=== PATIENT | female | born 1985 | race Caucasian/White ===

== ENCOUNTER 2016-09-22 07:17 | Emergency (ER) | payer OTHER ==
[2016-09-22 07:17] VITALS: BMI 21.6
[2016-09-22 08:00] VITALS: RESP 18; TEMP 98.1; O2SAT 100
[2016-09-22] MEDS ORDERED: Sodium Chloride 0.9% 1,000 ML IV STA ×3 (08:10→10:27)
--- NOTE | 2016-09-22 08:13 | ED PDOC ---
Arrival/HPI - General Chief Complaint: Back Pain Time Seen by Provider: 09/22/16 07:57 Historian: Patient - History of Present Illness Narrative History of Present Illness (Text): 09/22/16 08:12 31 year old female with a past medical history that includes diabetes presents to the emergency department with left flank pain radiating to the back for the past few days. Patient also reports vomiting and increased urinary frequency. Patient reports her blood sugar was 75. Denies diarrhea, vaginal bleeding or discharge, dysuria, or other symptoms. She also reports dry cough for a few weeks. Patient states this feels different from when she had a kidney infection. PMD: Dr. Epstein Time/Duration: < week Symptom Onset: Gradual Symptom Course: Unchanged Modifying Factors (Text): None Associated Symptoms (Text): None Past Medical History - Provider Review Nursing Documentation Reviewed: Yes - Infectious Disease Hx of Infectious Diseases: None - Tetanus Immunization Tetanus Immunization: Unknown - Cardiac Hx Cardiac Disorders: Yes (heart murmur) Other/Comment: post sx last summer heart rate rapid pt . wore a halter monitor for 14 days. Hx of rapid heart rate - Pulmonary Hx Respiratory Disorders: No - Neurological Hx Neurological Disorder: Yes Hx Dizziness: Yes (SYNCOPE 02-19-16) - HEENT Hx HEENT Disorder: No - Renal Hx Renal Disorder: No - Endocrine/Metabolic Hx Endocrine Disorders: Yes Hx Diabetes Mellitus Type 1: Yes (dx age 20) Other/Comment: DKA 02-19-16 - Hematological/Oncological Hx Blood Disorders: No - Integumentary Hx Dermatological Disorder: Yes (RIGHT BREAST SCAR FROM EXCISION OF CYST.) Other/Comment: 2 small surgical scars from sx scar to bikini line - Musculoskeletal/Rheumatological Hx Falls: No - Gastrointestinal Hx Gastrointestinal Disorders: No - Genitourinary/Gynecological Hx Genitourinary Disorders: No - Psychiatric Hx Psychophysiologic Disorder: No Hx Substance Use: No - Past Surgical History Past Surgical History: Non-Contributing - Surgical History Other/Comment: cyst removed from right breast and posterior right ear benign, c section 2010, right ovary and right fallopian tube december 2014 - Anesthesia Hx Anesthesia: Yes Hx Anesthesia Reactions: No Hx Malignant Hyperthermia: No - Suicidal Assessment Feels Threatened In Home Enviroment: No Family/Social History - Physician Review Nursing Documentation Reviewed: Yes Family/Social History: Unknown Family HX Smoking Status: Never Smoked Hx Alcohol Use: No Hx Substance Use: No Hx Substance Use Treatment: No Allergies/Home Meds Allergies/Adverse Reactions: Allergies No Known Allergies Allergy (Verified 09/22/16 07:28) Review of Systems - Physician Review All systems were reviewed & negative as marked: Yes - Review of Systems Respiratory: Cough (dry cough x few weeks) Gastrointestinal: Vomiting. absent: Diarrhea Genitourinary Female: Frequency. absent: Dysuria, Vaginal Bleeding, Vaginal Discharge Musculoskeletal: Back Pain (left flank radiating to back) Physical Exam Vital Signs Reviewed: Yes Vital Signs Temp Pulse Resp BP Pulse Ox 09/22/16 10:13 111 H 18 129/83 100 09/22/16 09:17 109 H 18 129/83 100 09/22/16 07:23 98.1 F 125 H 18 125/83 100 Temperature: Afebrile Blood Pressure: Normal Pulse: Tachycardic Respiratory Rate: Normal Appearance: Positive for: Well-Appearing, Non-Toxic, Comfortable Pain Distress: None Mental Status: Positive for: Alert and Oriented X 3 Finger Stick Blood Glucose: 75 - Systems Exam Head: Present: Atraumatic, Normocephalic Pupils: Present: PERRL Extroacular Muscles: Present: EOMI Conjunctiva: Present: Normal Mouth: Present: Moist Mucous Membranes Neck: Present: Normal Range of Motion Respiratory/Chest: Present: Clear to Auscultation, Good Air Exchange. No: Respiratory Distress, Accessory Muscle Use Cardiovascular: Present: Regular Rate and Rhythm, Normal S1, S2. No: Murmurs Abdomen: Present: Normal Bowel Sounds. No: Tenderness, Distention, Peritoneal Signs Back: Present: Normal Inspection Upper Extremity: Present: Normal Inspection. No: Cyanosis, Edema Lower Extremity: Present: Normal Inspection. No: Edema Neurological: Present: GCS=15, CN II-XII Intact, Speech Normal Skin: Present: Warm, Dry, Normal Color. No: Rashes Psychiatric: Present: Alert, Oriented x 3, Normal Insight, Normal Concentration Medical Decision Making ED Course and Treatment: Impression: 31 year old female with a past medical history that includes diabetes presents with left flank pain radiating to the back for the past few days. Differential Diagnosis included but are not limited to: Kidney stone vs UTI Plan: -- EKG, US abdomen -- Toradol, Zofran, IV fluids -- Labs -- Reassess and disposition Prior Visits: Notes and results from previous visits were reviewed. Patient was last seen in the emergency department on 02/19/16 for syncopal episode and admitted for DKA, syncope. Progress Notes: EKG shows sinus tachycardia at 117 BPM, no ST segment elevations, normal axis, normal intervals. 09/22/16 - Prior to discharge HR improved. Patient felt much better. Abdomen soft and not tender. Not distended. US negative. UA negative. Will have patient follow up with her primary care doctor this week. Advised to return to the ED if symptoms worsen or any other concern. - Lab Interpretations Lab Results: 09/22/16 08:41 09/22/16 08:41 Lab Results 09/22/16 08:41: WBC 8.1 D, RBC 4.84, Hgb 14.0, Hct 40.8, MCV 84.3, MCH 28.9, MCHC 34.3, RDW 11.8, Plt Count 313, MPV 9.5, Gran % 67.8, Lymph % (Auto) 20.0 L , [place] % (Auto) 10.4 H, Eos % (Auto) 1.4 L, Baso % (Auto) 0.4, Gran # 5.46, Lymph # 1.6, [place] # 0.8 H, Eos # 0.1, Baso # 0.03, Sodium 137, Potassium 3.4 L, Chloride 96 L, Carbon Dioxide 27, Anion Gap 17, BUN 16, Creatinine 0.6, Est GFR ( Amer) > 60, Est GFR (Non-Af Amer) > 60, Random Glucose 91, Calcium 9.5 , Total Bilirubin 0.7, AST 22, ALT 18, Alkaline Phosphatase 68, Total Protein 8.6 H, Albumin 4.4, Globulin 4.2, Albumin/Globulin Ratio 1.0 L, Amylase 57, Lipase 33, Urine Color Yellow, Urine Appearance Clear, Urine pH 6.0, Ur Specific [place] 1.010, Urine Protein Trace H, Urine Glucose (UA) >=1000, Urine Ketones Negative, Urine Blood Negative, Urine Nitrate Negative, Urine Bilirubin Negative, Urine Urobilinogen 0.2, Ur Leukocyte Esterase Negative, Urine RBC Negative, Urine WBC 0 - 2, Ur Epithelial Cells 6 - 8 09/22/16 07:35: POC Glucose (mg/dL) 75 I have reviewed the lab results: Yes Interpretation: All labs normal - RAD Interpretation Radiology Orders: 09/22/16 08:10 ABDOMEN COMPLETE [US] Stat - EKG Interpretation Interpreted by ED Physician: Yes Type: 12 lead EKG - Medication Orders Current Medication Orders: Discontinued Medications Sodium Chloride (Sodium Chloride 0.9%) 1,000 mls @ 1,000 mls/hr IV .Q1H STA Stop: 09/22/16 09:09 Last Admin: 09/22/16 09:59 Dose: 1,000 MLS/HR eMAR Start Stop Document 09/22/16 09:59 JOL (Rec: 09/22/16 09:59 [facility] [id number]) Intravenous Solution Start Date 09/22/16 Start Time 09:59 End Date 09/22/16 End time 10:59 Total Infusion Time 60 Sodium Chloride (Sodium Chloride 0.9%) 1,000 mls @ 999 mls/hr IV .Q1H1M STA Stop: 09/22/16 09:11 Last Admin: 09/22/16 08:29 Dose: 999 MLS/HR eMAR Start Stop Document 09/22/16 08:29 JOL (Rec: 09/22/16 08:29 [facility] [id number]) Intravenous Solution Start Date 09/22/16 Start Time 08:29 End Date 09/22/16 End time 09:29 Total Infusion Time 60 Sodium Chloride (Sodium Chloride 0.9%) 1,000 mls @ 999 mls/hr IV .Q1H1M STA Stop: 09/22/16 11:27 Last Admin: 09/22/16 11:13 Dose: 999 MLS/HR eMAR Start Stop Document 09/22/16 11:13 JOL (Rec: 09/22/16 11:14 [facility] [id number]) Intravenous Solution Start Date 09/22/16 Start Time 11:14 End Date 09/22/16 End time 12:14 Total Infusion Time 60 Ketorolac Tromethamine (Toradol) 30 mg IVP STAT STA Stop: 09/22/16 08:11 Last Admin: 09/22/16 08:29 Dose: 30 MG IVP Administration Document 09/22/16 08:29 JOL (Rec: 09/22/16 08:29 [facility] [id number]) Charges for Administration # of IVP Administrations 1 Ondansetron HCl (Zofran Inj) 4 mg IVP STAT STA Stop: 09/22/16 08:11 Last Admin: 09/22/16 08:29 Dose: 4 MG IVP Administration Document 09/22/16 08:29 THOM (Rec: 09/22/16 08:29 [place] [facility] [id number] Charges for Administration # of IVP Administrations 1 Potassium Chloride (K-Dur 20 Meq Er Tab) 40 meq PO STAT STA Stop: 09/22/16 09:04 Last Admin: 09/22/16 09:43 Dose: 40 MEQ - Scribe Statement The provider has reviewed the documentation as recorded by the Doyle Wilson Provider Scribe Attestation: All medical record entries made by the Scribe were at my direction and personally dictated by me. I have reviewed the chart and agree that the record accurately reflects my personal performance of the history, physical exam, medical decision making, and the department course for this patient. I have also personally directed, reviewed, and agree with the discharge instructions and disposition. Disposition/Present on Arrival - Present on Arrival Any Indicators Present on Arrival: Yes History of DVT/PE: No History of Uncontrolled Diabetes: Yes Urinary Catheter: No History of Decub. Ulcer: No History Surgical Site Infection Following: None - Disposition Have Diagnosis and Disposition been Completed?: Yes Diagnosis: Abdominal pain Disposition: HOME/ ROUTINE Disposition Time: 12:11 Patient Plan: Discharge Patient Problems: Current Active Problems Problem Status Diagnosed DVT prophylaxis Acute Diabetes type 1, uncontrolled Acute Gastroparesis Acute Condition: IMPROVED Discharge Instructions (ExitCare): Diabetic Gastroparesis (DC), Abdominal Pain (ED) Additional Instructions: Ms Leal, thank you for letting us take care of you today. Your provider was Dr. Stanley. You were treated for Abdominal Pain. The emergency medical care you received today was directed at your acute symptoms. If you were prescribed any medication, please fill it and take as directed. It may take several days for your symptoms to resolve. Return to the Emergency Department if your symptoms worsen, do not improve, or if you have any other problems. Please contact your doctor or call one of the physicians/clinics you have been referred to that are listed on the Patient Visit Information form that is included in your discharge packet. Bring any paperwork you were given at discharge with you along with any medications you are taking to your follow up visit. Our treatment cannot replace ongoing medical care by a primary care provider (PCP) outside of the emergency department. Thank you for allowing the [facility] team to be part of your care today. If you had an X-Ray or CT scan: A Radiologist will review the ED reading if any change in treatment is needed we will contact you. If you had a blood, urine, or wound culture: It will take several days for the results, if any change in treatment is needed we will contact you. If you had an STI test: It will take 48 hours for the results. Please call after 1 week if you have not heard back. Prescriptions: Ranitidine HCl [Zantac] 150 mg PO BID PRN #30 tablet PRN Reason: Pain, Mild (1-3) Referrals: Rani Reed DO [[facility]] - Follow up with primary Forms: WORK NOTE
[2016-09-22 08:43] LABS: ADD MANUAL DIFF? NO
[2016-09-22 08:55] LABS: ALKALINE PHOSPHATASE 68 U/L (38-133); ALT/SGPT 18 U/L (7-56); AMYLASE 57 U/L (35-125); AST/SGOT 22 U/L (15-39); BILIRUBIN,TOTAL 0.7 mg/dL (0.2-1.3); BLOOD UREA NITROGEN 16 mg/dL (7-21); CALCIUM 9.5 mg/dL (8.4-10.5); CARBON DIOXIDE 27 mmol/L (21-33); CHLORIDE 96 mmol/L (98-107); GFR AFRICAN-AMERICAN > 60; GLUCOSE,RANDOM 91 mg/dL (70-110); LIPASE 33 U/L (23-300); POTASSIUM 3.4 mmol/L (3.6-5.0); SODIUM 137 mmol/L (132-148); TOTAL PROTEIN 8.6 g/dL (5.8-8.3)
[2016-09-22] MEDS ORDERED: Potassium Chloride 20 mEq ER Tab PO STA (09:03)
[2016-09-22 09:22] LABS: BASO # 0.03 K/mm3 (0.0-2.0); BASO % 0.4 % (0.0-3.0); EOS # 0.1 (0.0-0.7); EOS % 1.4 % (1.5-5.0); GRAN # 5.46 (1.4-6.5); GRAN % 67.8 % (50.0-68.0); HEMATOCRIT 40.8 % (36.0-48.0); LYMPH # 1.6 (1.2-3.4); MEAN CELL VOLUME 84.3 fL (80.0-105.0); MEAN CORPUSCULAR HEMOGLOBIN 28.9 pg (25.0-35.0); MEAN CORPUSCULAR HGB CONC 34.3 g/dl (31.0-37.0); MEAN PLATELET VOLUME 9.5 fl (7.0-11.0); MONO # 0.8 (0.1-0.6); MONO % 10.4 % (1.0-6.0); PLATELET COUNT 313 10^3/uL (120.0-450.0); RED CELL DISTRIBUTION WIDTH 11.8 % (11.5-14.5); URINE BILIRUBIN NEGATIVE (NEGATIVE); URINE BLOOD NEGATIVE (NEGATIVE); URINE GLUCOSE (UA) >=1000 mg/dL (NEGATIVE); URINE KETONE NEGATIVE (NEGATIVE); URINE LEUKOCYTE ESTERASE NEGATIVE Leu/uL (NEGATIVE); URINE PROTEIN TRACE mg/dL (<30 mg/dL); URINE UROBILINOGEN 0.2 E.U./dL (<1 E.U./dL); WHITE BLOOD COUNT 8.1 10^3/ul (4.5-11.0)
[2016-09-22 09:26] LABS: URINE APPEARANCE CLEAR (CLEAR); URINE COLOR YELLOW (YELLOW)
[2016-09-22 09:38] LABS: URINE RBC NEGATIVE /hpf (0-2)
[2016-09-22 09:39] LABS: URINE WBC 0 - 2 /hpf (0-6)
[2016-09-22 10:08] VITALS: BP 129/83
[2016-09-22 10:14] VITALS: PULSE 111
--- NOTE | 2016-09-22 11:44 | US ---
HISTORY: left flank pain r/o kidney stone COMPARISON: None. TECHNIQUE: Grayscale imaging was performed. FINDINGS: LIVER: Measures 13.8 cm. Normal echogenicity of the liver parenchyma. No mass. No intrahepatic bile duct dilatation. GALLBLADDER: Unremarkable. No gallstones. COMMON BILE DUCT: Measures 4.0 mm. No stones. No dilatation. PANCREAS: Unremarkable as visualized. No mass. No ductal dilatation. RIGHT KIDNEY: Measures 12.1cm. Normal echogenicity. No calculus, mass, or hydronephrosis. LEFT KIDNEY: Measures 11.2cm. Normal echogenicity. No calculus, mass, or hydronephrosis. SPLEEN: Normal in size and contour. No mass. AORTA: No aneurysmal dilatation. IVC: Unremarkable. OTHER FINDINGS: None. IMPRESSION: No nephrolithiasis or hydronephrosis.
--- NOTE | 2016-09-22 18:26 | CARD ---
APPROVED REPORT EKG Measurement Heart [id number] <Conclusion> Sinus tachycardia Otherwise normal ECG
== END 2016-09-22 12:12 | disposition home or self-care (01) ==
LOC: ED 07:17
DX: R10.9 Unspecified abdominal pain (principal)
CPT/HCPCS: 76700; 80053; 81001; 82150; 82948; 83690; 85025; 87086; 93005; 96361; 96374; 96375; 99283; J1885; J2405; J7040

== ENCOUNTER 2016-11-24 19:23 | Emergency (ER) | payer SELFPAY ==
[2016-11-24 19:36] VITALS: RESP 18; TEMP 98.4
[2016-11-24 19:37] VITALS: BMI 24.6
[2016-11-24] MEDS ORDERED: TDAP Vaccine 0.5 mL Syr IM ONE (19:53)
--- NOTE | 2016-11-24 20:04 | ED PDOC ---
Arrival/HPI - General Time Seen by Provider: 11/24/16 19:48 Historian: Patient - History of Present Illness Narrative History of Present Illness (Text): 11/24/16 19:59 31yo female with history of Diabetes present to ED for evaluation of wounds and b/l hand/wrist pain. states she tripped over a metal basement door 3days ago and fell. She noted that she sustained abrasion to her b/l hands and left knee. states the left knee wound is healing well, but she has been having purulent discharge and blood from her hand wound. Notes that she keeps the wound covered. She did not take any medication for her pain. Denies fever, chills, LOC , focal weakness, any other complaint. Past Medical History - Provider Review Nursing Documentation Reviewed: Yes - Infectious Disease Hx of Infectious Diseases: None - Tetanus Immunization Tetanus Immunization: Unknown - Cardiac Hx Cardiac Disorders: Yes (heart murmur) Other/Comment: post sx last summer heart rate rapid pt . wore a halter monitor for 14 days. Hx of rapid heart rate - Pulmonary Hx Respiratory Disorders: No - Neurological Hx Neurological Disorder: Yes Hx Dizziness: Yes (SYNCOPE 02-19-16) - HEENT Hx HEENT Disorder: No - Renal Hx Renal Disorder: No - Endocrine/Metabolic Hx Endocrine Disorders: Yes Hx Diabetes Mellitus Type 1: Yes (dx age 20) Other/Comment: DKA 02-19-16 - Hematological/Oncological Hx Blood Disorders: No - Integumentary Hx Dermatological Disorder: Yes (RIGHT BREAST SCAR FROM EXCISION OF CYST.) Other/Comment: 2 small surgical scars from sx scar to bikini line - Musculoskeletal/Rheumatological Hx Falls: No - Gastrointestinal Hx Gastrointestinal Disorders: No - Genitourinary/Gynecological Hx Genitourinary Disorders: No - Psychiatric Hx Psychophysiologic Disorder: No Hx Substance Use: No - Past Surgical History Past Surgical History: Non-Contributing - Surgical History Other/Comment: cyst removed from right breast and posterior right ear benign, c section 2010, right ovary and right fallopian tube december 2014 - Anesthesia Hx Anesthesia: Yes Hx Anesthesia Reactions: No Hx Malignant Hyperthermia: No - Suicidal Assessment Feels Threatened In Home Enviroment: No Family/Social History - Physician Review Nursing Documentation Reviewed: Yes Family/Social History: Unknown Family HX Smoking Status: Never Smoked Hx Alcohol Use: No Hx Substance Use: No Hx Substance Use Treatment: No Allergies/Home Meds Allergies/Adverse Reactions: Allergies No Known Allergies Allergy (Verified 09/22/16 07:28) Review of Systems - Physician Review All systems were reviewed & negative as marked: Yes - Review of Systems Constitutional: Normal Eyes: Normal ENT: Normal Respiratory: Normal Cardiovascular: Normal Gastrointestinal: Normal Genitourinary Female: Normal Musculoskeletal: Arthralgias (B/l hands/wrist) Skin: Other (Abrasion to b/l hands and left knee) Neurological: Normal Endocrine: Normal Hemo/Lymphatic: Normal Psychiatric: Normal Physical Exam Vital Signs Reviewed: Yes Vital Signs Temp Pulse Resp BP Pulse Ox 11/24/16 19:35 98.4 F 103 H 18 133/85 100 Temperature: Afebrile Blood Pressure: Normal Pulse: Tachycardic Respiratory Rate: Normal Appearance: Positive for: Well-Appearing, Non-Toxic, Comfortable Pain Distress: None Mental Status: Positive for: Alert and Oriented X 3 - Systems Exam Head: Present: Atraumatic, Normocephalic Pupils: Present: PERRL Extroacular Muscles: Present: EOMI Conjunctiva: Present: Normal Mouth: Present: Moist Mucous Membranes Neck: Present: Normal Range of Motion Respiratory/Chest: Present: Clear to Auscultation, Good Air Exchange. No: Respiratory Distress, Accessory Muscle Use Cardiovascular: Present: Regular Rate and Rhythm, Normal S1, S2. No: Murmurs Abdomen: Present: Normal Bowel Sounds. No: Tenderness, Distention, Peritoneal Signs Back: Present: Normal Inspection Upper Extremity: Present: Normal ROM, NORMAL PULSES, Tenderness (right wrist and fingers), Swelling (Right 2 to 5th fingers), Neurovascularly Intact, Other ( Approximately 2cm circular abrasions noted on b/l wrist with purulent discharge on right hand wound. No erythema. No crepitus. No warmth to touch). No: Cyanosis, Edema, Erythema, Temperature Abnormalties, Deformity Lower Extremity: Present: Normal Inspection. No: Edema Neurological: Present: GCS=15, CN II-XII Intact, Speech Normal Skin: Present: Warm, Dry, Normal Color, Abrasion (Abrasion noted to b/l anaya hand with purulent discharge and healing abrasion noted on left knee). No: Rashes Psychiatric: Present: Alert, Oriented x 3, Normal Insight, Normal Concentration Medical Decision Making ED Course and Treatment: 11/24/16 20:45 B/L hand/wrist xray - Possible fracture of left 5th finger PIP noted Wound was cleansed with betadine, bacitracine applied and dressed. Finger splint placed. Pt advised to keep wound clean and dry. Placed on Keflex 500mg. TD booster given. Referred to her PMD. TRT ED for any new or worsening symptoms. - RAD Interpretation Radiology Orders: 11/24/16 19:52 HAND LEFT 3 VIEWS ROUTINE [RAD] Stat HAND RIGHT 3 VIEWS [RAD] Stat WRIST, LEFT 3 VIEWS [RAD] Stat WRIST, RIGHT 3 VIEWS [RAD] Stat - Medication Orders Current Medication Orders: Discontinued Medications Cephalexin Monohydrate (Keflex) 500 mg PO STAT STA PRN Reason: Protocol Stop: 11/24/16 19:54 Last Admin: 11/24/16 20:16 Dose: 500 mg Ibuprofen (Motrin Tab) 600 mg PO STAT STA Stop: 11/24/16 19:54 Last Admin: 11/24/16 20:16 Dose: 600 mg Tetanus/Reduced Diphtheria/Acell Pertussis (Boostrix Vaccine Inj) 0.5 ml IM .ONCE ONE Stop: 11/24/16 19:54 Last Admin: 11/24/16 20:16 Dose: 0.5 ml Disposition/Present on Arrival - Present on Arrival Any Indicators Present on Arrival: No History of DVT/PE: No History of Uncontrolled Diabetes: Yes Urinary Catheter: No History Surgical Site Infection Following: None - Disposition Have Diagnosis and Disposition been Completed?: Yes Diagnosis: Infected wound, Finger fracture, Wrist pain, Abrasion Disposition: HOME/ ROUTINE Disposition Time: 20:50 Patient Plan: Discharge Patient Problems: Current Active Problems Problem Status Onset Abrasion Acute Finger fracture Acute Infected wound Acute Wrist pain Acute Condition: STABLE Discharge Instructions (ExitCare): Wrist Injury (ED), Wound Infection (ED), Acute Wound Care (ED), Abrasion (ED) Additional Instructions: Follow up with your Doctor Return to ED for any new or worsening symptoms Keep wound clean and dry Prescriptions: Bacitracin OINT 1 applic TP BID #1 tube Cephalexin [Keflex] 500 mg PO QID #28 capsule traMADol [Ultram] 50 mg PO TID #9 tab Referrals: [facility] at [facility] [place] [Outside] - Follow up with primary
[2016-11-24 21:23] VITALS: BP 130/82; PULSE 90; O2SAT 99
--- NOTE | 2016-11-25 08:25 | RAD ---
PROCEDURE: Left Hand Radiographs. HISTORY: hand pain s/p trauma COMPARISON: None. FINDINGS: BONES: Normal. No fracture. JOINTS: Normal. No osteoarthritic changes. SOFT TISSUES: Normal. OTHER FINDINGS: None. IMPRESSION: Normal left hand radiographs.
--- NOTE | 2016-11-25 08:26 | RAD ---
PROCEDURE: Right Hand Radiographs. HISTORY: hand pain s/p trauma COMPARISON: None. FINDINGS: BONES: Normal. No fracture. JOINTS: Normal. No osteoarthritic changes. SOFT TISSUES: Normal. OTHER FINDINGS: None. IMPRESSION: Normal right hand radiographs.
--- NOTE | 2016-11-25 08:27 | RAD ---
PROCEDURE: Right Wrist Radiographs. HISTORY: wrist pain s/p trauma COMPARISON: None. FINDINGS: BONES: Normal. No fracture. JOINTS: Normal. No dislocation. SOFT TISSUES: Normal. OTHER FINDINGS: None. IMPRESSION: Normal right wrist radiographs.
--- NOTE | 2016-11-25 08:27 | RAD ---
PROCEDURE: Left Wrist Radiographs. HISTORY: wrist pain s/p trauma COMPARISON: None. FINDINGS: BONES: Normal. No fracture. JOINTS: Normal. No dislocation. SOFT TISSUES: Normal. OTHER FINDINGS: None. IMPRESSION: Normal left wrist radiographs.
== END 2016-11-24 21:22 | disposition home or self-care (01) ==
LOC: ED 19:23
DX: S62.609A Fracture of unspecified phalanx of unspecified finger, initial encounter for closed fracture (principal); S60.512A Abrasion of left hand, initial encounter; S60.511A Abrasion of right hand, initial encounter; S80.212A Abrasion, left knee, initial encounter; W01.0XXA Fall on same level from slipping, tripping and stumbling without subsequent striking against object, initial encounter; Z23 Encounter for immunization; M25.532 Pain in left wrist; M25.531 Pain in right wrist; B99.9 Unspecified infectious disease

== ENCOUNTER 2018-01-25 04:39 | Emergency (ER) | payer SELFPAY ==
[2018-01-25 04:53] VITALS: BMI 23.8
[2018-01-25 04:57] VITALS: TEMP 98.2
--- NOTE | 2018-01-25 05:02 | ED PDOC ---
Arrival/HPI - General Chief Complaint: Shortness Of Breath Time Seen by Provider: 01/25/18 04:57 Historian: Patient - History of Present Illness Narrative History of Present Illness (Text): 01/25/18 05:02 Nataly Maciel is a 32 year old female, whose past medical history includes IDDM, DKA, rhabdomyolysis, and ovarian torsion, who presents to the emergency department complaining of shortness of breath. Patient states she has been feeling short of breath since yesterday afternoon and notes she has been feeling anxious at times. Patient notes her blood sugar was high at 464 yesterday after eating. Fingerstick on arrival to emergency department was 363. Patient denies any fevers, chills, chest pain, abdominal pain, nausea, vomiting , diarrhea, back pain, neck pain, urinary symptoms, headache, dizziness, or any other complaint. Symptom Onset: Gradual Symptom Course: Unchanged Activities at Onset: Light Context: Home Past Medical History - Provider Review Nursing Documentation Reviewed: Yes - Infectious Disease Hx of Infectious Diseases: None - Tetanus Immunization Tetanus Immunization: Unknown - Cardiac Hx Cardiac Disorders: Yes (heart murmur) Other/Comment: post sx last summer heart rate rapid pt . wore a halter monitor for 14 days. Hx of rapid heart rate - Pulmonary Hx Respiratory Disorders: No - Neurological Hx Neurological Disorder: Yes Hx Dizziness: Yes (SYNCOPE 02-19-16) - HEENT Hx HEENT Disorder: No - Renal Hx Renal Disorder: No - Endocrine/Metabolic Hx Endocrine Disorders: Yes Hx Diabetes Mellitus Type 1: Yes (dx age 20) Other/Comment: DKA 02-19-16 - Hematological/Oncological Hx Blood Disorders: No - Integumentary Hx Dermatological Disorder: Yes (RIGHT BREAST SCAR FROM EXCISION OF CYST.) Other/Comment: 2 small surgical scars from sx scar to bikini line - Musculoskeletal/Rheumatological Hx Falls: No - Gastrointestinal Hx Gastrointestinal Disorders: No - Genitourinary/Gynecological Hx Genitourinary Disorders: No - Psychiatric Hx Psychophysiologic Disorder: No Hx Substance Use: No - Past Surgical History Past Surgical History: Non-Contributing - Surgical History Other/Comment: cyst removed from right breast and posterior right ear benign, c section 2010, right ovary and right fallopian tube december 2014 - Anesthesia Hx Anesthesia: Yes Hx Anesthesia Reactions: No Hx Malignant Hyperthermia: No - Suicidal Assessment Feels Threatened In Home Enviroment: No Family/Social History - Physician Review Nursing Documentation Reviewed: Yes Family/Social History: Unknown Family HX Smoking Status: Never Smoked Hx Alcohol Use: No Hx Substance Use: No Hx Substance Use Treatment: No Allergies/Home Meds Allergies/Adverse Reactions: Allergies No Known Allergies Allergy (Verified 09/22/16 07:28) Review of Systems - Physician Review All systems were reviewed & negative as marked: Yes - Review of Systems Constitutional: Normal. absent: Fevers Eyes: Normal ENT: Normal Respiratory: SOB Cardiovascular: Normal. absent: Chest Pain Gastrointestinal: Normal. absent: Abdominal Pain, Diarrhea, Nausea, Vomiting Genitourinary Female: Normal. absent: Dysuria, Frequency, Hematuria, Urine Output Changes Musculoskeletal: Normal. absent: Back Pain, Neck Pain Skin: Normal Neurological: Normal. absent: Headache, Dizziness Endocrine: Normal Hemo/Lymphatic: Normal Psychiatric: Normal Physical Exam Vital Signs Reviewed: Yes Vital Signs Temp Pulse Resp BP Pulse Ox 01/25/18 04:57 98.2 F 110 H 19 141/87 98 01/25/18 04:53 19 Temperature: Afebrile Blood Pressure: Normal Pulse: Regular Respiratory Rate: Normal Appearance: Positive for: Well-Appearing, Non-Toxic, Comfortable Pain Distress: None Mental Status: Positive for: Alert and Oriented X 3 - Systems Exam Head: Present: Atraumatic, Normocephalic Pupils: Present: PERRL Extroacular Muscles: Present: EOMI Conjunctiva: Present: Normal Mouth: Present: Moist Mucous Membranes Neck: Present: Normal Range of Motion. No: Meningeal Signs, MIDLINE TENDERNESS , Paraspinal Tenderness Respiratory/Chest: Present: Clear to Auscultation, Good Air Exchange. No: Respiratory Distress, Accessory Muscle Use Cardiovascular: Present: Regular Rate and Rhythm, Normal S1, S2. No: Murmurs Abdomen: No: Tenderness, Distention, Peritoneal Signs Back: Present: Normal Inspection. No: CVA Tenderness, Midline Tenderness, Paraspinal Tenderness Upper Extremity: Present: Normal Inspection. No: Cyanosis, Edema Lower Extremity: Present: Normal Inspection. No: Edema Neurological: Present: GCS=15, CN II-XII Intact, Speech Normal Skin: Present: Warm, Dry, Normal Color. No: Rashes Psychiatric: Present: Alert, Oriented x 3, Normal Insight, Normal Concentration Medical Decision Making ED Course and Treatment: 01/25/18 05:02 Impression: 32 year old female complaining of shortness of breath since yesterday. Plan: -- EKG -- CXR -- Labs, VBG -- IV fluids -- Reassess and disposition Prior Visits: Notes and results from previous visits were reviewed. Progress Notes: 01/25/18 05:50 CXR reviewed, shows no acute processes. 01/25/18 05:52 Reviewed EKG, sinus tachycardia at 100 bpm. No acute changes. - Lab Interpretations Lab Results: 01/25/18 05:33 01/25/18 05:33 Lab Results 01/25/18 05:33: D-Dimer, Quantitative 204 01/25/18 05:33: pO2 37, VBG pH 7.31 L, VBG pCO2 48.0, VBG HCO3 24.2, VBG Total CO2 25.7, VBG O2 Sat (Calc) 74.8 H, VBG Base Excess -2.5 L, VBG Potassium 4.2, Sodium 133.0, Chloride 100.0, Glucose 396 H, Lactate 0.8, FiO2 21.0, Venous Blood Potassium 4.2 01/25/18 05:33: PT 11.5, INR 1.00, APTT 28.7 01/25/18 05:33: WBC 8.1, RBC 4.43, Hgb 12.8, Hct 37.3, MCV 84.2, MCH 28.9, MCHC 34.3, RDW 12.0, Plt Count 298, MPV 9.7 01/25/18 05:33: Sodium 136, Chloride 99, Potassium 4.3, Carbon Dioxide 23, Anion Gap 17, BUN 10, Creatinine 0.5 L, Est GFR ( Amer) > 60, Est GFR ( Non-Af Amer) > 60, Random Glucose 376 H* D, Calcium 9.2, Total Bilirubin 0.8, AST 18, ALT 27, Alkaline Phosphatase 70, Total Protein 7.7, Albumin 4.3, Globulin 3.4, Albumin/Globulin Ratio 1.3 01/25/18 04:48: POC Glucose (mg/dL) 363 H I have reviewed the lab results: Yes - RAD Interpretation Radiology Orders: 01/25/18 05:03 CHEST PORTABLE [RAD] Stat Baking Assistant: ED Physician - EKG Interpretation Interpreted by ED Physician: Yes Type: 12 lead EKG - Medication Orders Current Medication Orders: Discontinued Medications Sodium Chloride (Sodium Chloride 0.9%) 1,000 mls @ 999 mls/hr IV .Q1H1M STA Stop: 01/25/18 06:04 Last Admin: 01/25/18 05:36 Dose: 999 mls/hr eMAR Start Stop Document 01/25/18 05:36 OCS (Rec: 01/25/18 05:37 OCS [id number]) Intravenous Solution Start Date 01/25/18 Start Time 05:37 End Date 01/25/18 End time 06:38 Total Infusion Time 61 Insulin Human Regular (Humulin R) 10 units SC STAT STA Stop: 01/25/18 06:20 Last Admin: 01/25/18 06:33 Dose: 10 units MAR Blood Glucose Document 01/25/18 06:33 OCS (Rec: 01/25/18 06:34 OCS [id number]) Blood Glucose Finger Stick Blood Glucose (70-120) 376 Subcutaneous Administrations Document 01/25/18 06:33 OCS (Rec: 01/25/18 06:34 OCS [id number]) Injection Site MAR Injection Site Right Arm Charges for Administration # of Subcutaneous Administrations 1 - Scribe Statement The provider has reviewed the documentation as recorded by the Doyle Newberry Provider Scribe Attestation: All medical record entries made by the Scribe were at my direction and personally dictated by me. I have reviewed the chart and agree that the record accurately reflects my personal performance of the history, physical exam, medical decision making, and the department course for this patient. I have also personally directed, reviewed, and agree with the discharge instructions and disposition. Disposition/Present on Arrival - Present on Arrival Any Indicators Present on Arrival: No History of DVT/PE: No History of Uncontrolled Diabetes: Yes Urinary Catheter: No History of Decub. Ulcer: No History Surgical Site Infection Following: None - Disposition Have Diagnosis and Disposition been Completed?: Yes Diagnosis: Anxiety, Diabetes mellitus Disposition: HOME/ ROUTINE Disposition Time: 06:46 Patient Plan: Discharge Condition: GOOD Additional Instructions: Rest/no strenuous physical activity next few days/maintain proper rest/monitor closely your blood sugars/follow up with your doctor this week Referrals: Rani Reed DO [Primary Care Provider] - Follow up with primary Forms: [employer] (Citizen Of [place])
[2018-01-25] MEDS ORDERED: Sodium Chloride 0.9% 1,000 ML IV STA (05:04)
[2018-01-25 05:49] LABS: VENOUS BLOOD GAS BASE EXCESS -2.5 mmol/L (0.0-2.0); VENOUS BLOOD GAS PO2 37 mm/Hg (30-55); VENOUS BLOOD PH 7.31 (7.32-7.43)
[2018-01-25 06:13] LABS: HEMOGLOBIN 12.8 g/dL (12.0-16.0); MEAN CELL VOLUME 84.2 fl (80.0-105.0); MEAN CORPUSCULAR HEMOGLOBIN 28.9 pg (25.0-35.0); MEAN CORPUSCULAR HGB CONC 34.3 g/dl (31.0-37.0); MEAN PLATELET VOLUME 9.7 fl (7.0-11.0); RBC 4.43 10^6/uL (3.5-6.1); WHITE BLOOD COUNT 8.1 10^3/ul (4.5-11.0)
[2018-01-25 06:18] LABS: ALB/GLOB RATIO 1.3 (1.1-1.8); ALBUMIN 4.3 g/dL (3.0-4.8); ALT/SGPT 27 U/L (7-56); AST/SGOT 18 U/L (14-36); BLOOD UREA NITROGEN 10 mg/dL (7-21); CALCIUM 9.2 mg/dL (8.4-10.5); GFR AFRICAN-AMERICAN > 60; GFR NON-AFRICAN AMERICAN > 60; PARTIAL THROMBOPLASTIN TIME 28.7 Seconds (25.1-36.5); PROTHROMBIN TIME 11.5 SECONDS (9.4-12.5)
[2018-01-25] MEDS ORDERED: Insulin Regular 1 UNITS/0.01 ML ML SC STA (06:19)
[2018-01-25 07:03] VITALS: BP 122/80; RESP 18
[2018-01-25 07:15] VITALS: PULSE 97; O2SAT 99
--- NOTE | 2018-01-25 11:00 | RAD ---
Date of service: 01/25/2018 HISTORY: Shortness of breath. COMPARISON: 02/19/2016. No significant interval change compared to the prior examination(s). FINDINGS: LUNGS: No active pulmonary disease. PLEURA: No significant pleural effusion identified, no pneumothorax apparent. CARDIOVASCULAR: Normal. OSSEOUS STRUCTURES: No significant abnormalities. VISUALIZED UPPER ABDOMEN: Normal. OTHER FINDINGS: None. IMPRESSION: No active disease. No significant interval change compared to the prior examination(s).
--- NOTE | 2018-01-25 12:51 | CARD ---
APPROVED REPORT Date of service: 01/25/2018 EKG Measurement Heart [id number] <Conclusion> Sinus tachycardia Otherwise normal ECG
== END 2018-01-25 07:15 | disposition home or self-care (01) ==
LOC: ED 04:39
DX: F41.9 Anxiety disorder, unspecified (principal); E10.9 Type 1 diabetes mellitus without complications; Z79.4 Long term (current) use of insulin
CPT/HCPCS: 71045; 80053; 82803; 82948; 85027; 85378; 85610; 85730; 93005; 96360; 96372; 99284; J7030

== ENCOUNTER 2018-05-29 06:43 | Inpatient (IN) | payer MEDICAID, OTHER ==
[2018-05-29 06:50] VITALS: BMI 21.2
[2018-05-29] MEDS ORDERED: Sodium Chloride 0.9% 1,000 ML IV STA ×2 (07:11→07:57)
[2018-05-29 07:33] LABS: BASO # 0.04 K/mm3 (0.0-2.0); BASO % 0.2 % (0.0-3.0); EOS % 0.1 % (1.5-5.0); GRAN # 13.69 (1.4-6.5); GRAN % 85.5 % (50.0-68.0); HEMOGLOBIN 14.8 g/dL (12.0-16.0); LYMPH # 1.7 (1.2-3.4); LYMPH % 10.5 % (22.0-35.0); MEAN CELL VOLUME 89.8 fl (80.0-105.0); MEAN CORPUSCULAR HEMOGLOBIN 29.7 pg (25.0-35.0); MEAN CORPUSCULAR HGB CONC 33.1 g/dl (31.0-37.0); MEAN PLATELET VOLUME 10.2 fl (7.0-11.0); MONO # 0.6 (0.1-0.6); MONO % 3.7 % (1.0-6.0); RBC 4.98 10^6/uL (3.5-6.1); RED CELL DISTRIBUTION WIDTH 12.5 % (11.5-14.5)
[2018-05-29 07:35] LABS: VENOUS BLOOD GAS BASE EXCESS -25.1 mmol/L (0.0-2.0); VENOUS BLOOD GAS PO2 73 mm/Hg (30-55)
[2018-05-29 07:37] LABS: VENOUS BLOOD PH 6.97 (7.32-7.43)
[2018-05-29 07:54] LABS: ALB/GLOB RATIO 1.4 (1.1-1.8); ALBUMIN 4.9 g/dL (3.0-4.8); ALT/SGPT 29 U/L (7-56); AST/SGOT 20 U/L (14-36); BLOOD UREA NITROGEN 14 mg/dL (7-21); CALCIUM 9.6 mg/dL (8.4-10.5); GFR NON-AFRICAN AMERICAN > 60; LIPASE 74 U/L (23-300)
[2018-05-29] MEDS ORDERED: Insulin Regular 100 UNITS in Sodium Chloride 0.9% 99 ML IV PRN (07:57)
[2018-05-29] MEDS ORDERED: Sodium Bicarbonate (8.4%) 50 Meq Syringe IVP ONE (07:57)
--- NOTE | 2018-05-29 08:47 | ED PDOC ---
Arrival/HPI - General Chief Complaint: Shortness Of Breath Historian: Patient - Critical Care Critical Care Minutes: 60 minutes - History of Present Illness Narrative History of Present Illness (Text): 05/29/18 07:35 33 year old female, whose past medical history includes insulin dependent diabetes, DKA, rhabdomyolysis, and ovarian torsion, who presents to the Emergency department complaining of abdominal pain, palpitations, nausea/vomiting since about 1 hour prior to arrival. Patient reports she has vomited 4 times since onset. Patient states she has not taken insulin for a couple of months since she does not have insurance, although has applied for [facility], and cannot afford to buy the Insulin as it is too expensive. Patient notes dysuria and chills. Patient denies diarrhea or any other complaint . Last visit to PMD was a few months ago. PMD: Dr. Reed Time/Duration: 1 hour (Patient notes onset approximately 1 hour prior to arrival) Symptom Onset: Sudden Symptom Course: Unchanged Activities at Onset: Light Past Medical History - Provider Review Nursing Documentation Reviewed: Yes - Infectious Disease Hx of Infectious Diseases: None - Tetanus Immunization Tetanus Immunization: Unknown - Cardiac Hx Cardiac Disorders: Yes (heart murmur) Other/Comment: post sx last summer heart rate rapid pt . wore a halter monitor for 14 days. Hx of rapid heart rate - Pulmonary Hx Respiratory Disorders: No - Neurological Hx Neurological Disorder: Yes Hx Dizziness: Yes (SYNCOPE 02-19-16) - HEENT Hx HEENT Disorder: No - Renal Hx Renal Disorder: No - Endocrine/Metabolic Hx Endocrine Disorders: Yes Hx Diabetes Mellitus Type 1: Yes (dx age 20) Other/Comment: DKA 02-19-16 - Hematological/Oncological Hx Blood Disorders: No - Integumentary Hx Dermatological Disorder: Yes (RIGHT BREAST SCAR FROM EXCISION OF CYST.) Other/Comment: 2 small surgical scars from sx scar to bikini line - Musculoskeletal/Rheumatological Hx Falls: No - Gastrointestinal Hx Gastrointestinal Disorders: No - Genitourinary/Gynecological Hx Genitourinary Disorders: No - Psychiatric Hx Psychophysiologic Disorder: No Hx Substance Use: No - Past Surgical History Past Surgical History: Non-Contributing - Surgical History Hx Section: Yes Other/Comment: cyst removed from right breast and posterior right ear benign, c section 2010, right ovary and right fallopian tube december 2014 - Anesthesia Hx Anesthesia: Yes Hx Anesthesia Reactions: No Hx Malignant Hyperthermia: No - Suicidal Assessment Feels Threatened In Home Enviroment: No Family/Social History - Physician Review Nursing Documentation Reviewed: Yes Family/Social History: No Known Family HX Smoking Status: Never Smoked Hx Alcohol Use: No Hx Substance Use: No Hx Substance Use Treatment: No Allergies/Home Meds Allergies/Adverse Reactions: Allergies No Known Allergies Allergy (Verified 09/22/16 07:28) Review of Systems - Physician Review All systems were reviewed & negative as marked: Yes - Review of Systems Constitutional: Other (patient notes chills). absent: Normal, Fevers (pt denies fevers) Cardiovascular: Palpitations. absent: Normal Gastrointestinal: Abdominal Pain (pt notes abdominal pain), Nausea (pt notes nausea), Vomiting. absent: Normal, Diarrhea (Patient denies diarrhea) Genitourinary Female: Dysuria (patient notes dysuria ). absent: Normal Physical Exam Vital Signs Reviewed: Yes Vital Signs Temp Pulse Resp BP Pulse Ox 05/29/18 07:55 123 H 20 113/52 L 98 05/29/18 06:44 97.7 F 117 H 18 114/64 98 Temperature: Afebrile Blood Pressure: Normal Pulse: Tachycardic Respiratory Rate: Normal Appearance: Positive for: Well-Appearing, Non-Toxic, Comfortable Pain Distress: Mild Mental Status: Positive for: Alert and Oriented X 3 Finger Stick Blood Glucose: 413 - Systems Exam Head: Present: Atraumatic, Normocephalic Pupils: Present: PERRL Extroacular Muscles: Present: EOMI Conjunctiva: Present: Normal Neck: Present: Normal Range of Motion Respiratory/Chest: Present: Clear to Auscultation, Good Air Exchange. No: Respiratory Distress, Accessory Muscle Use Cardiovascular: Present: Regular Rate and Rhythm, Normal S1, S2. No: Murmurs Abdomen: Present: Tenderness (epigastric tenderness noted) Back: Present: Normal Inspection Upper Extremity: Present: Normal Inspection. No: Cyanosis, Edema Lower Extremity: Present: Normal Inspection. No: Edema Neurological: Present: GCS=15, CN II-XII Intact, Speech Normal Skin: Present: Warm, Dry, Normal Color. No: Rashes Psychiatric: Present: Alert, Oriented x 3, Normal Insight, Normal Concentration Medical Decision Making ED Course and Treatment: 05/29/18 07:35 Impression: 33 year old female who presents to the Emergency department complaining of abdominal pain, palpitations, nausea/vomiting since about 1 hour prior to arrival. Plan: -- Labs -- EKG -- CBC (with differential) -- X-Ray of chest -- Insulin free bioactive -- IV fluids -- Pepcid 20mg IVP -- Protonix Inj 40mg IVP -- Sodium Bicarbonate 50 meq IVP once -- Zofran 4mg IVP -- Urine culture -- POC Urine test -- Urinalysis -- Reassess and disposition Prior Visits: Notes and results from previous visits were reviewed. Patient was last seen in the emergency department on 01/25/18 complaining of shortness of breath. Patient was discharged home with diagnosis of anxiety and diabetes mellitus, given instructions for care and directed to follow up with PMD that week. Progress Notes: 05/29/18 07:57 Case discussed with chiropractic doctor, who has accepted patient to ICU 05/29/18 08:[address] Gaines on case, who said to admit patient to hospitalist 05/29/18 08:[address] Dueñas - Lab Interpretations Lab Results: 05/29/18 07:00 05/29/18 07:00 Lab Results 05/29/18 07:00: Sodium 138, Chloride 106, Potassium 5.2 H, Carbon Dioxide 5 L D, Anion Gap 32 H, BUN 14, Creatinine 0.8, Est GFR ( Amer) > 60, Est GFR (Non-Af Amer) > 60, Random Glucose 524 H* D, Calcium 9.6, Magnesium 2.2, Total Bilirubin 0.5, AST 20, ALT 29, Alkaline Phosphatase 103, Total Protein 8.3, Albumin 4.9 H, Globulin 3.5, Albumin/Globulin Ratio 1.4, Lipase 74, B- Hydroxybutyrate Pending 05/29/18 07:00: pO2 73 H, VBG pH 6.97 L*, VBG pCO2 24.0 L, VBG HCO3 5.5 L, VBG Total CO2 6.2 L, VBG O2 Sat (Calc) 94.3 H, VBG Base Excess -25.1 L, VBG Potassium 4.8, Sodium 135.0, Chloride 100.0, Glucose 564 H* D, Lactate 2.1, FiO2 21.0, Venous Blood Potassium 4.8 05/29/18 07:00: WBC 16.0 H, RBC 4.98, Hgb 14.8 D, Hct 44.7, MCV 89.8 D, MCH 29.7, MCHC 33.1, RDW 12.5, Plt Count 401, MPV 10.2, Gran % 85.5 H, Lymph % (Auto) 10.5 L, [place] % (Auto) 3.7, Eos % (Auto) 0.1 L, Baso % (Auto) 0.2, Gran # 13.69 H, Lymph # (Auto) 1.7, [place] # (Auto) 0.6, Eos # (Auto) 0.0, Baso # (Auto) 0.04 05/29/18 06:51: POC Glucose (mg/dL) 413 H* - RAD Interpretation Narrative RAD Interpretations (Text): X-Ray of chest reviewed by radiologist, shows: Dictator : Cristofer Mattson MD Report Date : 05/29/2018 09:23:27 FINDINGS: LUNGS: No active pulmonary disease. PLEURA: No significant pleural effusion identified, no pneumothorax apparent. CARDIOVASCULAR: No aortic atherosclerotic calcification present. Normal cardiac size. No pulmonary vascular congestion. OSSEOUS STRUCTURES: No significant abnormalities. VISUALIZED UPPER ABDOMEN: Normal. OTHER FINDINGS: None. IMPRESSION: No active disease. Radiology Orders: 05/29/18 07:12 CXR [CHEST PORTABLE] [RAD] Stat Security Patrol Officer: Radiologist - EKG Interpretation EKG Interpretation (Text): 05/29/18 EKG: Ordered, reviewed, and independently interpreted the EKG. Rate : 118 BPM Rhythm : Sinus Tachycardia Interpretation : No ST-segment elevations or depressions, no T-wave inversions, normal intervals. Interpreted by ED Physician: Yes Type: 12 lead EKG - Medication Orders Current Medication Orders: Insulin Human Regular 100 (units/ Sodium Chloride) 100 mls @ 3 mls/hr IV .Q24H PRN; Protocol PRN Reason: TITRATE PER MD ORDER Sodium Chloride (Sodium Chloride 0.9%) 1,000 mls @ 999 mls/hr IV .Q1H1M STA Stop: 05/29/18 08:57 Last Admin: 05/29/18 08:00 Dose: 999 mls/hr eMAR Start Stop Document 05/29/18 08:00 SRE (Rec: 05/29/18 08:29 [id number] Intravenous Solution Start Date 05/29/18 Start Time 08:00 End Date 05/29/18 End time 09:00 Total Infusion Time 60 Potassium Chloride 20 meq/ (Sodium Chloride) 1,010 mls @ 250 mls/hr IV .Q4H3M [place] Ondansetron HCl (Zofran Inj) 4 mg IVP Q4H PRN PRN Reason: Nausea/Vomiting Pantoprazole Sodium (Protonix Inj) 40 mg IVP DAILY [place] Discontinued Medications Famotidine (Pepcid) 20 mg IVP STAT STA Stop: 05/29/18 07:13 Last Admin: 05/29/18 07:35 Dose: 20 mg IVP Administration Document 05/29/18 07:35 SRE (Rec: 05/29/18 07:35 [id number] Charges for Administration # of IVP Administrations 1 Sodium Chloride (Sodium Chloride 0.9%) 1,000 mls @ 1,000 mls/hr IV .Q1H STA Stop: 05/29/18 08:10 Last Admin: 05/29/18 07:32 Dose: 1,000 mls/hr eMAR Start Stop Document 05/29/18 07:32 SRE (Rec: 05/29/18 07:35 [id number]) Intravenous Solution Start Date 05/29/18 Start Time 07:15 End Date 05/29/18 End time 08:15 Total Infusion Time 60 Ondansetron HCl (Zofran Inj) 4 mg IVP STAT STA Stop: 05/29/18 07:12 Last Admin: 05/29/18 07:30 Dose: 4 mg IVP Administration Document 05/29/18 07:30 SRE (Rec: 05/29/18 07:35 [id number]) Charges for Administration # of IVP Administrations 1 Sodium Bicarbonate (Sodium Bicarbonate 8.4% (50 Meq) Syringe) 50 meq IVP ONCE ONE Stop: 05/29/18 07:58 Last Admin: 05/29/18 08:00 Dose: 50 meq IVP Administration Document 05/29/18 08:00 SRE (Rec: 05/29/18 08:27 [id number]) Charges for Administration # of IVP Administrations 1 - Scribe Statement The provider has reviewed the documentation as recorded by the Alexandraiblenny Latif All medical record entries made by the Scribe were at my direction and personally dictated by me. I have reviewed the chart and agree that the record accurately reflects my personal performance of the history, physical exam, medical decision making, and the department course for this patient. I have also personally directed, reviewed, and agree with the discharge instructions and disposition. Disposition/Present on Arrival - Present on Arrival Any Indicators Present on Arrival: Yes History of DVT/PE: No History of Uncontrolled Diabetes: Yes Urinary Catheter: No History of Decub. Ulcer: No History Surgical Site Infection Following: None - Disposition Have Diagnosis and Disposition been Completed?: Yes Diagnosis: DKA (diabetic ketoacidosis) Disposition: HOSPITALIZED Disposition Time: 07:40 Condition: SERIOUS
--- NOTE | 2018-05-29 08:51 | CP.CCUPN ---
CCU Subjective - Physician Review Events Since Last Encounter (Free Text): 05/29/18 08:48 33yo female pt with h\o diabetes presented with nausea and vomiting since last night. Pt stated she vomited multiple times non-bloody. Pt stated she ran out of insulin as she was not able to afford it. She had previous episodes of DKA when she ran out of insulin that presented the same. She stated vomiting was accompanied by abdominal pain and weakness. She denies any fever, chills, cough, burning on urination , diarrhea. CCU Objective - Vital Signs / Intake & Output Vital Signs (Last 4 hours): Vital Signs Temp Pulse Resp BP Pulse Ox 05/29/18 07:55 123 H 20 113/52 L 98 05/29/18 06:44 97.7 F 117 H 18 114/64 98 Intake and Output (Last 8hrs): Intake & Output 05/28/18 05/29/18 05/29/18 22:59 06:59 14:59 Weight 140 lb - Physical Exam Head: Positive for: Atraumatic, Normocephalic Pupils: Positive for: PERRL Conjunctiva: Positive for: Normal Mouth: Positive for: Dry Neck: Positive for: Normal Range of Motion Respiratory/Chest: Positive for: Clear to Auscultation, Good Air Exchange. Negative for: Respiratory Distress, Accessory Muscle Use Cardiovascular: Positive for: Regular Rate and Rhythm. Negative for: Murmurs Abdomen: Positive for: Tenderness. Negative for: Distention Upper Extremity: Positive for: Normal Inspection. Negative for: Edema Lower Extremity: Positive for: Normal Inspection. Negative for: Edema Neurological: Positive for: Speech Normal, Motor Func Grossly Intact Skin: Positive for: Warm, Dry. Negative for: Rashes Psychiatric: Positive for: Alert, Oriented x 3, Normal Insight - Medications Active Medications: Active Medications Generic Name Dose Route Start Last Admin Trade Name Freq PRN Reason Stop Dose Admin Insulin Human Regular 100 100 mls @ 3 mls/hr 05/29/18 07:57 units/ Sodium Chloride IV .Q24H PRN TITRATE PER MD ORDER Protocol 3 UNITS/HR Sodium Chloride 1,000 mls @ 999 mls/hr 05/29/18 07:57 05/29/18 08:00 Sodium Chloride 0.9% IV 05/29/18 08:57 999 mls/hr .Q1H1M STA Administration Potassium Chloride 20 meq/ 1,010 mls @ 250 mls/hr 05/29/18 08:57 Sodium Chloride IV .Q4H3M [facility] Ondansetron HCl 4 mg 05/29/18 08:27 Zofran Inj IVP Q4H PRN Nausea/Vomiting Pantoprazole Sodium 40 mg 05/29/18 10:00 Protonix Inj IVP DAILY [place] - Patient Studies Lab Studies: Lab Studies 05/29/18 05/29/18 05/29/18 Range/Units 07:00 07:00 07:00 WBC 16.0 H (4.5-11.0) 10^3/uL RBC 4.98 (3.5-6.1) 10^6/uL Hgb 14.8 D (12.0-16.0) g/dL Hct 44.7 (36.0-48.0) % MCV 89.8 D (80.0-105.0) fl MCH 29.7 (25.0-35.0) pg MCHC 33.1 (31.0-37.0) g/dl RDW 12.5 (11.5-14.5) % Plt Count 401 (120.0-450.0) 10^3/uL MPV 10.2 (7.0-11.0) fl Gran % 85.5 H (50.0-68.0) % Lymph % (Auto) 10.5 L (22.0-35.0) % Elliott % (Auto) 3.7 (1.0-6.0) % Eos % (Auto) 0.1 L (1.5-5.0) % Baso % (Auto) 0.2 (0.0-3.0) % Gran # 13.69 H (1.4-6.5) Lymph # (Auto) 1.7 (1.2-3.4) Elliott # (Auto) 0.6 (0.1-0.6) Eos # (Auto) 0.0 (0.0-0.7) Baso # (Auto) 0.04 (0.0-2.0) K/mm3 pO2 73 H (30-55) mm/Hg VBG pH 6.97 L* (7.32-7.43) VBG pCO2 24.0 L (40-60) VBG HCO3 5.5 L (21-28) mmol/l VBG Total CO2 6.2 L (22-28) mmol.L VBG O2 Sat (Calc) 94.3 H (40-65) % VBG Base Excess -25.1 L (0.0-2.0) mmol/L VBG Potassium 4.8 (3.6-5.2) mmol/L Sodium 138 135.0 (132-148) mmol/L Chloride 106 100.0 (98-107) mmol/L Glucose 564 H* D (65-105) mg/dl Lactate 2.1 (0.7-2.1) mmol/L FiO2 21.0 % Potassium 5.2 H (3.6-5.0) mmol/L Carbon Dioxide 5 L D (21-33) mmol/L Anion Gap 32 H (10-20) BUN 14 (7-21) mg/dL Creatinine 0.8 (0.7-1.2) mg/dl Est GFR ( Amer) > 60 Est GFR (Non-Af Amer) > 60 POC Glucose (mg/dL) (65-110) mg/dL Random Glucose 524 H* D (70-110) mg/dL Calcium 9.6 (8.4-10.5) mg/dL Magnesium 2.2 (1.7-2.2) mg/dL Total Bilirubin 0.5 (0.2-1.3) mg/dL AST 20 (14-36) U/L ALT 29 (7-56) U/L Alkaline Phosphatase 103 (38-126) U/L Total Protein 8.3 (5.8-8.3) g/dL Albumin 4.9 H (3.0-4.8) g/dL Globulin 3.5 gm/dL Albumin/Globulin Ratio 1.4 (1.1-1.8) Lipase 74 (23-300) U/L Venous Blood Potassium 4.8 (3.6-5.2) mmol/L 05/29/18 Range/Units 06:51 WBC (4.5-11.0) 10^3/uL RBC (3.5-6.1) 10^6/uL Hgb (12.0-16.0) g/dL Hct (36.0-48.0) % MCV (80.0-105.0) fl MCH (25.0-35.0) pg MCHC (31.0-37.0) g/dl RDW (11.5-14.5) % Plt Count (120.0-450.0) 10^3/uL MPV (7.0-11.0) fl Gran % (50.0-68.0) % Lymph % (Auto) (22.0-35.0) % Elliott % (Auto) (1.0-6.0) % Eos % (Auto) (1.5-5.0) % Baso % (Auto) (0.0-3.0) % Gran # (1.4-6.5) Lymph # (Auto) (1.2-3.4) Elliott # (Auto) (0.1-0.6) Eos # (Auto) (0.0-0.7) Baso # (Auto) (0.0-2.0) K/mm3 pO2 (30-55) mm/Hg VBG pH (7.32-7.43) VBG pCO2 (40-60) VBG HCO3 (21-28) mmol/l VBG Total CO2 (22-28) mmol.L VBG O2 Sat (Calc) (40-65) % VBG Base Excess (0.0-2.0) mmol/L VBG Potassium (3.6-5.2) mmol/L Sodium (132-148) mmol/L Chloride (98-107) mmol/L Glucose (65-105) mg/dl Lactate (0.7-2.1) mmol/L FiO2 % Potassium (3.6-5.0) mmol/L Carbon Dioxide (21-33) mmol/L Anion Gap (10-20) BUN (7-21) mg/dL Creatinine (0.7-1.2) mg/dl Est GFR ( Amer) Est GFR (Non-Af Amer) POC Glucose (mg/dL) 413 H* (65-110) mg/dL Random Glucose (70-110) mg/dL Calcium (8.4-10.5) mg/dL Magnesium (1.7-2.2) mg/dL Total Bilirubin (0.2-1.3) mg/dL AST (14-36) U/L ALT (7-56) U/L Alkaline Phosphatase (38-126) U/L Total Protein (5.8-8.3) g/dL Albumin (3.0-4.8) g/dL Globulin gm/dL Albumin/Globulin Ratio (1.1-1.8) Lipase (23-300) U/L Venous Blood Potassium (3.6-5.2) mmol/L Laboratory Results - last 24 hr 05/29/18 05/29/18 05/29/18 06:51 07:00 07:00 WBC 16.0 H RBC 4.98 Hgb 14.8 D Hct 44.7 MCV 89.8 D MCH 29.7 MCHC 33.1 RDW 12.5 Plt Count 401 MPV 10.2 Gran % 85.5 H Lymph % (Auto) 10.5 L Elliott % (Auto) 3.7 Eos % (Auto) 0.1 L Baso % (Auto) 0.2 Gran # 13.69 H Lymph # (Auto) 1.7 Elliott # (Auto) 0.6 Eos # (Auto) 0.0 Baso # (Auto) 0.04 pO2 73 H VBG pH 6.97 L* VBG pCO2 24.0 L VBG HCO3 5.5 L VBG Total CO2 6.2 L VBG O2 Sat (Calc) 94.3 H VBG Base Excess -25.1 L VBG Potassium 4.8 Sodium 135.0 Chloride 100.0 Glucose 564 H* D Lactate 2.1 FiO2 21.0 Potassium Carbon Dioxide Anion Gap BUN Creatinine Est GFR ( Amer) Est GFR (Non-Af Amer) POC Glucose (mg/dL) 413 H* Random Glucose Calcium Magnesium Total Bilirubin AST ALT Alkaline Phosphatase Total Protein Albumin Globulin Albumin/Globulin Ratio Lipase Venous Blood Potassium 4.8 05/29/18 07:00 WBC RBC Hgb Hct MCV MCH MCHC RDW Plt Count MPV Gran % Lymph % (Auto) Elliott % (Auto) Eos % (Auto) Baso % (Auto) Gran # Lymph # (Auto) Elliott # (Auto) Eos # (Auto) Baso # (Auto) pO2 VBG pH VBG pCO2 VBG HCO3 VBG Total CO2 VBG O2 Sat (Calc) VBG Base Excess VBG Potassium Sodium 138 Chloride 106 Glucose Lactate FiO2 Potassium 5.2 H Carbon Dioxide 5 L D Anion Gap 32 H BUN 14 Creatinine 0.8 Est GFR ( Amer) > 60 Est GFR (Non-Af Amer) > 60 POC Glucose (mg/dL) Random Glucose 524 H* D Calcium 9.6 Magnesium 2.2 Total Bilirubin 0.5 AST 20 ALT 29 Alkaline Phosphatase 103 Total Protein 8.3 Albumin 4.9 H Globulin 3.5 Albumin/Globulin Ratio 1.4 Lipase 74 Venous Blood Potassium EKG/Cardiology Studies: Cardiology / EKG Studies 05/29/18 07:14 EKG [ELECTROCARDIOGRAM] Stat Comment: Reason For Exam: DIFFICULTY BREATHING Fingerstick Blood Sugar Results: 413 Review of Systems - Constitutional Constitutional: absent: Fever, Chills - EENT Nose/Mouth/Throat: UNREMARKABLE - Cardiovascular Cardiovascular: UNREMARKABLE - Respiratory Respiratory: Dyspnea - Gastrointestinal Gastrointestinal: Abdominal Pain, Nausea, Vomiting - Genitourinary Genitourinary: absent: Dysuria - Musculoskeletal Musculoskeletal: UNREMARKABLE - Neurological Neurological: UNREMARKABLE Critical Care Progress Note - Ventilator Checklist Head of Bed 30 Degrees: Yes PUD Prophalyxis: Yes DVT Prophylaxis: Yes - Nutrition Nutrition: Nutrition Category Date Time Status NPO Diet [DIET] Diets 05/29/18 Lunch Ordered Assessment/Plan - Assessment and Plan (Free Text) Plan: DKA \ Dehydration -hemodynamic monitoring to maintain MAP>65 -o2 supplementation to maintain Spo2>90 Pao2>60; currently comfortable on room air -f\u Bun\Cr and U\o; IVF with NS -continue Insulin drip as per protocol and BGM q1h -monitor CH7 for Anion gap q4hrs -monitor and replace e-lites -NPO diet and aspiration precautions -f\u HbA1c -consider endocrine eval -DVT prophylaxis DW ED team CCM eval time 33min
[2018-05-29] MEDS ORDERED: Potassium Chloride 20 MEQ in Sodium Chloride 0.45% 1,000 ML IV SCH (08:57)
[2018-05-29 09:09] LABS: URINE BILIRUBIN NEGATIVE (NEGATIVE); URINE BLOOD TRACE-INTACT (NEGATIVE); URINE GLUCOSE (UA) >=1000 mg/dL (NEGATIVE); URINE LEUKOCYTE ESTERASE NEGATIVE Leu/uL (NEGATIVE); URINE PROTEIN 30 mg/dL (<30 mg/dL); URINE UROBILINOGEN 0.2 E.U./dL (<1 E.U./dL)
[2018-05-29 09:19] LABS: URINE APPEARANCE SL CLOUDY (CLEAR); URINE COLOR YELLOW (YELLOW)
[2018-05-29 09:20] LABS: URINE BACTERIA MOD (NEG); URINE RBC 0 - 2 /hpf (0-2); URINE WBC 0 - 2 /hpf (0-6)
--- NOTE | 2018-05-29 09:27 | RAD ---
Date of service: 05/29/2018 HISTORY: r/o infiltrate COMPARISON: 01/25/2018 FINDINGS: LUNGS: No active pulmonary disease. PLEURA: No significant pleural effusion identified, no pneumothorax apparent. CARDIOVASCULAR: No aortic atherosclerotic calcification present. Normal cardiac size. No pulmonary vascular congestion. OSSEOUS STRUCTURES: No significant abnormalities. VISUALIZED UPPER ABDOMEN: Normal. OTHER FINDINGS: None. IMPRESSION: No active disease.
[2018-05-29] MEDS ORDERED: Influenza Vaccine 60 mcg/0.5 mL SYR (4YR UP) IM ONE (09:50)
[2018-05-29] MEDS ORDERED: Pneumococcal 23-Valent Vaccine IM ONE (09:50)
[2018-05-29 10:36] LABS: VENOUS BLOOD GAS BASE EXCESS -24.2 mmol/L (0.0-2.0); VENOUS BLOOD GAS PO2 23 mm/Hg (30-55); VENOUS BLOOD PH 6.99 (7.32-7.43)
[2018-05-29 12:03] LABS: BLOOD UREA NITROGEN 12 mg/dL (7-21); CALCIUM 7.8 mg/dL (8.4-10.5); GFR NON-AFRICAN AMERICAN > 60
[2018-05-29] MEDS ORDERED: Dextrose 5%/0.45% NS 1,000 ML IV SCH (13:15)
[2018-05-29] MEDS: Potassium Chloride 20 MEQ in Dextrose 5%/0.45% NS 1,000 ML IV SCH ×2 (14:35→20:14)
--- NOTE | 2018-05-29 14:47 | CP.PCM.HP ---
<Constance Ochoa - Last Filed: 05/29/18 14:33> History of Present Illness - History of Present Illness History of Present Illness: PGY1 Medicine History and Physical Exam Note for Dr. Dueñas Ms. Maciel is a 33-year-old Female with past medical history of Type 1 Diabetes Mellitus (insulin dependent), DKA, Rhabdomyolysis, ovarian torsion, who presents to the ED with a chief complaint of diaphoresis, nausea, vomiting, palpitations that began a few hours prior to coming to the ED. Patient reports she has vomited 4 times since onset. Patient says she vomitus consisted of food followed by clear liquid. Patient states she has not taken insulin for a couple of months because she lost her insurance a few months ago, and she could not afford her medication. Patient reports she applied about 3 times for [place] [employer] [facility], however she was denied. Of note, Patient admits to experiencing dysuria about a week ago prior to starting her period. ROS is otherwise unremarkable for diarrhea, fever, cough, muscle aches, dizziness, and/or sick contacts. Last visit to PMD was a few months ago. PMD: Dr. Reed PMH: Type 1 Diabetes Mellitus (Insulin Dependent), DKA, Rhabdomyolysis, Ovarian Torsion, Breast Cyst, Surgeries: R Salpingo-oopherectomy, R Breast cyst excision, R ear cyst excision, C-secs (7years ago) Family History: Mom: arthritis, Brother: Diabetes Mellitus (Type 1) Social History: Denies: ETOH, tobacco, recreational drugs Medications: Lantus 15mg AM, Lantus 10mg HS, Novolog, insulin sliding scale Allergies: NKDA Present on Admission - Present on Admission Any Indicators Present on Admission: Yes History of DVT/PE: No History of Uncontrolled Diabetes: Yes Urinary Catheter: No Decubitus Ulcer Present: No History Surgical Site Infection Following: None Review of Systems - Review of Systems All systems: reviewed and no additional remarkable complaints except - Constitutional Constitutional: As Per HPI - EENT Eyes: As Per HPI Ears: As Per HPI - Cardiovascular Cardiovascular: As Per HPI - Respiratory Respiratory: As Per HPI - Gastrointestinal Gastrointestinal: As Per HPI - Genitourinary Genitourinary: As Per HPI - Reproductive: Female Reproductive:Female: As Per HPI - Menstruation Menstruation: As Per HPI - Musculoskeletal Musculoskeletal: As Per HPI - Integumentary Integumentary: As Per HPI - Neurological Neurological: As Per HPI - Psychiatric Psychiatric: As Per HPI Past Patient History - Infectious Disease Hx of Infectious Diseases: None - Tetanus Immunizations Tetanus Immunization: Unknown - Past Medical History & Family History Past Medical History?: Yes - Past Social History Smoking Status: Never Smoked - CARDIAC Hx Cardiac Disorders: Yes (heart murmur) Other/Comment: post sx last summer heart rate rapid pt . wore a halter monitor for 14 days. Hx of rapid heart rate - PULMONARY Hx Respiratory Disorders: No - NEUROLOGICAL Hx Neurological Disorder: Yes Hx Dizziness: Yes (SYNCOPE 02-19-16) - HEENT Hx HEENT Problems: No - RENAL Hx Chronic Kidney Disease: No - ENDOCRINE/METABOLIC Hx Endocrine Disorders: Yes Hx Diabetes Mellitus Type 1: Yes (dx age 20) Other/Comment: DKA 02-19-16 - HEMATOLOGICAL/ONCOLOGICAL Hx Blood Disorders: No - INTEGUMENTARY Hx Dermatological Problems: Yes (RIGHT BREAST SCAR FROM EXCISION OF CYST.) Other/Comment: 2 small surgical scars from sx scar to bikini line - MUSCULOSKELETAL/RHEUMATOLOGICAL Hx Falls: No - GASTROINTESTINAL Hx Gastrointestinal Disorders: No - GENITOURINARY/GYNECOLOGICAL Hx Genitourinary Disorders: No - PSYCHIATRIC Hx Psychophysiologic Disorder: No Hx Substance Use: No - SURGICAL HISTORY Hx Section: Yes Other/Comment: cyst removed from right breast and posterior right ear benign, c section 2010, right ovary and right fallopian tube december 2014 - ANESTHESIA Hx Anesthesia: Yes Hx Anesthesia Reactions: No Hx Malignant Hyperthermia: No Meds Allergies/Adverse Reactions: Allergies Allergy/AdvReac Type Severity Reaction Status Date / Time No Known Allergies Allergy Verified 09/22/16 07:28 Physical Exam - Constitutional Appears: No Acute Distress - Head Exam Head Exam: ATRAUMATIC, NORMAL INSPECTION, NORMOCEPHALIC - Eye Exam Eye Exam: EOMI, Normal appearance Pupil Exam: NORMAL ACCOMODATION - ENT Exam ENT Exam: Mucous Membranes Dry - Neck Exam Neck exam: Positive for: Full Rom, Normal Inspection - Respiratory Exam Respiratory Exam: Clear to Auscultation Bilateral, NORMAL BREATHING PATTERN. absent: Chest Wall Tenderness, Decreased Breath Sounds, Prolonged Expiratory Phase, Rales, Rhonchi, Wheezes - Cardiovascular Exam Cardiovascular Exam: Tachycardia, REGULAR RHYTHM, +S1, +S2. absent: Gallop, Rubs - GI/Abdominal Exam GI & Abdominal Exam: Normal Bowel Sounds. absent: Distended, Firm, Guarding, Hernia, Rebound, Rigid - Extremities Exam Extremities exam: Positive for: normal capillary refill, normal inspection, pedal pulses present. Negative for: calf tenderness, joint swelling, pedal edema - Back Exam Back exam: NORMAL INSPECTION. absent: CVA tenderness (L), CVA tenderness (R), paraspinal tenderness - Neurological Exam Neurological exam: Alert, CN II-XII Intact, Oriented x3, Reflexes Normal - Psychiatric Exam Psychiatric exam: Normal Affect, Normal Mood - Skin Skin Exam: Dry, Intact, Normal Color, Warm Results - Vital Signs Recent Vital Signs: Last Vital Signs Temp 97.1 F L 05/29/18 09:04 Pulse 112 H 05/29/18 12:40 Resp 20 05/29/18 12:40 BP 122/70 05/29/18 12:00 Pulse Ox 99 05/29/18 12:40 - Labs Result Diagrams: 05/29/18 07:00 05/29/18 11:45 Labs: Laboratory Results - last 24 hr 05/29/18 05/29/18 05/29/18 06:51 07:00 07:00 WBC 16.0 H RBC 4.98 Hgb 14.8 D Hct 44.7 MCV 89.8 D MCH 29.7 MCHC 33.1 RDW 12.5 Plt Count 401 MPV 10.2 Gran % 85.5 H Lymph % (Auto) 10.5 L [place] % (Auto) 3.7 Eos % (Auto) 0.1 L Baso % (Auto) 0.2 Gran # 13.69 H Lymph # (Auto) 1.7 [place] # (Auto) 0.6 Eos # (Auto) 0.0 Baso # (Auto) 0.04 pO2 73 H VBG pH 6.97 L* VBG pCO2 24.0 L VBG HCO3 5.5 L VBG Total CO2 6.2 L VBG O2 Sat (Calc) 94.3 H VBG Base Excess -25.1 L VBG Potassium 4.8 Sodium 135.0 Chloride 100.0 Glucose 564 H* D Lactate 2.1 FiO2 21.0 Potassium Carbon Dioxide Anion Gap BUN Creatinine Est GFR ( Amer) Est GFR (Non-Af Amer) POC Glucose (mg/dL) 413 H* Random Glucose Hemoglobin A1c Calcium Magnesium Total Bilirubin AST ALT Alkaline Phosphatase Total Protein Albumin Globulin Albumin/Globulin Ratio Lipase Venous Blood Potassium 4.8 Urine Color Urine Appearance Urine pH Ur Specific [place] Urine Protein Urine Glucose (UA) Urine Ketones Urine Blood Urine Nitrate Urine Bilirubin Urine Urobilinogen Ur Leukocyte Esterase Urine RBC Urine WBC Ur Epithelial Cells Urine Bacteria Urine HCG, Qual B-Hydroxybutyrate 05/29/18 05/29/18 05/29/18 07:00 07:00 09:00 WBC RBC Hgb Hct MCV MCH MCHC RDW Plt Count MPV Gran % Lymph % (Auto) [place] % (Auto) Eos % (Auto) Baso % (Auto) Gran # Lymph # (Auto) [place] # (Auto) Eos # (Auto) Baso # (Auto) pO2 VBG pH VBG pCO2 VBG HCO3 VBG Total CO2 VBG O2 Sat (Calc) VBG Base Excess VBG Potassium Sodium 138 Chloride 106 Glucose Lactate FiO2 Potassium 5.2 H Carbon Dioxide 5 L D Anion Gap 32 H BUN 14 Creatinine 0.8 Est GFR ( Amer) > 60 Est GFR (Non-Af Amer) > 60 POC Glucose (mg/dL) Random Glucose 524 H* D Hemoglobin A1c 15.7 H Calcium 9.6 Magnesium 2.2 Total Bilirubin 0.5 AST 20 ALT 29 Alkaline Phosphatase 103 Total Protein 8.3 Albumin 4.9 H Globulin 3.5 Albumin/Globulin Ratio 1.4 Lipase 74 Venous Blood Potassium Urine Color Yellow Urine Appearance Sl cloudy Urine pH 6.0 Ur Specific [place] 1.025 Urine Protein 30 H Urine Glucose (UA) >=1000 Urine Ketones >=80 Urine Blood Trace-intact H Urine Nitrate Negative Urine Bilirubin Negative Urine Urobilinogen 0.2 Ur Leukocyte Esterase Negative Urine RBC 0 - 2 Urine WBC 0 - 2 Ur Epithelial Cells 3 - 4 Urine Bacteria Mod Urine HCG, Qual B-Hydroxybutyrate 10.5 H 05/29/18 05/29/18 05/29/18 09:00 09:48 10:30 WBC RBC Hgb Hct MCV MCH MCHC RDW Plt Count MPV Gran % Lymph % (Auto) [place] % (Auto) Eos % (Auto) Baso % (Auto) Gran # Lymph # (Auto) [place] # (Auto) Eos # (Auto) Baso # (Auto) pO2 23 L VBG pH 6.99 L* VBG pCO2 25.0 L VBG HCO3 6.0 L VBG Total CO2 6.8 L VBG O2 Sat (Calc) 49.4 VBG Base Excess -24.2 L VBG Potassium 4.8 Sodium 141.0 Chloride 109.0 H Glucose 337 H Lactate 1.2 FiO2 21.0 Potassium Carbon Dioxide Anion Gap BUN Creatinine Est GFR ( Amer) Est GFR (Non-Af Amer) POC Glucose (mg/dL) 316 H Random Glucose Hemoglobin A1c Calcium Magnesium Total Bilirubin AST ALT Alkaline Phosphatase Total Protein Albumin Globulin Albumin/Globulin Ratio Lipase Venous Blood Potassium 4.8 Urine Color Urine Appearance Urine pH Ur Specific Stewart Urine Protein Urine Glucose (UA) Urine Ketones Urine Blood Urine Nitrate Urine Bilirubin Urine Urobilinogen Ur Leukocyte Esterase Urine RBC Urine WBC Ur Epithelial Cells Urine Bacteria Urine HCG, Qual Negative B-Hydroxybutyrate 05/29/18 05/29/18 05/29/18 11:08 11:45 11:49 WBC RBC Hgb Hct MCV MCH MCHC RDW Plt Count MPV Gran % Lymph % (Auto) [place] % (Auto) Eos % (Auto) Baso % (Auto) Gran # Lymph # (Auto) [place] # (Auto) Eos # (Auto) Baso # (Auto) pO2 VBG pH VBG pCO2 VBG HCO3 VBG Total CO2 VBG O2 Sat (Calc) VBG Base Excess VBG Potassium Sodium 143 Chloride 117 H Glucose Lactate FiO2 Potassium 4.7 Carbon Dioxide 7 L D Anion Gap 24 H BUN 12 Creatinine 0.6 L Est GFR ( Amer) > 60 Est GFR (Non-Af Amer) > 60 POC Glucose (mg/dL) 255 H 206 H Random Glucose 249 H Hemoglobin A1c Calcium 7.8 L Magnesium Total Bilirubin AST ALT Alkaline Phosphatase Total Protein Albumin Globulin Albumin/Globulin Ratio Lipase Venous Blood Potassium Urine Color Urine Appearance Urine pH Ur Specific Stewart Urine Protein Urine Glucose (UA) Urine Ketones Urine Blood Urine Nitrate Urine Bilirubin Urine Urobilinogen Ur Leukocyte Esterase Urine RBC Urine WBC Ur Epithelial Cells Urine Bacteria Urine HCG, Qual B-Hydroxybutyrate Assessment & Plan - Assessment and Plan (Free Text) Assessment: Ms. Maciel is a 33-year-old Female with past medical history of Type 1 Diabetes Mellitus (insulin dependent), DKA, Rhabdomyolysis, ovarian torsion, who presents to the ED with a chief complaint of diaphoresis, nausea, vomiting, palpitations that began a few hours prior to coming to the ED. Patient reports she has vomited 4 times since onset. Patient's labs were consistent with DKA. Patient admitted to ICU for insulin drip, aggressive hydration, and close monitoring. Diabetes Ketoacidosis - Patient is hemodynamically monitored - Serial BMP ordered to monitor BUN/Cr - RdY3C=63.7 - pH=6.97 - B-Hydroxybutyrate=10.5 - Aggressive IVF (D5W, NS) - On Insulin Drip as per protocol and blood glucose checks Q1H - Monitor bicarbonate for anion gap Q4H - Monitor CMP - Replace electrolytes as needed - Keep NPO - Zofran for nausea PRN - Aspiration precautions - Diabetic education Rule-Out UTI - Patient complained of dysuria - WBC=16 - U/A obtained; unremarkable for UTI - Ucx pending - Procalcitonin PPx: - GI: Protonix 40mg IVP daily - DVT: SCD Patient seen and case discussed in detail with Dr. Leana Ochoa PGY1 <Anil Dueñas - Last Filed: 05/30/18 13:52> Results - Vital Signs Recent Vital Signs: Last Vital Signs Temp 98 F 05/30/18 08:00 Pulse 100 H 05/30/18 12:10 Resp 16 05/30/18 12:10 BP 123/68 05/30/18 12:00 Pulse Ox 100 05/30/18 12:10 - Labs Result Diagrams: 05/30/18 05:00 05/30/18 12:00 Labs: Laboratory Results - last 24 hr 05/29/18 05/29/18 05/29/18 10:30 12:57 14:02 WBC RBC Hgb Hct MCV MCH MCHC RDW Plt Count MPV Gran % Lymph % (Auto) [place] % (Auto) Eos % (Auto) Baso % (Auto) Gran # Lymph # (Auto) [place] # (Auto) Eos # (Auto) Baso # (Auto) pO2 VBG pH VBG pCO2 VBG HCO3 VBG O2 Sat (Calc) VBG Base Excess Sodium Potassium Chloride Carbon Dioxide Anion Gap BUN Creatinine Est GFR ( Amer) Est GFR (Non-Af Amer) POC Glucose (mg/dL) 188 H 167 H Random Glucose Calcium Phosphorus Magnesium Total Bilirubin AST ALT Alkaline Phosphatase Total Protein Albumin Globulin Albumin/Globulin Ratio Procalcitonin < 0.05 L 05/29/18 05/29/18 05/29/18 14:56 16:05 16:11 WBC RBC Hgb Hct MCV MCH MCHC RDW Plt Count MPV Gran % Lymph % (Auto) [place] % (Auto) Eos % (Auto) Baso % (Auto) Gran # Lymph # (Auto) [place] # (Auto) Eos # (Auto) Baso # (Auto) pO2 63 H VBG pH 7.18 L* VBG pCO2 27.0 L VBG HCO3 10.1 L VBG O2 Sat (Calc) 95.7 H VBG Base Excess -16.7 L Sodium Potassium Chloride Carbon Dioxide Anion Gap BUN Creatinine Est GFR ( Amer) Est GFR (Non-Af Amer) POC Glucose (mg/dL) 193 H 207 H Random Glucose Calcium Phosphorus Magnesium Total Bilirubin AST ALT Alkaline Phosphatase Total Protein Albumin Globulin Albumin/Globulin Ratio Procalcitonin 05/29/18 05/29/18 05/29/18 16:20 16:49 17:51 WBC RBC Hgb Hct MCV MCH MCHC RDW Plt Count MPV Gran % Lymph % (Auto) [place] % (Auto) Eos % (Auto) Baso % (Auto) Gran # Lymph # (Auto) [place] # (Auto) Eos # (Auto) Baso # (Auto) pO2 VBG pH VBG pCO2 VBG HCO3 VBG O2 Sat (Calc) VBG Base Excess Sodium 139 Potassium 4.4 Chloride 116 H Carbon Dioxide 11 L Anion Gap 16 BUN 10 Creatinine 0.5 L Est GFR ( Amer) > 60 Est GFR (Non-Af Amer) > 60 POC Glucose (mg/dL) 221 H 228 H Random Glucose 233 H Calcium 7.8 L Phosphorus Magnesium Total Bilirubin AST ALT Alkaline Phosphatase Total Protein Albumin Globulin Albumin/Globulin Ratio Procalcitonin 05/29/18 05/29/18 05/29/18 18:50 19:38 19:38 WBC RBC Hgb Hct MCV MCH MCHC RDW Plt Count MPV Gran % Lymph % (Auto) [place] % (Auto) Eos % (Auto) Baso % (Auto) Gran # Lymph # (Auto) [place] # (Auto) Eos # (Auto) Baso # (Auto) pO2 48 VBG pH 7.21 L VBG pCO2 33.0 L VBG HCO3 13.2 L VBG O2 Sat (Calc) 89.8 H VBG Base Excess -13.6 L Sodium 139 Potassium 4.0 Chloride 114 H Carbon Dioxide 14 L Anion Gap 15 BUN 9 Creatinine 0.5 L Est GFR ( Amer) > 60 Est GFR (Non-Af Amer) > 60 POC Glucose (mg/dL) 274 H Random Glucose 249 H Calcium 7.9 L Phosphorus Magnesium Total Bilirubin AST ALT Alkaline Phosphatase Total Protein Albumin Globulin Albumin/Globulin Ratio Procalcitonin 05/29/18 05/29/18 05/29/18 20:03 20:57 21:52 WBC RBC Hgb Hct MCV MCH MCHC RDW Plt Count MPV Gran % Lymph % (Auto) [place] % (Auto) Eos % (Auto) Baso % (Auto) Gran # Lymph # (Auto) [place] # (Auto) Eos # (Auto) Baso # (Auto) pO2 VBG pH VBG pCO2 VBG HCO3 VBG O2 Sat (Calc) VBG Base Excess Sodium Potassium Chloride Carbon Dioxide Anion Gap BUN Creatinine Est GFR ( Amer) Est GFR (Non-Af Amer) POC Glucose (mg/dL) 240 H 220 H 200 H Random Glucose Calcium Phosphorus Magnesium Total Bilirubin AST ALT Alkaline Phosphatase Total Protein Albumin Globulin Albumin/Globulin Ratio Procalcitonin 05/29/18 05/29/18 05/30/18 23:01 23:30 00:30 WBC RBC Hgb Hct MCV MCH MCHC RDW Plt Count MPV Gran % Lymph % (Auto) [place] % (Auto) Eos % (Auto) Baso % (Auto) Gran # Lymph # (Auto) [place] # (Auto) Eos # (Auto) Baso # (Auto) pO2 90 H VBG pH 7.24 L VBG pCO2 35.0 L VBG HCO3 15.0 L VBG O2 Sat (Calc) 98.1 H VBG Base Excess -11.5 L Sodium 137 Potassium 3.9 Chloride 115 H Carbon Dioxide 17 L Anion Gap 10 BUN 9 Creatinine 0.4 L Est GFR ( Amer) > 60 Est GFR (Non-Af Amer) > 60 POC Glucose (mg/dL) 221 H Random Glucose 235 H Calcium 7.7 L Phosphorus Magnesium Total Bilirubin AST ALT Alkaline Phosphatase Total Protein Albumin Globulin Albumin/Globulin Ratio Procalcitonin 05/30/18 05/30/18 05/30/18 01:02 02:10 03:44 WBC RBC Hgb Hct MCV MCH MCHC RDW Plt Count MPV Gran % Lymph % (Auto) [place] % (Auto) Eos % (Auto) Baso % (Auto) Gran # Lymph # (Auto) [place] # (Auto) Eos # (Auto) Baso # (Auto) pO2 VBG pH VBG pCO2 VBG HCO3 VBG O2 Sat (Calc) VBG Base Excess Sodium Potassium Chloride Carbon Dioxide Anion Gap BUN Creatinine Est GFR ( Amer) Est GFR (Non-Af Amer) POC Glucose (mg/dL) 244 H 197 H 202 H Random Glucose Calcium Phosphorus Magnesium Total Bilirubin AST ALT Alkaline Phosphatase Total Protein Albumin Globulin Albumin/Globulin Ratio Procalcitonin 05/30/18 05/30/18 05/30/18 03:45 03:45 04:45 WBC RBC Hgb Hct MCV MCH MCHC RDW Plt Count MPV Gran % Lymph % (Auto) [place] % (Auto) Eos % (Auto) Baso % (Auto) Gran # Lymph # (Auto) [place] # (Auto) Eos # (Auto) Baso # (Auto) pO2 35 VBG pH 7.25 L VBG pCO2 40.0 VBG HCO3 17.5 L VBG O2 Sat (Calc) 78.4 H VBG Base Excess -9.2 L Sodium Potassium Chloride Carbon Dioxide Anion Gap BUN Creatinine Est GFR ( Amer) Est GFR (Non-Af Amer) POC Glucose (mg/dL) 198 H Random Glucose Calcium Phosphorus 1.2 L* Magnesium 1.9 Total Bilirubin AST ALT Alkaline Phosphatase Total Protein Albumin Globulin Albumin/Globulin Ratio Procalcitonin 05/30/18 05/30/18 05/30/18 05:00 05:00 06:35 WBC 9.4 D RBC 4.10 Hgb 12.0 D Hct 35.6 L MCV 86.8 D MCH 29.3 MCHC 33.7 RDW 12.3 Plt Count 274 MPV 10.1 Gran % 65.0 Lymph % (Auto) 26.1 [place] % (Auto) 7.9 H Eos % (Auto) 0.7 L Baso % (Auto) 0.3 Gran # 6.12 Lymph # (Auto) 2.5 [place] # (Auto) 0.7 H Eos # (Auto) 0.1 Baso # (Auto) 0.03 pO2 VBG pH VBG pCO2 VBG HCO3 VBG O2 Sat (Calc) VBG Base Excess Sodium 139 Potassium 4.4 Chloride 116 H Carbon Dioxide 12 L Anion Gap 15 BUN 10 Creatinine 0.6 L Est GFR ( Amer) > 60 Est GFR (Non-Af Amer) > 60 POC Glucose (mg/dL) 154 H Random Glucose 233 H Calcium 7.7 L Phosphorus Magnesium Total Bilirubin 0.4 AST 24 ALT 26 Alkaline Phosphatase 75 Total Protein 6.9 Albumin 3.6 Globulin 3.3 Albumin/Globulin Ratio 1.1 Procalcitonin 05/30/18 05/30/18 05/30/18 07:40 08:30 08:30 WBC RBC Hgb Hct MCV MCH MCHC RDW Plt Count MPV Gran % Lymph % (Auto) [place] % (Auto) Eos % (Auto) Baso % (Auto) Gran # Lymph # (Auto) [place] # (Auto) Eos # (Auto) Baso # (Auto) pO2 51 VBG pH 7.25 L VBG pCO2 34.0 L VBG HCO3 14.9 L VBG O2 Sat (Calc) 92.5 H VBG Base Excess 11.3 H Sodium 137 Potassium 4.0 Chloride 114 H Carbon Dioxide 14 L Anion Gap 12 BUN 7 Creatinine 0.5 L Est GFR ( Amer) > 60 Est GFR (Non-Af Amer) > 60 POC Glucose (mg/dL) 159 H Random Glucose 167 H Calcium 7.9 L Phosphorus Magnesium Total Bilirubin AST ALT Alkaline Phosphatase Total Protein Albumin Globulin Albumin/Globulin Ratio Procalcitonin 05/30/18 05/30/18 05/30/18 08:36 09:27 10:35 WBC RBC Hgb Hct MCV MCH MCHC RDW Plt Count MPV Gran % Lymph % (Auto) [place] % (Auto) Eos % (Auto) Baso % (Auto) Gran # Lymph # (Auto) [place] # (Auto) Eos # (Auto) Baso # (Auto) pO2 VBG pH VBG pCO2 VBG HCO3 VBG O2 Sat (Calc) VBG Base Excess Sodium Potassium Chloride Carbon Dioxide Anion Gap BUN Creatinine Est GFR ( Amer) Est GFR (Non-Af Amer) POC Glucose (mg/dL) 155 H 150 H 145 H Random Glucose Calcium Phosphorus Magnesium Total Bilirubin AST ALT Alkaline Phosphatase Total Protein Albumin Globulin Albumin/Globulin Ratio Procalcitonin 05/30/18 12:00 WBC RBC Hgb Hct MCV MCH MCHC RDW Plt Count MPV Gran % Lymph % (Auto) [place] % (Auto) Eos % (Auto) Baso % (Auto) Gran # Lymph # (Auto) [place] # (Auto) Eos # (Auto) Baso # (Auto) pO2 VBG pH VBG pCO2 VBG HCO3 VBG O2 Sat (Calc) VBG Base Excess Sodium 140 Potassium 3.6 Chloride 111 H Carbon Dioxide 18 L Anion Gap 14 BUN 6 L Creatinine 0.5 L Est GFR ( Amer) > 60 Est GFR (Non-Af Amer) > 60 POC Glucose (mg/dL) Random Glucose 220 H Calcium 8.2 L Phosphorus Magnesium Total Bilirubin AST ALT Alkaline Phosphatase Total Protein Albumin Globulin Albumin/Globulin Ratio Procalcitonin Attending/Attestation - Attestation I have personally seen and examined this patient.: Yes I have fully participated in the care of the patient.: Yes I have reviewed all pertinent clinical information: Yes Notes (Text): 05/30/18 13:47 Attending note; Patient seen and examined with resident in ICU. Patient is alert and awake. Complaining of nausea and vomiting. Denies any fevers, chills. Denies any urinary complaints. Denies any chest pain, shortness of breath. Denies any diarrhea. Patient is a 33-year-old Female with past medical history of Type 1 Diabetes Mellitus (insulin dependent), DKA, Rhabdomyolysis, ovarian torsion who presents to the ED with a chief complaint of diaphoresis, nausea, vomiting, palpitations. 1. DKA; patient with significant acidosis with a bicarbonate of 5. ABG showed pH of 6.99. Severe DKA. Started on IV fluids. Continue insulin drip per protocol. 2. Nausea and vomiting; continue Zofran. 3. Tachycardia; secondary to osmotic diuresis .continue aggressive IV hydration. 4. GI prophylaxis with Protonix. Noncompliance with insulin due to insurance reasons. Dietitian evaluation requested. personal development educator evaluation requested. Patient will be given insulin which is affordable. Endocrinology evaluation requested. Upon discharge patient will be referred to [facility] clinic.
[2018-05-29 16:15] LABS: VENOUS BLOOD GAS BASE EXCESS -16.7 mmol/L (0.0-2.0); VENOUS BLOOD GAS PO2 63 mm/Hg (30-55); VENOUS BLOOD PH 7.18 (7.32-7.43)
[2018-05-29 16:37] LABS: BLOOD UREA NITROGEN 10 mg/dL (7-21); CALCIUM 7.8 mg/dL (8.4-10.5); GFR NON-AFRICAN AMERICAN > 60
--- NOTE | 2018-05-29 19:39 | CARD ---
APPROVED REPORT Date of service: 05/29/2018 EKG Measurement Heart [id number] <Conclusion> Sinus tachycardia Nonspecific T wave abnormality Abnormal ECG
[2018-05-29 19:48] LABS: VENOUS BLOOD GAS BASE EXCESS -13.6 mmol/L (0.0-2.0); VENOUS BLOOD GAS PO2 48 mm/Hg (30-55); VENOUS BLOOD PH 7.21 (7.32-7.43)
[2018-05-29 20:08] LABS: BLOOD UREA NITROGEN 9 mg/dL (7-21); CALCIUM 7.9 mg/dL (8.4-10.5); GFR NON-AFRICAN AMERICAN > 60
[2018-05-29 23:59] LABS: VENOUS BLOOD GAS BASE EXCESS -11.5 mmol/L (0.0-2.0); VENOUS BLOOD GAS PO2 90 mm/Hg (30-55); VENOUS BLOOD PH 7.24 (7.32-7.43)
[2018-05-30 01:28] LABS: BLOOD UREA NITROGEN 9 mg/dL (7-21); CALCIUM 7.7 mg/dL (8.4-10.5); GFR NON-AFRICAN AMERICAN > 60
[2018-05-30] MEDS: Potassium Chloride 20 MEQ in Dextrose 5%/0.45% NS 1,000 ML IV SCH ×2 (01:46→10:22)
[2018-05-30 04:05] LABS: VENOUS BLOOD GAS BASE EXCESS -9.2 mmol/L (0.0-2.0); VENOUS BLOOD GAS PO2 35 mm/Hg (30-55); VENOUS BLOOD PH 7.25 (7.32-7.43)
[2018-05-30] MEDS ORDERED: Sodium Phosphate 15 MMOLE in Dextrose 5% In Water 250 ML IVPB ONE (04:48)
[2018-05-30] MEDS: Benzocaine/Menthol (Cepacol) Lozenge MT PRN ×3 (05:12→20:30)
[2018-05-30 06:23] LABS: RBC 4.1 10^6/uL (3.5-6.1); WHITE BLOOD COUNT 9.4 10^3/uL (4.5-11.0)
[2018-05-30 06:24] LABS: LYMPH % 26.1 % (22.0-35.0); MEAN CELL VOLUME 86.8 fl (80.0-105.0); MEAN CORPUSCULAR HEMOGLOBIN 29.3 pg (25.0-35.0); MEAN CORPUSCULAR HGB CONC 33.7 g/dl (31.0-37.0); MEAN PLATELET VOLUME 10.1 fl (7.0-11.0); MONO % 7.9 % (1.0-6.0); RED CELL DISTRIBUTION WIDTH 12.3 % (11.5-14.5)
[2018-05-30 06:25] LABS: BASO # 0.03 K/mm3 (0.0-2.0); BASO % 0.3 % (0.0-3.0); EOS # 0.1 (0.0-0.7); EOS % 0.7 % (1.5-5.0); GRAN # 6.12 (1.4-6.5); LYMPH # 2.5 (1.2-3.4); MONO # 0.7 (0.1-0.6)
[2018-05-30] MEDS ORDERED: Potassium & Sodium Phosphate PO SCH (07:00)
[2018-05-30 08:30] LABS: BLOOD UREA NITROGEN 10 mg/dL (7-21); GFR NON-AFRICAN AMERICAN > 60
[2018-05-30 08:31] LABS: ALB/GLOB RATIO 1.1 (1.1-1.8); ALBUMIN 3.6 g/dL (3.0-4.8); ALT/SGPT 26 U/L (7-56); AST/SGOT 24 U/L (14-36); CALCIUM 7.7 mg/dL (8.4-10.5)
[2018-05-30 08:46] LABS: VENOUS BLOOD GAS BASE EXCESS 11.3 mmol/L (0.0-2.0); VENOUS BLOOD GAS PO2 51 mm/Hg (30-55); VENOUS BLOOD PH 7.25 (7.32-7.43)
[2018-05-30 09:11] LABS: BLOOD UREA NITROGEN 7 mg/dL (7-21); CALCIUM 7.9 mg/dL (8.4-10.5); GFR NON-AFRICAN AMERICAN > 60
[2018-05-30] MEDS: Potassium & Sodium Phosphate PO SCH ×3 (10:30→18:57)
[2018-05-30] MEDS: Insulin Reg-LOW-Coverage SC SCH ×3 (11:29→21:48)
[2018-05-30] MEDS: Insulin Regular 1 UNITS/0.01 ML ML SC SCH ×2 (11:31→17:21)
[2018-05-30] MEDS ORDERED: Potassium Phosphate 15 MMOLE in Sodium Chloride 0.9% 250 ML IVPB ONE (11:38)
--- NOTE | 2018-05-30 12:28 | CP.PCM.PN ---
<Constance Ochoa - Last Filed: 05/30/18 12:24> Subjective - Date & Time of Evaluation Date of Evaluation: 05/30/18 Time of Evaluation: 12:24 - Subjective Subjective: PGY1 Progress Note for Dr. Dueñas Patient seen and examined at bedside this morning. No acute nursing events overnight. Patient complains that her throat feels dry and sore. 12 Point ROS otherwise unremarkable. Objective - Vital Signs/Intake and Output Vital Signs (last 24 hours): Temp Pulse Resp BP Pulse Ox 98 F 100 H 16 123/68 100 05/30/18 08:00 05/30/18 12:10 05/30/18 12:10 05/30/18 12:00 05/30/18 12:10 Intake and Output: 05/30/18 05/30/18 06:59 18:59 Intake Total 24.0 Balance 24.0 - Medications Medications: Current Medications Benzocaine/Menthol (Cepacol Sore Throat) 1 pastor MT Q2H PRN PRN Reason: Sore Throat Last Admin: 05/30/18 05:12 Dose: 1 pastor Potassium Chloride 20 meq/ (Dextrose/Sodium Chloride) 1,010 mls @ 200 mls/hr IV .Q5H3M [facility] Last Admin: 05/30/18 10:22 Dose: 200 mls/hr Potassium Phosphate 15 mmole/ (Sodium Chloride) 255 mls @ 42.5 mls/hr IVPB ONCE ONE Stop: 05/30/18 17:37 Insulin Human NPH (Humulin N) 14 units SC HS [facility] Insulin Human Regular (Humulin R) 6 units SC AC [facility] Last Admin: 05/30/18 11:31 Dose: 6 unit Insulin Human Regular (Humulin R Low) 0 units SC ACHS [facility]; Protocol Last Admin: 05/30/18 11:29 Dose: Not Given Ondansetron HCl (Zofran Inj) 4 mg IVP Q4H PRN PRN Reason: Nausea/Vomiting Last Admin: 05/29/18 20:14 Dose: 4 mg Pantoprazole Sodium (Protonix Inj) 40 mg IVP DAILY [facility] Last Admin: 05/30/18 10:30 Dose: 40 mg Potassium Phos/Sodium Phos (Neutra-Phos) 1 pkt PO TID [facility] Last Admin: 12/01/18 10:30 Dose: 1 pkt - Labs Labs: 05/30/18 05:00 05/30/18 08:30 - Additional Findings Additional findings: - Constitutional Appears: No Acute Distress - Head Exam Head Exam: ATRAUMATIC, NORMAL INSPECTION, NORMOCEPHALIC - Eye Exam Eye Exam: EOMI, Normal appearance Pupil Exam: NORMAL ACCOMODATION - ENT Exam ENT Exam: Mucous Membranes Dry - Neck Exam Neck exam: Positive for: Full Rom, Normal Inspection - Respiratory Exam Respiratory Exam: Clear to Auscultation Bilateral, NORMAL BREATHING PATTERN. absent: Chest Wall Tenderness, Decreased Breath Sounds, Prolonged Expiratory Phase, Rales, Rhonchi, Wheezes - Cardiovascular Exam Cardiovascular Exam: Tachycardia, REGULAR RHYTHM, +S1, +S2. absent: Gallop, Rubs - GI/Abdominal Exam GI & Abdominal Exam: Normal Bowel Sounds. absent: Distended, Firm, Guarding, Hernia, Rebound, Rigid - Extremities Exam Extremities exam: Positive for: normal capillary refill, normal inspection, pedal pulses present. Negative for: calf tenderness, joint swelling, pedal edema - Back Exam Back exam: NORMAL INSPECTION. absent: CVA tenderness (L), CVA tenderness (R), paraspinal tenderness - Neurological Exam Neurological exam: Alert, CN II-XII Intact, Oriented x3, Reflexes Normal - Psychiatric Exam Psychiatric exam: Normal Affect, Normal Mood - Skin Skin Exam: Dry, Intact, Normal Color, Warm Assessment and Plan - Assessment and Plan (Free Text) Assessment: Ms. Maciel is a 33-year-old Female with past medical history of Type 1 Diabetes Mellitus (insulin dependent), DKA, Rhabdomyolysis, ovarian torsion, who presents to the ED with a chief complaint of diaphoresis, nausea, vomiting, palpitations that began a few hours prior to coming to the ED. Patient reports she has vomited 4 times since onset. Patient's labs were consistent with DKA. Patient admitted to ICU for insulin drip, aggressive hydration, and close monitoring. Diabetes Ketoacidosis - Patient is hemodynamically monitored - Serial BMP ordered to monitor BUN/Cr - QqX4P=04.7 - pH=6.97 - B-Hydroxybutyrate=10.5 - Aggressive IVF (D5W, 1/2NS) - On Insulin Drip as per protocol and blood glucose checks Q1H - Monitor bicarbonate for anion gap Q4H - Monitor CMP - Replace electrolytes as needed - Advanced to Liquid diet - Zofran for nausea PRN - Aspiration precautions - Diabetic education ordered - Juvenile [employer] Liaison Consulted (Dr. Hope) Recommendations appreciated - Cepacot MT Q2H PRN ordered for dry throught Hypophosphatemia - Patient receiving K-phos IVPB - Monitor daily CMP Rule-Out UTI - Patient complained of dysuria - WBC=16 - U/A obtained; unremarkable for UTI - Ucx: no growth - Procalcitonin low PPx: - GI: Protonix 40mg IVP daily - DVT: SCD Patient seen and case discussed in detail with Dr. Leana Ochoa PGY1 <Anil Dueñas - Last Filed: 05/30/18 13:56> Objective - Vital Signs/Intake and Output Vital Signs (last 24 hours): Temp Pulse Resp BP Pulse Ox 98 F 100 H 16 123/68 100 05/30/18 08:00 05/30/18 12:10 05/30/18 12:10 05/30/18 12:00 05/30/18 12:10 Intake and Output: 05/30/18 05/30/18 06:59 18:59 Intake Total 24.0 Balance 24.0 - Medications Medications: Current Medications Benzocaine/Menthol (Cepacol Sore Throat) 1 pastor MT Q2H PRN PRN Reason: Sore Throat Last Admin: 05/30/18 05:12 Dose: 1 pastor Potassium Chloride 20 meq/ (Dextrose/Sodium Chloride) 1,010 mls @ 200 mls/hr IV .Q5H3M [facility] Last Admin: 05/30/18 10:22 Dose: 200 mls/hr Potassium Phosphate 15 mmole/ (Sodium Chloride) 255 mls @ 42.5 mls/hr IVPB ONCE ONE Stop: 05/30/18 17:37 Last Admin: 05/30/18 12:39 Dose: 42.5 mls/hr Insulin Human NPH (Humulin N) 14 units SC HS [facility] Insulin Human Regular (Humulin R) 6 units SC AC [facility] Last Admin: 05/30/18 11:31 Dose: 6 unit Insulin Human Regular (Humulin R Low) 0 units SC ACHS [facility]; Protocol Last Admin: 05/30/18 11:29 Dose: Not Given Ondansetron HCl (Zofran Inj) 4 mg IVP Q4H PRN PRN Reason: Nausea/Vomiting Last Admin: 05/29/18 20:14 Dose: 4 mg Pantoprazole Sodium (Protonix Inj) 40 mg IVP DAILY [facility] Last Admin: 05/30/18 10:30 Dose: 40 mg Potassium Phos/Sodium Phos (Neutra-Phos) 1 pkt PO TID [facility] Last Admin: 05/30/18 10:30 Dose: 1 pkt - Labs Labs: 05/30/18 05:00 05/30/18 12:00 Attending/Attestation - Attestation I have personally seen and examined this patient.: Yes I have fully participated in the care of the patient.: Yes I have reviewed all pertinent clinical information, including history, physical exam and plan: Yes Notes (Text): 05/30/18 13:53 Attending note; Patient seen and examined with resident in ICU. Patient is alert and awake. nausea and vomiting is improving. Denies any fevers, chills. Denies any urinary complaints. Denies any chest pain, shortness of breath. Tachycardia is resolving. Patient is a 33-year-old Female with past medical history of Type 1 Diabetes Mellitus (insulin dependent), DKA, Rhabdomyolysis, ovarian torsion who presents to the ED with a chief complaint of diaphoresis, nausea, vomiting, palpitations. 1. DKA; resolving with IV insulin drip. continue IV fluids. Continue insulin drip per protocol. 2. Nausea and vomiting; resolving.continue Zofran. Started on liquid diet. Advance to carbohydrate consistent soft diet today. 3. Tachycardia; resolving.continue aggressive IV hydration. 4. GI prophylaxis with Protonix. 5. Hypophosphatemia; continue IV phosphorus supplementation. Patient was seen and evaluated by tavern keeper. Started on NPH and Humalin R. Noncompliance with insulin due to insurance reasons. Dietitian evaluation requested. ice cream maker evaluation requested. Upon discharge patient will be referred to [facility] clinic.
[2018-05-30 12:46] LABS: BLOOD UREA NITROGEN 6 mg/dL (7-21); CALCIUM 8.2 mg/dL (8.4-10.5); GFR NON-AFRICAN AMERICAN > 60
--- NOTE | 2018-05-30 14:12 | CP.CCUPN ---
<Gil Arreola - Last Filed: 05/30/18 14:09> CCU Subjective - Physician Review Subjective (Free Text): Gil Arreola, PGY1 ICU Progress Note for Dr. King Patient was seen and examined at bedside this morning. Patient was complaining of sore throat. Otherwise, denies n/v/d, fever, chills, sob/cp. Vital signs are stable. No acute overnight events. A full 12 point ROS was conducted and unremarkable except as stated above. CCU Objective - Vital Signs / Intake & Output Vital Signs (Last 4 hours): Vital Signs Pulse Resp BP Pulse Ox 05/30/18 12:10 100 H 16 100 05/30/18 12:00 102 H 18 123/68 82 L 05/30/18 11:50 95 H 13 98 05/30/18 11:44 101 H 15 05/30/18 11:43 102 H 27 H 05/30/18 11:40 97 H 15 99 05/30/18 11:30 97 H 17 99 05/30/18 11:20 102 H 16 98 05/30/18 11:10 103 H 14 97 05/30/18 11:00 105 H 26 H 117/61 97 05/30/18 10:50 105 H 22 97 05/30/18 10:40 105 H 15 96 05/30/18 10:30 101 H 14 97 05/30/18 10:20 98 H 15 97 05/30/18 10:10 97 H 15 97 Intake and Output (Last 8hrs): Intake & Output 05/29/18 05/30/18 05/30/18 22:59 06:59 14:59 Intake Total 2899 15.0 Output Total 600 Balance 2299 15.0 Weight 63.957 kg Intake: IV 2039 15.0 IVF 2000 Insulin drip 24 Oral 860 Output: Urine 600 Urine, Voided 600 Other: # Bowel Movements 0 - Physical Exam Head: Positive for: Atraumatic, Normocephalic Pupils: Positive for: PERRL Extroacular Muscles: Positive for: EOMI Conjunctiva: Positive for: Normal Mouth: Positive for: Moist Mucous Membranes Neck: Positive for: Normal Range of Motion Respiratory/Chest: Positive for: Clear to Auscultation, Good Air Exchange. Negative for: Respiratory Distress, Accessory Muscle Use, Wheezes, Rales, Rhonchi Cardiovascular: Positive for: Regular Rate and Rhythm, Normal S1, S2. Negative for: Murmurs Abdomen: Negative for: Tenderness, Distention, Peritoneal Signs, Rebound, Guarding Back: Positive for: Normal Inspection Upper Extremity: Positive for: Normal Inspection. Negative for: Cyanosis, Edema Lower Extremity: Positive for: Normal Inspection. Negative for: Edema, CALF TENDERNESS Neurological: Positive for: GCS=15, CN II-XII Intact, Speech Normal Skin: Positive for: Warm, Dry, Normal Color. Negative for: Rashes Psychiatric: Positive for: Alert, Oriented x 3, Normal Insight, Normal Concentration - Medications Active Medications: Active Medications Generic Name Dose Route Start Last Admin Trade Name Freq PRN Reason Stop Dose Admin Benzocaine/Menthol 1 pastor 05/30/18 04:47 05/30/18 05:12 Cepacol Sore Throat MT 1 pastor Q2H PRN Administration Sore Throat Potassium Chloride 20 meq/ 1,010 mls @ 200 mls/hr 05/29/18 13:51 05/30/18 10:22 Dextrose/Sodium Chloride IV 200 mls/hr .[id number] [place] Administration Potassium Phosphate 15 mmole/ 255 mls @ 42.5 mls/hr 05/30/18 11:38 05/30/18 12:39 Sodium Chloride IVPB 05/30/18 17:37 42.5 mls/hr ONCE ONE Administration Insulin Human NPH 14 units 05/30/18 22:00 Humulin N SC HS [place] Insulin Human Regular 6 units 05/30/18 11:30 05/30/18 11:31 Humulin R SC 6 unit AC [place] Administration Insulin Human Regular 0 units 05/30/18 11:30 05/30/18 11:29 Humulin R Low SC Not Given ACHS [facility] Protocol Ondansetron HCl 4 mg 05/29/18 08:27 05/29/18 20:14 Zofran Inj IVP 4 mg Q4H PRN Administration Nausea/Vomiting Pantoprazole Sodium 40 mg 05/29/18 10:00 05/30/18 10:30 Protonix Inj IVP 40 mg DAILY [place] Administration Potassium Phos/Sodium Phos 1 pkt 05/30/18 10:00 05/30/18 10:30 Neutra-Phos PO 1 pkt TID [place] Administration - Patient Studies Lab Studies: Microbiology Studies 05/29/18 09:30 MRSA Culture (Admit) - Final Naris MRSA NOT DETECTED 05/29/18 09:00 Urine Culture - Final Urine No Growth (<1,000 CFU/ML) Lab Studies 05/30/18 05/30/18 05/30/18 Range/Units 12:00 10:35 09:27 WBC (4.5-11.0) 10^3/uL RBC (3.5-6.1) 10^6/uL Hgb (12.0-16.0) g/dL Hct (36.0-48.0) % MCV (80.0-105.0) fl MCH (25.0-35.0) pg MCHC (31.0-37.0) g/dl RDW (11.5-14.5) % Plt Count (120.0-450.0) 10^3/uL MPV (7.0-11.0) fl Gran % (50.0-68.0) % Lymph % (Auto) (22.0-35.0) % [place] % (Auto) (1.0-6.0) % Eos % (Auto) (1.5-5.0) % Baso % (Auto) (0.0-3.0) % Gran # (1.4-6.5) Lymph # (Auto) (1.2-3.4) [place] # (Auto) (0.1-0.6) Eos # (Auto) (0.0-0.7) Baso # (Auto) (0.0-2.0) K/mm3 pO2 (30-55) mm/Hg VBG pH (7.32-7.43) VBG pCO2 (40-60) VBG HCO3 (21-28) mmol/l VBG O2 Sat (Calc) (40-65) % VBG Base Excess (0.0-2.0) mmol/L Sodium 140 (132-148) mmol/L Potassium 3.6 (3.6-5.0) mmol/L Chloride 111 H (98-107) mmol/L Carbon Dioxide 18 L (21-33) mmol/L Anion Gap 14 (10-20) BUN 6 L (7-21) mg/dL Creatinine 0.5 L (0.7-1.2) mg/dl Est GFR ( Amer) > 60 Est GFR (Non-Af Amer) > 60 POC Glucose (mg/dL) 145 H 150 H (65-110) mg/dL Random Glucose 220 H (70-110) mg/dL Calcium 8.2 L (8.4-10.5) mg/dL Phosphorus (2.5-4.5) mg/dL Magnesium (1.7-2.2) mg/dL Total Bilirubin (0.2-1.3) mg/dL AST (14-36) U/L ALT (7-56) U/L Alkaline Phosphatase (38-126) U/L Total Protein (5.8-8.3) g/dL Albumin (3.0-4.8) g/dL Globulin gm/dL Albumin/Globulin Ratio (1.1-1.8) Procalcitonin (0.19-0.49) NG/ML 05/30/18 05/30/18 05/30/18 Range/Units 08:36 08:30 08:30 WBC (4.5-11.0) 10^3/uL RBC (3.5-6.1) 10^6/uL Hgb (12.0-16.0) g/dL Hct (36.0-48.0) % MCV (80.0-105.0) fl MCH (25.0-35.0) pg MCHC (31.0-37.0) g/dl RDW (11.5-14.5) % Plt Count (120.0-450.0) 10^3/uL MPV (7.0-11.0) fl Gran % (50.0-68.0) % Lymph % (Auto) (22.0-35.0) % [place] % (Auto) (1.0-6.0) % Eos % (Auto) (1.5-5.0) % Baso % (Auto) (0.0-3.0) % Gran # (1.4-6.5) Lymph # (Auto) (1.2-3.4) [place] # (Auto) (0.1-0.6) Eos # (Auto) (0.0-0.7) Baso # (Auto) (0.0-2.0) K/mm3 pO2 51 (30-55) mm/Hg VBG pH 7.25 L (7.32-7.43) VBG pCO2 34.0 L (40-60) VBG HCO3 14.9 L (21-28) mmol/l VBG O2 Sat (Calc) 92.5 H (40-65) % VBG Base Excess 11.3 H (0.0-2.0) mmol/L Sodium 137 (132-148) mmol/L Potassium 4.0 (3.6-5.0) mmol/L Chloride 114 H (98-107) mmol/L Carbon Dioxide 14 L (21-33) mmol/L Anion Gap 12 (10-20) BUN 7 (7-21) mg/dL Creatinine 0.5 L (0.7-1.2) mg/dl Est GFR ( Amer) > 60 Est GFR (Non-Af Amer) > 60 POC Glucose (mg/dL) 155 H (65-110) mg/dL Random Glucose 167 H (70-110) mg/dL Calcium 7.9 L (8.4-10.5) mg/dL Phosphorus (2.5-4.5) mg/dL Magnesium (1.7-2.2) mg/dL Total Bilirubin (0.2-1.3) mg/dL AST (14-36) U/L ALT (7-56) U/L Alkaline Phosphatase (38-126) U/L Total Protein (5.8-8.3) g/dL Albumin (3.0-4.8) g/dL Globulin gm/dL Albumin/Globulin Ratio (1.1-1.8) Procalcitonin (0.19-0.49) NG/ML 05/30/18 05/30/18 05/30/18 Range/Units 07:40 06:35 05:00 WBC 9.4 D (4.5-11.0) 10^3/uL RBC 4.10 (3.5-6.1) 10^6/uL Hgb 12.0 D (12.0-16.0) g/dL Hct 35.6 L (36.0-48.0) % MCV 86.8 D (80.0-105.0) fl MCH 29.3 (25.0-35.0) pg MCHC 33.7 (31.0-37.0) g/dl RDW 12.3 (11.5-14.5) % Plt Count 274 (120.0-450.0) 10^3/uL MPV 10.1 (7.0-11.0) fl Gran % 65.0 (50.0-68.0) % Lymph % (Auto) 26.1 (22.0-35.0) % [place] % (Auto) 7.9 H (1.0-6.0) % Eos % (Auto) 0.7 L (1.5-5.0) % Baso % (Auto) 0.3 (0.0-3.0) % Gran # 6.12 (1.4-6.5) Lymph # (Auto) 2.5 (1.2-3.4) [place] # (Auto) 0.7 H (0.1-0.6) Eos # (Auto) 0.1 (0.0-0.7) Baso # (Auto) 0.03 (0.0-2.0) K/mm3 pO2 (30-55) mm/Hg VBG pH (7.32-7.43) VBG pCO2 (40-60) VBG HCO3 (21-28) mmol/l VBG O2 Sat (Calc) (40-65) % VBG Base Excess (0.0-2.0) mmol/L Sodium (132-148) mmol/L Potassium (3.6-5.0) mmol/L Chloride (98-107) mmol/L Carbon Dioxide (21-33) mmol/L Anion Gap (10-20) BUN (7-21) mg/dL Creatinine (0.7-1.2) mg/dl Est GFR ( Amer) Est GFR (Non-Af Amer) POC Glucose (mg/dL) 159 H 154 H (65-110) mg/dL Random Glucose (70-110) mg/dL Calcium (8.4-10.5) mg/dL Phosphorus (2.5-4.5) mg/dL Magnesium (1.7-2.2) mg/dL Total Bilirubin (0.2-1.3) mg/dL AST (14-36) U/L ALT (7-56) U/L Alkaline Phosphatase (38-126) U/L Total Protein (5.8-8.3) g/dL Albumin (3.0-4.8) g/dL Globulin gm/dL Albumin/Globulin Ratio (1.1-1.8) Procalcitonin (0.19-0.49) NG/ML 05/30/18 05/30/18 05/30/18 Range/Units 05:00 04:45 03:45 WBC (4.5-11.0) 10^3/uL RBC (3.5-6.1) 10^6/uL Hgb (12.0-16.0) g/dL Hct (36.0-48.0) % MCV (80.0-105.0) fl MCH (25.0-35.0) pg MCHC (31.0-37.0) g/dl RDW (11.5-14.5) % Plt Count (120.0-450.0) 10^3/uL MPV (7.0-11.0) fl Gran % (50.0-68.0) % Lymph % (Auto) (22.0-35.0) % [place] % (Auto) (1.0-6.0) % Eos % (Auto) (1.5-5.0) % Baso % (Auto) (0.0-3.0) % Gran # (1.4-6.5) Lymph # (Auto) (1.2-3.4) [place] # (Auto) (0.1-0.6) Eos # (Auto) (0.0-0.7) Baso # (Auto) (0.0-2.0) K/mm3 pO2 35 (30-55) mm/Hg VBG pH 7.25 L (7.32-7.43) VBG pCO2 40.0 (40-60) VBG HCO3 17.5 L (21-28) mmol/l VBG O2 Sat (Calc) 78.4 H (40-65) % VBG Base Excess -9.2 L (0.0-2.0) mmol/L Sodium 139 (132-148) mmol/L Potassium 4.4 (3.6-5.0) mmol/L Chloride 116 H (98-107) mmol/L Carbon Dioxide 12 L (21-33) mmol/L Anion Gap 15 (10-20) BUN 10 (7-21) mg/dL Creatinine 0.6 L (0.7-1.2) mg/dl Est GFR ( Amer) > 60 Est GFR (Non-Af Amer) > 60 POC Glucose (mg/dL) 198 H (65-110) mg/dL Random Glucose 233 H (70-110) mg/dL Calcium 7.7 L (8.4-10.5) mg/dL Phosphorus (2.5-4.5) mg/dL Magnesium (1.7-2.2) mg/dL Total Bilirubin 0.4 (0.2-1.3) mg/dL AST 24 (14-36) U/L ALT 26 (7-56) U/L Alkaline Phosphatase 75 (38-126) U/L Total Protein 6.9 (5.8-8.3) g/dL Albumin 3.6 (3.0-4.8) g/dL Globulin 3.3 gm/dL Albumin/Globulin Ratio 1.1 (1.1-1.8) Procalcitonin (0.19-0.49) NG/ML 05/30/18 05/30/18 05/30/18 Range/Units 03:45 03:44 02:10 WBC (4.5-11.0) 10^3/uL RBC (3.5-6.1) 10^6/uL Hgb (12.0-16.0) g/dL Hct (36.0-48.0) % MCV (80.0-105.0) fl MCH (25.0-35.0) pg MCHC (31.0-37.0) g/dl RDW (11.5-14.5) % Plt Count (120.0-450.0) 10^3/uL MPV (7.0-11.0) fl Gran % (50.0-68.0) % Lymph % (Auto) (22.0-35.0) % [place] % (Auto) (1.0-6.0) % Eos % (Auto) (1.5-5.0) % Baso % (Auto) (0.0-3.0) % Gran # (1.4-6.5) Lymph # (Auto) (1.2-3.4) [place] # (Auto) (0.1-0.6) Eos # (Auto) (0.0-0.7) Baso # (Auto) (0.0-2.0) K/mm3 pO2 (30-55) mm/Hg VBG pH (7.32-7.43) VBG pCO2 (40-60) VBG HCO3 (21-28) mmol/l VBG O2 Sat (Calc) (40-65) % VBG Base Excess (0.0-2.0) mmol/L Sodium (132-148) mmol/L Potassium (3.6-5.0) mmol/L Chloride (98-107) mmol/L Carbon Dioxide (21-33) mmol/L Anion Gap (10-20) BUN (7-21) mg/dL Creatinine (0.7-1.2) mg/dl Est GFR ( Amer) Est GFR (Non-Af Amer) POC Glucose (mg/dL) 202 H 197 H (65-110) mg/dL Random Glucose (70-110) mg/dL Calcium (8.4-10.5) mg/dL Phosphorus 1.2 L* (2.5-4.5) mg/dL Magnesium 1.9 (1.7-2.2) mg/dL Total Bilirubin (0.2-1.3) mg/dL AST (14-36) U/L ALT (7-56) U/L Alkaline Phosphatase (38-126) U/L Total Protein (5.8-8.3) g/dL Albumin (3.0-4.8) g/dL Globulin gm/dL Albumin/Globulin Ratio (1.1-1.8) Procalcitonin (0.19-0.49) NG/ML 05/30/18 05/30/18 05/29/18 Range/Units 01:02 00:30 23:30 WBC (4.5-11.0) 10^3/uL RBC (3.5-6.1) 10^6/uL Hgb (12.0-16.0) g/dL Hct (36.0-48.0) % MCV (80.0-105.0) fl MCH (25.0-35.0) pg MCHC (31.0-37.0) g/dl RDW (11.5-14.5) % Plt Count (120.0-450.0) 10^3/uL MPV (7.0-11.0) fl Gran % (50.0-68.0) % Lymph % (Auto) (22.0-35.0) % [place] % (Auto) (1.0-6.0) % Eos % (Auto) (1.5-5.0) % Baso % (Auto) (0.0-3.0) % Gran # (1.4-6.5) Lymph # (Auto) (1.2-3.4) [place] # (Auto) (0.1-0.6) Eos # (Auto) (0.0-0.7) Baso # (Auto) (0.0-2.0) K/mm3 pO2 90 H (30-55) mm/Hg VBG pH 7.24 L (7.32-7.43) VBG pCO2 35.0 L (40-60) VBG HCO3 15.0 L (21-28) mmol/l VBG O2 Sat (Calc) 98.1 H (40-65) % VBG Base Excess -11.5 L (0.0-2.0) mmol/L Sodium 137 (132-148) mmol/L Potassium 3.9 (3.6-5.0) mmol/L Chloride 115 H (98-107) mmol/L Carbon Dioxide 17 L (21-33) mmol/L Anion Gap 10 (10-20) BUN 9 (7-21) mg/dL Creatinine 0.4 L (0.7-1.2) mg/dl Est GFR ( Amer) > 60 Est GFR (Non-Af Amer) > 60 POC Glucose (mg/dL) 244 H (65-110) mg/dL Random Glucose 235 H (70-110) mg/dL Calcium 7.7 L (8.4-10.5) mg/dL Phosphorus (2.5-4.5) mg/dL Magnesium (1.7-2.2) mg/dL Total Bilirubin (0.2-1.3) mg/dL AST (14-36) U/L ALT (7-56) U/L Alkaline Phosphatase (38-126) U/L Total Protein (5.8-8.3) g/dL Albumin (3.0-4.8) g/dL Globulin gm/dL Albumin/Globulin Ratio (1.1-1.8) Procalcitonin (0.19-0.49) NG/ML 05/29/18 05/29/18 05/29/18 Range/Units 23:01 21:52 20:57 WBC (4.5-11.0) 10^3/uL RBC (3.5-6.1) 10^6/uL Hgb (12.0-16.0) g/dL Hct (36.0-48.0) % MCV (80.0-105.0) fl MCH (25.0-35.0) pg MCHC (31.0-37.0) g/dl RDW (11.5-14.5) % Plt Count (120.0-450.0) 10^3/uL MPV (7.0-11.0) fl Gran % (50.0-68.0) % Lymph % (Auto) (22.0-35.0) % [place] % (Auto) (1.0-6.0) % Eos % (Auto) (1.5-5.0) % Baso % (Auto) (0.0-3.0) % Gran # (1.4-6.5) Lymph # (Auto) (1.2-3.4) [place] # (Auto) (0.1-0.6) Eos # (Auto) (0.0-0.7) Baso # (Auto) (0.0-2.0) K/mm3 pO2 (30-55) mm/Hg VBG pH (7.32-7.43) VBG pCO2 (40-60) VBG HCO3 (21-28) mmol/l VBG O2 Sat (Calc) (40-65) % VBG Base Excess (0.0-2.0) mmol/L Sodium (132-148) mmol/L Potassium (3.6-5.0) mmol/L Chloride (98-107) mmol/L Carbon Dioxide (21-33) mmol/L Anion Gap (10-20) BUN (7-21) mg/dL Creatinine (0.7-1.2) mg/dl Est GFR ( Amer) Est GFR (Non-Af Amer) POC Glucose (mg/dL) 221 H 200 H 220 H (65-110) mg/dL Random Glucose (70-110) mg/dL Calcium (8.4-10.5) mg/dL Phosphorus (2.5-4.5) mg/dL Magnesium (1.7-2.2) mg/dL Total Bilirubin (0.2-1.3) mg/dL AST (14-36) U/L ALT (7-56) U/L Alkaline Phosphatase (38-126) U/L Total Protein (5.8-8.3) g/dL Albumin (3.0-4.8) g/dL Globulin gm/dL Albumin/Globulin Ratio (1.1-1.8) Procalcitonin (0.19-0.49) NG/ML 05/29/18 05/29/18 05/29/18 Range/Units 20:03 19:38 19:38 WBC (4.5-11.0) 10^3/uL RBC (3.5-6.1) 10^6/uL Hgb (12.0-16.0) g/dL Hct (36.0-48.0) % MCV (80.0-105.0) fl MCH (25.0-35.0) pg MCHC (31.0-37.0) g/dl RDW (11.5-14.5) % Plt Count (120.0-450.0) 10^3/uL MPV (7.0-11.0) fl Gran % (50.0-68.0) % Lymph % (Auto) (22.0-35.0) % [place] % (Auto) (1.0-6.0) % Eos % (Auto) (1.5-5.0) % Baso % (Auto) (0.0-3.0) % Gran # (1.4-6.5) Lymph # (Auto) (1.2-3.4) [place] # (Auto) (0.1-0.6) Eos # (Auto) (0.0-0.7) Baso # (Auto) (0.0-2.0) K/mm3 pO2 48 (30-55) mm/Hg VBG pH 7.21 L (7.32-7.43) VBG pCO2 33.0 L (40-60) VBG HCO3 13.2 L (21-28) mmol/l VBG O2 Sat (Calc) 89.8 H (40-65) % VBG Base Excess -13.6 L (0.0-2.0) mmol/L Sodium 139 (132-148) mmol/L Potassium 4.0 (3.6-5.0) mmol/L Chloride 114 H (98-107) mmol/L Carbon Dioxide 14 L (21-33) mmol/L Anion Gap 15 (10-20) BUN 9 (7-21) mg/dL Creatinine 0.5 L (0.7-1.2) mg/dl Est GFR ( Amer) > 60 Est GFR (Non-Af Amer) > 60 POC Glucose (mg/dL) 240 H (65-110) mg/dL Random Glucose 249 H (70-110) mg/dL Calcium 7.9 L (8.4-10.5) mg/dL Phosphorus (2.5-4.5) mg/dL Magnesium (1.7-2.2) mg/dL Total Bilirubin (0.2-1.3) mg/dL AST (14-36) U/L ALT (7-56) U/L Alkaline Phosphatase (38-126) U/L Total Protein (5.8-8.3) g/dL Albumin (3.0-4.8) g/dL Globulin gm/dL Albumin/Globulin Ratio (1.1-1.8) Procalcitonin (0.19-0.49) NG/ML 05/29/18 05/29/18 05/29/18 Range/Units 18:50 17:51 16:49 WBC (4.5-11.0) 10^3/uL RBC (3.5-6.1) 10^6/uL Hgb (12.0-16.0) g/dL Hct (36.0-48.0) % MCV (80.0-105.0) fl MCH (25.0-35.0) pg MCHC (31.0-37.0) g/dl RDW (11.5-14.5) % Plt Count (120.0-450.0) 10^3/uL MPV (7.0-11.0) fl Gran % (50.0-68.0) % Lymph % (Auto) (22.0-35.0) % [place] % (Auto) (1.0-6.0) % Eos % (Auto) (1.5-5.0) % Baso % (Auto) (0.0-3.0) % Gran # (1.4-6.5) Lymph # (Auto) (1.2-3.4) [place] # (Auto) (0.1-0.6) Eos # (Auto) (0.0-0.7) Baso # (Auto) (0.0-2.0) K/mm3 pO2 (30-55) mm/Hg VBG pH (7.32-7.43) VBG pCO2 (40-60) VBG HCO3 (21-28) mmol/l VBG O2 Sat (Calc) (40-65) % VBG Base Excess (0.0-2.0) mmol/L Sodium (132-148) mmol/L Potassium (3.6-5.0) mmol/L Chloride (98-107) mmol/L Carbon Dioxide (21-33) mmol/L Anion Gap (10-20) BUN (7-21) mg/dL Creatinine (0.7-1.2) mg/dl Est GFR ( Amer) Est GFR (Non-Af Amer) POC Glucose (mg/dL) 274 H 228 H 221 H (65-110) mg/dL Random Glucose (70-110) mg/dL Calcium (8.4-10.5) mg/dL Phosphorus (2.5-4.5) mg/dL Magnesium (1.7-2.2) mg/dL Total Bilirubin (0.2-1.3) mg/dL AST (14-36) U/L ALT (7-56) U/L Alkaline Phosphatase (38-126) U/L Total Protein (5.8-8.3) g/dL Albumin (3.0-4.8) g/dL Globulin gm/dL Albumin/Globulin Ratio (1.1-1.8) Procalcitonin (0.19-0.49) NG/ML 05/29/18 05/29/18 05/29/18 Range/Units 16:20 16:11 16:05 WBC (4.5-11.0) 10^3/uL RBC (3.5-6.1) 10^6/uL Hgb (12.0-16.0) g/dL Hct (36.0-48.0) % MCV (80.0-105.0) fl MCH (25.0-35.0) pg MCHC (31.0-37.0) g/dl RDW (11.5-14.5) % Plt Count (120.0-450.0) 10^3/uL MPV (7.0-11.0) fl Gran % (50.0-68.0) % Lymph % (Auto) (22.0-35.0) % [place] % (Auto) (1.0-6.0) % Eos % (Auto) (1.5-5.0) % Baso % (Auto) (0.0-3.0) % Gran # (1.4-6.5) Lymph # (Auto) (1.2-3.4) [place] # (Auto) (0.1-0.6) Eos # (Auto) (0.0-0.7) Baso # (Auto) (0.0-2.0) K/mm3 pO2 63 H (30-55) mm/Hg VBG pH 7.18 L* (7.32-7.43) VBG pCO2 27.0 L (40-60) VBG HCO3 10.1 L (21-28) mmol/l VBG O2 Sat (Calc) 95.7 H (40-65) % VBG Base Excess -16.7 L (0.0-2.0) mmol/L Sodium 139 (132-148) mmol/L Potassium 4.4 (3.6-5.0) mmol/L Chloride 116 H (98-107) mmol/L Carbon Dioxide 11 L (21-33) mmol/L Anion Gap 16 (10-20) BUN 10 (7-21) mg/dL Creatinine 0.5 L (0.7-1.2) mg/dl Est GFR ( Amer) > 60 Est GFR (Non-Af Amer) > 60 POC Glucose (mg/dL) 207 H (65-110) mg/dL Random Glucose 233 H (70-110) mg/dL Calcium 7.8 L (8.4-10.5) mg/dL Phosphorus (2.5-4.5) mg/dL Magnesium (1.7-2.2) mg/dL Total Bilirubin (0.2-1.3) mg/dL AST (14-36) U/L ALT (7-56) U/L Alkaline Phosphatase (38-126) U/L Total Protein (5.8-8.3) g/dL Albumin (3.0-4.8) g/dL Globulin gm/dL Albumin/Globulin Ratio (1.1-1.8) Procalcitonin (0.19-0.49) NG/ML 05/29/18 05/29/18 05/29/18 Range/Units 14:56 14:02 12:57 WBC (4.5-11.0) 10^3/uL RBC (3.5-6.1) 10^6/uL Hgb (12.0-16.0) g/dL Hct (36.0-48.0) % MCV (80.0-105.0) fl MCH (25.0-35.0) pg MCHC (31.0-37.0) g/dl RDW (11.5-14.5) % Plt Count (120.0-450.0) 10^3/uL MPV (7.0-11.0) fl Gran % (50.0-68.0) % Lymph % (Auto) (22.0-35.0) % [place] % (Auto) (1.0-6.0) % Eos % (Auto) (1.5-5.0) % Baso % (Auto) (0.0-3.0) % Gran # (1.4-6.5) Lymph # (Auto) (1.2-3.4) [place] # (Auto) (0.1-0.6) Eos # (Auto) (0.0-0.7) Baso # (Auto) (0.0-2.0) K/mm3 pO2 (30-55) mm/Hg VBG pH (7.32-7.43) VBG pCO2 (40-60) VBG HCO3 (21-28) mmol/l VBG O2 Sat (Calc) (40-65) % VBG Base Excess (0.0-2.0) mmol/L Sodium (132-148) mmol/L Potassium (3.6-5.0) mmol/L Chloride (98-107) mmol/L Carbon Dioxide (21-33) mmol/L Anion Gap (10-20) BUN (7-21) mg/dL Creatinine (0.7-1.2) mg/dl Est GFR ( Amer) Est GFR (Non-Af Amer) POC Glucose (mg/dL) 193 H 167 H 188 H (65-110) mg/dL Random Glucose (70-110) mg/dL Calcium (8.4-10.5) mg/dL Phosphorus (2.5-4.5) mg/dL Magnesium (1.7-2.2) mg/dL Total Bilirubin (0.2-1.3) mg/dL AST (14-36) U/L ALT (7-56) U/L Alkaline Phosphatase (38-126) U/L Total Protein (5.8-8.3) g/dL Albumin (3.0-4.8) g/dL Globulin gm/dL Albumin/Globulin Ratio (1.1-1.8) Procalcitonin (0.19-0.49) NG/ML 05/29/18 Range/Units 10:30 WBC (4.5-11.0) 10^3/uL RBC (3.5-6.1) 10^6/uL Hgb (12.0-16.0) g/dL Hct (36.0-48.0) % MCV (80.0-105.0) fl MCH (25.0-35.0) pg MCHC (31.0-37.0) g/dl RDW (11.5-14.5) % Plt Count (120.0-450.0) 10^3/uL MPV (7.0-11.0) fl Gran % (50.0-68.0) % Lymph % (Auto) (22.0-35.0) % [place] % (Auto) (1.0-6.0) % Eos % (Auto) (1.5-5.0) % Baso % (Auto) (0.0-3.0) % Gran # (1.4-6.5) Lymph # (Auto) (1.2-3.4) [place] # (Auto) (0.1-0.6) Eos # (Auto) (0.0-0.7) Baso # (Auto) (0.0-2.0) K/mm3 pO2 (30-55) mm/Hg VBG pH (7.32-7.43) VBG pCO2 (40-60) VBG HCO3 (21-28) mmol/l VBG O2 Sat (Calc) (40-65) % VBG Base Excess (0.0-2.0) mmol/L Sodium (132-148) mmol/L Potassium (3.6-5.0) mmol/L Chloride (98-107) mmol/L Carbon Dioxide (21-33) mmol/L Anion Gap (10-20) BUN (7-21) mg/dL Creatinine (0.7-1.2) mg/dl Est GFR ( Amer) Est GFR (Non-Af Amer) POC Glucose (mg/dL) (65-110) mg/dL Random Glucose (70-110) mg/dL Calcium (8.4-10.5) mg/dL Phosphorus (2.5-4.5) mg/dL Magnesium (1.7-2.2) mg/dL Total Bilirubin (0.2-1.3) mg/dL AST (14-36) U/L ALT (7-56) U/L Alkaline Phosphatase (38-126) U/L Total Protein (5.8-8.3) g/dL Albumin (3.0-4.8) g/dL Globulin gm/dL Albumin/Globulin Ratio (1.1-1.8) Procalcitonin < 0.05 L (0.19-0.49) NG/ML Laboratory Results - last 24 hr 05/29/18 05/29/18 05/29/18 10:30 12:57 14:02 WBC RBC Hgb Hct MCV MCH MCHC RDW Plt Count MPV Gran % Lymph % (Auto) [place] % (Auto) Eos % (Auto) Baso % (Auto) Gran # Lymph # (Auto) [place] # (Auto) Eos # (Auto) Baso # (Auto) pO2 VBG pH VBG pCO2 VBG HCO3 VBG O2 Sat (Calc) VBG Base Excess Sodium Potassium Chloride Carbon Dioxide Anion Gap BUN Creatinine Est GFR ( Amer) Est GFR (Non-Af Amer) POC Glucose (mg/dL) 188 H 167 H Random Glucose Calcium Phosphorus Magnesium Total Bilirubin AST ALT Alkaline Phosphatase Total Protein Albumin Globulin Albumin/Globulin Ratio Procalcitonin < 0.05 L 05/29/18 05/29/18 05/29/18 14:56 16:05 16:11 WBC RBC Hgb Hct MCV MCH MCHC RDW Plt Count MPV Gran % Lymph % (Auto) [place] % (Auto) Eos % (Auto) Baso % (Auto) Gran # Lymph # (Auto) [place] # (Auto) Eos # (Auto) Baso # (Auto) pO2 63 H VBG pH 7.18 L* VBG pCO2 27.0 L VBG HCO3 10.1 L VBG O2 Sat (Calc) 95.7 H VBG Base Excess -16.7 L Sodium Potassium Chloride Carbon Dioxide Anion Gap BUN Creatinine Est GFR ( Amer) Est GFR (Non-Af Amer) POC Glucose (mg/dL) 193 H 207 H Random Glucose Calcium Phosphorus Magnesium Total Bilirubin AST ALT Alkaline Phosphatase Total Protein Albumin Globulin Albumin/Globulin Ratio Procalcitonin 05/29/18 05/29/18 05/29/18 16:20 16:49 17:51 WBC RBC Hgb Hct MCV MCH MCHC RDW Plt Count MPV Gran % Lymph % (Auto) [place] % (Auto) Eos % (Auto) Baso % (Auto) Gran # Lymph # (Auto) [place] # (Auto) Eos # (Auto) Baso # (Auto) pO2 VBG pH VBG pCO2 VBG HCO3 VBG O2 Sat (Calc) VBG Base Excess Sodium 139 Potassium 4.4 Chloride 116 H Carbon Dioxide 11 L Anion Gap 16 BUN 10 Creatinine 0.5 L Est GFR ( Amer) > 60 Est GFR (Non-Af Amer) > 60 POC Glucose (mg/dL) 221 H 228 H Random Glucose 233 H Calcium 7.8 L Phosphorus Magnesium Total Bilirubin AST ALT Alkaline Phosphatase Total Protein Albumin Globulin Albumin/Globulin Ratio Procalcitonin 05/29/18 05/29/18 05/29/18 18:50 19:38 19:38 WBC RBC Hgb Hct MCV MCH MCHC RDW Plt Count MPV Gran % Lymph % (Auto) [place] % (Auto) Eos % (Auto) Baso % (Auto) Gran # Lymph # (Auto) [place] # (Auto) Eos # (Auto) Baso # (Auto) pO2 48 VBG pH 7.21 L VBG pCO2 33.0 L VBG HCO3 13.2 L VBG O2 Sat (Calc) 89.8 H VBG Base Excess -13.6 L Sodium 139 Potassium 4.0 Chloride 114 H Carbon Dioxide 14 L Anion Gap 15 BUN 9 Creatinine 0.5 L Est GFR ( Amer) > 60 Est GFR (Non-Af Amer) > 60 POC Glucose (mg/dL) 274 H Random Glucose 249 H Calcium 7.9 L Phosphorus Magnesium Total Bilirubin AST ALT Alkaline Phosphatase Total Protein Albumin Globulin Albumin/Globulin Ratio Procalcitonin 05/29/18 05/29/18 05/29/18 20:03 20:57 21:52 WBC RBC Hgb Hct MCV MCH MCHC RDW Plt Count MPV Gran % Lymph % (Auto) [place] % (Auto) Eos % (Auto) Baso % (Auto) Gran # Lymph # (Auto) [place] # (Auto) Eos # (Auto) Baso # (Auto) pO2 VBG pH VBG pCO2 VBG HCO3 VBG O2 Sat (Calc) VBG Base Excess Sodium Potassium Chloride Carbon Dioxide Anion Gap BUN Creatinine Est GFR ( Amer) Est GFR (Non-Af Amer) POC Glucose (mg/dL) 240 H 220 H 200 H Random Glucose Calcium Phosphorus Magnesium Total Bilirubin AST ALT Alkaline Phosphatase Total Protein Albumin Globulin Albumin/Globulin Ratio Procalcitonin 05/29/18 05/29/18 05/30/18 23:01 23:30 00:30 WBC RBC Hgb Hct MCV MCH MCHC RDW Plt Count MPV Gran % Lymph % (Auto) [place] % (Auto) Eos % (Auto) Baso % (Auto) Gran # Lymph # (Auto) [place] # (Auto) Eos # (Auto) Baso # (Auto) pO2 90 H VBG pH 7.24 L VBG pCO2 35.0 L VBG HCO3 15.0 L VBG O2 Sat (Calc) 98.1 H VBG Base Excess -11.5 L Sodium 137 Potassium 3.9 Chloride 115 H Carbon Dioxide 17 L Anion Gap 10 BUN 9 Creatinine 0.4 L Est GFR ( Amer) > 60 Est GFR (Non-Af Amer) > 60 POC Glucose (mg/dL) 221 H Random Glucose 235 H Calcium 7.7 L Phosphorus Magnesium Total Bilirubin AST ALT Alkaline Phosphatase Total Protein Albumin Globulin Albumin/Globulin Ratio Procalcitonin 05/30/18 05/30/18 05/30/18 01:02 02:10 03:44 WBC RBC Hgb Hct MCV MCH MCHC RDW Plt Count MPV Gran % Lymph % (Auto) [place] % (Auto) Eos % (Auto) Baso % (Auto) Gran # Lymph # (Auto) [place] # (Auto) Eos # (Auto) Baso # (Auto) pO2 VBG pH VBG pCO2 VBG HCO3 VBG O2 Sat (Calc) VBG Base Excess Sodium Potassium Chloride Carbon Dioxide Anion Gap BUN Creatinine Est GFR ( Amer) Est GFR (Non-Af Amer) POC Glucose (mg/dL) 244 H 197 H 202 H Random Glucose Calcium Phosphorus Magnesium Total Bilirubin AST ALT Alkaline Phosphatase Total Protein Albumin Globulin Albumin/Globulin Ratio Procalcitonin 05/30/18 05/30/18 05/30/18 03:45 03:45 04:45 WBC RBC Hgb Hct MCV MCH MCHC RDW Plt Count MPV Gran % Lymph % (Auto) [place] % (Auto) Eos % (Auto) Baso % (Auto) Gran # Lymph # (Auto) [place] # (Auto) Eos # (Auto) Baso # (Auto) pO2 35 VBG pH 7.25 L VBG pCO2 40.0 VBG HCO3 17.5 L VBG O2 Sat (Calc) 78.4 H VBG Base Excess -9.2 L Sodium Potassium Chloride Carbon Dioxide Anion Gap BUN Creatinine Est GFR ( Amer) Est GFR (Non-Af Amer) POC Glucose (mg/dL) 198 H Random Glucose Calcium Phosphorus 1.2 L* Magnesium 1.9 Total Bilirubin AST ALT Alkaline Phosphatase Total Protein Albumin Globulin Albumin/Globulin Ratio Procalcitonin 05/30/18 05/30/18 05/30/18 05:00 05:00 06:35 WBC 9.4 D RBC 4.10 Hgb 12.0 D Hct 35.6 L MCV 86.8 D MCH 29.3 MCHC 33.7 RDW 12.3 Plt Count 274 MPV 10.1 Gran % 65.0 Lymph % (Auto) 26.1 [place] % (Auto) 7.9 H Eos % (Auto) 0.7 L Baso % (Auto) 0.3 Gran # 6.12 Lymph # (Auto) 2.5 [place] # (Auto) 0.7 H Eos # (Auto) 0.1 Baso # (Auto) 0.03 pO2 VBG pH VBG pCO2 VBG HCO3 VBG O2 Sat (Calc) VBG Base Excess Sodium 139 Potassium 4.4 Chloride 116 H Carbon Dioxide 12 L Anion Gap 15 BUN 10 Creatinine 0.6 L Est GFR ( Amer) > 60 Est GFR (Non-Af Amer) > 60 POC Glucose (mg/dL) 154 H Random Glucose 233 H Calcium 7.7 L Phosphorus Magnesium Total Bilirubin 0.4 AST 24 ALT 26 Alkaline Phosphatase 75 Total Protein 6.9 Albumin 3.6 Globulin 3.3 Albumin/Globulin Ratio 1.1 Procalcitonin 05/30/18 05/30/18 05/30/18 07:40 08:30 08:30 WBC RBC Hgb Hct MCV MCH MCHC RDW Plt Count MPV Gran % Lymph % (Auto) [place] % (Auto) Eos % (Auto) Baso % (Auto) Gran # Lymph # (Auto) [place] # (Auto) Eos # (Auto) Baso # (Auto) pO2 51 VBG pH 7.25 L VBG pCO2 34.0 L VBG HCO3 14.9 L VBG O2 Sat (Calc) 92.5 H VBG Base Excess 11.3 H Sodium 137 Potassium 4.0 Chloride 114 H Carbon Dioxide 14 L Anion Gap 12 BUN 7 Creatinine 0.5 L Est GFR ( Amer) > 60 Est GFR (Non-Af Amer) > 60 POC Glucose (mg/dL) 159 H Random Glucose 167 H Calcium 7.9 L Phosphorus Magnesium Total Bilirubin AST ALT Alkaline Phosphatase Total Protein Albumin Globulin Albumin/Globulin Ratio Procalcitonin 05/30/18 05/30/18 05/30/18 08:36 09:27 10:35 WBC RBC Hgb Hct MCV MCH MCHC RDW Plt Count MPV Gran % Lymph % (Auto) [place] % (Auto) Eos % (Auto) Baso % (Auto) Gran # Lymph # (Auto) [place] # (Auto) Eos # (Auto) Baso # (Auto) pO2 VBG pH VBG pCO2 VBG HCO3 VBG O2 Sat (Calc) VBG Base Excess Sodium Potassium Chloride Carbon Dioxide Anion Gap BUN Creatinine Est GFR ( Amer) Est GFR (Non-Af Amer) POC Glucose (mg/dL) 155 H 150 H 145 H Random Glucose Calcium Phosphorus Magnesium Total Bilirubin AST ALT Alkaline Phosphatase Total Protein Albumin Globulin Albumin/Globulin Ratio Procalcitonin 05/30/18 12:00 WBC RBC Hgb Hct MCV MCH MCHC RDW Plt Count MPV Gran % Lymph % (Auto) [place] % (Auto) Eos % (Auto) Baso % (Auto) Gran # Lymph # (Auto) [place] # (Auto) Eos # (Auto) Baso # (Auto) pO2 VBG pH VBG pCO2 VBG HCO3 VBG O2 Sat (Calc) VBG Base Excess Sodium 140 Potassium 3.6 Chloride 111 H Carbon Dioxide 18 L Anion Gap 14 BUN 6 L Creatinine 0.5 L Est GFR ( Amer) > 60 Est GFR (Non-Af Amer) > 60 POC Glucose (mg/dL) Random Glucose 220 H Calcium 8.2 L Phosphorus Magnesium Total Bilirubin AST ALT Alkaline Phosphatase Total Protein Albumin Globulin Albumin/Globulin Ratio Procalcitonin Fingerstick Blood Sugar Results: 164 Review of Systems - Review of Systems All systems: reviewed and no additional remarkable complaints except (as per HPI) Critical Care Progress Note - Extremities/Vascular Does the Patient have a Central Venous Catheter?: No Does the Patient need a Central Venous Catheter?: No Does the Patient have a Escobar Catheter?: No Does the Patient need a Escobar Catheter?: No - Prophylaxis GI Prophylaxis GI: PPI - Prophylaxis DVT Prophylaxis DVT: SCDs - Nutrition Nutrition: Nutrition Category Date Time Status Consistent Carbohydrate [DIET] Diets 05/30/18 Lunch Ordered Assessment/Plan - Assessment and Plan (Free Text) Assessment: Patient is a 33 y/o F with PMHx of DM who was admitted to the ICU for DKA. Plan: Neuro: - AAOx3 Cardio: - Maintain MAP > 65 - Normotensive Pulm: - Maintain SaO2 > 92% GI: - zofran for nausea - GI ppx - carb consistent diet Renal: - bicarb was low - improved on repeat chemistries - replete lytes as needed Endo: - Anion Gap has closed this morning; AG 5 - blood glucose is now 159 - Insulin drip was discontinued; started on subc insulin as per endo - Endo recs appreciated - HgbA1c 15.7 - cause of DKA likely due to non-compliance Heme: - DVT ppx with scd - H/H stable ID: - no fevers or leukocytosis - no antibiotics at this time Dispo: Patient is hemodynamically stable. DKA resolved. Transfer to med/surg. Case was discussed and reviewed with Attending Physician, Dr. King <Nehal King - Last Filed: 05/30/18 14:50> CCU Objective - Vital Signs / Intake & Output Vital Signs (Last 4 hours): Vital Signs Temp Pulse Resp BP Pulse Ox 05/30/18 14:43 98.6 F 05/30/18 14:40 102 H 20 100 05/30/18 14:30 99 H 16 100 05/30/18 14:20 100 H 19 100 05/30/18 14:10 102 H 17 100 05/30/18 14:00 103 H 16 129/71 100 05/30/18 13:50 110 H 16 100 05/30/18 13:40 106 H 12 91 L 05/30/18 13:30 106 H 14 99 05/30/18 13:20 106 H 12 100 05/30/18 13:10 104 H 13 100 05/30/18 13:00 110 H 16 143/78 98 05/30/18 12:50 101 H 16 100 05/30/18 12:40 102 H 16 05/30/18 12:39 104 H 05/30/18 12:20 105 H 19 100 05/30/18 12:10 100 H 16 100 05/30/18 12:00 102 H 18 123/68 82 L 05/30/18 11:50 95 H 13 98 05/30/18 11:44 101 H 15 05/30/18 11:43 102 H 27 H 05/30/18 11:40 97 H 15 99 05/30/18 11:30 97 H 17 99 05/30/18 11:20 102 H 16 98 05/30/18 11:10 103 H 14 97 05/30/18 11:00 105 H 26 H 117/61 97 05/30/18 10:50 105 H 22 97 Intake and Output (Last 8hrs): Intake & Output 05/29/18 05/30/18 05/30/18 22:59 06:59 14:59 Intake Total 2899 15.0 Output Total 600 Balance 2299 15.0 Weight 63.957 kg Intake: IV 2039 15.0 IVF 2000 Insulin drip 24 Oral 860 Output: Urine 600 Urine, Voided 600 Other: # Bowel Movements 0 - Medications Active Medications: Active Medications Generic Name Dose Route Start Last Admin Trade Name Doyleq PRN Reason Stop Dose Admin Benzocaine/Menthol 1 pastor 05/30/18 04:47 05/30/18 14:39 Cepacol Sore Throat MT 1 pastor Q2H PRN Administration Sore Throat Potassium Chloride 20 meq/ 1,010 mls @ 200 mls/hr 05/29/18 13:51 05/30/18 10:22 Dextrose/Sodium Chloride IV 200 mls/hr .[id number] [place] Administration Potassium Phosphate 15 mmole/ 255 mls @ 42.5 mls/hr 05/30/18 11:38 05/30/18 12:39 Sodium Chloride IVPB 05/30/18 17:37 42.5 mls/hr ONCE ONE Administration Insulin Human NPH 14 units 05/30/18 22:00 Humulin N SC HS [place] Insulin Human Regular 6 units 05/30/18 11:30 05/30/18 11:31 Humulin R SC 6 unit AC [place] Administration Insulin Human Regular 0 units 05/30/18 11:30 05/30/18 11:29 Humulin R Low SC Not Given ACHS [facility] Protocol Ondansetron HCl 4 mg 05/29/18 08:27 05/29/18 20:14 Zofran Inj IVP 4 mg Q4H PRN Administration Nausea/Vomiting Pantoprazole Sodium 40 mg 05/29/18 10:00 05/30/18 10:30 Protonix Inj IVP 40 mg DAILY [place] Administration Potassium Phos/Sodium Phos 1 pkt 05/30/18 10:00 05/30/18 14:40 Neutra-Phos PO 1 pkt TID [place] Administration - Patient Studies Lab Studies: Microbiology Studies 05/29/18 09:30 MRSA Culture (Admit) - Final Naris MRSA NOT DETECTED 05/29/18 09:00 Urine Culture - Final Urine No Growth (<1,000 CFU/ML) Lab Studies 05/30/18 05/30/18 05/30/18 Range/Units 12:00 10:35 09:27 WBC (4.5-11.0) 10^3/uL RBC (3.5-6.1) 10^6/uL Hgb (12.0-16.0) g/dL Hct (36.0-48.0) % MCV (80.0-105.0) fl MCH (25.0-35.0) pg MCHC (31.0-37.0) g/dl RDW (11.5-14.5) % Plt Count (120.0-450.0) 10^3/uL MPV (7.0-11.0) fl Gran % (50.0-68.0) % Lymph % (Auto) (22.0-35.0) % [place] % (Auto) (1.0-6.0) % Eos % (Auto) (1.5-5.0) % Baso % (Auto) (0.0-3.0) % Gran # (1.4-6.5) Lymph # (Auto) (1.2-3.4) [place] # (Auto) (0.1-0.6) Eos # (Auto) (0.0-0.7) Baso # (Auto) (0.0-2.0) K/mm3 pO2 (30-55) mm/Hg VBG pH (7.32-7.43) VBG pCO2 (40-60) VBG HCO3 (21-28) mmol/l VBG O2 Sat (Calc) (40-65) % VBG Base Excess (0.0-2.0) mmol/L Sodium 140 (132-148) mmol/L Potassium 3.6 (3.6-5.0) mmol/L Chloride 111 H (98-107) mmol/L Carbon Dioxide 18 L (21-33) mmol/L Anion Gap 14 (10-20) BUN 6 L (7-21) mg/dL Creatinine 0.5 L (0.7-1.2) mg/dl Est GFR ( Amer) > 60 Est GFR (Non-Af Amer) > 60 POC Glucose (mg/dL) 145 H 150 H (65-110) mg/dL Random Glucose 220 H (70-110) mg/dL Calcium 8.2 L (8.4-10.5) mg/dL Phosphorus (2.5-4.5) mg/dL Magnesium (1.7-2.2) mg/dL Total Bilirubin (0.2-1.3) mg/dL AST (14-36) U/L ALT (7-56) U/L Alkaline Phosphatase (38-126) U/L Total Protein (5.8-8.3) g/dL Albumin (3.0-4.8) g/dL Globulin gm/dL Albumin/Globulin Ratio (1.1-1.8) Procalcitonin (0.19-0.49) NG/ML 05/30/18 05/30/18 05/30/18 Range/Units 08:36 08:30 08:30 WBC (4.5-11.0) 10^3/uL RBC (3.5-6.1) 10^6/uL Hgb (12.0-16.0) g/dL Hct (36.0-48.0) % MCV (80.0-105.0) fl MCH (25.0-35.0) pg MCHC (31.0-37.0) g/dl RDW (11.5-14.5) % Plt Count (120.0-450.0) 10^3/uL MPV (7.0-11.0) fl Gran % (50.0-68.0) % Lymph % (Auto) (22.0-35.0) % [place] % (Auto) (1.0-6.0) % Eos % (Auto) (1.5-5.0) % Baso % (Auto) (0.0-3.0) % Gran # (1.4-6.5) Lymph # (Auto) (1.2-3.4) [place] # (Auto) (0.1-0.6) Eos # (Auto) (0.0-0.7) Baso # (Auto) (0.0-2.0) K/mm3 pO2 51 (30-55) mm/Hg VBG pH 7.25 L (7.32-7.43) VBG pCO2 34.0 L (40-60) VBG HCO3 14.9 L (21-28) mmol/l VBG O2 Sat (Calc) 92.5 H (40-65) % VBG Base Excess 11.3 H (0.0-2.0) mmol/L Sodium 137 (132-148) mmol/L Potassium 4.0 (3.6-5.0) mmol/L Chloride 114 H (98-107) mmol/L Carbon Dioxide 14 L (21-33) mmol/L Anion Gap 12 (10-20) BUN 7 (7-21) mg/dL Creatinine 0.5 L (0.7-1.2) mg/dl Est GFR ( Amer) > 60 Est GFR (Non-Af Amer) > 60 POC Glucose (mg/dL) 155 H (65-110) mg/dL Random Glucose 167 H (70-110) mg/dL Calcium 7.9 L (8.4-10.5) mg/dL Phosphorus (2.5-4.5) mg/dL Magnesium (1.7-2.2) mg/dL Total Bilirubin (0.2-1.3) mg/dL AST (14-36) U/L ALT (7-56) U/L Alkaline Phosphatase (38-126) U/L Total Protein (5.8-8.3) g/dL Albumin (3.0-4.8) g/dL Globulin gm/dL Albumin/Globulin Ratio (1.1-1.8) Procalcitonin (0.19-0.49) NG/ML 05/30/18 05/30/18 05/30/18 Range/Units 07:40 06:35 05:00 WBC 9.4 D (4.5-11.0) 10^3/uL RBC 4.10 (3.5-6.1) 10^6/uL Hgb 12.0 D (12.0-16.0) g/dL Hct 35.6 L (36.0-48.0) % MCV 86.8 D (80.0-105.0) fl MCH 29.3 (25.0-35.0) pg MCHC 33.7 (31.0-37.0) g/dl RDW 12.3 (11.5-14.5) % Plt Count 274 (120.0-450.0) 10^3/uL MPV 10.1 (7.0-11.0) fl Gran % 65.0 (50.0-68.0) % Lymph % (Auto) 26.1 (22.0-35.0) % [place] % (Auto) 7.9 H (1.0-6.0) % Eos % (Auto) 0.7 L (1.5-5.0) % Baso % (Auto) 0.3 (0.0-3.0) % Gran # 6.12 (1.4-6.5) Lymph # (Auto) 2.5 (1.2-3.4) [place] # (Auto) 0.7 H (0.1-0.6) Eos # (Auto) 0.1 (0.0-0.7) Baso # (Auto) 0.03 (0.0-2.0) K/mm3 pO2 (30-55) mm/Hg VBG pH (7.32-7.43) VBG pCO2 (40-60) VBG HCO3 (21-28) mmol/l VBG O2 Sat (Calc) (40-65) % VBG Base Excess (0.0-2.0) mmol/L Sodium (132-148) mmol/L Potassium (3.6-5.0) mmol/L Chloride (98-107) mmol/L Carbon Dioxide (21-33) mmol/L Anion Gap (10-20) BUN (7-21) mg/dL Creatinine (0.7-1.2) mg/dl Est GFR ( Amer) Est GFR (Non-Af Amer) POC Glucose (mg/dL) 159 H 154 H (65-110) mg/dL Random Glucose (70-110) mg/dL Calcium (8.4-10.5) mg/dL Phosphorus (2.5-4.5) mg/dL Magnesium (1.7-2.2) mg/dL Total Bilirubin (0.2-1.3) mg/dL AST (14-36) U/L ALT (7-56) U/L Alkaline Phosphatase (38-126) U/L Total Protein (5.8-8.3) g/dL Albumin (3.0-4.8) g/dL Globulin gm/dL Albumin/Globulin Ratio (1.1-1.8) Procalcitonin (0.19-0.49) NG/ML 05/30/18 05/30/18 05/30/18 Range/Units 05:00 04:45 03:45 WBC (4.5-11.0) 10^3/uL RBC (3.5-6.1) 10^6/uL Hgb (12.0-16.0) g/dL Hct (36.0-48.0) % MCV (80.0-105.0) fl MCH (25.0-35.0) pg MCHC (31.0-37.0) g/dl RDW (11.5-14.5) % Plt Count (120.0-450.0) 10^3/uL MPV (7.0-11.0) fl Gran % (50.0-68.0) % Lymph % (Auto) (22.0-35.0) % [place] % (Auto) (1.0-6.0) % Eos % (Auto) (1.5-5.0) % Baso % (Auto) (0.0-3.0) % Gran # (1.4-6.5) Lymph # (Auto) (1.2-3.4) [place] # (Auto) (0.1-0.6) Eos # (Auto) (0.0-0.7) Baso # (Auto) (0.0-2.0) K/mm3 pO2 35 (30-55) mm/Hg VBG pH 7.25 L (7.32-7.43) VBG pCO2 40.0 (40-60) VBG HCO3 17.5 L (21-28) mmol/l VBG O2 Sat (Calc) 78.4 H (40-65) % VBG Base Excess -9.2 L (0.0-2.0) mmol/L Sodium 139 (132-148) mmol/L Potassium 4.4 (3.6-5.0) mmol/L Chloride 116 H (98-107) mmol/L Carbon Dioxide 12 L (21-33) mmol/L Anion Gap 15 (10-20) BUN 10 (7-21) mg/dL Creatinine 0.6 L (0.7-1.2) mg/dl Est GFR ( Amer) > 60 Est GFR (Non-Af Amer) > 60 POC Glucose (mg/dL) 198 H (65-110) mg/dL Random Glucose 233 H (70-110) mg/dL Calcium 7.7 L (8.4-10.5) mg/dL Phosphorus (2.5-4.5) mg/dL Magnesium (1.7-2.2) mg/dL Total Bilirubin 0.4 (0.2-1.3) mg/dL AST 24 (14-36) U/L ALT 26 (7-56) U/L Alkaline Phosphatase 75 (38-126) U/L Total Protein 6.9 (5.8-8.3) g/dL Albumin 3.6 (3.0-4.8) g/dL Globulin 3.3 gm/dL Albumin/Globulin Ratio 1.1 (1.1-1.8) Procalcitonin (0.19-0.49) NG/ML 05/30/18 05/30/18 05/30/18 Range/Units 03:45 03:44 02:10 WBC (4.5-11.0) 10^3/uL RBC (3.5-6.1) 10^6/uL Hgb (12.0-16.0) g/dL Hct (36.0-48.0) % MCV (80.0-105.0) fl MCH (25.0-35.0) pg MCHC (31.0-37.0) g/dl RDW (11.5-14.5) % Plt Count (120.0-450.0) 10^3/uL MPV (7.0-11.0) fl Gran % (50.0-68.0) % Lymph % (Auto) (22.0-35.0) % [place] % (Auto) (1.0-6.0) % Eos % (Auto) (1.5-5.0) % Baso % (Auto) (0.0-3.0) % Gran # (1.4-6.5) Lymph # (Auto) (1.2-3.4) [place] # (Auto) (0.1-0.6) Eos # (Auto) (0.0-0.7) Baso # (Auto) (0.0-2.0) K/mm3 pO2 (30-55) mm/Hg VBG pH (7.32-7.43) VBG pCO2 (40-60) VBG HCO3 (21-28) mmol/l VBG O2 Sat (Calc) (40-65) % VBG Base Excess (0.0-2.0) mmol/L Sodium (132-148) mmol/L Potassium (3.6-5.0) mmol/L Chloride (98-107) mmol/L Carbon Dioxide (21-33) mmol/L Anion Gap (10-20) BUN (7-21) mg/dL Creatinine (0.7-1.2) mg/dl Est GFR ( Amer) Est GFR (Non-Af Amer) POC Glucose (mg/dL) 202 H 197 H (65-110) mg/dL Random Glucose (70-110) mg/dL Calcium (8.4-10.5) mg/dL Phosphorus 1.2 L* (2.5-4.5) mg/dL Magnesium 1.9 (1.7-2.2) mg/dL Total Bilirubin (0.2-1.3) mg/dL AST (14-36) U/L ALT (7-56) U/L Alkaline Phosphatase (38-126) U/L Total Protein (5.8-8.3) g/dL Albumin (3.0-4.8) g/dL Globulin gm/dL Albumin/Globulin Ratio (1.1-1.8) Procalcitonin (0.19-0.49) NG/ML 05/30/18 05/30/18 05/29/18 Range/Units 01:02 00:30 23:30 WBC (4.5-11.0) 10^3/uL RBC (3.5-6.1) 10^6/uL Hgb (12.0-16.0) g/dL Hct (36.0-48.0) % MCV (80.0-105.0) fl MCH (25.0-35.0) pg MCHC (31.0-37.0) g/dl RDW (11.5-14.5) % Plt Count (120.0-450.0) 10^3/uL MPV (7.0-11.0) fl Gran % (50.0-68.0) % Lymph % (Auto) (22.0-35.0) % [place] % (Auto) (1.0-6.0) % Eos % (Auto) (1.5-5.0) % Baso % (Auto) (0.0-3.0) % Gran # (1.4-6.5) Lymph # (Auto) (1.2-3.4) [place] # (Auto) (0.1-0.6) Eos # (Auto) (0.0-0.7) Baso # (Auto) (0.0-2.0) K/mm3 pO2 90 H (30-55) mm/Hg VBG pH 7.24 L (7.32-7.43) VBG pCO2 35.0 L (40-60) VBG HCO3 15.0 L (21-28) mmol/l VBG O2 Sat (Calc) 98.1 H (40-65) % VBG Base Excess -11.5 L (0.0-2.0) mmol/L Sodium 137 (132-148) mmol/L Potassium 3.9 (3.6-5.0) mmol/L Chloride 115 H (98-107) mmol/L Carbon Dioxide 17 L (21-33) mmol/L Anion Gap 10 (10-20) BUN 9 (7-21) mg/dL Creatinine 0.4 L (0.7-1.2) mg/dl Est GFR ( Amer) > 60 Est GFR (Non-Af Amer) > 60 POC Glucose (mg/dL) 244 H (65-110) mg/dL Random Glucose 235 H (70-110) mg/dL Calcium 7.7 L (8.4-10.5) mg/dL Phosphorus (2.5-4.5) mg/dL Magnesium (1.7-2.2) mg/dL Total Bilirubin (0.2-1.3) mg/dL AST (14-36) U/L ALT (7-56) U/L Alkaline Phosphatase (38-126) U/L Total Protein (5.8-8.3) g/dL Albumin (3.0-4.8) g/dL Globulin gm/dL Albumin/Globulin Ratio (1.1-1.8) Procalcitonin (0.19-0.49) NG/ML 05/29/18 05/29/18 05/29/18 Range/Units 23:01 21:52 20:57 WBC (4.5-11.0) 10^3/uL RBC (3.5-6.1) 10^6/uL Hgb (12.0-16.0) g/dL Hct (36.0-48.0) % MCV (80.0-105.0) fl MCH (25.0-35.0) pg MCHC (31.0-37.0) g/dl RDW (11.5-14.5) % Plt Count (120.0-450.0) 10^3/uL MPV (7.0-11.0) fl Gran % (50.0-68.0) % Lymph % (Auto) (22.0-35.0) % [place] % (Auto) (1.0-6.0) % Eos % (Auto) (1.5-5.0) % Baso % (Auto) (0.0-3.0) % Gran # (1.4-6.5) Lymph # (Auto) (1.2-3.4) [place] # (Auto) (0.1-0.6) Eos # (Auto) (0.0-0.7) Baso # (Auto) (0.0-2.0) K/mm3 pO2 (30-55) mm/Hg VBG pH (7.32-7.43) VBG pCO2 (40-60) VBG HCO3 (21-28) mmol/l VBG O2 Sat (Calc) (40-65) % VBG Base Excess (0.0-2.0) mmol/L Sodium (132-148) mmol/L Potassium (3.6-5.0) mmol/L Chloride (98-107) mmol/L Carbon Dioxide (21-33) mmol/L Anion Gap (10-20) BUN (7-21) mg/dL Creatinine (0.7-1.2) mg/dl Est GFR ( Amer) Est GFR (Non-Af Amer) POC Glucose (mg/dL) 221 H 200 H 220 H (65-110) mg/dL Random Glucose (70-110) mg/dL Calcium (8.4-10.5) mg/dL Phosphorus (2.5-4.5) mg/dL Magnesium (1.7-2.2) mg/dL Total Bilirubin (0.2-1.3) mg/dL AST (14-36) U/L ALT (7-56) U/L Alkaline Phosphatase (38-126) U/L Total Protein (5.8-8.3) g/dL Albumin (3.0-4.8) g/dL Globulin gm/dL Albumin/Globulin Ratio (1.1-1.8) Procalcitonin (0.19-0.49) NG/ML 05/29/18 05/29/18 05/29/18 Range/Units 20:03 19:38 19:38 WBC (4.5-11.0) 10^3/uL RBC (3.5-6.1) 10^6/uL Hgb (12.0-16.0) g/dL Hct (36.0-48.0) % MCV (80.0-105.0) fl MCH (25.0-35.0) pg MCHC (31.0-37.0) g/dl RDW (11.5-14.5) % Plt Count (120.0-450.0) 10^3/uL MPV (7.0-11.0) fl Gran % (50.0-68.0) % Lymph % (Auto) (22.0-35.0) % [place] % (Auto) (1.0-6.0) % Eos % (Auto) (1.5-5.0) % Baso % (Auto) (0.0-3.0) % Gran # (1.4-6.5) Lymph # (Auto) (1.2-3.4) [place] # (Auto) (0.1-0.6) Eos # (Auto) (0.0-0.7) Baso # (Auto) (0.0-2.0) K/mm3 pO2 48 (30-55) mm/Hg VBG pH 7.21 L (7.32-7.43) VBG pCO2 33.0 L (40-60) VBG HCO3 13.2 L (21-28) mmol/l VBG O2 Sat (Calc) 89.8 H (40-65) % VBG Base Excess -13.6 L (0.0-2.0) mmol/L Sodium 139 (132-148) mmol/L Potassium 4.0 (3.6-5.0) mmol/L Chloride 114 H (98-107) mmol/L Carbon Dioxide 14 L (21-33) mmol/L Anion Gap 15 (10-20) BUN 9 (7-21) mg/dL Creatinine 0.5 L (0.7-1.2) mg/dl Est GFR ( Amer) > 60 Est GFR (Non-Af Amer) > 60 POC Glucose (mg/dL) 240 H (65-110) mg/dL Random Glucose 249 H (70-110) mg/dL Calcium 7.9 L (8.4-10.5) mg/dL Phosphorus (2.5-4.5) mg/dL Magnesium (1.7-2.2) mg/dL Total Bilirubin (0.2-1.3) mg/dL AST (14-36) U/L ALT (7-56) U/L Alkaline Phosphatase (38-126) U/L Total Protein (5.8-8.3) g/dL Albumin (3.0-4.8) g/dL Globulin gm/dL Albumin/Globulin Ratio (1.1-1.8) Procalcitonin (0.19-0.49) NG/ML 05/29/18 05/29/18 05/29/18 Range/Units 18:50 17:51 16:49 WBC (4.5-11.0) 10^3/uL RBC (3.5-6.1) 10^6/uL Hgb (12.0-16.0) g/dL Hct (36.0-48.0) % MCV (80.0-105.0) fl MCH (25.0-35.0) pg MCHC (31.0-37.0) g/dl RDW (11.5-14.5) % Plt Count (120.0-450.0) 10^3/uL MPV (7.0-11.0) fl Gran % (50.0-68.0) % Lymph % (Auto) (22.0-35.0) % [place] % (Auto) (1.0-6.0) % Eos % (Auto) (1.5-5.0) % Baso % (Auto) (0.0-3.0) % Gran # (1.4-6.5) Lymph # (Auto) (1.2-3.4) [place] # (Auto) (0.1-0.6) Eos # (Auto) (0.0-0.7) Baso # (Auto) (0.0-2.0) K/mm3 pO2 (30-55) mm/Hg VBG pH (7.32-7.43) VBG pCO2 (40-60) VBG HCO3 (21-28) mmol/l VBG O2 Sat (Calc) (40-65) % VBG Base Excess (0.0-2.0) mmol/L Sodium (132-148) mmol/L Potassium (3.6-5.0) mmol/L Chloride (98-107) mmol/L Carbon Dioxide (21-33) mmol/L Anion Gap (10-20) BUN (7-21) mg/dL Creatinine (0.7-1.2) mg/dl Est GFR ( Amer) Est GFR (Non-Af Amer) POC Glucose (mg/dL) 274 H 228 H 221 H (65-110) mg/dL Random Glucose (70-110) mg/dL Calcium (8.4-10.5) mg/dL Phosphorus (2.5-4.5) mg/dL Magnesium (1.7-2.2) mg/dL Total Bilirubin (0.2-1.3) mg/dL AST (14-36) U/L ALT (7-56) U/L Alkaline Phosphatase (38-126) U/L Total Protein (5.8-8.3) g/dL Albumin (3.0-4.8) g/dL Globulin gm/dL Albumin/Globulin Ratio (1.1-1.8) Procalcitonin (0.19-0.49) NG/ML 05/29/18 05/29/18 05/29/18 Range/Units 16:20 16:11 16:05 WBC (4.5-11.0) 10^3/uL RBC (3.5-6.1) 10^6/uL Hgb (12.0-16.0) g/dL Hct (36.0-48.0) % MCV (80.0-105.0) fl MCH (25.0-35.0) pg MCHC (31.0-37.0) g/dl RDW (11.5-14.5) % Plt Count (120.0-450.0) 10^3/uL MPV (7.0-11.0) fl Gran % (50.0-68.0) % Lymph % (Auto) (22.0-35.0) % [place] % (Auto) (1.0-6.0) % Eos % (Auto) (1.5-5.0) % Baso % (Auto) (0.0-3.0) % Gran # (1.4-6.5) Lymph # (Auto) (1.2-3.4) [place] # (Auto) (0.1-0.6) Eos # (Auto) (0.0-0.7) Baso # (Auto) (0.0-2.0) K/mm3 pO2 63 H (30-55) mm/Hg VBG pH 7.18 L* (7.32-7.43) VBG pCO2 27.0 L (40-60) VBG HCO3 10.1 L (21-28) mmol/l VBG O2 Sat (Calc) 95.7 H (40-65) % VBG Base Excess -16.7 L (0.0-2.0) mmol/L Sodium 139 (132-148) mmol/L Potassium 4.4 (3.6-5.0) mmol/L Chloride 116 H (98-107) mmol/L Carbon Dioxide 11 L (21-33) mmol/L Anion Gap 16 (10-20) BUN 10 (7-21) mg/dL Creatinine 0.5 L (0.7-1.2) mg/dl Est GFR ( Amer) > 60 Est GFR (Non-Af Amer) > 60 POC Glucose (mg/dL) 207 H (65-110) mg/dL Random Glucose 233 H (70-110) mg/dL Calcium 7.8 L (8.4-10.5) mg/dL Phosphorus (2.5-4.5) mg/dL Magnesium (1.7-2.2) mg/dL Total Bilirubin (0.2-1.3) mg/dL AST (14-36) U/L ALT (7-56) U/L Alkaline Phosphatase (38-126) U/L Total Protein (5.8-8.3) g/dL Albumin (3.0-4.8) g/dL Globulin gm/dL Albumin/Globulin Ratio (1.1-1.8) Procalcitonin (0.19-0.49) NG/ML 05/29/18 05/29/18 05/29/18 Range/Units 14:56 14:02 12:57 WBC (4.5-11.0) 10^3/uL RBC (3.5-6.1) 10^6/uL Hgb (12.0-16.0) g/dL Hct (36.0-48.0) % MCV (80.0-105.0) fl MCH (25.0-35.0) pg MCHC (31.0-37.0) g/dl RDW (11.5-14.5) % Plt Count (120.0-450.0) 10^3/uL MPV (7.0-11.0) fl Gran % (50.0-68.0) % Lymph % (Auto) (22.0-35.0) % [place] % (Auto) (1.0-6.0) % Eos % (Auto) (1.5-5.0) % Baso % (Auto) (0.0-3.0) % Gran # (1.4-6.5) Lymph # (Auto) (1.2-3.4) [place] # (Auto) (0.1-0.6) Eos # (Auto) (0.0-0.7) Baso # (Auto) (0.0-2.0) K/mm3 pO2 (30-55) mm/Hg VBG pH (7.32-7.43) VBG pCO2 (40-60) VBG HCO3 (21-28) mmol/l VBG O2 Sat (Calc) (40-65) % VBG Base Excess (0.0-2.0) mmol/L Sodium (132-148) mmol/L Potassium (3.6-5.0) mmol/L Chloride (98-107) mmol/L Carbon Dioxide (21-33) mmol/L Anion Gap (10-20) BUN (7-21) mg/dL Creatinine (0.7-1.2) mg/dl Est GFR ( Amer) Est GFR (Non-Af Amer) POC Glucose (mg/dL) 193 H 167 H 188 H (65-110) mg/dL Random Glucose (70-110) mg/dL Calcium (8.4-10.5) mg/dL Phosphorus (2.5-4.5) mg/dL Magnesium (1.7-2.2) mg/dL Total Bilirubin (0.2-1.3) mg/dL AST (14-36) U/L ALT (7-56) U/L Alkaline Phosphatase (38-126) U/L Total Protein (5.8-8.3) g/dL Albumin (3.0-4.8) g/dL Globulin gm/dL Albumin/Globulin Ratio (1.1-1.8) Procalcitonin (0.19-0.49) NG/ML 05/29/ Range/Units 10:30 WBC (4.5-11.0) 10^3/uL RBC (3.5-6.1) 10^6/uL Hgb (12.0-16.0) g/dL Hct (36.0-48.0) % MCV (80.0-105.0) fl MCH (25.0-35.0) pg MCHC (31.0-37.0) g/dl RDW (11.5-14.5) % Plt Count (120.0-450.0) 10^3/uL MPV (7.0-11.0) fl Gran % (50.0-68.0) % Lymph % (Auto) (22.0-35.0) % [place] % (Auto) (1.0-6.0) % Eos % (Auto) (1.5-5.0) % Baso % (Auto) (0.0-3.0) % Gran # (1.4-6.5) Lymph # (Auto) (1.2-3.4) [place] # (Auto) (0.1-0.6) Eos # (Auto) (0.0-0.7) Baso # (Auto) (0.0-2.0) K/mm3 pO2 (30-55) mm/Hg VBG pH (7.32-7.43) VBG pCO2 (40-60) VBG HCO3 (21-28) mmol/l VBG O2 Sat (Calc) (40-65) % VBG Base Excess (0.0-2.0) mmol/L Sodium (132-148) mmol/L Potassium (3.6-5.0) mmol/L Chloride (98-107) mmol/L Carbon Dioxide (21-33) mmol/L Anion Gap (10-20) BUN (7-21) mg/dL Creatinine (0.7-1.2) mg/dl Est GFR ( Amer) Est GFR (Non-Af Amer) POC Glucose (mg/dL) (65-110) mg/dL Random Glucose (70-110) mg/dL Calcium (8.4-10.5) mg/dL Phosphorus (2.5-4.5) mg/dL Magnesium (1.7-2.2) mg/dL Total Bilirubin (0.2-1.3) mg/dL AST (14-36) U/L ALT (7-56) U/L Alkaline Phosphatase (38-126) U/L Total Protein (5.8-8.3) g/dL Albumin (3.0-4.8) g/dL Globulin gm/dL Albumin/Globulin Ratio (1.1-1.8) Procalcitonin < 0.05 L (0.19-0.49) NG/ML Laboratory Results - last 24 hr 05/29/18 05/29/18 05/29/18 10:30 12:57 14:02 WBC RBC Hgb Hct MCV MCH MCHC RDW Plt Count MPV Gran % Lymph % (Auto) [place] % (Auto) Eos % (Auto) Baso % (Auto) Gran # Lymph # (Auto) [place] # (Auto) Eos # (Auto) Baso # (Auto) pO2 VBG pH VBG pCO2 VBG HCO3 VBG O2 Sat (Calc) VBG Base Excess Sodium Potassium Chloride Carbon Dioxide Anion Gap BUN Creatinine Est GFR ( Amer) Est GFR (Non-Af Amer) POC Glucose (mg/dL) 188 H 167 H Random Glucose Calcium Phosphorus Magnesium Total Bilirubin AST ALT Alkaline Phosphatase Total Protein Albumin Globulin Albumin/Globulin Ratio Procalcitonin < 0.05 L 05/29/18 05/29/18 05/29/18 14:56 16:05 16:11 WBC RBC Hgb Hct MCV MCH MCHC RDW Plt Count MPV Gran % Lymph % (Auto) [place] % (Auto) Eos % (Auto) Baso % (Auto) Gran # Lymph # (Auto) [place] # (Auto) Eos # (Auto) Baso # (Auto) pO2 63 H VBG pH 7.18 L* VBG pCO2 27.0 L VBG HCO3 10.1 L VBG O2 Sat (Calc) 95.7 H VBG Base Excess -16.7 L Sodium Potassium Chloride Carbon Dioxide Anion Gap BUN Creatinine Est GFR ( Amer) Est GFR (Non-Af Amer) POC Glucose (mg/dL) 193 H 207 H Random Glucose Calcium Phosphorus Magnesium Total Bilirubin AST ALT Alkaline Phosphatase Total Protein Albumin Globulin Albumin/Globulin Ratio Procalcitonin 05/29/18 05/29/18 05/29/18 16:20 16:49 17:51 WBC RBC Hgb Hct MCV MCH MCHC RDW Plt Count MPV Gran % Lymph % (Auto) [place] % (Auto) Eos % (Auto) Baso % (Auto) Gran # Lymph # (Auto) [place] # (Auto) Eos # (Auto) Baso # (Auto) pO2 VBG pH VBG pCO2 VBG HCO3 VBG O2 Sat (Calc) VBG Base Excess Sodium 139 Potassium 4.4 Chloride 116 H Carbon Dioxide 11 L Anion Gap 16 BUN 10 Creatinine 0.5 L Est GFR ( Amer) > 60 Est GFR (Non-Af Amer) > 60 POC Glucose (mg/dL) 221 H 228 H Random Glucose 233 H Calcium 7.8 L Phosphorus Magnesium Total Bilirubin AST ALT Alkaline Phosphatase Total Protein Albumin Globulin Albumin/Globulin Ratio Procalcitonin 05/29/18 05/29/18 05/29/18 18:50 19:38 19:38 WBC RBC Hgb Hct MCV MCH MCHC RDW Plt Count MPV Gran % Lymph % (Auto) [place] % (Auto) Eos % (Auto) Baso % (Auto) Gran # Lymph # (Auto) [place] # (Auto) Eos # (Auto) Baso # (Auto) pO2 48 VBG pH 7.21 L VBG pCO2 33.0 L VBG HCO3 13.2 L VBG O2 Sat (Calc) 89.8 H VBG Base Excess -13.6 L Sodium 139 Potassium 4.0 Chloride 114 H Carbon Dioxide 14 L Anion Gap 15 BUN 9 Creatinine 0.5 L Est GFR ( Amer) > 60 Est GFR (Non-Af Amer) > 60 POC Glucose (mg/dL) 274 H Random Glucose 249 H Calcium 7.9 L Phosphorus Magnesium Total Bilirubin AST ALT Alkaline Phosphatase Total Protein Albumin Globulin Albumin/Globulin Ratio Procalcitonin 05/29/18 05/29/18 05/29/18 20:03 20:57 21:52 WBC RBC Hgb Hct MCV MCH MCHC RDW Plt Count MPV Gran % Lymph % (Auto) [place] % (Auto) Eos % (Auto) Baso % (Auto) Gran # Lymph # (Auto) [place] # (Auto) Eos # (Auto) Baso # (Auto) pO2 VBG pH VBG pCO2 VBG HCO3 VBG O2 Sat (Calc) VBG Base Excess Sodium Potassium Chloride Carbon Dioxide Anion Gap BUN Creatinine Est GFR ( Amer) Est GFR (Non-Af Amer) POC Glucose (mg/dL) 240 H 220 H 200 H Random Glucose Calcium Phosphorus Magnesium Total Bilirubin AST ALT Alkaline Phosphatase Total Protein Albumin Globulin Albumin/Globulin Ratio Procalcitonin 05/29/18 05/29/18 05/30/18 23:01 23:30 00:30 WBC RBC Hgb Hct MCV MCH MCHC RDW Plt Count MPV Gran % Lymph % (Auto) [place] % (Auto) Eos % (Auto) Baso % (Auto) Gran # Lymph # (Auto) [place] # (Auto) Eos # (Auto) Baso # (Auto) pO2 90 H VBG pH 7.24 L VBG pCO2 35.0 L VBG HCO3 15.0 L VBG O2 Sat (Calc) 98.1 H VBG Base Excess -11.5 L Sodium 137 Potassium 3.9 Chloride 115 H Carbon Dioxide 17 L Anion Gap 10 BUN 9 Creatinine 0.4 L Est GFR ( Amer) > 60 Est GFR (Non-Af Amer) > 60 POC Glucose (mg/dL) 221 H Random Glucose 235 H Calcium 7.7 L Phosphorus Magnesium Total Bilirubin AST ALT Alkaline Phosphatase Total Protein Albumin Globulin Albumin/Globulin Ratio Procalcitonin 05/30/18 05/30/18 05/30/18 01:02 02:10 03:44 WBC RBC Hgb Hct MCV MCH MCHC RDW Plt Count MPV Gran % Lymph % (Auto) [place] % (Auto) Eos % (Auto) Baso % (Auto) Gran # Lymph # (Auto) [place] # (Auto) Eos # (Auto) Baso # (Auto) pO2 VBG pH VBG pCO2 VBG HCO3 VBG O2 Sat (Calc) VBG Base Excess Sodium Potassium Chloride Carbon Dioxide Anion Gap BUN Creatinine Est GFR ( Amer) Est GFR (Non-Af Amer) POC Glucose (mg/dL) 244 H 197 H 202 H Random Glucose Calcium Phosphorus Magnesium Total Bilirubin AST ALT Alkaline Phosphatase Total Protein Albumin Globulin Albumin/Globulin Ratio Procalcitonin 05/30/18 05/30/18 05/30/18 03:45 03:45 04:45 WBC RBC Hgb Hct MCV MCH MCHC RDW Plt Count MPV Gran % Lymph % (Auto) [place] % (Auto) Eos % (Auto) Baso % (Auto) Gran # Lymph # (Auto) [place] # (Auto) Eos # (Auto) Baso # (Auto) pO2 35 VBG pH 7.25 L VBG pCO2 40.0 VBG HCO3 17.5 L VBG O2 Sat (Calc) 78.4 H VBG Base Excess -9.2 L Sodium Potassium Chloride Carbon Dioxide Anion Gap BUN Creatinine Est GFR ( Amer) Est GFR (Non-Af Amer) POC Glucose (mg/dL) 198 H Random Glucose Calcium Phosphorus 1.2 L* Magnesium 1.9 Total Bilirubin AST ALT Alkaline Phosphatase Total Protein Albumin Globulin Albumin/Globulin Ratio Procalcitonin 05/30/18 05/30/18 05/30/18 05:00 05:00 06:35 WBC 9.4 D RBC 4.10 Hgb 12.0 D Hct 35.6 L MCV 86.8 D MCH 29.3 MCHC 33.7 RDW 12.3 Plt Count 274 MPV 10.1 Gran % 65.0 Lymph % (Auto) 26.1 [place] % (Auto) 7.9 H Eos % (Auto) 0.7 L Baso % (Auto) 0.3 Gran # 6.12 Lymph # (Auto) 2.5 [place] # (Auto) 0.7 H Eos # (Auto) 0.1 Baso # (Auto) 0.03 pO2 VBG pH VBG pCO2 VBG HCO3 VBG O2 Sat (Calc) VBG Base Excess Sodium 139 Potassium 4.4 Chloride 116 H Carbon Dioxide 12 L Anion Gap 15 BUN 10 Creatinine 0.6 L Est GFR ( Amer) > 60 Est GFR (Non-Af Amer) > 60 POC Glucose (mg/dL) 154 H Random Glucose 233 H Calcium 7.7 L Phosphorus Magnesium Total Bilirubin 0.4 AST 24 ALT 26 Alkaline Phosphatase 75 Total Protein 6.9 Albumin 3.6 Globulin 3.3 Albumin/Globulin Ratio 1.1 Procalcitonin 05/30/18 05/30/18 05/30/18 07:40 08:30 08:30 WBC RBC Hgb Hct MCV MCH MCHC RDW Plt Count MPV Gran % Lymph % (Auto) [place] % (Auto) Eos % (Auto) Baso % (Auto) Gran # Lymph # (Auto) [place] # (Auto) Eos # (Auto) Baso # (Auto) pO2 51 VBG pH 7.25 L VBG pCO2 34.0 L VBG HCO3 14.9 L VBG O2 Sat (Calc) 92.5 H VBG Base Excess 11.3 H Sodium 137 Potassium 4.0 Chloride 114 H Carbon Dioxide 14 L Anion Gap 12 BUN 7 Creatinine 0.5 L Est GFR ( Amer) > 60 Est GFR (Non-Af Amer) > 60 POC Glucose (mg/dL) 159 H Random Glucose 167 H Calcium 7.9 L Phosphorus Magnesium Total Bilirubin AST ALT Alkaline Phosphatase Total Protein Albumin Globulin Albumin/Globulin Ratio Procalcitonin 05/30/18 05/30/18 05/30/18 08:36 09:27 10:35 WBC RBC Hgb Hct MCV MCH MCHC RDW Plt Count MPV Gran % Lymph % (Auto) [place] % (Auto) Eos % (Auto) Baso % (Auto) Gran # Lymph # (Auto) [place] # (Auto) Eos # (Auto) Baso # (Auto) pO2 VBG pH VBG pCO2 VBG HCO3 VBG O2 Sat (Calc) VBG Base Excess Sodium Potassium Chloride Carbon Dioxide Anion Gap BUN Creatinine Est GFR ( Amer) Est GFR (Non-Af Amer) POC Glucose (mg/dL) 155 H 150 H 145 H Random Glucose Calcium Phosphorus Magnesium Total Bilirubin AST ALT Alkaline Phosphatase Total Protein Albumin Globulin Albumin/Globulin Ratio Procalcitonin 05/30/18 12:00 WBC RBC Hgb Hct MCV MCH MCHC RDW Plt Count MPV Gran % Lymph % (Auto) [place] % (Auto) Eos % (Auto) Baso % (Auto) Gran # Lymph # (Auto) [place] # (Auto) Eos # (Auto) Baso # (Auto) pO2 VBG pH VBG pCO2 VBG HCO3 VBG O2 Sat (Calc) VBG Base Excess Sodium 140 Potassium 3.6 Chloride 111 H Carbon Dioxide 18 L Anion Gap 14 BUN 6 L Creatinine 0.5 L Est GFR ( Amer) > 60 Est GFR (Non-Af Amer) > 60 POC Glucose (mg/dL) Random Glucose 220 H Calcium 8.2 L Phosphorus Magnesium Total Bilirubin AST ALT Alkaline Phosphatase Total Protein Albumin Globulin Albumin/Globulin Ratio Procalcitonin Critical Care Progress Note - Nutrition Nutrition: Nutrition Category Date Time Status Consistent Carbohydrate [DIET] Diets 05/30/18 Lunch Ordered Addendum Addendum: 05/30/18 14:50 MICU ATTENDING ADDENDUM: Patient seen and examined. Case discussed in round with housestaff. Agree with note above with the following additions/exception: 33F with DKA; A1C 15. Gap is now closed Patient taken off insulin drip this AM by js Hope who is managing DKA and fluids Patient tolerating PO Ok to transfer out of ICU Rest of care above Nehal King MD Pulmonary Critical Care and Sleep Medicine
[2018-05-30 17:13] LABS: BLOOD UREA NITROGEN 6 mg/dL (7-21); CALCIUM 7.7 mg/dL (8.4-10.5); GFR NON-AFRICAN AMERICAN > 60
--- NOTE | 2018-05-30 21:14 | CON ---
DATE OF CONSULTATION: 05/30/2018 HISTORY OF PRESENT ILLNESS: This is a 33-year-old female with known history of type 1 insulin-dependent diabetes, presenting here with marked hyperglycemic accelerations and supervening generalized body weakness with nausea, dyspepsia and intractable vomiting episodes with marked diaphoresis and was evaluated to be in diabetic ketoacidosis and received vigorous IV hydration and insulin drip infusion as noted thereof. She is being referred now for further diabetic evaluation and management. The biggest concern at this time is the patient's loss of her medical insurance and coverage for her insulin prescriptions. For her insulin regimen, she admits to having used recently some samples of Lantus from her primary physician and she was taking Lantus at 15 units in the morning and 10 units in the evening with a sliding scale coverage as given. PAST MEDICAL HISTORY: As mentioned above, history of type 1 insulin-dependent diabetes on a combination of NPH given as 14 units at bedtime and regular insulin given as 6 units t.i.d. with meals. History of previous admissions for DKA with rhabdomyolysis. She also had previous ovarian torsion and underwent a right salpingo-oophorectomy. She also had previous benign breast lesions and underwent excision of the breast tumors as noted. FAMILY HISTORY: A brother has type 1 diabetes with positive history of hypertension and heart disease in the family. SOCIAL HISTORY: The patient has a supportive family. No known substance use. REVIEW OF SYSTEMS: As mentioned above. Admits to generalized body weakness with progressive bouts of dizziness and lightheadedness, worse on the day of admission. No chest pains or palpitations or PND. Her oral intake has been variable with nausea and dyspepsia and vague upper abdominal pains. Also admits to marked polyuria, nocturia and polydipsia. LABORATORY DATA: WBC was 16.0, hemoglobin of 14, hematocrit 44, MCV 89, platelets 401. The chemistries initially showed a BUN of 14, sodium 138, potassium 5.2, chloride 106, CO2 is 5, glucose is 524, and creatinine 0.8. Her hemoglobin A1c is 15.7%, which is extremely elevated and indicative of suboptimal metabolic control of her diabetic condition. Her CO2 today is 18 as noted. ASSESSMENT: This is a 33-year-old female with uncontrolled and decompensated type 1 insulin-dependent diabetes, presenting here with marked hyperglycemic accelerations and concomitant metabolic symptoms and clinical manifestations of nausea, dyspepsia and intractable vomiting with progressive dizziness and lightheadedness as noted. PLAN OF MANAGEMENT: We will continue the vigorous IV hydration as given and obtain serial chemistries and supplement accordingly needed. We will discontinue the insulin drip infusion this morning and switch her over to a more affordable conventional insulin preparations with Humulin NPH given as 14 units at bedtime to start tonight. We will add regular insulin given as 6 units t.i.d. before meals to start today as ordered. We will modify the coverage scale to obviate hypoglycemia and detailed orders have been given. We will follow and advise accordingly. We are actually using the more affordable and conventional insulin vials to make it affordable for outpatient diabetic management. Iram Hope MD
[2018-05-30 21:23] LABS: BLOOD UREA NITROGEN 5 mg/dL (7-21); CALCIUM 8.4 mg/dL (8.4-10.5); GFR NON-AFRICAN AMERICAN > 60
[2018-05-30] MEDS ORDERED: Insulin Human NPH 1 UNITS/0.01 ML SC SCH (22:00)
[2018-05-31 01:15] LABS: BLOOD UREA NITROGEN 9 mg/dL (7-21); CALCIUM 8.1 mg/dL (8.4-10.5); GFR NON-AFRICAN AMERICAN > 60
[2018-05-31 04:28] LABS: BASO # 0.03 K/mm3 (0.0-2.0); BASO % 0.5 % (0.0-3.0); EOS # 0.1 (0.0-0.7); EOS % 1.5 % (1.5-5.0); GRAN # 3.02 (1.4-6.5); GRAN % 50.5 % (50.0-68.0); HEMOGLOBIN 11.3 g/dL (12.0-16.0); LYMPH # 2.4 (1.2-3.4); LYMPH % 39.2 % (22.0-35.0); MEAN CELL VOLUME 85.5 fl (80.0-105.0); MEAN CORPUSCULAR HEMOGLOBIN 28.7 pg (25.0-35.0); MEAN CORPUSCULAR HGB CONC 33.5 g/dl (31.0-37.0); MEAN PLATELET VOLUME 9.3 fl (7.0-11.0); MONO # 0.5 (0.1-0.6); MONO % 8.3 % (1.0-6.0); RBC 3.94 10^6/uL (3.5-6.1); RED CELL DISTRIBUTION WIDTH 12.5 % (11.5-14.5)
[2018-05-31 05:22] LABS: ALBUMIN 2.8 g/dL (3.0-4.8); ALT/SGPT 26 U/L (7-56); AST/SGOT 18 U/L (14-36); BLOOD UREA NITROGEN 9 mg/dL (7-21); CALCIUM 8.4 mg/dL (8.4-10.5); GFR NON-AFRICAN AMERICAN > 60
[2018-05-31 08:19] LABS: BLOOD UREA NITROGEN 9 mg/dL (7-21); CALCIUM 8.7 mg/dL (8.4-10.5); GFR NON-AFRICAN AMERICAN > 60
[2018-05-31] MEDS: Insulin Regular 1 UNITS/0.01 ML ML SC SCH ×3 (08:55→23:56)
[2018-05-31] MEDS: Insulin Reg-LOW-Coverage SC SCH ×4 (08:56→22:17)
[2018-05-31] MEDS: Potassium & Sodium Phosphate PO SCH ×3 (10:33→17:28)
--- NOTE | 2018-05-31 10:37 | CP.PCM.PN ---
<Constance Ochoa - Last Filed: 05/31/18 10:37> Subjective - Date & Time of Evaluation Date of Evaluation: 05/31/18 Time of Evaluation: 10:31 - Subjective Subjective: PGY1 Progress Note for Dr. Dueñas Patient seen and examined at bedside this morning. No acute nursing events overnight. Patient says her throat feels less dry today. Patient complains of bilateral hand swelling and stiffness, which she says is chronic and only occurs when she wakes up and improves as the day goes on and when she becomes more active. Patient also complains of tenderness to index finger nailbed. 12 Point ROS otherwise unremarkable. Objective - Vital Signs/Intake and Output Vital Signs (last 24 hours): Temp Pulse Resp BP Pulse Ox 98.6 F 100 H 16 119/67 87 L 05/30/18 14:43 05/30/18 16:30 05/30/18 16:30 05/30/18 16:00 05/30/18 22:27 Intake and Output: 05/31/18 05/31/18 06:59 18:59 Intake Total 500 Balance 500 - Medications Medications: Current Medications Benzocaine/Menthol (Cepacol Sore Throat) 1 pastor MT Q2H PRN PRN Reason: Sore Throat Last Admin: 05/30/18 20:30 Dose: 1 pastor Cephalexin Monohydrate (Keflex) 500 mg PO Q6 [facility]; Protocol Insulin Human NPH (Humulin N) 14 units SC HS [facility] Last Admin: 05/30/18 22:34 Dose: Not Given Insulin Human Regular (Humulin R) 6 units SC AC [facility] Last Admin: 05/31/18 08:55 Dose: 6 unit Insulin Human Regular (Humulin R Low) 0 units SC ACHS [facility]; Protocol Last Admin: 05/31/18 08:56 Dose: 3 unit Ondansetron HCl (Zofran Inj) 4 mg IVP Q4H PRN PRN Reason: Nausea/Vomiting Last Admin: 05/29/18 20:14 Dose: 4 mg Pantoprazole Sodium (Protonix Inj) 40 mg IVP DAILY [facility] Last Admin: 05/30/18 10:30 Dose: 40 mg Potassium Phos/Sodium Phos (Neutra-Phos) 1 pkt PO TID [facility] Last Admin: 05/30/18 18:57 Dose: 1 pkt - Labs Labs: 05/31/18 04:00 05/31/18 07:50 - Additional Findings Additional findings: - Constitutional Appears: No Acute Distress - Head Exam Head Exam: ATRAUMATIC, NORMAL INSPECTION, NORMOCEPHALIC - Eye Exam Eye Exam: EOMI, Normal appearance Pupil Exam: NORMAL ACCOMODATION - ENT Exam ENT Exam: Mucous Membranes Dry - Neck Exam Neck exam: Positive for: Full Rom, Normal Inspection - Respiratory Exam Respiratory Exam: Clear to Auscultation Bilateral, NORMAL BREATHING PATTERN. absent: Chest Wall Tenderness, Decreased Breath Sounds, Prolonged Expiratory Phase, Rales, Rhonchi, Wheezes - Cardiovascular Exam Cardiovascular Exam: Tachycardia, REGULAR RHYTHM, +S1, +S2. absent: Gallop, Rubs - GI/Abdominal Exam GI & Abdominal Exam: Normal Bowel Sounds. absent: Distended, Firm, Guarding, Hernia, Rebound, Rigid - Extremities Exam Extremities exam: Positive for: normal capillary refill, bilateral hand swelling, tenderness to left index finger, pedal pulses present. - Back Exam Back exam: NORMAL INSPECTION. absent: CVA tenderness (L), CVA tenderness (R), paraspinal tenderness - Neurological Exam Neurological exam: Alert, CN II-XII Intact, Oriented x3, Reflexes Normal - Psychiatric Exam Psychiatric exam: Normal Affect, Normal Mood - Skin Skin Exam: Dry, Intact, Normal Color, Warm Assessment and Plan - Assessment and Plan (Free Text) Assessment: Ms. Maciel is a 33-year-old Female with past medical history of Type 1 Diabetes Mellitus (insulin dependent), DKA, Rhabdomyolysis, ovarian torsion, who presents to the ED with a chief complaint of diaphoresis, nausea, vomiting, palpitations that began a few hours prior to coming to the ED. Patient reports she has vomited 4 times since onset. Patient's labs were consistent with DKA. Patient admitted to ICU for insulin drip, aggressive hydration, and close monitoring. Patient now off insulin drip. Diabetes Ketoacidosis, resolved - Patient is hemodynamically monitored - Serial BMP ordered to monitor BUN/Cr - VzC0E=24.7 - pH=6.97 on admission - B-Hydroxybutyrate=10.5 - Discontinued: Aggressive IVF (D5W, 1/2NS) - ISS protocol - adjusted as needed - Hypoglycemic protocol - Accu-checks - Blood Glucose check still elevated: 325 - Monitor CMP - Replace electrolytes as needed - Zofran for nausea PRN - Aspiration precautions - Diabetic education ordered - Fireworks Maker Consulted (Dr. Hope) Recommendations appreciated - Cepacot MT Q2H PRN ordered for dry throught Bilateral hand swelling, rule-out Rheumatoid Arthritis - Positive family history (mom had RA, sclerodermatosis) - Bilateral hand and wrist x-ray ordered - Bilateral foot x-ray ordered - Follow-up: RA factor, EBONY, Anti-CCP, ss-DNA, sarcoid Hypophosphatemia, resolved - Patient receiving K-phos IVPB - Monitor daily CMP Rule-Out UTI - Patient complained of dysuria - WBC=16 - U/A obtained; unremarkable for UTI - Ucx: no growth - Procalcitonin low PPx: - GI: Protonix 40mg IVP daily - DVT: SCD Patient seen and case discussed in detail with Dr. Leana Ochoa PGY1 <Anil Dueñas - Last Filed: 05/31/18 17:13> Objective - Vital Signs/Intake and Output Vital Signs (last 24 hours): Temp Pulse Resp BP Pulse Ox 98.6 F 100 H 16 119/67 87 L 05/30/18 14:43 05/30/18 16:30 05/30/18 16:30 05/30/18 16:00 05/30/18 22:27 Intake and Output: 05/31/18 05/31/18 06:59 18:59 Intake Total 500 Balance 500 - Medications Medications: Current Medications Benzocaine/Menthol (Cepacol Sore Throat) 1 pastor MT Q2H PRN PRN Reason: Sore Throat Last Admin: 05/30/18 20:30 Dose: 1 pastor Cephalexin Monohydrate (Keflex) 500 mg PO Q6 [facility]; Protocol Last Admin: 05/31/18 12:34 Dose: 500 mg Insulin Human NPH (Humulin N) 24 units SC HS [facility] Insulin Human Regular (Humulin R Low) 0 units SC ACHS [facility]; Protocol Last Admin: 05/31/18 12:35 Dose: Not Given Insulin Human Regular (Humulin R) 10 units SC AC [facility] Ondansetron HCl (Zofran Inj) 4 mg IVP Q4H PRN PRN Reason: Nausea/Vomiting Last Admin: 05/29/18 20:14 Dose: 4 mg Pantoprazole Sodium (Protonix Inj) 40 mg IVP DAILY [facility] Last Admin: 05/31/18 10:31 Dose: 40 mg Potassium Phos/Sodium Phos (Neutra-Phos) 1 pkt PO TID [facility] Last Admin: 05/31/18 14:55 Dose: 1 pkt - Labs Labs: 05/31/18 04:00 05/31/18 07:50 Attending/Attestation - Attestation I have personally seen and examined this patient.: Yes I have fully participated in the care of the patient.: Yes I have reviewed all pertinent clinical information, including history, physical exam and plan: Yes Notes (Text): 05/31/18 17:08 Attending note; Patient seen and examined with resident in ICU. Patient is alert and awake. denies any nausea and vomiting. Denies any fevers, chills. Denies any urinary complaints. Denies any chest pain, shortness of breath. tolerating diet well. Patient is a 33-year-old Female with past medical history of Type 1 Diabetes Mellitus (insulin dependent), DKA, Rhabdomyolysis, ovarian torsion who presents to the ED with a chief complaint of diaphoresis, nausea, vomiting, palpitations. 1. DKA; resolving with IV insulin drip. currently on NPH and Humalog. 2. Nausea and vomiting; resolved. Tolerating diet well. 3. Tachycardia; resolving.continue IV hydration. 4. GI prophylaxis with Protonix. 5. Hypophosphatemia; continue IV phosphorus supplementation. 6. Hand swelling; hand x-ray and foot x-ray ordered to rule out rheumatoid arthritis. Rheumatoid factor ordered. Patient with a family history of rheumatoid arthritis in the mother. EBONY ordered. Needs follow-up with theatrical dresser as outpatient. Noncompliance with insulin due to insurance reasons. Dietitian evaluation appreciated. community health educator evaluation requested. Possible discharge tomorrow if clinically stable. Upon discharge patient will be referred to [facility] clinic. 05/31/18 17:10 05/31/18 17:11
[2018-05-31 11:14] LABS: FREE T4 1.24 ng/dL (0.78-2.19)
[2018-05-31 11:28] LABS: T3 0.89 ng/mL (0.97-1.69)
--- NOTE | 2018-05-31 16:49 | PN ---
DATE: 05/31/2018 ENDO FOLLOWUP NOTE In ICU 128, room number 6. SUBJECTIVE: This is a 33-year-old female with recent uncontrolled type 1 insulin-dependent diabetes, now being followed closely for metabolic management. Her glycemic levels are fluctuating, but improved and the latest glucose levels were still elevated today with a fasting glucose of 347 mg/dL and it was 272 early this morning as noted. Her chemistry showed a BUN of 9, sodium 138, potassium 4.3, chloride 108, CO2 of 21, glucose 356 and creatinine 0.5. Her TSH is 0.40 with a free T4 of 1.24 indicative of the so-called acute sick euthyroid syndrome. ASSESSMENT: This is a 33-year-old female with diabetic ketoacidosis and dehydration with underlying uncontrolled type 1 insulin-dependent diabetes related to recent drug omission because of financial constraints. Plan of management will modify her current insulin regimen once again and increase the Humulin NPH to 24 units subq at bedtime daily to start tonight. We will increase the regular insulin to 10 units subq three times a day before meals to start today as ordered. We will obtain serial chemistries and supplement accordingly as needed. We will follow with you. Iram Hope MD
--- NOTE | 2018-05-31 17:06 | RAD ---
Date of service: 05/31/2018 PROCEDURE: Left Wrist Radiographs. HISTORY: Rule out rheumatoid COMPARISON: Comparison FINDINGS: BONES: No evidence of acute displaced fracture nor dislocation. The osseous structures appear intact. No obvious periarticular erosive changes seen at this time. JOINTS: As above. No dislocation. SOFT TISSUES: Soft tissues unremarkable OTHER FINDINGS: None. IMPRESSION: Normal left wrist radiographs.
--- NOTE | 2018-05-31 17:07 | RAD ---
Date of service: 05/31/2018 PROCEDURE: Left Foot Radiographs. HISTORY: rule out rheumatoid COMPARISON: Correlation made with concurrent radiographs of the right foot FINDINGS: BONES: Normal. No fracture. JOINTS: Normal. SOFT TISSUES: Normal. OTHER FINDINGS: None. IMPRESSION: Normal left foot radiographs.
--- NOTE | 2018-05-31 17:07 | RAD ---
Date of service: 05/31/2018 PROCEDURE: Right Foot Radiographs. HISTORY: rule out rheumatoid COMPARISON: Correlation made with concurrent radiographs left foot FINDINGS: BONES: Normal. No fracture. JOINTS: Normal. SOFT TISSUES: Normal. OTHER FINDINGS: None. IMPRESSION: Normal right foot radiographs.
--- NOTE | 2018-05-31 17:08 | RAD ---
PROCEDURE: Right Hand Radiographs. HISTORY: hand swelling COMPARISON: Correlation made with concurrent radiographs of the right wrist FINDINGS: BONES: Normal. No fracture. JOINTS: Normal. No osteoarthritic changes. SOFT TISSUES: Normal. OTHER FINDINGS: None. IMPRESSION: Normal right hand radiographs.
--- NOTE | 2018-05-31 17:09 | RAD ---
Date of service: 05/31/2018 PROCEDURE: Right Wrist Radiographs. HISTORY: rule out rheumatoid COMPARISON: Correlation made with concurrent radiographs right hand FINDINGS: BONES: Normal. No fracture. JOINTS: Normal. No dislocation. SOFT TISSUES: Normal. OTHER FINDINGS: None. IMPRESSION: Normal right wrist radiographs.
--- NOTE | 2018-05-31 17:10 | RAD ---
PROCEDURE: Left Hand Radiographs. HISTORY: Suspection rheumatoid COMPARISON: Correlation made with concurrent radiographs left wrist FINDINGS: BONES: Normal. No fracture. JOINTS: Normal. No osteoarthritic changes. SOFT TISSUES: Normal. OTHER FINDINGS: None. IMPRESSION: Normal left hand radiographs.
[2018-05-31] MEDS ORDERED: Insulin Human NPH 1 UNITS/0.01 ML SC SCH (22:00)
[2018-05-31] MEDS: Potassium Chloride 20 MEQ in Dextrose 5%/0.45% NS 1,000 ML IV SCH (23:57)
[2018-06-01] MEDS ORDERED: Pantoprazole 40 mg EC Tab PO SCH (06:00)
[2018-06-01 07:06] LABS: BASO # 0.04 K/mm3 (0.0-2.0); BASO % 0.7 % (0.0-3.0); EOS # 0.1 (0.0-0.7); EOS % 2.4 % (1.5-5.0); GRAN # 2.78 (1.4-6.5); GRAN % 51.1 % (50.0-68.0); HEMOGLOBIN 11.4 g/dL (12.0-16.0); LYMPH % 37.5 % (22.0-35.0); MEAN CELL VOLUME 84.9 fl (80.0-105.0); MEAN CORPUSCULAR HEMOGLOBIN 29.2 pg (25.0-35.0); MEAN CORPUSCULAR HGB CONC 34.3 g/dl (31.0-37.0); MEAN PLATELET VOLUME 9.5 fl (7.0-11.0); MONO # 0.5 (0.1-0.6); MONO % 8.3 % (1.0-6.0); RBC 3.91 10^6/uL (3.5-6.1); RED CELL DISTRIBUTION WIDTH 12.5 % (11.5-14.5); WHITE BLOOD COUNT 5.4 10^3/uL (4.5-11.0)
[2018-06-01 07:49] LABS: ALBUMIN 2.8 g/dL (3.0-4.8); ALT/SGPT 24 U/L (7-56); AST/SGOT 15 U/L (14-36); BLOOD UREA NITROGEN 11 mg/dL (7-21); CALCIUM 8.3 mg/dL (8.4-10.5); GFR NON-AFRICAN AMERICAN > 60
[2018-06-01] MEDS ORDERED: Potassium Chloride 20 mEq/15 ml LIQ UD PO STA (08:46)
[2018-06-01 09:10] VITALS: RESP 18
[2018-06-01] MEDS: Insulin Regular 1 UNITS/0.01 ML ML SC SCH ×2 (09:46→12:55)
[2018-06-01] MEDS: Insulin Reg-LOW-Coverage SC SCH ×2 (09:48→12:52)
[2018-06-01] MEDS: Potassium & Sodium Phosphate PO SCH (09:48)
--- NOTE | 2018-06-01 15:30 | CP.PCM.DIS ---
Provider - Provider Date of Admission: 05/29/18 08:11 Attending physician: Anil Dueñas MD Primary care physician: Dr. Reed Consults: 05/29/18 09:54 Physician Consult Routine Comment: Consulting Provider: Iram Hope Consulting Physician: Iram Hope Reason for Consult: DKA; H/O of uncontrolled DM1 05/29/18 10:39 Diabetic Education Referral Routine Comment: Physician Instructions: Reason For Exam: pt non compliant Time Spent in preparation of Discharge (in minutes): 45 Diagnosis - Discharge Diagnosis (1) DKA (diabetic ketoacidosis) Status: Acute Priority: High (2) Diabetes type 1, uncontrolled Status: Chronic Priority: Medium Hospital Course - Lab Results Lab Results: Micro Results 05/29/18 09:30 Naris MRSA Culture (Admit) - Final MRSA NOT DETECTED 05/29/18 09:00 Urine Urine Culture - Final No Growth (<1,000 CFU/ML) Most Recent Lab Values WBC 5.4 10^3/uL (4.5-11.0) 06/01/18 06:45 RBC 3.91 10^6/uL (3.5-6.1) 06/01/18 06:45 Hgb 11.4 g/dL (12.0-16.0) L 06/01/18 06:45 Hct 33.2 % (36.0-48.0) L 06/01/18 06:45 MCV 84.9 fl (80.0-105.0) 06/01/18 06:45 MCH 29.2 pg (25.0-35.0) 06/01/18 06:45 MCHC 34.3 g/dl (31.0-37.0) 06/01/18 06:45 RDW 12.5 % (11.5-14.5) 06/01/18 06:45 Plt Count 223 10^3/uL (120.0-450.0) 06/01/18 06:45 MPV 9.5 fl (7.0-11.0) 06/01/18 06:45 Gran % 51.1 % (50.0-68.0) 06/01/18 06:45 Lymph % (Auto) 37.5 % (22.0-35.0) H 06/01/18 06:45 [place] % (Auto) 8.3 % (1.0-6.0) H 06/01/18 06:45 Eos % (Auto) 2.4 % (1.5-5.0) 06/01/18 06:45 Baso % (Auto) 0.7 % (0.0-3.0) 06/01/18 06:45 Gran # 2.78 (1.4-6.5) 06/01/18 06:45 Lymph # (Auto) 2.0 (1.2-3.4) 06/01/18 06:45 [place] # (Auto) 0.5 (0.1-0.6) 06/01/18 06:45 Eos # (Auto) 0.1 (0.0-0.7) 06/01/18 06:45 Baso # (Auto) 0.04 K/mm3 (0.0-2.0) 06/01/18 06:45 pO2 51 mm/Hg (30-55) 05/30/18 08:30 VBG pH 7.25 (7.32-7.43) L 05/30/18 08:30 VBG pCO2 34.0 (40-60) L 05/30/18 08:30 VBG HCO3 14.9 mmol/l (21-28) L 05/30/18 08:30 VBG Total CO2 6.8 mmol.L (22-28) L 05/29/18 10:30 VBG O2 Sat (Calc) 92.5 % (40-65) H 05/30/18 08:30 VBG Base Excess 11.3 mmol/L (0.0-2.0) H 05/30/18 08:30 VBG Potassium 4.8 mmol/L (3.6-5.2) 05/29/18 10:30 Sodium 141.0 mmol/L (132-148) 05/29/18 10:30 Chloride 109.0 mmol/L (98-107) H 05/29/18 10:30 Glucose 337 mg/dl (65-105) H 05/29/18 10:30 Lactate 1.2 mmol/L (0.7-2.1) 05/29/18 10:30 FiO2 21.0 % 05/29/18 10:30 Sodium 136 mmol/L (132-148) 06/01/18 06:45 Potassium 3.4 mmol/L (3.6-5.0) L 06/01/18 06:45 Chloride 104 mmol/L (98-107) 06/01/18 06:45 Carbon Dioxide 29 mmol/L (21-33) 06/01/18 06:45 Anion Gap 6 (10-20) L 06/01/18 06:45 BUN 11 mg/dL (7-21) 06/01/18 06:45 Creatinine 0.4 mg/dl (0.7-1.2) L 06/01/18 06:45 Est GFR ( Amer) > 60 06/01/18 06:45 Est GFR (Non-Af Amer) > 60 06/01/18 06:45 POC Glucose (mg/dL) 363 mg/dL (65-110) H 06/01/18 11:21 Random Glucose 275 mg/dL (70-110) H 06/01/18 06:45 Hemoglobin A1c 15.7 % (4.2-6.5) H 05/29/18 07:00 Calcium 8.3 mg/dL (8.4-10.5) L 06/01/18 06:45 Phosphorus 4.0 mg/dL (2.5-4.5) 06/01/18 06:45 Magnesium 1.9 mg/dL (1.7-2.2) 06/01/18 06:45 Total Bilirubin 0.3 mg/dL (0.2-1.3) 06/01/18 06:45 AST 15 U/L (14-36) 06/01/18 06:45 ALT 24 U/L (7-56) 06/01/18 06:45 Alkaline Phosphatase 63 U/L (38-126) 06/01/18 06:45 Total Protein 5.7 g/dL (5.8-8.3) L 06/01/18 06:45 Albumin 2.8 g/dL (3.0-4.8) L 06/01/18 06:45 Globulin 2.9 gm/dL 06/01/18 06:45 Albumin/Globulin Ratio 1.0 (1.1-1.8) L 06/01/18 06:45 Lipase 74 U/L (23-300) 05/29/18 07:00 Procalcitonin < 0.05 NG/ML (0.19-0.49) L 05/29/18 10:30 Free T4 1.24 ng/dL (0.78-2.19) 05/31/18 10:00 Total T3 0.89 ng/mL (0.97-1.69) L 05/31/18 10:00 TSH 3rd Generation 0.43 mIU/mL (0.46-4.68) L 06/01/18 06:45 Venous Blood Potassium 4.8 mmol/L (3.6-5.2) 05/29/18 10:30 Urine Color Yellow (YELLOW) 05/29/18 09:00 Urine Appearance Sl cloudy (CLEAR) 05/29/18 09:00 Urine pH 6.0 (4.7-8.0) 05/29/18 09:00 Ur Specific English 1.025 (1.005-1.035) 05/29/18 09:00 Urine Protein 30 mg/dL (<30 mg/dL) H 05/29/18 09:00 Urine Glucose (UA) >=1000 mg/dL (NEGATIVE) 05/29/18 09:00 Urine Ketones >=80 mg/dL (NEGATIVE) 05/29/18 09:00 Urine Blood Trace-intact (NEGATIVE) H 05/29/18 09:00 Urine Nitrate Negative (NEGATIVE) 05/29/18 09:00 Urine Bilirubin Negative (NEGATIVE) 05/29/18 09:00 Urine Urobilinogen 0.2 E.U./dL (<1 E.U./dL) 05/29/18 09:00 Ur Leukocyte Esterase Negative Manolo/uL (NEGATIVE) 05/29/18 09:00 Urine RBC 0 - 2 /hpf (0-2) 05/29/18 09:00 Urine WBC 0 - 2 /hpf (0-6) 05/29/18 09:00 Ur Epithelial Cells 3 - 4 /hpf (0-5) 05/29/18 09:00 Urine Bacteria Mod (NEG) 05/29/18 09:00 Urine HCG, Qual Negative (NEGATIVE) 05/29/18 09:00 B-Hydroxybutyrate 10.5 mM (0.02-0.27) H 05/29/18 07:00 A-PM Scleroderma 100 Ab TNP 05/31/18 10:00 - Hospital Course Hospital Course: PGY1 Discharge Summary and Hospital Course for Dr. Cartagena Ms. Maciel is a 33-year-old Female with past medical history of Type 1 Diabetes Mellitus (insulin dependent), Uncontrolled Diabetes Mellitus, DKA, Rhabdomyolysis, ovarian torsion, who presented to the ED with a chief complaint of diaphoresis, nausea, vomiting, palpitations that began a few hours prior to coming to [facility] ED. Of note, Patient states it was difficult for her to buy insulin for the last few months due to financial difficulties, as she lost her insurance. While in the ED, Patient's labs were consistent with Diabetic Ketoacidosis. Patient was admitted to ICU for aggressive hydration, insulin drip, and close monitoring. [employer], Dr. Hope was consulted. Please see chart for details. Also during this admission, the Patient complained of bilateral hand swelling and stiffness that has occurred every morning for the past few months. Prior to the day of discharge, the Patient's anion gap closed, and the Patient was transitioned to subcutaneous insulin and long-acting insulin regimen. Patient was provided with extensive diabetic education and resources to assist with obtaining insulin. On day of discharge, Patient had no complaints and was tolerating healthy heart / low-carb diet. Patient denied nausea, vomiting, fatigue, and/or abdominal pain. Patient was medically optimized for discharge. Patient provided both written and verbal discharge instructions that were explained to the level of Patient's comprehension. Patient was provided with scripts for her insulin medications and was provided with a glucometer. Patient both understands and agrees to instructions. Please see chart for more details. Patient seen and case discussed in detail with Dr. Mitzi Ochoa PGY1 Discharge Exam - Additional Findings Additional findings: - Constitutional Appears: No Acute Distress - Head Exam Head Exam: ATRAUMATIC, NORMAL INSPECTION, NORMOCEPHALIC - Eye Exam Eye Exam: EOMI, Normal appearance Pupil Exam: NORMAL ACCOMODATION - ENT Exam ENT Exam: Mucous Membranes Dry - Neck Exam Neck exam: Positive for: Full Rom, Normal Inspection - Respiratory Exam Respiratory Exam: Clear to Auscultation Bilateral, NORMAL BREATHING PATTERN. absent: Chest Wall Tenderness, Decreased Breath Sounds, Prolonged Expiratory Phase, Rales, Rhonchi, Wheezes - Cardiovascular Exam Cardiovascular Exam: Tachycardia, REGULAR RHYTHM, +S1, +S2. absent: Gallop, Rubs - GI/Abdominal Exam GI & Abdominal Exam: Normal Bowel Sounds. absent: Distended, Firm, Guarding, Hernia, Rebound, Rigid - Extremities Exam Extremities exam: Positive for: normal capillary refill, bilateral hand swelling, tenderness to left index finger, pedal pulses present. - Back Exam Back exam: NORMAL INSPECTION. absent: CVA tenderness (L), CVA tenderness (R), paraspinal tenderness - Neurological Exam Neurological exam: Alert, CN II-XII Intact, Oriented x3, Reflexes Normal - Psychiatric Exam Psychiatric exam: Normal Affect, Normal Mood - Skin Skin Exam: Dry, Intact, Normal Color, Warm Discharge Plan - Discharge Medications Prescriptions: Blood Sugar Diagnostic [Blood Glucose Test] 1 each MC TID #100 strip Cephalexin [Keflex] 500 mg PO Q6 #20 cap Insulin Regular [HumuLIN R] 10 units SC AC 30 Days ml Insulin Human NPH [Humulin N] 24 units SC HS 30 Days ml - Follow Up Plan Condition: FAIR Disposition: HOME/ ROUTINE Additional Instructions: Please follow-up with our [facility]. You were scheduled for an appointment on June 08 at 13:00PM. Please follow-up with a [employer] for your joint pain. You were given a blood glucose test kit with testing strips. Please check your glucose levels every morning and before each meal. Please fill your prescriptions as soon as you leave the hospital and take medications as prescribed. If your symptoms return please go to your nearest emergency department immediately. Medications: insulin (NPH): inject 24 units before bedtime insulin (Humulin R): inject 10 units before each meal Keflex 500mg: take orally every 6 hours until complete
[2018-06-01 15:35] VITALS: BP 131/91; PULSE 94; TEMP 98.4; O2SAT 98
--- NOTE | 2018-06-02 02:41 | PN ---
DATE: 06/01/2018 LOCATION: Room 569. SUBJECTIVE: This is a 33-year-old female with recent uncontrolled type 1 insulin-dependent diabetes, now being followed closely for metabolic management. Her glycemic levels are still fluctuating with glucose values ranging from 278-363 mg/dL. Her chemistry showed a BUN of 11, sodium 136, potassium 3.4, chloride 104, CO2 of 29, glucose 275 and creatinine 0.4. ASSESSMENT AND PLAN: Because of the variability of her oral intake, we will hold off further dose adjustments at this time and continue the same current insulin regimen as ordered to allow for full dose equilibration. We will continue the regular insulin given as 10 units t.i.d. before meals as ordered. We will also continue the NPH given as 24 units subcu at bedtime daily as given. We will obtain serial chemistries and supplement accordingly as needed. We will follow. Iram Hope MD
[2018-06-03 00:09] LABS: SSDNA IGG AB <69 U/mL (<230)
== END 2018-06-01 16:28 | disposition home or self-care (01) | DRG 420 ==
LOC: ED 06:43 → ERH 08:11 → ICU 09:17 → 5RNO 05-31 23:33
PROVIDERS: ADMIT Internal Medicine; ATTEND Internal Medicine
DX: E10.10 Type 1 diabetes mellitus with ketoacidosis without coma (principal); E83.39 Other disorders of phosphorus metabolism; R11.2 Nausea with vomiting, unspecified; E86.0 Dehydration; R00.0 Tachycardia, unspecified; Z79.4 Long term (current) use of insulin; Z91.14 Patient's other noncompliance with medication regimen; E07.81 Sick-euthyroid syndrome; Z98.891 History of uterine scar from previous surgery; Z82.49 Family history of ischemic heart disease and other diseases of the circulatory system; Z82.61 Family history of arthritis; Z83.3 Family history of diabetes mellitus; R30.0 Dysuria

== ENCOUNTER 2018-07-16 20:23 | Inpatient (IN) | payer MEDICAID ==
[2018-07-16] MEDS ORDERED: Sodium Chloride 0.9% 1,000 ML IV STA (21:37)
[2018-07-16] MEDS ORDERED: Sodium Chloride 0.9% 1,000 ML IV ONE (22:01)
--- NOTE | 2018-07-16 22:02 | ED PDOC ---
Arrival/HPI - General Chief Complaint: Abdominal Pain Time Seen by Provider: 07/16/18 20:26 Historian: Patient - History of Present Illness Narrative History of Present Illness (Text): 07/16/18 22:02 Nataly Maciel is a 33 year old female, whose past medical history includes Type 1 diabetes, DKA, rhabdomyolysis, and ovarian torsian s/p right salpingo-oopherectomy, who presents to the Emergency department complaining of abdominal pain and distention. Patient states she developed lower abdominal distention with associated lower abdominal pain today. Patient notes she was recently admitted to [facility] this week for swelling to her lower extremities, with shortness of breath and difficulty voiding her urine. Patient had a full work-up including an echocardiogram and liver US, which were negative and was discharged home. Patient states symptoms have not resolved and was advised to come to the Emergency department by her PMD for further evaluation. Patient denies any fever, chills, nausea, vomiting, diarrhea, urinary symptoms, back pain, neck pain, headache, dizziness, or any other complaints. PMD: Dr. Reed Symptom Onset: Gradual Symptom Course: Unchanged Activities at Onset: Light Context: Home Past Medical History - Provider Review Nursing Documentation Reviewed: Yes - Infectious Disease Hx of Infectious Diseases: None - Tetanus Immunization Tetanus Immunization: Unknown - Cardiac Hx Cardiac Disorders: Yes (heart murmur) Other/Comment: post sx last summer heart rate rapid pt . wore a halter monitor for 14 days. Hx of rapid heart rate - Pulmonary Hx Respiratory Disorders: No - Neurological Hx Neurological Disorder: Yes Hx Dizziness: Yes (SYNCOPE 02-19-16) - HEENT Hx HEENT Disorder: No - Renal Hx Renal Disorder: No - Endocrine/Metabolic Hx Endocrine Disorders: Yes Hx Diabetes Mellitus Type 1: Yes (dx age 20) Other/Comment: DKA 02-19-16 - Hematological/Oncological Hx Blood Disorders: No - Integumentary Hx Dermatological Disorder: Yes (RIGHT BREAST SCAR FROM EXCISION OF CYST.) Other/Comment: 2 small surgical scars from sx scar to bikini line - Musculoskeletal/Rheumatological Hx Falls: No - Gastrointestinal Hx Gastrointestinal Disorders: No - Genitourinary/Gynecological Hx Genitourinary Disorders: No - Psychiatric Hx Psychophysiologic Disorder: No Hx Substance Use: No - Past Surgical History Past Surgical History: Non-Contributing - Surgical History Hx Section: Yes Other/Comment: cyst removed from right breast and posterior right ear benign, c section 2010, right ovary and right fallopian tube december 2014 - Anesthesia Hx Anesthesia: Yes Hx Anesthesia Reactions: No Hx Malignant Hyperthermia: No - Suicidal Assessment Feels Threatened In Home Enviroment: No Family/Social History - Physician Review Nursing Documentation Reviewed: Yes Family/Social History: Unknown Family HX Smoking Status: Never Smoked Hx Alcohol Use: No Hx Substance Use: No Hx Substance Use Treatment: No Allergies/Home Meds Allergies/Adverse Reactions: Allergies No Known Allergies Allergy (Verified 09/22/16 07:28) Home Medications: Home Meds Medication Instructions Recorded Confirmed Insulin Glargine, Recombina 12 unit SC AMHS 07/17/18 07/17/18 [Lantus] Insulin Lispro [humALOG] 1 unit SC ACHS 07/17/18 07/17/18 Review of Systems - Physician Review All systems were reviewed & negative as marked: Yes - Review of Systems Constitutional: Normal. absent: Fevers Eyes: Normal ENT: Normal Respiratory: SOB. absent: Cough Cardiovascular: absent: Chest Pain Gastrointestinal: Abdominal Pain (+abdominal pain, +abdominal distension). absent: Diarrhea, Vomiting, Appetite Changes Genitourinary Female: Normal. absent: Dysuria, Frequency, Hematuria, Urine Output Changes Musculoskeletal: Other (+lower extremity swelling). absent: Back Pain, Neck Pain Skin: Normal. absent: Rash Neurological: Normal. absent: Headache, Dizziness Endocrine: Normal Hemo/Lymphatic: Normal Psychiatric: Normal Physical Exam Vital Signs Reviewed: Yes Vital Signs Temp Pulse Resp BP Pulse Ox 07/16/18 21:59 98.5 F 120 H 18 116/49 L 99 Temperature: Afebrile Blood Pressure: Normal Pulse: Regular Respiratory Rate: Normal Appearance: Positive for: Well-Appearing, Non-Toxic, Comfortable Pain Distress: None Mental Status: Positive for: Alert and Oriented X 3 Finger Stick Blood Glucose: 192 - Systems Exam Head: Present: Atraumatic, Normocephalic Pupils: Present: PERRL Extroacular Muscles: Present: EOMI Conjunctiva: Present: Normal Mouth: Present: Moist Mucous Membranes Neck: Present: Normal Range of Motion. No: Meningeal Signs, MIDLINE TENDERNESS, Paraspinal Tenderness Respiratory/Chest: Present: Clear to Auscultation, Good Air Exchange. No: Respiratory Distress, Accessory Muscle Use Cardiovascular: Present: Normal S1, S2, Tachycardic. No: Murmurs Abdomen: Present: Tenderness (Lower abdominal tenderness), Distention (Abdominal distention). No: Peritoneal Signs Back: Present: Normal Inspection Upper Extremity: Present: Normal Inspection. No: Cyanosis, Edema Lower Extremity: Present: Normal Inspection. No: Edema Neurological: Present: GCS=15, CN II-XII Intact, Speech Normal Skin: Present: Warm, Dry, Normal Color. No: Rashes Psychiatric: Present: Alert, Oriented x 3, Normal Insight, Normal Concentration Medical Decision Making ED Course and Treatment: 07/16/18 22:02 Impression: 33 year old female complaining of abdominal distention/pain, lower extremity swelling, shortness of breath, and difficulty voiding her urine. Plan: -- CT Abdomen and Pelvis -- Labs, amylase, BNP, beta-HCG, lipase, VBG -- Urinalysis, urine cultures -- IV fluids -- Reassess and disposition Prior Visits: Notes and results from previous visits were reviewed. Progress Notes: 07/17/18 00:20 CT Abdomen and Pelvis: LUNG BASES: There are scattered groundglass opacities in both lung bases. This is nonspecific and could have infectious or inflammatory etiology. There also appears to be some linear atelectasis near the right base. There is interlobular septal thickening in the bases which can be seen in pulmonary edema or aggressive hydration. LIVER: The liver demonstrates periportal edema which can be seen in aggressive hydrati on. GALLBLADDER AND BILE DUCTS: The gallbladder is decompressed with large amount pericholecystic fluid. This is nonspecific. PANCREAS: Unremarkable. SPLEEN: Unremarkable. ADRENAL GLANDS: Unremarkable. KIDNEYS, URETERS, AND BLADDER: The kidneys appear within normal limits. There is no hydronephrosis or hydroureter. No urinary calculi are seen. STOMACH AND BOWEL: Stomach is moderately distended with food debris. Thick walled fluid filled duodenum and loops of jejunum as well as ileum compatible with severe enteritis. Infectious and inflammatory etiologies are considered. There is moderate constipation in the colon. No evidence for small bowel obstruction. APPENDIX: The appendix measures 7 mm near its base and 5-2 mm near its tip. This is probably a normal but slightly prominent appendix. Less likely possibility includes early or mild appendicitis. Please correlate clinically and if indicated followup can be obtained. PERITONEUM: No pneumoperitoneum. LYMPH NODES: No lymphadenopathy. VASCULATURE: No evidence of abdominal aortic aneurysm. BONES: No aggressive appearing osseous lesion. No acute osseous pathology evident. MISCELLANEOUS: 3.4 centimeter cystic lesion at the left adnexa. This may represent ovarian cyst. If indicated, this can be further evaluated with pelvic sonogram. There is a small amount of free pelvic fluid. There is diffuse anasarca. IMPRESSION: 1. Severe enteritis. 2. There are scattered groundglass opacities in both lung bases this is nonspecific and could have infectious or inflammatory etiology. 3. There is interlobular septal thickening in the bases which can be seen in pulmonary edema or aggressive hydration. 4. The liver demonstrates periportal edema which can be seen in aggressive hydration. 5. Left ovarian cyst. If indicated, this can be further evaluated with pelvic sonogram. 6. There is moderate constipation in the colon. 7. There is a small amount of free pelvic fluid. 8. There is diffuse anasarca. 9. The gallbladder is decompressed with large amount pericholecystic fluid which could be due to third spacing. Nevertheless consider correlation with right upper quadrant ultrasound if clinically warranted. Electronically signed on Jul 17, 2018 12:15:30 AM EST by: Guicho Ferrer M.D., TRENA Certified By [facility] [facility] Fellowship Trained MRI and CT Specialist 07/17/18 00:29 Case discussed with medical and scientific illustrator vector control assistant, who is aware and agrees with plan. 07/17/18 00:[address] Freddy King, who is aware and agrees with plan. Accepts pt in to hospitalist service. Pt will be admitted to [facility] for abdominal pain. - Medication Orders Current Medication Orders: Sodium Chloride (Sodium Chloride 0.9%) 1,000 mls @ 1,000 mls/hr IV .Q1H STA Stop: 07/16/18 22:36 - Scribe Statement The provider has reviewed the documentation as recorded by the Doyle Newberry Provider Scribe Attestation: All medical record entries made by the Scribe were at my direction and personally dictated by me. I have reviewed the chart and agree that the record accurately reflects my personal performance of the history, physical exam, medical decision making, and the department course for this patient. I have also personally directed, reviewed, and agree with the discharge instructions and disposition. Disposition/Present on Arrival - Present on Arrival Any Indicators Present on Arrival: No History of DVT/PE: No History of Uncontrolled Diabetes: Yes Urinary Catheter: No History of Decub. Ulcer: No History Surgical Site Infection Following: None - Disposition Have Diagnosis and Disposition been Completed?: Yes Diagnosis: Abdominal pain Disposition: HOSPITALIZED Disposition Time: 00:10 Condition: STABLE
[2018-07-16 22:26] LABS: BASO # 0.02 K/mm3 (0.0-2.0); BASO % 0.3 % (0.0-3.0); EOS # 0.2 (0.0-0.7); EOS % 2.5 % (1.5-5.0); GRAN # 4.34 (1.4-6.5); HEMOGLOBIN 10.5 g/dL (12.0-16.0); LYMPH # 2.1 (1.2-3.4); LYMPH % 29.2 % (22.0-35.0); MEAN CELL VOLUME 92.9 fl (80.0-105.0); MEAN CORPUSCULAR HEMOGLOBIN 29.7 pg (25.0-35.0); MEAN PLATELET VOLUME 9.2 fl (7.0-11.0); MONO # 0.5 (0.1-0.6); RBC 3.53 10^6/uL (3.5-6.1); RED CELL DISTRIBUTION WIDTH 13.3 % (11.5-14.5); VENOUS BLOOD GAS BASE EXCESS 2.4 mmol/L (0.0-2.0); VENOUS BLOOD GAS PO2 42 mm/Hg (30-55); VENOUS BLOOD PH 7.32 (7.32-7.43); WHITE BLOOD COUNT 7.1 10^3/uL (4.5-11.0)
[2018-07-16 22:27] LABS: URINE BILIRUBIN NEGATIVE (NEGATIVE); URINE BLOOD NEGATIVE (NEGATIVE); URINE GLUCOSE (UA) 250 mg/dL (NEGATIVE); URINE LEUKOCYTE ESTERASE NEGATIVE Leu/uL (NEGATIVE); URINE PROTEIN NEGATIVE mg/dL (<30 mg/dL); URINE UROBILINOGEN 0.2 E.U./dL (<1 E.U./dL)
[2018-07-16 22:29] LABS: URINE APPEARANCE CLEAR (CLEAR); URINE COLOR LIGHT YELLOW (YELLOW)
[2018-07-16 22:37] LABS: ALB/GLOB RATIO 1.1 (1.1-1.8); ALBUMIN 3.4 g/dL (3.0-4.8); ALT/SGPT 98 U/L (7-56); AMYLASE 67 U/L (35-125); AST/SGOT 117 U/L (14-36); BLOOD UREA NITROGEN 18 mg/dL (7-21); CALCIUM 8.3 mg/dL (8.4-10.5); GFR NON-AFRICAN AMERICAN > 60; LIPASE 120 U/L (23-300)
[2018-07-16 22:45] LABS: B-TYPE NATRIURETIC PEPTIDE 265 pg/mL (0-450)
[2018-07-16] MEDS ORDERED: Iohexol 350 MG/100 ML VIAL ONE (23:14)
--- NOTE | 2018-07-17 00:32 | CP.PCM.HP ---
History of Present Illness - History of Present Illness History of Present Illness: PGY-1 H&P for Dr. King CC: Abdominal pain and distention HPI: Nataly Maciel is a 33 year old female, whose past medical history includes type 1 Diabetes Mellitus (Insulin Dependent), DKA, Rhabdomyolysis, Ovarian Torsion s/p right salpingo-oopherectomy, Breast Cyst, Strep throat (treated), presenting with abdominal pain and distention. Patient states she developed worsening lower abdominal distention with associated lower abdominal pain today. She admits to a 20 pounds weight gain in 1 week. She describes her pain to be achy and worse on her LLQ and LRQ. She states that the pain is 7/10 when she is bending down and 3/10 when she is lying down. Patient notes she was recently admitted to [facility] this week for swelling to her lower extremities, with shortness of breath, and difficulty voiding her urine. Patient had a full work- up including an echocardiogram and liver US, which were negative and was discharged home. Patient states she went to her PMD and was given Lasix but was still unable to urinate and was then advised to come to the Emergency department for further evaluation. Patient denies any fever, chills, chest pain, nausea, vomiting, diarrhea, urinary symptoms, back pain, neck pain, headache, dizziness, or any other complaints. 12 system ROS reviewed and negative except mentioned in HPI PMH: Type 1 Diabetes Mellitus (Insulin Dependent), DKA, Rhabdomyolysis, Ovarian Torsion s/p right salpingo-oopherectomy, Breast Cyst, Strep throat (treated) Surgeries: R Salpingo-oopherectomy, R Breast cyst excision, R ear cyst excision, (7years ago) [employer] Hx: Patient has been 3 times, 1 living child and 2 miscarriages in the first trimester. LMP was 06/30/2018, menstrual period regular. Sexually active only with . Denies contraceptive use. Family History: Mom: Rheumathoid arthritis, psoriatic arthritis, Bryan's, colitis. Brother: Diabetes Mellitus (Type 1) Social History: Denies: ETOH, tobacco, recreational drugs. Works at home. No recent travels, sick contacts, or pets. Medications: Lantus 12mg AM, Lantus 10mg HS, Humalog, insulin sliding scale Allergies: NKDA PMD: Dr. Reed Present on Admission - Present on Admission Any Indicators Present on Admission: No History of DVT/PE: No History of Uncontrolled Diabetes: No Urinary Catheter: No Decubitus Ulcer Present: No Review of Systems - Review of Systems All systems: reviewed and no additional remarkable complaints except Past Patient History - Infectious Disease Hx of Infectious Diseases: None - Tetanus Immunizations Tetanus Immunization: Unknown - Past Medical History & Family History Past Medical History?: Yes - Past Social History Smoking Status: Never Smoked - CARDIAC Hx Cardiac Disorders: Yes (heart murmur) Other/Comment: post sx last summer heart rate rapid pt . wore a halter monitor for 14 days. Hx of rapid heart rate - PULMONARY Hx Respiratory Disorders: No - NEUROLOGICAL Hx Neurological Disorder: Yes Hx Dizziness: Yes (SYNCOPE 02-19-16) - HEENT Hx HEENT Problems: No - RENAL Hx Chronic Kidney Disease: No - ENDOCRINE/METABOLIC Hx Endocrine Disorders: Yes Hx Diabetes Mellitus Type 1: Yes (dx age 20) Other/Comment: DKA 02-19-16 - HEMATOLOGICAL/ONCOLOGICAL Hx Blood Disorders: No - INTEGUMENTARY Hx Dermatological Problems: Yes (RIGHT BREAST SCAR FROM EXCISION OF CYST.) Other/Comment: 2 small surgical scars from sx scar to bikini line - MUSCULOSKELETAL/RHEUMATOLOGICAL Hx Falls: No - GASTROINTESTINAL Hx Gastrointestinal Disorders: No - GENITOURINARY/GYNECOLOGICAL Hx Genitourinary Disorders: No - PSYCHIATRIC Hx Psychophysiologic Disorder: No Hx Substance Use: No - SURGICAL HISTORY Hx Section: Yes Other/Comment: cyst removed from right breast and posterior right ear benign, c section 2010, right ovary and right fallopian tube december 2014 - ANESTHESIA Hx Anesthesia: Yes Hx Anesthesia Reactions: No Hx Malignant Hyperthermia: No Meds Allergies/Adverse Reactions: Allergies Allergy/AdvReac Type Severity Reaction Status Date / Time No Known Allergies Allergy Verified 09/22/16 07:28 Physical Exam - Constitutional Appears: Well, Non-toxic, No Acute Distress Additional comments: Appears uncomfortable - Head Exam Head Exam: ATRAUMATIC, NORMOCEPHALIC - Eye Exam Eye Exam: EOMI, Normal appearance, PERRL. absent: Nystagmus, Scleral icterus - ENT Exam ENT Exam: Mucous Membranes Moist, Normal Exam - Neck Exam Neck exam: Positive for: Normal Inspection. Negative for: Tenderness, Thyromegaly - Respiratory Exam Respiratory Exam: Clear to Auscultation Bilateral, NORMAL BREATHING PATTERN. absent: Rales, Rhonchi, Wheezes, Respiratory Distress - Cardiovascular Exam Cardiovascular Exam: Tachycardia, +S1, +S2. absent: Gallop, Rubs, Systolic Murmur Additional comments: No JVD. Hepatojugular reflux was negative. - GI/Abdominal Exam GI & Abdominal Exam: Distended, Normal Bowel Sounds, Soft, Tenderness. absent: Firm, Guarding Additional comments: Tender to palpation in RLQ and LLQ, positive fluid wave. Abdomen is distended - Exam Bimanual exam: NORMAL BIMANUAL EXAM. absent: Adenexal Mass, Cervical Motion Tendernes, Uterine Tenderness - Extremities Exam Extremities exam: Positive for: pedal pulses present. Negative for: calf tenderness, normal inspection Additional comments: Patient wearing compression stockings. Some bilateral tibial edema noted. - Back Exam Back exam: NORMAL INSPECTION. absent: CVA tenderness (L), CVA tenderness (R), paraspinal tenderness - Neurological Exam Neurological exam: Alert, CN II-XII Intact, Oriented x3 - Psychiatric Exam Psychiatric exam: Normal Affect, Normal Mood - Skin Skin Exam: Dry, Intact, Normal Color, Warm Results - Vital Signs Recent Vital Signs: Last Vital Signs Temp 98.5 F 07/16/18 21:59 Pulse 108 H 07/16/18 22:26 Resp 18 07/16/18 21:59 BP 116/49 L 07/16/18 21:59 Pulse Ox 99 07/16/18 21:59 - Labs Result Diagrams: 07/16/18 22:20 07/16/18 22:20 Labs: Laboratory Results - last 24 hr 07/16/18 07/16/18 07/16/18 21:34 22:20 22:20 WBC 7.1 D RBC 3.53 Hgb 10.5 L Hct 32.8 L MCV 92.9 D MCH 29.7 MCHC 32.0 RDW 13.3 Plt Count 291 MPV 9.2 Gran % 61.0 Lymph % (Auto) 29.2 [place] % (Auto) 7.0 H Eos % (Auto) 2.5 Baso % (Auto) 0.3 Gran # 4.34 Lymph # (Auto) 2.1 [place] # (Auto) 0.5 Eos # (Auto) 0.2 Baso # (Auto) 0.02 pO2 VBG pH VBG pCO2 VBG HCO3 VBG Total CO2 VBG O2 Sat (Calc) VBG Base Excess VBG Potassium Sodium Chloride Glucose Lactate FiO2 Potassium Carbon Dioxide Anion Gap BUN Creatinine Est GFR ( Amer) Est GFR (Non-Af Amer) POC Glucose (mg/dL) 192 H Random Glucose Calcium Magnesium Total Bilirubin AST ALT Alkaline Phosphatase NT-Pro-B Natriuret Pep Total Protein Albumin Globulin Albumin/Globulin Ratio Amylase Lipase Beta HCG, Quant Venous Blood Potassium Urine Color Light yellow Urine Appearance Clear Urine pH 6.0 Ur Specific [place] 1.025 Urine Protein Negative Urine Glucose (UA) 250 H Urine Ketones Negative Urine Blood Negative Urine Nitrate Negative Urine Bilirubin Negative Urine Urobilinogen 0.2 Ur Leukocyte Esterase Negative 07/16/18 07/16/18 07/16/18 22:20 22:20 22:20 WBC RBC Hgb Hct MCV MCH MCHC RDW Plt Count MPV Gran % Lymph % (Auto) [place] % (Auto) Eos % (Auto) Baso % (Auto) Gran # Lymph # (Auto) [place] # (Auto) Eos # (Auto) Baso # (Auto) pO2 42 VBG pH 7.32 VBG pCO2 58.0 VBG HCO3 29.9 H VBG Total CO2 31.7 H VBG O2 Sat (Calc) 81.4 H VBG Base Excess 2.4 H VBG Potassium 3.8 Sodium 137 138.0 Chloride 103 105.0 Glucose 125 H Lactate 1.2 FiO2 21.0 Potassium 3.9 Carbon Dioxide 29 Anion Gap 9 L BUN 18 Creatinine 0.5 L Est GFR ( Amer) > 60 Est GFR (Non-Af Amer) > 60 POC Glucose (mg/dL) Random Glucose 124 H Calcium 8.3 L Magnesium 2.2 Total Bilirubin 0.2 AST 117 H D ALT 98 H Alkaline Phosphatase 64 NT-Pro-B Natriuret Pep 265 Total Protein 6.4 Albumin 3.4 Globulin 3.0 Albumin/Globulin Ratio 1.1 Amylase 67 Lipase 120 Beta HCG, Quant < 2.39 Venous Blood Potassium 3.8 Urine Color Urine Appearance Urine pH Ur Specific [place] Urine Protein Urine Glucose (UA) Urine Ketones Urine Blood Urine Nitrate Urine Bilirubin Urine Urobilinogen Ur Leukocyte Esterase Assessment & Plan - Assessment and Plan (Free Text) Assessment: Patient is a 33 year old female, whose past medical history includes type 1 Diabetes Mellitus (Insulin Dependent), DKA, Rhabdomyolysis, Ovarian Torsion s/p right salpingo-oopherectomy, Breast Cyst, Strep throat (treated), who presents to the Emergency department complaining of abdominal pain and distention. Plan: New-onset ascites with LLQ and RLQ abdominal pain - Need to rule out liver cirrhosis vs right heart failure vs malignancy vs nephrotic syndrome - CT Abd/Pelvis: Severe enteritis. There are scattered groundglass opacities in both lung bases this is nonspecific and could have infectious or inflammatory etiology. There is interlobular septal thickening in the bases which can be seen in pulmonary edema or aggressive hydration. The liver demonstrates periportal edema which can be seen in aggressive hydration. Left ovarian cyst. If indicated, this can be further evaluated with pelvic sonogram. here is moderate constipation in the colon. There is a small amount of free pelvic fluid. There is diffuse anasarca. The gallbladder is decompressed with large amount pericholecystic fluid which could be due to third spacing. Nevertheless consider correlation with right - Echocardiogram ordered - Abdominal US ordered - Cardiology consulted, Dr. Rosen - LDH, ESR ordered - Urine chloride ordered - Lipase, amylase: WNL - TSH, Free T4: WNL - BNP: 265 Transaminitis, r/o infectious vs cirrhosis vs autoimmune - Hepatitis panel ordered - Anti-mitochondrial Ab, Anti-liver kidney microsomal-1 Ab ordered - EBONY, ANCA, ASCA ordered - HIV ordered - Smooth muscle Ab ordered - Rheumathoid factor ordered - AST/ALT:117/98 - Alk Phos: 64 - GI consulted, Dr. Renae - Renal U/S ordered - UDS: negative - UA: negative for LE, NO3, Normocytic Anemia likely due to chronic disease - Hb/Hct:10.5/32.8 - MCV: 92.9 - Reticulocyte count ordered - Peripheral smear ordered - Vit B12, folate ordered - Fe, TIBC, transferrin, Ferritin ordered Type-1 DM - ISS low - Accuchecks ACHS - HbA1c ordered - Urine glucose: 250 Prophylaxis: - DVT: Heparin 5000 SC Q8 Case discussed with Dr. Fernando Velasco, PGY-1
[2018-07-17 01:31] LABS: FREE T4 0.78 ng/dL (0.78-2.19)
[2018-07-17 02:38] LABS: OSMOLALITY,URINE 620 mosm/kg (300-1000)
[2018-07-17 02:39] LABS: BARBITURATES, UR NEGATIVE (NEGATIVE); BENZODIAZEPINES, UR NEGATIVE (NEGATIVE); OPIATES, UR NEGATIVE (NEGATIVE); PHENCYCLIDINE, UR NEGATIVE (NEGATIVE)
[2018-07-17 05:03] VITALS: BMI 25.4
[2018-07-17 06:42] LABS: BASO # 0.01 K/mm3 (0.0-2.0); BASO % 0.1 % (0.0-3.0); EOS # 0.2 (0.0-0.7); EOS % 2.6 % (1.5-5.0); GRAN # 4.32 (1.4-6.5); HEMOGLOBIN 9.4 g/dL (12.0-16.0); LYMPH # 1.8 (1.2-3.4); LYMPH % 26.1 % (22.0-35.0); MEAN CELL VOLUME 93.7 fl (80.0-105.0); MEAN CORPUSCULAR HEMOGLOBIN 29.5 pg (25.0-35.0); MEAN CORPUSCULAR HGB CONC 31.4 g/dl (31.0-37.0); MEAN PLATELET VOLUME 9.6 fl (7.0-11.0); MONO # 0.6 (0.1-0.6); MONO % 8.2 % (1.0-6.0); RBC 3.19 10^6/uL (3.5-6.1); RED CELL DISTRIBUTION WIDTH 13.3 % (11.5-14.5); WHITE BLOOD COUNT 6.9 10^3/uL (4.5-11.0)
[2018-07-17 06:46] LABS: ALB/GLOB RATIO 1.1 (1.1-1.8); ALT/SGPT 98 U/L (7-56); AST/SGOT 127 U/L (14-36); BLOOD UREA NITROGEN 16 mg/dL (7-21); CALCIUM 8.2 mg/dL (8.4-10.5); GFR NON-AFRICAN AMERICAN > 60
[2018-07-17 06:47] LABS: IRON 50 ug/dL (45-180)
[2018-07-17 06:56] LABS: % IRON SATURATION 18 % (20-55); TOTAL IRON BINDING CAPACITY 274 ug/dL (265-497)
--- NOTE | 2018-07-17 08:31 | RAD ---
HISTORY: sob COMPARISON: Chest x-ray performed 05/29/18 TECHNIQUE: Chest, one view. FINDINGS: LUNGS: Moderate interstitial prominence may reflect infection or edema. Please note that chest x-ray has limited sensitivity for the detection of pulmonary masses. PLEURA: No significant pleural effusion identified. No definite pneumothorax . CARDIOVASCULAR: Heart size appears within normal limits. No significant atherosclerotic calcification present. OSSEOUS STRUCTURES: No acute osseous abnormality identified. VISUALIZED UPPER ABDOMEN: Unremarkable. OTHER FINDINGS: None. IMPRESSION: Moderate interstitial prominence may reflect infection or edema.
[2018-07-17] MEDS: Insulin Reg-MEDIUM-Coverage SC SCH ×4 (09:08→22:19)
--- NOTE | 2018-07-17 09:24 | CARD ---
APPROVED REPORT Date of service: 07/17/2018 EKG Measurement Heart [id number] <Conclusion> Sinus tachycardia Nonspecific T wave abnormality Abnormal ECG
--- NOTE | 2018-07-17 09:48 | CT ---
Date of service: 07/16/2018 PROCEDURE: CT Abdomen and Pelvis with contrast HISTORY: lower abdominal pain COMPARISON: Abdominal ultrasound performed 09/22/16, CT abdomen and pelvis with contrast performed 01/30/16 TECHNIQUE: Contrast dose: 100 mL Omnipaque 350 IV Radiation dose: Total exam DLP = 418.84 mGy-cm. This CT exam was performed using one or more of the following dose reduction techniques: Automated exposure control, adjustment of the mA and/or kV according to patient size, and/or use of iterative reconstruction technique. FINDINGS: LOWER THORAX: Mild bibasilar atelectasis. Scattered ground-glass pulmonary opacities. Interlobular septal thickening. Partially imaged 3 mm right lower lobe nodule (series 5, image 1). No visible pleural effusion or pneumothorax. LIVER: Periportal edema. Hepatomegaly. GALLBLADDER AND BILE DUCTS: Decompressed gallbladder with evidence of pericholecystic edema/gallbladder-wall thickening. PANCREAS: Unremarkable. SPLEEN: Unremarkable. ADRENALS: Unremarkable. KIDNEYS AND URETERS: The kidneys enhance symmetrically. No hydronephrosis or obstructing calculus identified. VASCULATURE: No aortic aneurysm. No atherosclerotic calcification or mural plaque present. BOWEL: Ingested debris within an incompletely distended stomach. Bowel loops appear within normal limits of caliber without evidence of obstruction. Mildly thick-walled loops of small bowel; correlate clinically for possibility of enteritis. Moderate constipation. APPENDIX: The appendix is not definitively identified. Presumed appendix measuring up to approximately 7 mm. No secondary signs of acute appendicitis. PERITONEUM: No significant free fluid. No definite free air. LYMPH NODES: No bulky adenopathy identified. BLADDER: Mildly thick-walled urinary bladder. REPRODUCTIVE: Heterogeneous lobulated appearance of the uterus consistent with fibroids. 2.5 cm left adnexal low-density, presumably ovarian cyst. BONES: No acute osseous abnormality is detected. OTHER FINDINGS: Soft tissue edema. IMPRESSION: Partially imaged 3 mm right lower lobe nodule; if patient is low risk, no additional follow-up recommended. If the patient is high risk, optional CT at 12 months is recommended. Mild bibasilar atelectasis. Scattered ground-glass pulmonary opacities. Interlobular septal thickening. Periportal edema. Mildly thick-walled loops of small bowel; correlate clinically for possibility of enteritis. Moderate constipation. The appendix is not definitively identified. Presumed appendix measuring up to approximately 7 mm, mildly enlarged. No secondary signs of acute appendicitis. Correlate clinically. Fibroid uterus. 2.5 cm left adnexal low-density, presumably ovarian cyst. Pelvic ultrasound may be considered for further evaluation if indicated. Mildly thick-walled urinary bladder. Recommend correlation with urinalysis. Mild soft tissue edema. Preliminary impression was provided by [email or web address]. Study marked for PA review and recommendations for partially imaged right lower lobe pulmonary nodule included in this report.
[2018-07-17] MEDS ORDERED: Dextrose 50% SYRINGE Inj (50 ml) IV PRN (10:48)
[2018-07-17] MEDS ORDERED: Iohexol 350 MG/100 ML VIAL ONE (11:08)
[2018-07-17 12:32] LABS: HEPATITIS B SURFACE AG Negative (NEGATIVE)
[2018-07-17 12:38] LABS: HEPATITIS A IGM NEGATIVE (NEGATIVE); HEPATITIS B CORE AB NEGATIVE (NEGATIVE)
--- NOTE | 2018-07-17 12:44 | CT ---
Date of service: 07/17/2018 PROCEDURE: CT Chest with contrast (Pulmonary Angiogram) HISTORY: r/o PE COMPARISON: None available. TECHNIQUE: Axial computed tomography images were obtained of the chest in the pulmonary arterial phase of enhancement. Coronal and sagittal reformatted images were created and reviewed. Intravenous contrast dose: 150 cc of Visipaque 320 Radiation dose: Total exam DLP = 215.68 mGy-cm. This CT exam was performed using one or more of the following dose reduction techniques: Automated exposure control, adjustment of the mA and/or kV according to patient size, and/or use of iterative reconstruction technique. FINDINGS: PULMONARY ARTERIES: Unremarkable. No pulmonary embolism. There is vascular congestion and minimal bibasilar ground-glass densities. AORTA: No acute findings. No thoracic aortic aneurysm. No aortic atherosclerotic calcification or mural plaque present. LUNGS: Unremarkable. No nodule, mass or pulmonary consolidation. PLEURAL SPACES: Small bilateral pleural effusions HEART: Unremarkable. No cardiomegaly. No significant pericardial effusion. LYMPH NODES: No lymphadenopathy. BONES, CHEST WALL: Unremarkable. No fracture or destructive lesion OTHER FINDINGS: Unremarkable. IMPRESSION: No evidence of pulmonary embolus. Vascular and interstitial congestion with small bilateral pleural effusions
--- NOTE | 2018-07-17 12:47 | CARD ---
APPROVED REPORT Date of service: 07/17/2018 EXAM: Two-dimensional and M-mode echocardiogram with Doppler and color Doppler. INDICATION SOB, RHF 2D DIMENSIONS Left Atrium (2D)4.6 (1.6-4.0cm)IVSd0.9 (0.7-1.1cm) LVDd4.5 (3.9-5.9cm)PWd0.8 (0.7-1.1cm) LVDs2.9 (2.5-4.0cm)FS (%) 34.1 % LVEF (%)63.2 (>50%) M-Mode DIMENSIONS Aortic Root2.70 (2.2-3.7cm)Aortic Cusp Exc.1.60 (1.5-2.0cm) Aortic Valve AoV Peak Fxsnulod623.0cm/Thuna Peak GR.8mmHg Mitral Valve MV E Abwqvzva78.3cm/sMV A Cripvjmz80.9cm/sE/A ratio1.1 TDI E/Lateral E'0.0E/Medial E'0.0 Pulmonary Valve PV Peak Dwbbsbme58.0cm/sPV Peak Grad.2mmHg Tricuspid Valve TR Peak Lpmkwgcp540qp/sRAP [id number] Peak Gr.16mmHg [id number] LEFT VENTRICLE The left ventricle is normal size. There is normal left ventricular wall thickness. The left ventricular function is normal. The left ventricular ejection fraction is within the normal range. There is normal LV segmental wall motion. RIGHT VENTRICLE The right ventricle is normal size. The right ventricular systolic function is normal. ATRIA The left atrium is mildly dilated. The right atrium size is normal. Probable PFO noted. AORTIC VALVE The aortic valve is normal in structure. No aortic regurgitation is present. There is no aortic valvular stenosis. MITRAL VALVE The mitral valve is normal in structure. Mitral regurgitation is mild to moderate. TRICUSPID VALVE The tricuspid valve is normal in structure. GREAT VESSELS The aortic root is normal in size. The IVC is normal in size and collapses >50% with inspiration. PERICARDIAL EFFUSION There is no pleural effusion. There is no pericardial effusion. <Conclusion> Dilated LA. Normal LV size and systolic function. Mild to moderate MR. Small PFO noted by color Doppler.
[2018-07-17 12:50] LABS: HEPATITIS C ANTIBODY NEGATIVE (NEGATIVE)
--- NOTE | 2018-07-17 13:24 | CON ---
DATE: 07/17/2018 CARDIOLOGY CONSULTATION HISTORY: The patient is a 33-year-old woman who is admitted for shortness of breath. In addition, she complains of pedal edema. PAST MEDICAL HISTORY: The patient's past medical history is notable for diabetes mellitus in which she is taking insulin. She denies chest pain. Her previous cardiac workup included an echocardiogram in 2016 in which her left ventricle was normal. There was no pulmonary hypertension noted. She now complains of edema in the lower extremities without angina. SOCIAL HISTORY: Denies smoking. REVIEW OF SYSTEMS: A 14-point review of systems is reviewed in detail. There is minimal amount of nausea but no abdominal pain. Edema as mentioned above and dyspnea. PHYSICAL EXAMINATION: VITAL SIGNS: Blood pressure 105/67, the heart rate is 100. NECK: Negative JVD. LUNGS: Without rales. HEART: With S1, S2. EXTREMITIES: Trace to 1+ edema. LABORATORY DATA: EKG shows no acute changes. Laboratories, hemoglobin is 9.4. Chemistries, BUN and creatinine are unremarkable. Her bicarb is 25. Toxicology is negative. Her hCG is negative. The arterial blood gas was reviewed. Preliminary echocardiogram shows good LV function. IMPRESSION: 1. Progressive dyspnea. 2. Pedal edema. 3. Diabetes mellitus. 4. Anemia. 5. Dyspnea. Given these findings, the patient will need to have the cause of her dyspnea and hypoxemia evaluated. A CT scan of the chest to rule out a pulmonary embolism would be appropriate. Easton Rosen MD
[2018-07-17 13:34] LABS: FERRITIN 42.8 ng/mL
--- NOTE | 2018-07-17 13:36 | US ---
Date of service: 07/17/2018 HISTORY: lower abdominal pain COMPARISON: Comparison is made to the previous CT of abdomen and pelvis dated 07/16/[address] dated 01/30/2016 TECHNIQUE: Transabdominal ultrasound examination of the pelvis was performed. FINDINGS: UTERUS: Measures 13.7 x 5.6 x 7.4 cm. Normal in size and appearance. No fibroid or other mass lesion seen. ENDOMETRIUM: Measures 9.4 mm in diameter. CERVIX: No cervical abnormality identified. RIGHT OVARY: The right ovary was not visualized LEFT OVARY: Measures 5.5 x 3.8 x 4.9 cm. No solid mass. Normal flow. FREE FLUID: Small amount of free fluid noted in the left pelvis. OTHER FINDINGS: None. IMPRESSION: No evidence of acute pathology or suspicious lesions in the uterus and left ovary.
--- NOTE | 2018-07-17 13:39 | US ---
Date of service: 07/17/2018 HISTORY: transaminitis COMPARISON: Comparison is made to the previous CT of abdomen and pelvis dated 07/16/2018 TECHNIQUE: Sonographic evaluation of the abdomen. FINDINGS: LIVER: Measures 19.9 cm. Normal echogenicity of the liver parenchyma. No mass. No intrahepatic bile duct dilatation. GALLBLADDER: No evidence of cholelithiasis. There is diffuse thickening of the gallbladder wall measures up to 7 millimeter. There is a trace pericholecystic fluid. COMMON BILE DUCT: Measures 4.3 mm. No stones. No dilatation. PANCREAS: Unremarkable as visualized. No mass. No ductal dilatation. RIGHT KIDNEY: Measures 12.6 x 4.8 x 6.2cm. Normal echogenicity. No calculus, mass, or hydronephrosis. LEFT KIDNEY: Measures 12.2 x 6.3 x 6cm. Normal echogenicity. No calculus, mass, or hydronephrosis. SPLEEN: Normal in size and contour. No mass. AORTA: No aneurysmal dilatation. IVC: Unremarkable. OTHER FINDINGS: None. IMPRESSION: Small amount of pericholecystic fluid associated with diffuse moderate gallbladder wall thickening. No evidence of cholelithiasis. Suspicious for mild periportal edema. Mild hepatomegaly.
[2018-07-17 14:04] LABS: FOLATE 5.3 ng/mL
--- NOTE | 2018-07-17 14:18 | CON ---
DATE: 07/17/2018 GASTROENTEROLOGY CONSULTATION REQUESTING PHYSICIAN: Dr. Sheldon. REASON FOR CONSULTATION: I have been asked to see this 33-year-old female with a history of longstanding type 1 diabetes mellitus, DKA, recently discharged from [facility] for apparent volume overload with lower extremity swelling, shortness of breath, and difficulty urinating. Workup was essentially negative. The patient states that she continues to have difficulty voiding. She apparently had gain 20 pounds in 1 week. She now admits to abdominal distention with lower abdominal discomfort. She denies any nausea or vomiting. CT scan of the abdomen and pelvis reveal increased stool throughout the colon, nonspecific thickening of the small bowel fluid in the michelle hepatis as well as soft tissue edema. 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 Ultrasound of the abdomen and pelvis just revealed some fluid around the gallbladder. Pelvic ultrasound was unremarkable. She denies any rectal bleeding, hematemesis, nausea, or vomiting. PAST MEDICAL HISTORY: Past medical history is notable for type 1 diabetes mellitus, DKA, breast cyst, ovarian torsion. PAST SURGICAL HISTORY: Past surgical history is notable for salpingo-oophorectomy, removal of right breast cyst, . FAMILY HISTORY: Family history is notable for rheumatoid arthritis. SOCIAL HISTORY: She denies cigarette smoking or alcohol use. Family history is as above. REVIEW OF SYSTEMS: Fourteen-point review of systems is notable for abdominal distention, bilateral lower abdominal pain, urinary retention. PHYSICAL EXAMINATION: GENERAL: Young female sitting in a chair, in no acute distress. VITAL SIGNS: Reveal temperature of 98.1, blood pressure 105/67, heart rate of 110. HEENT: Reveal sclerae to be white. Conjunctivae pink. NECK: Supple. CHEST: Reveal lungs to be clear. HEART: Exam reveals regular rate and rhythm. ABDOMEN: Soft, nontender. No mass. EXTREMITIES: Show trace pedal edema. LABORATORY DATA: Reveal chloride of 108, BUN 16, creatinine 0.4, blood sugar of 66, AST 127, ALT 98. CBC reveals white blood cell count 6.9, hemoglobin 9.4. Tox screen is negative. IMPRESSION: This is a 33-year-old female with longstanding type 1 diabetes mellitus recently discharged from [facility] with apparent volume overload with pedal edema with a history of 20-pound weight loss on diuretics now with bilateral lower abdominal discomfort and distention. CT scan of the abdomen and pelvis show increased stool throughout the colon, nonspecific mural thickening of the small bowel and soft tissue edema with fluid in the michelle hepatis. Etiology of the volume overload is unclear. Urine protein was negative. She does have a longstanding history of type 1 diabetes mellitus. Her abdominal distention and lower abdominal pain may be related to constipation. RECOMMENDATIONS: 1. We will start the patient on MiraLax 17 g b.i.d. 2. Check hepatitis serology. Etiology of the elevated liver enzymes were unclear. Cardiology evaluation for volume overload. Jaylen Renae MD
[2018-07-17] MEDS: POLYETHYLENE GLYCOL 3350 17 GM/Dose PACKET PO SCH ×2 (14:28→17:45)
--- NOTE | 2018-07-17 15:11 | US ---
HISTORY: Leg pain and swelling. Evaluate for DVT PHYSICIAN(S): Easton Felix MD. TECHNIQUE: Duplex sonography and color-flow Doppler with graded compression were used to evaluate the deep venous systems of both lower extremities. FINDINGS: The visualized deep venous systems of both lower extremities are sonographically normal and compressible. Normal wave forms and augmentation are seen. There is no sonographic evidence for deep venous thrombosis in the visualized segments of both lower extremities. IMPRESSION: No sonographic evidence for deep venous thrombosis in the visualized segments of both lower extremities.
[2018-07-18 08:33] LABS: BASO # 0.04 K/mm3 (0.0-2.0); BASO % 0.5 % (0.0-3.0); EOS # 0.2 (0.0-0.7); EOS % 2.3 % (1.5-5.0); GRAN # 5.25 (1.4-6.5); GRAN % 70.6 % (50.0-68.0); HEMOGLOBIN 10.3 g/dL (12.0-16.0); LYMPH # 1.3 (1.2-3.4); LYMPH % 17.4 % (22.0-35.0); MEAN CELL VOLUME 94.4 fl (80.0-105.0); MEAN CORPUSCULAR HGB CONC 30.7 g/dl (31.0-37.0); MEAN PLATELET VOLUME 9.7 fl (7.0-11.0); MONO # 0.7 (0.1-0.6); MONO % 9.2 % (1.0-6.0); RBC 3.55 10^6/uL (3.5-6.1); RED CELL DISTRIBUTION WIDTH 13.4 % (11.5-14.5); WHITE BLOOD COUNT 7.4 10^3/uL (4.5-11.0)
[2018-07-18] MEDS: Insulin Reg-MEDIUM-Coverage SC SCH (08:49)
[2018-07-18 09:25] LABS: ALBUMIN 3.2 g/dL (3.0-4.8); ALT/SGPT 86 U/L (7-56); AST/SGOT 66 U/L (14-36); BLOOD UREA NITROGEN 15 mg/dL (7-21); CALCIUM 8.7 mg/dL (8.4-10.5); GFR NON-AFRICAN AMERICAN > 60
[2018-07-18] MEDS: POLYETHYLENE GLYCOL 3350 17 GM/Dose PACKET PO SCH (10:10)
--- NOTE | 2018-07-18 11:29 | CP.PCM.PN ---
<Franky Gomez - Last Filed: 07/18/18 11:25> Subjective - Date & Time of Evaluation Date of Evaluation: 07/18/18 Time of Evaluation: 07:00 - Subjective Subjective: Pt seen and examined this morning at bedside. Pt reports abdominal pain, and LE edema. Objective - Vital Signs/Intake and Output Vital Signs (last 24 hours): Temp Pulse Resp BP Pulse Ox 98.1 F 99 H 20 127/89 92 L 07/18/18 06:00 07/18/18 06:00 07/18/18 06:00 07/18/18 08:49 07/18/18 06:00 Intake and Output: 07/18/18 07/18/18 06:59 18:59 Output Total 950 Balance -950 - Medications Medications: Current Medications Dextrose (Dextrose 50% Inj) 0 ml IV STAT PRN; Protocol PRN Reason: Hypoglycemia Protocol Furosemide (Lasix) 20 mg IVP Q12 [facility] Heparin Sodium (Porcine) (Heparin) 5,000 units SC Q8 [facility]; Protocol Last Admin: 07/18/18 05:46 Dose: 5,000 units Dextrose (Dextrose 5% In Water 1000 Ml) 1,000 mls @ 0 mls/hr IV .Q0M PRN; Protocol PRN Reason: Hypoglycemia Protocol Insulin Detemir (Levemir) 10 unit SC BRKDIN [facility] Insulin Human Regular (Humulin R Low) 0 units SC ACHS [facility]; Protocol Polyethylene Glycol (Miralax) 17 gm PO BID [facility] Last Admin: 07/18/18 10:10 Dose: 17 gm - Labs Labs: 07/18/18 08:20 07/18/18 08:20 - Constitutional Appears: No Acute Distress - Head Exam Head Exam: ATRAUMATIC, NORMOCEPHALIC - Eye Exam Eye Exam: EOMI - ENT Exam ENT Exam: Mucous Membranes Moist - Neck Exam Neck Exam: Full ROM - Respiratory Exam Respiratory Exam: Clear to Ausculation Bilateral, NORMAL BREATHING PATTERN. absent: Respiratory Distress - Cardiovascular Exam Cardiovascular Exam: RRR, +S1, +S2. absent: Diastolic murmur, Murmur - GI/Abdominal Exam GI & Abdominal Exam: Distended, Soft, Tenderness, Normal Bowel Sounds - Extremities Exam Extremities Exam: Full ROM, Pedal Edema - Neurological Exam Neurological Exam: Alert, Awake, Oriented x3 - Psychiatric Exam Psychiatric exam: Normal Affect, Normal Mood - Skin Skin Exam: Dry, Intact, Warm Assessment and Plan - Assessment and Plan (Free Text) Assessment: Pt is a 33 yo female, with a PMH includes DM1, DKA, Rhabdomyolysis, Ovarian Torsion, who presents to the ED complaining of abdominal pain and distention. Plan: Lower Abdominal Pain with edema - LDH 492 - TSH 1.08 - T4 0.78 - BNP: 265 - ECHO: EF 63.2%, dilated LA, mild/moderate MR, Small PFO - Abdominal US: small amount of pericholecystic fluid associated with diffuse moderate gallbladder wall thickening. No evidence of cholelithiasis - Cardiology consulted, Dr. Rosen- appreciate recs - GI, Dr Renae- appreciate rec Urinary Retention - ochoa in place - urology consulted, Dr Rivero IDDM - ISS low - Accuchecks ACHS - HA1C 14.2 - levemir 10 qAMHS Transaminitis - Hepatitis A/B/C NEGATIVE - AST 117 - ALT 98 - Alk Phos: 64 - UDS: negative - Anti-mitochondrial Ab, Anti-liver kidney microsomal-1 Ab, EBONY, ANCA, ASCA, HIV, Smooth muscle Ab, Rheumathoid factor- follow up Anemia of chronic disease - Hgb 10.3 - Reticulocyte 2.69 - B12 667 - folate 5.3 - Fe 50 - TIBC 274 - transferrin 201.49 - Ferritin 42.8 Ppx - Heparin Pt seen, examined, assessment and plan discussed with Dr Krissy Gomez PGY1 <Krissy Sheldon R - Last Filed: 07/18/18 16:48> Objective - Vital Signs/Intake and Output Vital Signs (last 24 hours): Temp Pulse Resp BP Pulse Ox 98.1 F 99 H 20 127/89 92 L 07/18/18 06:00 07/18/18 06:00 07/18/18 06:00 07/18/18 08:49 07/18/18 06:00 Intake and Output: 07/18/18 07/18/18 06:59 18:59 Output Total 950 Balance -950 - Medications Medications: Current Medications Dextrose (Dextrose 50% Inj) 0 ml IV STAT PRN; Protocol PRN Reason: Hypoglycemia Protocol Furosemide (Lasix) 20 mg IVP Q12 [facility] Heparin Sodium (Porcine) (Heparin) 5,000 units SC Q8 [facility]; Protocol Last Admin: 07/18/18 15:33 Dose: 5,000 units Dextrose (Dextrose 5% In Water 1000 Ml) 1,000 mls @ 0 mls/hr IV .Q0M PRN; Protocol PRN Reason: Hypoglycemia Protocol Insulin Detemir (Levemir) 10 unit SC BRKDIN [facility] Insulin Human Regular (Humulin R Low) 0 units SC ACHS [facility]; Protocol Last Admin: 07/18/18 12:40 Dose: 2 units Polyethylene Glycol (Miralax) 17 gm PO BID PRN PRN Reason: Constipation - Labs Labs: 07/18/18 08:20 07/18/18 08:20 Attending/Attestation - Attestation I have personally seen and examined this patient.: Yes I have fully participated in the care of the patient.: Yes I have reviewed all pertinent clinical information, including history, physical exam and plan: Yes Notes (Text): Patient seen and examined by me with resident at 9:05AM on 07/18/18. Case including HPI, physical exam, and assessment and plan discussed with resident. Agree with above with following additions/corrections. Patient is a 33-year-old female past medical history significant for insulin- dependent type 1 diabetes, DKA, rhabdomyolysis, ovarian torsion status post right salpingo-oophorectomy, breast cyst, and strep throat that presented to the emergency room with abdominal pain and distention. Patient states she feels a little better this morning. Patient states that she still has abdominal swelling and bilateral lower extremity swelling. States that she had some abdominal pain last night and Toradol helped. Patient does feel a little bit better with Ochoa catheter in place. Patient states that she is having "a lot of difficulty urinating" but has no burning or pain with urination. Patient denies any chest pain or palpitations. Shortness of breath has improved. No fevers or chills. No headaches or dizziness. No nausea or vomiting. She is tolerating diet. No diarrhea or constipation. Physical exam: General: Awake and alert sitting up in bed in no acute distress HEENT: Normocephalic, atraumatic. Extraocular muscles intact, pupils equal and reactive, no scleral icterus. Oropharynx is pink and moist. No pharyngeal erythema or exudate appreciated. Neck is supple. Cardiovascular: Regular rhythm. Normal S1 and S2. No murmurs, rubs, or gallops appreciated Pulmonary: Normal respiratory effort. No rhonchi, rales, or wheezing appreciated. Gastrointestinal: Soft. Mild abdominal distention. Positive generalized abdominal tenderness more prominent in the lower abdomen. Positive bowel sounds all 4 quadrants. No guarding. Musculoskeletal: Moves all extremities. No calf tenderness. Positive bilateral lower extremity edema.. Central nervous system: AAOx3, CN 2-12 grossly intact. Dermatologic: Skin warm and dry. Assessment and plan: Patient is a 33-year-old female past medical history significant for insulin-dependent type 1 diabetes, DKA, rhabdomyolysis, ovarian torsion status post right salpingo-oophorectomy, breast cyst, and strep throat that presented to the emergency room with abdominal pain and distention. 1. Anasarca. Unclear etiology. GI following, recommendations appreciated. Cardiology following, recommendations appreciated. Started on Lasix. CT abdomen and pelvis per radiologist showed actually image 3 mm right lower lobe nodule, mild bibasilar atelectasis, scattered groundglass pulmonary opacities, interlobular septal thickening, periportal edema, mildly thick-walled loops of small bowel, moderate constipation, presumed appendix measuring up to approximately 7 mm mildly enlarged, fibroid uterus, 2.5 cm left adnexal low- density presumably ovarian cyst, mildly thick-walled urinary bladder, mild soft tissue edema. Tone ultrasound per radiologist showed small amount of pericholecystic fluid associated with diffuse moderate gallbladder wall thickening, no evidence of cholelithiasis, suspicious for mild periportal edema, mild hepatomegaly. Pelvic ultrasound per radiologist showed no evidence of acute pathology or suspicious lesions in the uterus and left ovary. Chest CT per radiologist showed no evidence of pulmonary embolus, vascular and interstitial congestion with small bilateral pleural effusions. Bilateral lower extremity venous Dopplers negative for DVTs. 2-D echo per advertising assistant showed dilated left atrium, normal left ventricular size and systolic function, mild to moderate mitral regurgitation, small PFO noted by color Doppler. EBONY negative. 2. Transaminitis. Unclear etiology. May be secondary to hepatic congestion. LFTS downtrending. Hepatitis panel negative. HIV negative. 3. Anemia. H&H stable. Iron within normal limits. Ferritin within normal limits. No signs of acute bleeding. Continue to monitor CBC. 4. Difficulty urinating. Urine culture negative for infection. Ochoa catheter placed. Urology consulted, follow up recommendations. 5. Insulin-dependent type 1 diabetes. Placed on Levemir twice a day. Continue insulin sliding scale. Hemoglobin A1c 14.2. Continue to monitor Accu-Cheks. 6. Constipation. Patient is having bowel movements. Will change MiraLAX to as needed. 7. DVT prophylaxis. Heparin 8. Patient is a full code. Case was discussed in detail with the patient regarding current diagnosis and treatment plan. All questions answered.
--- NOTE | 2018-07-18 12:02 | PN ---
DATE: 07/18/2018 SUBJECTIVE: The patient is lying in bed. She is feeling a little better. Abdominal pain is less. She had a bowel movement yesterday. She denies any nausea or vomiting. She is tolerating solid foods. PHYSICAL EXAMINATION: VITAL SIGNS: Temperature of 98.1, blood pressure 127/89, heart rate of 100. HEENT: Sclerae to be white. Conjunctivae pink. NECK: Supple. CHEST: Coarse rales at the bases. HEART: Regular rate and rhythm. ABDOMEN: Soft. Mild bilateral lower abdominal tenderness. No rebound or guarding. EXTREMITIES: Show no edema. LABORATORY DATA: White blood cell count 7.4, hemoglobin 10.3. Chemistries reveal AST 66, ALT 86. They are trending downwards from AST 127, ALT 98. IMPRESSION: A 33-year-old female with evidence of volume overload, anasarca, pedal edema, abdominal pain with CT scan of the abdomen and pelvis showing increased stool throughout the colon as well as nonspecific mural thickening of the small bowel. Etiology of the volume overload is unclear. Echocardiogram did show mitral regurgitation, mildly dilated left atrium and a small patent foramen ovale. She is tolerating solid foods. RECOMMENDATIONS: Continue current treatment. She is stable from a GI standpoint. Need Cardiology followup regarding the echocardiogram findings. Jaylen Renae MD
[2018-07-18] MEDS: Insulin Reg-LOW-Coverage SC SCH ×3 (12:40→21:43)
[2018-07-18] MEDS ORDERED: POLYETHYLENE GLYCOL 3350 17 GM/Dose PACKET PO PRN (16:46)
[2018-07-18] MEDS: Insulin Detemir 100 units/ml Vial (Levemir) SC SCH (17:28)
[2018-07-19 08:31] LABS: BASO # 0.02 K/mm3 (0.0-2.0); BASO % 0.4 % (0.0-3.0); EOS # 0.2 (0.0-0.7); EOS % 3.4 % (1.5-5.0); GRAN # 2.72 (1.4-6.5); GRAN % 54.7 % (50.0-68.0); HEMOGLOBIN 9.6 g/dL (12.0-16.0); LYMPH # 1.5 (1.2-3.4); LYMPH % 30.9 % (22.0-35.0); MEAN CELL VOLUME 93.5 fl (80.0-105.0); MEAN CORPUSCULAR HEMOGLOBIN 29.5 pg (25.0-35.0); MEAN CORPUSCULAR HGB CONC 31.6 g/dl (31.0-37.0); MEAN PLATELET VOLUME 9.5 fl (7.0-11.0); MONO # 0.5 (0.1-0.6); MONO % 10.6 % (1.0-6.0); RBC 3.25 10^6/uL (3.5-6.1); RED CELL DISTRIBUTION WIDTH 13.3 % (11.5-14.5)
[2018-07-19] MEDS: Insulin Reg-LOW-Coverage SC SCH ×4 (08:38→22:00)
[2018-07-19] MEDS: Insulin Lispro 1 UNITS/0.01 ML SC SCH ×3 (08:38→17:21)
[2018-07-19 09:05] LABS: ALB/GLOB RATIO 1.1 (1.1-1.8); ALBUMIN 3.1 g/dL (3.0-4.8); ALT/SGPT 73 U/L (7-56); AST/SGOT 46 U/L (14-36); BLOOD UREA NITROGEN 13 mg/dL (7-21); CALCIUM 8.7 mg/dL (8.4-10.5); GFR NON-AFRICAN AMERICAN > 60
[2018-07-19] MEDS: Insulin Detemir 100 units/ml Vial (Levemir) SC SCH ×2 (09:28→17:20)
--- NOTE | 2018-07-19 12:43 | CP.PCM.PN ---
<JasonFranky Yoel - Last Filed: 07/19/18 12:40> Subjective - Date & Time of Evaluation Date of Evaluation: 07/19/18 Time of Evaluation: 06:55 - Subjective Subjective: Pt seen and examined at bedside. Per nursing, pt denies pain, ochoa working and is draining yellow urine. Pt has no new complaints at this time. Objective - Vital Signs/Intake and Output Vital Signs (last 24 hours): Temp Pulse Resp BP Pulse Ox 97.9 F 74 20 118/63 97 07/19/18 06:00 07/19/18 06:00 07/19/18 06:00 07/19/18 06:00 07/19/18 06:00 Intake and Output: 07/19/18 07/19/18 06:59 18:59 Intake Total 720 Balance 720 - Medications Medications: Current Medications Dextrose (Dextrose 50% Inj) 0 ml IV STAT PRN; Protocol PRN Reason: Hypoglycemia Protocol Furosemide (Lasix) 20 mg IVP Q12H [facility] Last Admin: 07/19/18 05:28 Dose: 20 mg Heparin Sodium (Porcine) (Heparin) 5,000 units SC Q8 [facility]; Protocol Last Admin: 07/19/18 05:24 Dose: 5,000 units Dextrose (Dextrose 5% In Water 1000 Ml) 1,000 mls @ 0 mls/hr IV .Q0M PRN; Protocol PRN Reason: Hypoglycemia Protocol Insulin Detemir (Levemir) 10 unit SC BRKDIN [facility] Last Admin: 07/19/18 09:28 Dose: 10 units Insulin Human Lispro (Humalog) 4 units SC AC [facility] Last Admin: 07/19/18 12:34 Dose: 4 units Insulin Human Regular (Humulin R Low) 0 units SC ACHS [facility]; Protocol Last Admin: 07/19/18 11:51 Dose: Not Given Polyethylene Glycol (Miralax) 17 gm PO BID PRN PRN Reason: Constipation - Labs Labs: 07/19/18 08:18 07/19/18 08:18 - Constitutional Appears: No Acute Distress - Head Exam Head Exam: ATRAUMATIC, NORMOCEPHALIC - Eye Exam Eye Exam: EOMI - ENT Exam ENT Exam: Mucous Membranes Moist - Neck Exam Neck Exam: Full ROM - Respiratory Exam Respiratory Exam: Accessory Muscle Use, Clear to Ausculation Bilateral, NORMAL BREATHING PATTERN. absent: Respiratory Distress - Cardiovascular Exam Cardiovascular Exam: RRR, +S1, +S2. absent: Diastolic murmur - GI/Abdominal Exam GI & Abdominal Exam: Distended, Soft, Normal Bowel Sounds. absent: Tenderness - Extremities Exam Extremities Exam: Full ROM, Pedal Edema. absent: Calf Tenderness - Neurological Exam Neurological Exam: Alert, Awake, Oriented x3 - Psychiatric Exam Psychiatric exam: Normal Affect, Normal Mood - Skin Skin Exam: Dry, Normal Color, Warm Assessment and Plan - Assessment and Plan (Free Text) Assessment: Pt is a 33 yo female, with a PMH includes DM1, DKA, Rhabdomyolysis, Ovarian Torsion, who presents to the ED complaining of abdominal pain and distention. Plan: Lower Abdominal Pain with edema - LDH 492, TSH 1.08, T4 0.78, BNP: 265 - ECHO: EF 63.2%, dilated LA, mild/moderate MR, Small PFO - LE US: no sonographic evidence of DVT - Abdominal US: small amount of pericholecystic fluid associated with diffuse moderate gallbladder wall thickening. No evidence of cholelithiasis - pelvic US: no evidence of acute pathology or suspicious lesions in the uterus of left ovary - Pelvic CT: periportal edema, fibroid uterus - CT chest: no evidence of PE, vascular and interstitial congestion with small bilateral pleural effusions - Cardiology consulted, Dr. Rosen- rec CT chest to rule out PE - GI, Dr Renae- pt is stable from a GI perspective, continue with current treatment Urinary Retention - ochoa in place, draining yellow urine - urology consulted, Dr Rivero IDDM - ISS low - Accuchecks ACHS - HA1C 14.2 - levemir 10 qAMHS Transaminitis - Hepatitis A/B/C NEGATIVE - AST 46, ALT 73, Alk Phos 81 - UDS: negative - EBONY negative, HIV non reactive - Anti-mitochondrial Ab, Anti-liver kidney microsomal-1 Ab, ANCA, ASCA, HIV, Smooth muscle Ab, Rheumathoid factor- follow up Anemia of chronic disease - Hgb 9.6 - Reticulocyte 2.69, B12 667, folate 5.3, Fe 50, TIBC 274, transferrin 201.49, Ferritin 42.8 Ppx - Heparin Pt seen, examined, assessment and plan discussed with Dr Krissy Gomez PGY1, Internal Medicine Resident <Krissy Sheldon R - Last Filed: 07/19/18 17:55> Objective - Vital Signs/Intake and Output Vital Signs (last 24 hours): Temp Pulse Resp BP Pulse Ox 98.4 F 98 H 20 116/81 97 07/19/18 17:43 07/19/18 17:43 07/19/18 17:43 07/19/18 17:43 07/19/18 17:43 Intake and Output: 07/19/18 07/19/18 06:59 18:59 Intake Total 720 Balance 720 - Medications Medications: Current Medications Dextrose (Dextrose 50% Inj) 0 ml IV STAT PRN; Protocol PRN Reason: Hypoglycemia Protocol Furosemide (Lasix) 20 mg IVP Q12H [facility] Last Admin: 07/19/18 05:28 Dose: 20 mg Heparin Sodium (Porcine) (Heparin) 5,000 units SC Q8 [facility]; Protocol Last Admin: 07/19/18 14:36 Dose: 5,000 units Dextrose (Dextrose 5% In Water 1000 Ml) 1,000 mls @ 0 mls/hr IV .Q0M PRN; Protocol PRN Reason: Hypoglycemia Protocol Insulin Detemir (Levemir) 10 unit SC BRKDIN [facility] Last Admin: 07/19/18 17:20 Dose: 10 units Insulin Human Lispro (Humalog) 4 units SC AC [facility] Last Admin: 07/19/18 17:21 Dose: 4 units Insulin Human Regular (Humulin R Low) 0 units SC ACHS [facility]; Protocol Last Admin: 07/19/18 16:33 Dose: Not Given Polyethylene Glycol (Miralax) 17 gm PO BID PRN PRN Reason: Constipation - Labs Labs: 07/19/18 08:18 07/19/18 08:18 Attending/Attestation - Attestation I have personally seen and examined this patient.: Yes I have fully participated in the care of the patient.: Yes I have reviewed all pertinent clinical information, including history, physical exam and plan: Yes Notes (Text): Patient seen and examined by me with resident at 9:00AM on 07/19/18. Case including HPI, physical exam, and assessment and plan discussed with resident. Agree with above with following additions/corrections. Patient is a 33-year-old female past medical history significant for insulin- dependent type 1 diabetes, DKA, rhabdomyolysis, ovarian torsion status post right salpingo-oophorectomy, breast cyst, and strep throat that presented to the emergency room with abdominal pain and distention. Patient states she feels ok. Still having abdominal pain and edema. Patient states her legs also still feel swollen. Patient is concerned about not being able to urinate properly. Patient is aware that urology will see her. Still with some shortness of breath. Patient denies any chest pain or palpitations. No fevers or chills. No headaches or dizziness. No nausea or vomiting. No diarrhea or constipation. Physical exam: General: Awake and alert sitting up in bed in no acute distress HEENT: Normocephalic, atraumatic. Extraocular muscles intact, pupils equal and reactive, no scleral icterus. Oropharynx is pink and moist. No pharyngeal erythema or exudate appreciated. Neck is supple. Cardiovascular: Regular rhythm. Normal S1 and S2. No murmurs, rubs, or gallops appreciated Pulmonary: Normal respiratory effort. No rhonchi, rales, or wheezing appreciated. Gastrointestinal: Soft. Mild abdominal distention. Positive generalized abdominal tenderness more prominent in the lower abdomen. Positive bowel sounds all 4 quadrants. No guarding. Musculoskeletal: Moves all extremities. No calf tenderness. Positive bilateral lower extremity edema. : Ochoa catheter in place with yellow urine output. Central nervous system: AAOx3, CN 2-12 grossly intact. Dermatologic: Skin warm and dry. Assessment and plan: Patient is a 33-year-old female past medical history significant for insulin-dependent type 1 diabetes, DKA, rhabdomyolysis, ovarian torsion status post right salpingo-oophorectomy, breast cyst, and strep throat that presented to the emergency room with abdominal pain and distention. 1. Anasarca. Unclear etiology. Improving. Face and hand edema resolved. GI following, recommendations appreciated. Cardiology following, recommendations appreciated. Continue on Lasix. EBONY negative. Hepatitis panel negative. HIV negative. Pending antimitochondrial antibody, smooth muscle antibody titer, anti-smooth muscle antibody, liver/kidney microsomes antibody. CT abdomen and pelvis per radiologist showed actually image 3 mm right lower lobe nodule, mild bibasilar atelectasis, scattered groundglass pulmonary opacities, interlobular septal thickening, periportal edema, mildly thick-walled loops of small bowel, moderate constipation, presumed appendix measuring up to approximately 7 mm mildly enlarged, fibroid uterus, 2.5 cm left adnexal low-density presumably ovarian cyst, mildly thick-walled urinary bladder, mild soft tissue edema. Tone ultrasound per radiologist showed small amount of pericholecystic fluid associated with diffuse moderate gallbladder wall thickening, no evidence of cholelithiasis, suspicious for mild periportal edema, mild hepatomegaly. Pelvic ultrasound per radiologist showed no evidence of acute pathology or suspicious lesions in the uterus and left ovary. Chest CT per radiologist showed no evidence of pulmonary embolus, vascular and interstitial congestion with small bilateral pleural effusions. Bilateral lower extremity venous Dopplers negative for DVTs. 2-D echo per unit control worker showed dilated left atrium, normal left ventricular size and systolic function, mild to moderate mitral regurgitation, small PFO noted by color Doppler. 2. Transaminitis. Unclear etiology. May be secondary to hepatic congestion. Downtrending. Hepatitis panel negative. HIV negative. 3. Anemia. H&H stable. Iron within normal limits. Ferritin within normal limits. No signs of acute bleeding. Continue to monitor CBC. 4. Difficulty urinating. Urine culture negative for infection. Continue with ochoa. Urology consulted, follow up recommendations. 5. Insulin-dependent type 1 diabetes. Continue Levemir twice a day. Continue insulin sliding scale. Started on Lispro AC. Hemoglobin A1c 14.2. Continue to monitor Accu-Cheks. 6. Constipation. Patient is having bowel movements. Continue MiraLAX as needed. 7. DVT prophylaxis. Heparin 8. Patient is a full code. Case was discussed in detail with the patient regarding current diagnosis and treatment plan. All questions answered.
[2018-07-20 06:32] LABS: BASO # 0.03 K/mm3 (0.0-2.0); BASO % 0.6 % (0.0-3.0); EOS # 0.2 (0.0-0.7); EOS % 4.2 % (1.5-5.0); GRAN # 2.48 (1.4-6.5); GRAN % 46.8 % (50.0-68.0); HEMOGLOBIN 9.7 g/dL (12.0-16.0); LYMPH # 1.9 (1.2-3.4); LYMPH % 35.8 % (22.0-35.0); MEAN CORPUSCULAR HEMOGLOBIN 29.5 pg (25.0-35.0); MEAN CORPUSCULAR HGB CONC 31.7 g/dl (31.0-37.0); MEAN PLATELET VOLUME 9.2 fl (7.0-11.0); MONO # 0.7 (0.1-0.6); MONO % 12.6 % (1.0-6.0); PLATELET COUNT 289 10^3/uL (120.0-450.0); RBC 3.29 10^6/uL (3.5-6.1); RED CELL DISTRIBUTION WIDTH 13.2 % (11.5-14.5); WHITE BLOOD COUNT 5.3 10^3/uL (4.5-11.0)
[2018-07-20 06:50] LABS: ALBUMIN 3.1 g/dL (3.0-4.8); ALT/SGPT 67 U/L (7-56); AST/SGOT 45 U/L (14-36); BLOOD UREA NITROGEN 15 mg/dL (7-21); CALCIUM 9.2 mg/dL (8.4-10.5); GFR NON-AFRICAN AMERICAN > 60
[2018-07-20] MEDS: Insulin Detemir 100 units/ml Vial (Levemir) SC SCH ×2 (08:41→17:13)
[2018-07-20] MEDS: Insulin Reg-LOW-Coverage SC SCH ×4 (08:41→21:37)
[2018-07-20] MEDS: Insulin Lispro 1 UNITS/0.01 ML SC SCH ×3 (08:42→17:12)
--- NOTE | 2018-07-20 12:13 | CP.PCM.PN ---
<Franky Gomez - Last Filed: 07/20/18 12:33> Subjective - Date & Time of Evaluation Date of Evaluation: 07/20/18 Time of Evaluation: 06:10 - Subjective Subjective: Pt seen, examined at bedside this morning. Per nursing, pt had headache overnight, given Tylenol. Ochoa is clamped for voiding trial. Dr Rivero returned call, will be in to see pt later today. Objective - Vital Signs/Intake and Output Vital Signs (last 24 hours): Temp Pulse Resp BP Pulse Ox 97.7 F 60 18 113/71 96 07/20/18 09:04 07/20/18 09:04 07/20/18 09:04 07/20/18 09:04 07/20/18 09:04 Intake and Output: 07/20/18 07/20/18 06:59 18:59 Intake Total 1140 Output Total 950 Balance 190 - Medications Medications: Current Medications Dextrose (Dextrose 50% Inj) 0 ml IV STAT PRN; Protocol PRN Reason: Hypoglycemia Protocol Furosemide (Lasix) 20 mg IVP Q12H [facility] Last Admin: 07/19/18 17:59 Dose: 20 mg Heparin Sodium (Porcine) (Heparin) 5,000 units SC Q8 [facility]; Protocol Last Admin: 07/20/18 05:56 Dose: 5,000 units Dextrose (Dextrose 5% In Water 1000 Ml) 1,000 mls @ 0 mls/hr IV .Q0M PRN; Protocol PRN Reason: Hypoglycemia Protocol Insulin Detemir (Levemir) 10 unit SC BRKDIN [facility] Last Admin: 07/20/18 08:41 Dose: 10 units Insulin Human Lispro (Humalog) 4 units SC AC [facility] Last Admin: 07/20/18 11:43 Dose: 4 units Insulin Human Regular (Humulin R Low) 0 units SC ACHS [facility]; Protocol Last Admin: 07/20/18 11:43 Dose: 2 units Polyethylene Glycol (Miralax) 17 gm PO BID PRN PRN Reason: Constipation - Labs Labs: 07/20/18 06:00 07/20/18 06:00 - Constitutional Appears: No Acute Distress - Head Exam Head Exam: ATRAUMATIC, NORMOCEPHALIC - Eye Exam Eye Exam: EOMI, Normal appearance - ENT Exam ENT Exam: Mucous Membranes Moist - Neck Exam Neck Exam: Full ROM - Respiratory Exam Respiratory Exam: Clear to Ausculation Bilateral, Respiratory Distress, NORMAL BREATHING PATTERN. absent: Accessory Muscle Use - Cardiovascular Exam Cardiovascular Exam: RRR, +S1, +S2. absent: Diastolic murmur, JVD, Murmur - GI/Abdominal Exam GI & Abdominal Exam: Distended, Soft, Tenderness, Normal Bowel Sounds. absent: Firm, Rigid - Extremities Exam Extremities Exam: Full ROM, Pedal Edema. absent: Calf Tenderness - Neurological Exam Neurological Exam: Alert, Awake, Oriented x3 - Psychiatric Exam Psychiatric exam: Normal Affect, Normal Mood - Skin Skin Exam: Dry, Intact, Normal Color, Warm Assessment and Plan - Assessment and Plan (Free Text) Assessment: Pt is a 33 yo female, with a PMH includes DM1, DKA, Rhabdomyolysis, Ovarian Torsion, who presents to the ED complaining of abdominal pain and distention. Plan: Lower Abdominal Pain with edema - LDH 492, TSH 1.08, T4 0.78, BNP: 265 - ECHO: EF 63.2%, dilated LA, mild/moderate MR, Small PFO - LE US: no sonographic evidence of DVT - Abdominal US: small amount of pericholecystic fluid associated with diffuse moderate gallbladder wall thickening. No evidence of cholelithiasis - pelvic US: no evidence of acute pathology or suspicious lesions in the uterus of left ovary - Pelvic CT: periportal edema, fibroid uterus - CT chest: no evidence of PE, vascular and interstitial congestion with small bilateral pleural effusions, pulmonary nodule noted - Cardiology consulted, Dr. Rosen- rec CT chest to rule out PE - GI, Dr Renae- pt is stable from a GI perspective, continue with current treatment - Surgery consulted given gallbladder findings Urinary Retention - ochoa in place, draining yellow urine, ochoa clamped at this time, will perform voiding trial - urology consulted, Dr Rivero IDDM, uncontrolled - HA1C 14.2 - Accuchecks ACHS - levemir 10 qAMHS, Lispro 4 qAC, ISS low Transaminitis - AST 46, ALT 73, Alk Phos 81, EBONY negative, HIV non reactive, Hepatitis A/B/C NEGATIVE - Anti-mitochondrial Ab, Anti-liver kidney microsomal-1 Ab, ANCA, ASCA, HIV, Smooth muscle Ab, Rheumathoid factor, ESR and CRP - follow up Lung Nodule - incidental finding on chest CT - will recommend out pt follow up in 3-6 months time Anemia of chronic disease - Hgb 9.7, Reticulocyte 2.69, B12 667, folate 5.3, Fe 50, TIBC 274, transferrin 201.49, Ferritin 42.8 Ppx - Heparin Pt seen, examined, assessment and plan discussed with Dr Leana Gmoez PGY1, Internal Medicine Resident <Anil Dueñas - Last Filed: 07/21/18 15:55> Objective - Vital Signs/Intake and Output Vital Signs (last 24 hours): Temp Pulse Resp BP Pulse Ox 98.1 F 89 20 109/73 95 07/21/18 07:52 07/21/18 07:52 07/21/18 07:52 07/21/18 07:52 07/21/18 07:52 Intake and Output: 07/21/18 07/21/18 06:59 18:59 Intake Total 0 Output Total 2074 Balance -2074 - Medications Medications: Current Medications Dextrose (Dextrose 50% Inj) 0 ml IV STAT PRN; Protocol PRN Reason: Hypoglycemia Protocol Docusate Sodium (Colace) 100 mg PO TID [facility] Last Admin: 07/21/18 14:55 Dose: 100 mg Furosemide (Lasix) 20 mg IVP Q12H [facility] Last Admin: 07/21/18 06:17 Dose: 20 mg Heparin Sodium (Porcine) (Heparin) 5,000 units SC Q8 [facility]; Protocol Last Admin: 07/21/18 14:55 Dose: 5,000 units Dextrose (Dextrose 5% In Water 1000 Ml) 1,000 mls @ 0 mls/hr IV .Q0M [facility]; Protocol PRN Reason: Hypoglycemia Protocol Insulin Detemir (Levemir) 14 unit SC BRKDIN [facility] Insulin Human Lispro (Humalog) 4 units SC AC [facility] Last Admin: 07/21/18 11:53 Dose: 4 units Insulin Human Regular (Humulin R Low) 0 units SC ACHS [facility]; Protocol Last Admin: 07/21/18 11:52 Dose: 4 units Polyethylene Glycol (Miralax) 17 gm PO BID PRN PRN Reason: Constipation Last Admin: 07/20/18 13:50 Dose: 17 gm Simethicone (Mylicon Liq) 40 mg PO BID [facility] Last Admin: 07/21/18 10:18 Dose: 40 mg - Labs Labs: 07/21/18 09:15 07/21/18 09:15 Attending/Attestation - Attestation I have personally seen and examined this patient.: Yes I have fully participated in the care of the patient.: Yes I have reviewed all pertinent clinical information, including history, physical exam and plan: Yes Notes (Text): 07/21/18 15:46 Attending note; Patient seen and examined with the resident. Patient is alert and awake. Leg swelling is improving. Patient has Ochoa catheter in place. Voiding trial ordered. Denies any fevers, chills. Denies any nausea, vomiting. Patient is a 33-year-old female past medical history significant for insulin- dependent type 1 diabetes, DKA, rhabdomyolysis, ovarian torsion status post right salpingo-oophorectomy, breast cyst, and strep throat that presented to the emergency room with abdominal pain and distention. 1. Anasarca. Lower extremity swelling is improving. Continue IV Lasix. Continue compression stockings. Face and hand edema resolved. Case discussed with mechanical cad designer in detail. Chest CT showed no evidence of pulmonary embolus, vascular and interstitial congestion with small bilateral pleural effusions. Bilateral lower extremity venous Dopplers negative for DVTs. 2-D echo showed dilated left atrium, normal left ventricular size and systolic function, mild to moderate mitral regurgitation, small PFO noted by color Doppler. Continue on Lasix. EBONY negative. Hepatitis panel negative. HIV negative. Pending antimitochondrial antibody, smooth muscle antibody titer, anti-smooth muscle antibody, liver/kidney microsomes antibody. 2. Abdominal distention; patient was evaluated by GI today. CT abdomen and pelvis showed actually image 3 mm right lower lobe nodule, mild bibasilar atelectasis, scattered groundglass pulmonary opacities, interlobular septal thickening, periportal edema, mildly thick-walled loops of small bowel, moderate constipation, presumed appendix measuring up to approximately 7 mm mildly enlarged, fibroid uterus, 2.5 cm left adnexal low- density presumably ovarian cyst, mildly thick-walled urinary bladder, mild soft tissue edema. 3. Abdominal discomfort ; currently tolerating diet well . Surgery evaluation appreciated . Abdominal ultrasound showed small amount of pericholecystic fluid associated with diffuse moderate gallbladder wall thickening, no evidence of cholelithiasis, suspicious for mild periportal edema, mild hepatomegaly. Pelvic ultrasound showed no evidence of acute pathology or suspicious lesions in the uterus and left ovary. 4. Possible autoimmune disorder; EBONY negative. Hepatitis panel negative. HIV negative. Pending antimitochondrial antibody, smooth muscle antibody titer, anti-smooth mu scle antibody, liver/kidney microsomes antibody. Patient has an appointment with casino worker on August 17. Pulmonary evaluation requested. PFT ordered. 5. Transaminitis. May be secondary to hepatic congestion. Downtrending. Hepatitis panel negative. HIV negative. 6. Anemia. H&H stable. Iron within normal limits. Ferritin within normal limits. No signs of acute bleeding. Needs close outpatient GI follow up. 7. Difficulty urinating. Urine culture negative for infection. Continue with fol ey. Voiding trial today. Possible DC Ochoa for discharge. 8. Insulin-dependent type 1 diabetes. Continue Levemir twice a day. Continue insulin sliding scale. Started on Lispro AC. Hemoglobin A1c 14.2. Continue to monitor Accu-Cheks. 9. Constipation. Started on magnesium citrate. continue MiraLAX 7. DVT prophylaxis. Heparin 8. Patient is a full code. The diagnosis, possible autoimmune disorder discussed with patient in detail. Patient needs close follow-up with cardiology, GI, rheumatology, pulmonary as outpatient.
--- NOTE | 2018-07-20 14:05 | CP.PCM.CON ---
History of Present Illness - History of Present Illness History of Present Illness: Pulmonary Consultation: This is a 33F never smoker with uncontrolled type 1 Diabetes Mellitus (Insulin Dependent dx age 20) who I am asked to with SOB in the setting for pleural effusions, abdominal and pedal edema. She initially came to the hospital on the night of 07/16 c/o abdominal pain and distention, also mnetining 20lb weight gain/1 2week. She was [place] [facility] and after w.u of echo and liver US (inconclusive) she was sent home. Then f/u with PMD who rx Lasix but did not produce much urine. Eventually she came to [facility] [place] [facility]. She denies any fever, chills, chest pain, nausea, vomiting, diarrhea. In regards to her pumonary history she does not have any previous dx of asthma. She is a never smoker. No marijunana, vaping or second hand smoke. No known allergies. She is able to hike 2-3 miles however recently she gets very sob after 1/2 mile. Never wheezes. No assoc CP. She sleeps well at night aside from the past week. When healthy, does not wake up at night, no snoring, no nocturnal cough. She does not have pets at home, no exposure to birds. She works from home and does not report exposure to occupational hazard exposures. During her admission she has had a workup including 2D echo which showed normal RV and LV function however did note LA dilation and small PFO. Normal RVSP. She had a CTA that did not show PE but did demonstrate BL effusions. No nodules noted although a 3mm nodules was reported on abd imaging. She has been tx with lasix with ochoa and been making good amount of urine. SOb much improved. Swelling decreased significantly. Hep neg and HIV non reactive. 12 system ROS reviewed and negative except mentioned in HPI PMH: Type 1 Diabetes Mellitus (Insulin Dependent), DKA, Rhabdomyolysis, Ovarian Torsion s/p right salpingo-oopherectomy, Breast Cyst, Strep throat (treated) Surgeries: R Salpingo-oopherectomy, R Breast cyst excision, R ear cyst excision, (7years ago) OB-Psychologist Personnel Hx: Patient has been 3 times, 1 living child and 2 miscarriages in the first trimester. LMP was 06/30/2018, menstrual period regular. Sexually active only with . Family History: Mom: Rheumathoid arthritis, psoriatic arthritis, Bryan's, colitis. Brother: Diabetes Mellitus (Type 1) Social History: Denies: ETOH, tobacco, recreational drugs. Works at home. No recent travels, sick contacts, or pets. Medications: Lantus 12mg AM, Lantus 10mg HS, Humalog, insulin sliding scale Allergies: NKDA Past Patient History - Infectious Disease Hx of Infectious Diseases: None - Tetanus Immunizations Tetanus Immunization: Unknown - Past Medical History & Family History Past Medical History?: Yes - Past Social History Smoking Status: Never Smoked - CARDIAC Hx Cardiac Disorders: Yes (heart murmur) - PULMONARY Hx Respiratory Disorders: No - NEUROLOGICAL Hx Neurological Disorder: Yes Hx Dizziness: Yes (SYNCOPE 02-19-16) - HEENT Hx HEENT Problems: No - RENAL Hx Chronic Kidney Disease: No - ENDOCRINE/METABOLIC Hx Diabetes Mellitus Type 1: Yes (dx age 20) - HEMATOLOGICAL/ONCOLOGICAL Hx Blood Disorders: No - INTEGUMENTARY Hx Dermatological Problems: Yes (RIGHT BREAST SCAR FROM EXCISION OF CYST.) Other/Comment: 2 small surgical scars from sx scar to bikini line - MUSCULOSKELETAL/RHEUMATOLOGICAL Hx Falls: No - GASTROINTESTINAL Hx Gastrointestinal Disorders: No - GENITOURINARY/GYNECOLOGICAL Hx Genitourinary Disorders: No - PSYCHIATRIC Hx Psychophysiologic Disorder: No Hx Substance Use: No - SURGICAL HISTORY Hx Section: Yes Other/Comment: cyst removed from right breast and posterior right ear benign, c section 2010, right ovary and right fallopian tube december 2014 - ANESTHESIA Hx Anesthesia: Yes Hx Anesthesia Reactions: No Hx Malignant Hyperthermia: No Meds Allergies/Adverse Reactions: Allergies Allergy/AdvReac Type Severity Reaction Status Date / Time No Known Allergies Allergy Verified 09/22/16 07:28 - Medications Medications: Current Medications Dextrose (Dextrose 50% Inj) 0 ml IV STAT PRN; Protocol PRN Reason: Hypoglycemia Protocol Furosemide (Lasix) 20 mg IVP Q12H [facility] Last Admin: 07/19/18 17:59 Dose: 20 mg Heparin Sodium (Porcine) (Heparin) 5,000 units SC Q8 [facility]; Protocol Last Admin: 07/20/18 13:48 Dose: 5,000 units Dextrose (Dextrose 5% In Water 1000 Ml) 1,000 mls @ 0 mls/hr IV .Q0M PRN; Protocol PRN Reason: Hypoglycemia Protocol Insulin Detemir (Levemir) 10 unit SC BRKDIN [facility] Last Admin: 07/20/18 08:41 Dose: 10 units Insulin Human Lispro (Humalog) 4 units SC AC [facility] Last Admin: 07/20/18 11:43 Dose: 4 units Insulin Human Regular (Humulin R Low) 0 units SC ACHS [facility]; Protocol Last Admin: 07/20/18 11:43 Dose: 2 units Polyethylene Glycol (Miralax) 17 gm PO BID PRN PRN Reason: Constipation Last Admin: 07/20/18 13:50 Dose: 17 gm Physical Exam - Constitutional Appears: Well, Non-toxic - Head Exam Head Exam: ATRAUMATIC - Eye Exam Eye Exam: EOMI, Normal appearance, PERRL Pupil Exam: NORMAL ACCOMODATION, PERRL - ENT Exam ENT Exam: Mucous Membranes Moist, Normal Exam - Neck Exam Neck exam: Positive for: Normal Inspection - Respiratory Exam Respiratory Exam: Clear to Auscultation Bilateral, NORMAL BREATHING PATTERN - Cardiovascular Exam Cardiovascular Exam: REGULAR RHYTHM - GI/Abdominal Exam GI & Abdominal Exam: Normal Bowel Sounds, Soft. absent: Tenderness - Extremities Exam Extremities exam: Positive for: full ROM, pedal edema - Back Exam Back exam: NORMAL INSPECTION - Neurological Exam Neurological exam: Alert, CN II-XII Intact, Normal Gait, Oriented x3, Reflexes Normal Results - Vital Signs Recent Vital Signs: Last Vital Signs Temp 97.7 F 07/20/18 09:04 Pulse 60 07/20/18 09:04 Resp 18 07/20/18 09:04 BP 113/71 07/20/18 09:04 Pulse Ox 96 07/20/18 09:04 - Labs Result Diagrams: 07/20/18 06:00 07/20/18 06:00 Labs: Laboratory Results - last 24 hr 07/19/18 07/19/18 07/20/18 16:31 21:20 06:00 WBC 5.3 RBC 3.29 L Hgb 9.7 L Hct 30.6 L MCV 93.0 MCH 29.5 MCHC 31.7 RDW 13.2 Plt Count 289 MPV 9.2 Gran % 46.8 L Lymph % (Auto) 35.8 H [place] % (Auto) 12.6 H Eos % (Auto) 4.2 Baso % (Auto) 0.6 Gran # 2.48 Lymph # (Auto) 1.9 [place] # (Auto) 0.7 H Eos # (Auto) 0.2 Baso # (Auto) 0.03 Differential Comment See pathology report Sodium Potassium Chloride Carbon Dioxide Anion Gap BUN Creatinine Est GFR ( Amer) Est GFR (Non-Af Amer) POC Glucose (mg/dL) 138 H 158 H Random Glucose Calcium Total Bilirubin AST ALT Alkaline Phosphatase Total Protein Albumin Globulin Albumin/Globulin Ratio 07/20/18 07/20/18 07/20/18 06:00 07:28 11:07 WBC RBC Hgb Hct MCV MCH MCHC RDW Plt Count MPV Gran % Lymph % (Auto) [place] % (Auto) Eos % (Auto) Baso % (Auto) Gran # Lymph # (Auto) [place] # (Auto) Eos # (Auto) Baso # (Auto) Differential Comment Sodium 136 Potassium 4.5 Chloride 101 Carbon Dioxide 29 Anion Gap 10 BUN 15 Creatinine 0.6 L Est GFR ( Amer) > 60 Est GFR (Non-Af Amer) > 60 POC Glucose (mg/dL) 209 H 204 H Random Glucose 175 H Calcium 9.2 Total Bilirubin 0.2 AST 45 H ALT 67 H Alkaline Phosphatase 78 Total Protein 6.1 Albumin 3.1 Globulin 3.0 Albumin/Globulin Ratio 1.0 L Assessment & Plan - Assessment and Plan (Free Text) Assessment: Overall, Nataly is a 33F who presents to the hospital with abd pain,, swelling and weight gain found to have BL effusion and leg edema. She does not give a history directed towards a primary pulmonary disease. She does not have any classic symtpoms of asthma. No risk factor (no pets, no smoking, no occupatinal hazards). In fact, she is usually able to hike 1/2mile to 1 mile before she gets SOB. No signs or symptoms of TEDDY. STOP-BANG is zero. Given the nature of her effusions being BL along with normal pulmonary architecture on CT, her SOB is likely related to volume overload possibly ca rdiac in nature. Her ECHO does not suggest pulmHTN with an RVSP of 26 and normal RV. LA dilation often directs left heart pathology. PFO noted however unclear how consequential it is. MR noted as well. Agree with continuing cardiac work up (planned for cath?) She does not warrant PFTs at this time however should have them outpatient once she is fluid even. PFTs are not helpful during an acute symptomatic process. In addition, an auto-immune workup is warranted given her family hx of RA as well as her history of miscarrgiages (SLE ?). Auto-immune disease can cause restrictive lung disease. Thank you for the consultation Nehal King MD Pulmonary Critical Care and Sleep Medicine
--- NOTE | 2018-07-20 14:53 | PN ---
DATE: 07/20/2018 SUBJECTIVE: The patient is sitting in a chair. She feels better with Escobar catheter insertion. She had urinary retention. She has not had a bowel movement in several days. PHYSICAL EXAMINATION: VITAL SIGNS: Reveal temperature of 97.7, blood pressure 113/71, heart rate is 60. HEENT: Reveal sclerae to be white. Conjunctivae pink. NECK: Supple. CHEST: Reveal lungs to be clear. HEART: Exam reveals regular rate and rhythm. ABDOMEN: Soft, nontender. No mass. EXTREMITIES: Show no edema. LABORATORY DATA: Reveal white blood cell count 5.3, hemoglobin 9.7. Chemistries reveal AST 45, ALT 67. IMPRESSION: A 33-year-old female admitted to the hospital with abdominal pain, constipation, anasarca, now with urinary retention. Etiology of the volume overload is unclear. RECOMMENDATIONS: 1. Continue MiraLax 17 g p.o. b.i.d. 2. Urine voiding trial. 3. The patient is stable from GI. She can be discharged home with medical follow-up on a bowel regimen. Jaylen Renae MD
--- NOTE | 2018-07-20 15:59 | CP.PCM.CON ---
<Jacinto Crandall - Last Filed: 07/20/18 16:47> History of Present Illness - History of Present Illness History of Present Illness: Surgery consult note for Reason for consult: abdominal distension with gallbladder wall thickening on US 33 yo female, with a PMH includes DM1, DKA, Rhabdomyolysis, Ovarian Torsion, who presents to the ED complaining of generalized edema x10 days. Patient states that her symptoms started with b/l LL edema that increased in an ascending pattern to abdomen/face and lips. It's associated with SOB, dyspnea on exertion, 25 weight gain and malaise and significantly decreased urine output. Patient went [place] [facility] [place] she got admitted for one day and abd US and echo were done with inconclusive results. She has been taking lasix with no improvement of her symptoms. Patient denied any gallbladder /hepatic/kidney/cardiac disease. She has DM-1 since age 20 that is not controlled. She denies fever, chills, headache, changes in her vision, sore throat, dysphagia, chest pain, palpitations, abdominal pain, N/V/D, sick contacts. 12 points ROS reviewed with pertinent positive above PMH: Type 1 Diabetes Mellitus (Insulin Dependent), DKA, Rhabdomyolysis, Ovarian Torsion s/p right salpingo-oopherectomy, Breast Cyst, Strep throat (treated) Surgeries: R Salpingo-oopherectomy, R Breast cyst excision, R ear cyst excision, (7years ago) OB-Software Installer Hx: Patient has been 3 times, 1 living child and 2 miscarriages in the first trimester. LMP was 06/30/2018, menstrual period regular. Sexually active only with . Denies contraceptive use. Family History: Mom: Gallbladder disease, Rheumathoid arthritis, psoriatic arthritis, Bryan's, colitis. Brother: Diabetes Mellitus (Type 1) Social History: Denies: ETOH, tobacco, recreational drugs. Works at home. No recent travels, sick contacts, or pets. Medications: Lantus 12mg AM, Lantus 10mg HS, Humalog, insulin sliding scale Allergies: NKDA PMD: Dr. Reed Past Patient History - Infectious Disease Hx of Infectious Diseases: None - Tetanus Immunizations Tetanus Immunization: Unknown - Past Medical History & Family History Past Medical History?: Yes - Past Social History Smoking Status: Never Smoked - CARDIAC Hx Cardiac Disorders: Yes (heart murmur) - PULMONARY Hx Respiratory Disorders: No - NEUROLOGICAL Hx Neurological Disorder: Yes Hx Dizziness: Yes (SYNCOPE 02-19-16) - HEENT Hx HEENT Problems: No - RENAL Hx Chronic Kidney Disease: No - ENDOCRINE/METABOLIC Hx Diabetes Mellitus Type 1: Yes (dx age 20) - HEMATOLOGICAL/ONCOLOGICAL Hx Blood Disorders: No - INTEGUMENTARY Hx Dermatological Problems: Yes (RIGHT BREAST SCAR FROM EXCISION OF CYST.) Other/Comment: 2 small surgical scars from sx scar to bikini line - MUSCULOSKELETAL/RHEUMATOLOGICAL Hx Falls: No - GASTROINTESTINAL Hx Gastrointestinal Disorders: No - GENITOURINARY/GYNECOLOGICAL Hx Genitourinary Disorders: No - PSYCHIATRIC Hx Psychophysiologic Disorder: No Hx Substance Use: No - SURGICAL HISTORY Hx Section: Yes Other/Comment: cyst removed from right breast and posterior right ear benign, c section 2010, right ovary and right fallopian tube december 2014 - ANESTHESIA Hx Anesthesia: Yes Hx Anesthesia Reactions: No Hx Malignant Hyperthermia: No Meds Allergies/Adverse Reactions: Allergies Allergy/AdvReac Type Severity Reaction Status Date / Time No Known Allergies Allergy Verified 09/22/16 07:28 - Medications Medications: Current Medications Dextrose (Dextrose 50% Inj) 0 ml IV STAT PRN; Protocol PRN Reason: Hypoglycemia Protocol Furosemide (Lasix) 20 mg IVP Q12H [facility] Last Admin: 07/19/18 17:59 Dose: 20 mg Heparin Sodium (Porcine) (Heparin) 5,000 units SC Q8 [facility]; Protocol Last Admin: 07/20/18 13:48 Dose: 5,000 units Dextrose (Dextrose 5% In Water 1000 Ml) 1,000 mls @ 0 mls/hr IV .Q0M PRN; Protocol PRN Reason: Hypoglycemia Protocol Insulin Detemir (Levemir) 10 unit SC BRKDIN [facility] Last Admin: 07/20/18 08:41 Dose: 10 units Insulin Human Lispro (Humalog) 4 units SC AC [facility] Last Admin: 07/20/18 11:43 Dose: 4 units Insulin Human Regular (Humulin R Low) 0 units SC ACHS [facility]; Protocol Last Admin: 07/20/18 11:43 Dose: 2 units Polyethylene Glycol (Miralax) 17 gm PO BID PRN PRN Reason: Constipation Last Admin: 07/20/18 13:50 Dose: 17 gm Physical Exam - Constitutional Appears: Well, No Acute Distress - Head Exam Head Exam: ATRAUMATIC, NORMAL INSPECTION, NORMOCEPHALIC - Eye Exam Eye Exam: EOMI, Normal appearance, PERRL Pupil Exam: NORMAL ACCOMODATION, PERRL - ENT Exam ENT Exam: Mucous Membranes Moist, Normal Exam - Respiratory Exam Respiratory Exam: Clear to Auscultation Bilateral, NORMAL BREATHING PATTERN. absent: Rales, Wheezes - Cardiovascular Exam Cardiovascular Exam: REGULAR RHYTHM, +S1, +S2. absent: Gallop, Rubs - GI/Abdominal Exam GI & Abdominal Exam: Distended, Normal Bowel Sounds, Soft, Tenderness (diffuse lower abd tenderness to palpate) - Extremities Exam Extremities exam: Positive for: normal capillary refill, pedal edema, pedal pulses present Additional comments: b/l 1+ LE edema to knee level - Back Exam Back exam: NORMAL INSPECTION - Psychiatric Exam Psychiatric exam: Normal Affect, Normal Mood - Skin Skin Exam: Dry, Intact, Normal Color, Warm Results - Vital Signs Recent Vital Signs: Last Vital Signs Temp 97.7 F 07/20/18 09:04 Pulse 60 07/20/18 09:04 Resp 18 07/20/18 09:04 BP 113/71 07/20/18 09:04 Pulse Ox 96 07/20/18 09:04 - Labs Result Diagrams: 07/20/18 06:00 07/20/18 06:00 Labs: Laboratory Results - last 24 hr 07/19/18 07/19/18 07/20/18 16:31 21:20 06:00 WBC 5.3 RBC 3.29 L Hgb 9.7 L Hct 30.6 L MCV 93.0 MCH 29.5 MCHC 31.7 RDW 13.2 Plt Count 289 MPV 9.2 Gran % 46.8 L Lymph % (Auto) 35.8 H [place] % (Auto) 12.6 H Eos % (Auto) 4.2 Baso % (Auto) 0.6 Gran # 2.48 Lymph # (Auto) 1.9 [place] # (Auto) 0.7 H Eos # (Auto) 0.2 Baso # (Auto) 0.03 Differential Comment See pathology report ESR Sodium Potassium Chloride Carbon Dioxide Anion Gap BUN Creatinine Est GFR ( Amer) Est GFR (Non-Af Amer) POC Glucose (mg/dL) 138 H 158 H Random Glucose Calcium Total Bilirubin AST ALT Alkaline Phosphatase C-React Prot High Sens Total Protein Albumin Globulin Albumin/Globulin Ratio 07/20/18 07/20/18 07/20/18 06:00 07:28 11:07 WBC RBC Hgb Hct MCV MCH MCHC RDW Plt Count MPV Gran % Lymph % (Auto) [place] % (Auto) Eos % (Auto) Baso % (Auto) Gran # Lymph # (Auto) [place] # (Auto) Eos # (Auto) Baso # (Auto) Differential Comment ESR Sodium 136 Potassium 4.5 Chloride 101 Carbon Dioxide 29 Anion Gap 10 BUN 15 Creatinine 0.6 L Est GFR ( Amer) > 60 Est GFR (Non-Af Amer) > 60 POC Glucose (mg/dL) 209 H 204 H Random Glucose 175 H Calcium 9.2 Total Bilirubin 0.2 AST 45 H ALT 67 H Alkaline Phosphatase 78 C-React Prot High Sens Total Protein 6.1 Albumin 3.1 Globulin 3.0 Albumin/Globulin Ratio 1.0 L 07/20/18 07/20/18 11:40 12:30 WBC RBC Hgb Hct MCV MCH MCHC RDW Plt Count MPV Gran % Lymph % (Auto) [place] % (Auto) Eos % (Auto) Baso % (Auto) Gran # Lymph # (Auto) [place] # (Auto) Eos # (Auto) Baso # (Auto) Differential Comment ESR 72 H Sodium Potassium Chloride Carbon Dioxide Anion Gap BUN Creatinine Est GFR ( Amer) Est GFR (Non-Af Amer) POC Glucose (mg/dL) Random Glucose Calcium Total Bilirubin AST ALT Alkaline Phosphatase C-React Prot High Sens 13.22 H Total Protein Albumin Globulin Albumin/Globulin Ratio Assessment & Plan - Assessment and Plan (Free Text) Assessment: 33 yo female, with a PMH includes DM1, DKA, Rhabdomyolysis, Ovarian Torsion, who presents to the ED complaining of generalized edema x10 days. Abdominal US: small amount of pericholecystic fluid associated with diffuse moderate gallbladder wall thickening. Plan: -likely related to systemic disease; auto-immune/kidney disease -gall bladder findings are unremarkable give that aptient afebrile, no leuko cytosis, negative feng sign -no surgical intervention at this time -medical management per primary time -further recs per surgical attending Dr Leila Crandall, DO <Luis Dee - Last Filed: 07/21/18 16:26> Meds - Medications Medications: Current Medications Dextrose (Dextrose 50% Inj) 0 ml IV STAT PRN; Protocol PRN Reason: Hypoglycemia Protocol Docusate Sodium (Colace) 100 mg PO TID [facility] Last Admin: 07/21/18 14:55 Dose: 100 mg Furosemide (Lasix) 20 mg IVP Q12H [facility] Last Admin: 07/21/18 06:17 Dose: 20 mg Heparin Sodium (Porcine) (Heparin) 5,000 units SC Q8 [facility]; Protocol Last Admin: 07/21/18 14:55 Dose: 5,000 units Dextrose (Dextrose 5% In Water 1000 Ml) 1,000 mls @ 0 mls/hr IV .Q0M PRN; Protocol PRN Reason: Hypoglycemia Protocol Insulin Detemir (Levemir) 14 unit SC BRKDIN [facility] Insulin Human Lispro (Humalog) 4 units SC AC [facility] Last Admin: 07/21/18 11:53 Dose: 4 units Insulin Human Regular (Humulin R Low) 0 units SC ACHS [facility]; Protocol Last Admin: 07/21/18 11:52 Dose: 4 units Polyethylene Glycol (Miralax) 17 gm PO BID PRN PRN Reason: Constipation Last Admin: 07/20/18 13:50 Dose: 17 gm Simethicone (Mylicon Liq) 40 mg PO BID [facility] Last Admin: 07/21/18 10:18 Dose: 40 mg Results - Vital Signs Recent Vital Signs: Last Vital Signs Temp 98.1 F 07/21/18 07:52 Pulse 89 07/21/18 07:52 Resp 20 07/21/18 07:52 BP 109/73 07/21/18 07:52 Pulse Ox 95 07/21/18 07:52 - Labs Result Diagrams: 07/21/18 09:15 07/21/18 09:15 Labs: Laboratory Results - last 24 hr 07/17/18 07/17/18 07/20/18 06:00 06:00 16:25 WBC RBC Hgb Hct MCV MCH MCHC RDW Plt Count MPV Gran % Lymph % (Auto) [place] % (Auto) Eos % (Auto) Baso % (Auto) Gran # Lymph # (Auto) [place] # (Auto) Eos # (Auto) Baso # (Auto) Sodium Potassium Chloride Carbon Dioxide Anion Gap BUN Creatinine Est GFR ( Amer) Est GFR (Non-Af Amer) POC Glucose (mg/dL) 154 H Random Glucose Calcium Phosphorus Magnesium Total Bilirubin AST ALT Alkaline Phosphatase Total Protein Albumin Globulin Albumin/Globulin Ratio Proteinase 3 (PR3) <1.0 Myeloperoxidase Ab <1.0 Anti-Mitochondrial Ab Negative Smooth Muscle Ab Titer TEST NOT PERFORMED Anti-Smooth Muscle Ab Negative 07/20/18 07/21/18 07/21/18 21:29 07:34 09:15 WBC 5.7 RBC 3.47 L Hgb 10.1 L Hct 32.1 L MCV 92.5 MCH 29.1 MCHC 31.5 RDW 13.1 Plt Count 321 MPV 9.2 Gran % 49.4 L Lymph % (Auto) 34.3 [place] % (Auto) 11.6 H Eos % (Auto) 4.2 Baso % (Auto) 0.5 Gran # 2.82 Lymph # (Auto) 2.0 [place] # (Auto) 0.7 H Eos # (Auto) 0.2 Baso # (Auto) 0.03 Sodium Potassium Chloride Carbon Dioxide Anion Gap BUN Creatinine Est GFR ( Amer) Est GFR (Non-Af Amer) POC Glucose (mg/dL) 223 H 277 H Random Glucose Calcium Phosphorus Magnesium Total Bilirubin AST ALT Alkaline Phosphatase Total Protein Albumin Globulin Albumin/Globulin Ratio Proteinase 3 (PR3) Myeloperoxidase Ab Anti-Mitochondrial Ab Smooth Muscle Ab Titer Anti-Smooth Muscle Ab 07/21/18 07/21/18 07/21/18 09:15 11:02 16:15 WBC RBC Hgb Hct MCV MCH MCHC RDW Plt Count MPV Gran % Lymph % (Auto) [place] % (Auto) Eos % (Auto) Baso % (Auto) Gran # Lymph # (Auto) [place] # (Auto) Eos # (Auto) Baso # (Auto) Sodium 134 Potassium 4.4 Chloride 100 Carbon Dioxide 29 Anion Gap 10 BUN 13 Creatinine 0.5 L Est GFR ( Amer) > 60 Est GFR (Non-Af Amer) > 60 POC Glucose (mg/dL) 304 H 100 Random Glucose 222 H Calcium 9.2 Phosphorus 3.9 Magnesium 2.2 Total Bilirubin 0.3 AST 48 H ALT 69 H Alkaline Phosphatase 84 Total Protein 6.6 Albumin 3.4 Globulin 3.2 Albumin/Globulin Ratio 1.1 Proteinase 3 (PR3) Myeloperoxidase Ab Anti-Mitochondrial Ab Smooth Muscle Ab Titer Anti-Smooth Muscle Ab Attending/Attestation - Attestation I have personally seen and examined this patient.: Yes I have fully participated in the care of the patient.: Yes I have reviewed all pertinent clinical information: Yes Notes (Text): Pt was seen and examined at bedside Agree with above note and assessment Pt with abdominal pain and nausea Abdomen: soft, Tender in lower abdomen, ND Labs and Radiology reviewed Ass: Enteritis, less likely cholecystitis Plan : IV antibiotics Clear liquid diet CBC in am Plan d.w pt in detail. Risk and benefit explained in detail.
[2018-07-20] MEDS ORDERED: Magnesium Citrate Oral SOL (300 ml) PO ONE (16:05)
[2018-07-20] MEDS: Simethicone 40 mg/0.6 ml Liquid (30 ml) PO SCH (17:10)
--- NOTE | 2018-07-20 17:19 | PN ---
DATE: 07/20/2018 CARDIOLOGY FOLLOWUP SUBJECTIVE: The patient remains mildly dyspneic on exertion. She is not short of breath at rest. PHYSICAL EXAMINATION: VITAL SIGNS: Blood pressure is 113/71, heart rates in the 60s. Pulse oximetry during exertion decrease his from 100% down to 94 on pulse oximetry. NECK: Negative JVD. LUNGS: Without rales. HEART: S1, S2. EXTREMITIES: Without edema. LABORATORY: Sed rate is pending. EBONY is negative. Hemoglobin is 9.7, BUN and creatinine unremarkable. The glucose is 175. Serology reveals no hepatitis A or B. Her HIV is negative. Toxicology is negative. IMPRESSION: 1. Dyspnea, which is revealed. 2. No cardiac cause identifiable so far for her dyspnea. Her left ventricular function is normal. There is [id number] mitral regurgitation as well as a small patent foramen ovale reported. CT scan of the of the chest reveals no pulmonary embolism. Given these findings, I am going to ask pulmonary consult be called for pulmonary function test. If these are negative, we will pursue her cardiac issues which should include a stress test and possible catheterization and possible MIKE. Easton Rosen MD
[2018-07-21] MEDS ORDERED: Insulin Detemir 100 units/ml Vial (Levemir) SC SCH (07:35)
[2018-07-21 07:52] VITALS: BP 109/73; PULSE 89; RESP 20; TEMP 98.1; O2SAT 95
[2018-07-21] MEDS: Insulin Reg-LOW-Coverage SC SCH ×2 (08:27→11:52)
[2018-07-21] MEDS: Insulin Lispro 1 UNITS/0.01 ML SC SCH ×2 (08:27→11:53)
[2018-07-21 09:36] LABS: BASO # 0.03 K/mm3 (0.0-2.0); BASO % 0.5 % (0.0-3.0); EOS # 0.2 (0.0-0.7); EOS % 4.2 % (1.5-5.0); GRAN # 2.82 (1.4-6.5); GRAN % 49.4 % (50.0-68.0); HEMOGLOBIN 10.1 g/dL (12.0-16.0); LYMPH % 34.3 % (22.0-35.0); MEAN CELL VOLUME 92.5 fl (80.0-105.0); MEAN CORPUSCULAR HEMOGLOBIN 29.1 pg (25.0-35.0); MEAN CORPUSCULAR HGB CONC 31.5 g/dl (31.0-37.0); MEAN PLATELET VOLUME 9.2 fl (7.0-11.0); MONO # 0.7 (0.1-0.6); MONO % 11.6 % (1.0-6.0); RBC 3.47 10^6/uL (3.5-6.1); RED CELL DISTRIBUTION WIDTH 13.1 % (11.5-14.5); WHITE BLOOD COUNT 5.7 10^3/uL (4.5-11.0)
[2018-07-21 09:40] LABS: ALB/GLOB RATIO 1.1 (1.1-1.8); ALBUMIN 3.4 g/dL (3.0-4.8); ALT/SGPT 69 U/L (7-56); AST/SGOT 48 U/L (14-36); BLOOD UREA NITROGEN 13 mg/dL (7-21); CALCIUM 9.2 mg/dL (8.4-10.5); GFR NON-AFRICAN AMERICAN > 60
[2018-07-21] MEDS: Simethicone 40 mg/0.6 ml Liquid (30 ml) PO SCH (10:18)
--- NOTE | 2018-07-21 11:02 | CP.PCM.PN ---
<Adán Crandallony - Last Filed: 07/21/18 13:26> Subjective - Date & Time of Evaluation Date of Evaluation: 07/21/18 Time of Evaluation: 07:50 - Subjective Subjective: Surgery progress note, Dr. Lang Patient seen and examined at bedside. Patient reports no complaints and no overnight events. Objective - Vital Signs/Intake and Output Vital Signs (last 24 hours): Temp Pulse Resp BP Pulse Ox 98.1 F 89 20 109/73 95 07/21/18 07:52 07/21/18 07:52 07/21/18 07:52 07/21/18 07:52 07/21/18 07:52 Intake and Output: 07/21/18 07/21/18 06:59 18:59 Intake Total 0 Output Total 2074 Balance -2074 - Medications Medications: Current Medications Dextrose (Dextrose 50% Inj) 0 ml IV STAT PRN; Protocol PRN Reason: Hypoglycemia Protocol Docusate Sodium (Colace) 100 mg PO TID [facility] Last Admin: 07/21/18 10:18 Dose: 100 mg Furosemide (Lasix) 20 mg IVP Q12H [facility] Last Admin: 07/21/18 06:17 Dose: 20 mg Heparin Sodium (Porcine) (Heparin) 5,000 units SC Q8 [place]; Protocol Last Admin: 07/21/18 06:17 Dose: 5,000 units Dextrose (Dextrose 5% In Water 1000 Ml) 1,000 mls @ 0 mls/hr IV .Q0M PRN; Protocol PRN Reason: Hypoglycemia Protocol Insulin Detemir (Levemir) 14 unit SC BRKDIN [facility] Insulin Human Lispro (Humalog) 4 units SC AC [facility] Last Admin: 07/21/18 08:27 Dose: 4 units Insulin Human Regular (Humulin R Low) 0 units SC ACHS [facility]; Protocol Last Admin: 07/21/18 08:27 Dose: 3 units Polyethylene Glycol (Miralax) 17 gm PO BID PRN PRN Reason: Constipation Last Admin: 07/20/18 13:50 Dose: 17 gm Simethicone (Mylicon Liq) 40 mg PO BID [facility] Last Admin: 07/21/18 10:18 Dose: 40 mg - Labs Labs: 07/21/18 09:15 07/21/18 09:15 - Additional Findings Additional findings: - Constitutional Appears: Well, No Acute Distress - Head Exam Head Exam: ATRAUMATIC, NORMAL INSPECTION, NORMOCEPHALIC - Eye Exam Eye Exam: EOMI, Normal appearance, PERRL Pupil Exam: NORMAL ACCOMODATION, PERRL - ENT Exam ENT Exam: Mucous Membranes Moist, Normal Exam - Respiratory Exam Respiratory Exam: Clear to Auscultation Bilateral, NORMAL BREATHING PATTERN. absent: Rales, Wheezes - Cardiovascular Exam Cardiovascular Exam: REGULAR RHYTHM, +S1, +S2. absent: Gallop, Rubs - GI/Abdominal Exam GI & Abdominal Exam: Distended, Normal Bowel Sounds, Soft, Tenderness (diffuse lower abd tenderness to palpate) - Extremities Exam Extremities exam: Positive for: normal capillary refill, pedal edema, pedal pulses present Additional comments: b/l 1+ LE edema to knee level - Back Exam Back exam: NORMAL INSPECTION - Psychiatric Exam Psychiatric exam: Normal Affect, Normal Mood - Skin Skin Exam: Dry, Intact, Normal Color, Warm Assessment and Plan - Assessment and Plan (Free Text) Assessment: 33 yo female, with a PMH includes DM1, DKA, Rhabdomyolysis, Ovarian Torsion, who presents to the ED complaining of generalized edema x10 days. Abdominal US: small amount of pericholecystic fluid associated with diffuse moderate gallbladder wall thickening. Plan: -likely related to systemic disease; auto-immune/kidney disease -gall bladder findings are unremarkable given that patient afebrile, no leukocytosis, negative feng sign -no surgical intervention at this time. Surgery signing off -medical management per primary time -further recs per surgical attending Dr Leila Crandall, <Luis Dee - Last Filed: 07/21/18 16:27> Objective - Vital Signs/Intake and Output Vital Signs (last 24 hours): Temp Pulse Resp BP Pulse Ox 98.1 F 89 20 109/73 95 07/21/18 07:52 07/21/18 07:52 07/21/18 07:52 07/21/18 07:52 07/21/18 07:52 Intake and Output: 07/21/18 07/21/18 06:59 18:59 Intake Total 0 Output Total 2074 Balance -2074 - Medications Medications: Current Medications Dextrose (Dextrose 50% Inj) 0 ml IV STAT PRN; Protocol PRN Reason: Hypoglycemia Protocol Docusate Sodium (Colace) 100 mg PO TID [facility] Last Admin: 07/21/18 14:55 Dose: 100 mg Furosemide (Lasix) 20 mg IVP Q12H [facility] Last Admin: 07/21/18 06:17 Dose: 20 mg Heparin Sodium (Porcine) (Heparin) 5,000 units SC Q8 [facility]; Protocol Last Admin: 07/21/18 14:55 Dose: 5,000 units Dextrose (Dextrose 5% In Water 1000 Ml) 1,000 mls @ 0 mls/hr IV .Q0M PRN; Protocol PRN Reason: Hypoglycemia Protocol Insulin Detemir (Levemir) 14 unit SC [facility] Insulin Human Lispro (Humalog) 4 units SC AC [facility] Last Admin: 07/21/18 11:53 Dose: 4 units Insulin Human Regular (Humulin R Low) 0 units SC ACHS [facility]; Protocol Last Admin: 07/21/18 11:52 Dose: 4 units Polyethylene Glycol (Miralax) 17 gm PO BID PRN PRN Reason: Constipation Last Admin: 07/20/18 13:50 Dose: 17 gm Simethicone (Mylicon Liq) 40 mg PO BID [facility] Last Admin: 07/21/18 10:18 Dose: 40 mg - Labs Labs: 07/21/18 09:15 07/21/18 09:15 Attending/Attestation - Attestation I have fully participated in the care of the patient.: Yes I have reviewed all pertinent clinical information, including history, physical exam and plan: Yes Notes (Text): Pt is improved clinically Advance diet as tolerated No general surgical intervention required at present f/u as out pt Plan d.w pt in detail
--- NOTE | 2018-07-21 13:34 | PN ---
DATE: 07/21/2018 SUBJECTIVE: The patient seen and examined at bedside. She is comfortable sitting in the chair talking full sentences, not in respiratory or otherwise distress. OBJECTIVE: VITAL SIGNS: Temperature 98.1, blood pressure 109/73, respiratory rate 20, oxygen saturation 95% on room air, heart rate 89. ENT: Head and neck atraumatic. LUNGS: Clear to auscultation bilaterally. HEART: Regular rate and rhythm. S1, S2 normal. No systolic or diastolic murmur heard. ABDOMEN: Soft, mildly tender diffusely; however, no rebound tenderness. No voluntary or involuntary guarding. NEURO: The patient moves all extremities spontaneously. SKIN: Color moist. Skin is moist. PSYCH: The patient is alert, awake and oriented x3, not in respiratory or otherwise distress. LABORATORY DATA: WBC 5.7, hemoglobin 10.1, platelet count 321 and eosinophil count 0.2. ESR 72. Reticulocyte count 2.69. Sodium 134, potassium 4.4, chloride 100, carbon dioxide 29, BUN 13, creatinine 0.5, glucose 304, AST 48, ALT 69, total bilirubin 0.3. CRP 13.22. EBONY screen is negative. The following labs are still pending. Antimitochondrial antibodies, smooth muscles antibody titer, antismooth muscle antibodies, liver/kid microsomes antibodies, hepatitis A, B and C as well as HIV serology are negative. MEDICATIONS: Colace, Lasix 20 mg IV q. 12 hours, heparin 5000 subcu every eight hours, Levemir 14 units subcu breakfast and dinner, regular insulin sliding scale, insulin lispro 4 units subcu a.c., MiraLax . IMAGING STUDIES: CT scan of the abdomen and pelvis on 07/16/2018 showed scattered ground-glass pulmonary opacities interlobular septal thickening, mildly thick-walled loops of small bowel, clinical correlation was recommended. Moderate constipation. Mild soft tissue edema. ABDOMINAL ULTRASOUND: On 07/17/2018 showed small amount of pericholecystic fluid associated with diffuse moderate gallbladder wall thickening, no evidence of cholelithiasis suspicious for mild periportal edema, mild hepatomegaly. Chest CT (dedicated as opposed to abdominal pelvic CT scan that showed only low cuts of the thorax) showed no evidence of pulmonary emboli, vascular interstitial congestion with small bilateral pleural effusion. Lymph nodes showed no lymphadenopathy. Echocardiogram performed on 07/17/2018 showed dilated left atrium, [id number] mitral regurgitation, small PFO noted by color Doppler. Of note, right ventricle is normal size with normal systolic function. Right atrium size is normal. Left ventricle is normal size. Ejection fraction 62%. RVSP 26. ASSESSMENT: This is a 33-year-old lady who presented to [facility] with some weight gain over the short period of time which was attributed to fluid retention with diffuse anasarca, currently partial responding to diuretics. Etiology of these findings is not fully elucidated. CT scan of the chest revealed some ground-glass opacity predominantly in lower lobes without significant lymphadenopathy. Per se, it is a nonspecific findings, which may be secondary to infectious and non-infectious etilogies, including atypical infection (which is unlikely in the absence of fever and leukocytosis), CHF or interstitial pneumonias/pneumonitis, ; however, in combination with several factors including diabetes mellitus type 1, hyperthyroidism and possibility of enteritis (based on CT scan which necessitates ruling out Crohn disease) may be concerning for pulmonary manifestation of autoimmune disorder. I agree with detailed and extended rheumatologic lab work. Of note about month ago, some of the rheumatologic labs were also sent for analysis. It came back negative for anti CCP and rheumatoid factor IgG. EBONY screen at that time, anti-ss-DNA IgG antibodies were also negative. She did have elevated RF IgA, which even though may sometimes herald extra articular manifestation of RA, I am not sure how to interpret in the absence of anti-CCP abs. The patient does have an appointment with shrink pit operator on 08/17 (as per patient herself.). Cardiology service was also consulted to rule out cardiac etiology of the patient's symptoms (anasarca, some shortness of breath). It appears that Cardiology service may opt for more aggressive approach to elucidate origin of a mild LA dilatation and to assess clinical significance of the discovered PFO on TTE. From pulmonary perspective, recently performed PFTs during this hospitalization showed a mild restriction with TLC 77% of predicted and mild decrease in DLCO which, however, was normal when corrected for alveolar volume. At present time, the patient is not hypoxemic, protecting airways and not in respiratory distress. Once discharged from the hospital, she would need to be followed up with PFTs in 3 months and 6-min walk test. identifying or ruling out underlying rheumatological disorder is of significant importance, as treatment of underlying rheumatological disorder ( if found) may potentially improve respiratory status as well. 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 I will proceed with quantiferron test to elaborate on patient's statement and if positive will get ID on board. Of note ground glass without lymphadenopathy would be very uncharacteristic radiographic presentation of active pulmonary MTB in non overtly immunocompromised patient. Juanito Ballard MD [facility]
--- NOTE | 2018-07-21 14:37 | CP.PCM.DIS ---
<Franky Gomezron - Last Filed: 07/21/18 14:34> Provider - Provider Date of Admission: 07/17/18 00:47 Attending physician: Anil Dueñas MD Primary care physician: Rani Reed DO Consults: 07/17/18 02:59 Physician Consult Routine Comment: Consulting Provider: Jaylen Renae Consulting Physician: Jaylen Renae Reason for Consult: transaminitis, abd distention, anasarca 07/17/18 03:00 Physician Consult Routine Comment: Consulting Provider: Easton Rosen Consulting Physician: Easton Rosen Reason for Consult: anasarca, r/o RHF 07/18/18 10:17 Physician Consult Routine Comment: Consulting Provider: Surendra Rivero Consulting Physician: Surendra Rivero Reason for Consult: unable to urinate 07/20/18 11:41 Physician Consult Routine Comment: Consulting Provider: Luis Dee Consulting Physician: Luis Dee Reason for Consult: moderate gallbladder wall thickening 07/20/18 12:36 Consult [Physician Consult] Routine Comment: Consulting Provider: Nehal King Consulting Physician: Nehal King Reason for Consult: shortness of breath 07/21/18 07:34 Diabetic Education Referral Routine Comment: Physician Instructions: Reason For Exam: poor diabetes control Time Spent in preparation of Discharge (in minutes): 35 Diagnosis - Discharge Diagnosis (1) Abdominal pain Status: Acute Priority: High (2) Edema Status: Acute Priority: High (3) IDDM (insulin dependent diabetes mellitus) Status: Chronic Priority: High (4) Transaminitis Status: Acute Priority: High (5) Lung nodule Status: Chronic Priority: High (6) Anemia Status: Chronic Priority: High Hospital Course - Lab Results Lab Results: Micro Results 07/16/18 22:20 Urine Random Urine Culture - Final No Growth (<1,000 CFU/ML) Most Recent Lab Values WBC 5.7 10^3/uL (4.5-11.0) 07/21/18 09:15 RBC 3.47 10^6/uL (3.5-6.1) L 07/21/18 09:15 Hgb 10.1 g/dL (12.0-16.0) L 07/21/18 09:15 Hct 32.1 % (36.0-48.0) L 07/21/18 09:15 MCV 92.5 fl (80.0-105.0) 07/21/18 09:15 MCH 29.1 pg (25.0-35.0) 07/21/18 09:15 MCHC 31.5 g/dl (31.0-37.0) 07/21/18 09:15 RDW 13.1 % (11.5-14.5) 07/21/18 09:15 Plt Count 321 10^3/uL (120.0-450.0) 07/21/18 09:15 MPV 9.2 fl (7.0-11.0) 07/21/18 09:15 Gran % 49.4 % (50.0-68.0) L 07/21/18 09:15 Lymph % (Auto) 34.3 % (22.0-35.0) 07/21/18 09:15 Weber % (Auto) 11.6 % (1.0-6.0) H 07/21/18 09:15 Eos % (Auto) 4.2 % (1.5-5.0) 07/21/18 09:15 Baso % (Auto) 0.5 % (0.0-3.0) 07/21/18 09:15 Gran # 2.82 (1.4-6.5) 07/21/18 09:15 Lymph # (Auto) 2.0 (1.2-3.4) 07/21/18 09:15 Weber # (Auto) 0.7 (0.1-0.6) H 07/21/18 09:15 Eos # (Auto) 0.2 (0.0-0.7) 07/21/18 09:15 Baso # (Auto) 0.03 K/mm3 (0.0-2.0) 07/21/18 09:15 Differential Comment See pathology report 07/20/18 06:00 ESR 72 mm/hr (0.0-20.0) H 07/20/18 12:30 Retic Count 2.69 % (0.5-1.5) H 07/17/18 05:00 pO2 42 mm/Hg (30-55) 07/16/18 22:20 VBG pH 7.32 (7.32-7.43) 07/16/18 22:20 VBG pCO2 58.0 (40-60) 07/16/18 22:20 VBG HCO3 29.9 mmol/l (21-28) H 07/16/18 22:20 VBG Total CO2 31.7 mmol.L (22-28) H 07/16/18 22:20 VBG O2 Sat (Calc) 81.4 % (40-65) H 07/16/18 22:20 VBG Base Excess 2.4 mmol/L (0.0-2.0) H 07/16/18 22:20 VBG Potassium 3.8 mmol/L (3.6-5.2) 07/16/18 22:20 Sodium 138.0 mmol/L (132-148) 07/16/18 22:20 Chloride 105.0 mmol/L (98-107) 07/16/18 22:20 Glucose 125 mg/dl (65-105) H 07/16/18 22:20 Lactate 1.2 mmol/L (0.7-2.1) 07/16/18 22:20 FiO2 21.0 % 07/16/18 22:20 Sodium 134 mmol/L (132-148) 07/21/18 09:15 Potassium 4.4 mmol/L (3.6-5.0) 07/21/18 09:15 Chloride 100 mmol/L (98-107) 07/21/18 09:15 Carbon Dioxide 29 mmol/L (21-33) 07/21/18 09:15 Anion Gap 10 (10-20) 07/21/18 09:15 BUN 13 mg/dL (7-21) 07/21/18 09:15 Creatinine 0.5 mg/dl (0.7-1.2) L 07/21/18 09:15 Est GFR ( Amer) > 60 07/21/18 09:15 Est GFR (Non-Af Amer) > 60 07/21/18 09:15 POC Glucose (mg/dL) 304 mg/dL (65-110) H 07/21/18 11:02 Random Glucose 222 mg/dL (70-110) H 07/21/18 09:15 Hemoglobin A1c 14.2 % (4.2-6.5) H 07/16/18 22:20 Serum Osmolality 296 mosm/kg (272-300) 07/16/18 22:20 Uric Acid 3.2 mg/dL (2.5-6.2) 07/16/18 22:20 Calcium 9.2 mg/dL (8.4-10.5) 07/21/18 09:15 Phosphorus 3.9 mg/dL (2.5-4.5) 07/21/18 09:15 Magnesium 2.2 mg/dL (1.7-2.2) 07/21/18 09:15 Iron 50 ug/dL (45-180) 07/17/18 06:00 TIBC 274 ug/dL (265-497) 07/17/18 06:00 % Saturation 18 % (20-55) L 07/17/18 06:00 Transferrin 201.49 mg/dL (206-381) L 07/17/18 06:00 Ferritin 42.8 ng/mL 07/17/18 06:00 Total Bilirubin 0.3 mg/dL (0.2-1.3) 07/21/18 09:15 AST 48 U/L (14-36) H 07/21/18 09:15 ALT 69 U/L (7-56) H 07/21/18 09:15 Alkaline Phosphatase 84 U/L (38-126) 07/21/18 09:15 Lactate Dehydrogenase 492 U/L (333-699) 07/17/18 06:00 C-React Prot High Sens 13.22 mg/L (1.00-3.00) H 07/20/18 11:40 NT-Pro-B Natriuret Pep 265 pg/mL (0-450) 07/16/18 22:20 Total Protein 6.6 g/dL (5.8-8.3) 07/21/18 09:15 Albumin 3.4 g/dL (3.0-4.8) 07/21/18 09:15 Globulin 3.2 gm/dL 07/21/18 09:15 Albumin/Globulin Ratio 1.1 (1.1-1.8) 07/21/18 09:15 Amylase 67 U/L (35-125) 07/16/18 22:20 Lipase 120 U/L (23-300) 07/16/18 22:20 Vitamin B12 667 pg/mL (239-931) 07/17/18 06:00 Folate 5.3 ng/mL 07/17/18 06:00 Free T4 0.78 ng/dL (0.78-2.19) 07/16/18 22:20 TSH 3rd Generation 1.08 mIU/mL (0.46-4.68) 07/16/18 22:20 Beta HCG, Quant < 2.39 mIU/mL (0-6.15) 07/16/18 22:20 Venous Blood Potassium 3.8 mmol/L (3.6-5.2) 07/16/18 22:20 Urine Color Light yellow (YELLOW) 07/16/18 22:20 Urine Appearance Clear (CLEAR) 07/16/18 22:20 Urine pH 6.0 (4.7-8.0) 07/16/18 22:20 Ur Specific Allen 1.025 (1.005-1.035) 07/16/18 22:20 Urine Protein Negative mg/dL (<30 mg/dL) 07/16/18 22:20 Urine Glucose (UA) 250 mg/dL (NEGATIVE) H 07/16/18 22:20 Urine Ketones Negative mg/dL (NEGATIVE) 07/16/18 22:20 Urine Blood Negative (NEGATIVE) 07/16/18 22:20 Urine Nitrate Negative (NEGATIVE) 07/16/18 22:20 Urine Bilirubin Negative (NEGATIVE) 07/16/18 22:20 Urine Urobilinogen 0.2 E.U./dL (<1 E.U./dL) 07/16/18 22:20 Ur Leukocyte Esterase Negative Manolo/uL (NEGATIVE) 07/16/18 22:20 Urine Osmolality 620 mosm/kg (300-1000) 07/17/18 01:36 Ur Random Creatinine 39 mg/dL 07/17/18 01:36 Ur Random Sodium 162 meq/L 07/17/18 01:36 Ur Random Potassium 21.2 meq/L 07/17/18 01:36 Ur Random Urea Nitrogn 664 mg/dL 07/17/18 01:36 Urine Chloride 169 mmol/L (32-290) 07/17/18 01:36 Urine Opiates Screen Negative (NEGATIVE) 07/17/18 01:36 Urine Methadone Screen Negative (NEGATIVE) 07/17/18 01:36 Ur Barbiturates Screen Negative (NEGATIVE) 07/17/18 01:36 Ur Phencyclidine Scrn Negative (NEGATIVE) 07/17/18 01:36 Ur Amphetamines Screen Negative (NEGATIVE) 07/17/18 01:36 U Benzodiazepines Scrn Negative (NEGATIVE) 07/17/18 01:36 U Oth Cocaine Metabols Negative (NEGATIVE) 07/17/18 01:36 U Cannabinoids Screen Negative (NEGATIVE) 07/17/18 01:36 EBONY Screen Negative (Negative) 07/17/18 06:00 Hepatitis A IgM Ab Negative (NEGATIVE) 07/16/18 22:20 Hep Bs Antigen Negative (NEGATIVE) 07/16/18 22:20 Hep B Core IgM Ab Negative (NEGATIVE) 07/16/18 22:20 Hepatitis C Antibody Negative (NEGATIVE) 07/16/18 22:20 HIV 1&2 Ag/Ab, 4th Gen Nonreactive (Nonreactive) 07/17/18 06:00 - Hospital Course Hospital Course: Upon Hospitalization Pt is a 33 year old female, whose PMH includes DM1, DKA, Rhabdomyolysis, Ovarian Torsion s/p right salpingo-oopherectomy, Breast Cyst, presenting with abdominal pain and distention. Pt states she developed worsening lower abdominal distention with associated lower abdominal pain today. She admits to a 20 pounds weight gain in 1 week. She describes her pain to be achy and worse on her LLQ and LRQ. She states that the pain is 7/10 when she is bending down and 3/10 when she is lying down. Hospitalization Pt was treated for abdominal pain and LE edema. ECHO: EF 63.2%, dilated LA, mild/moderate MR, Small PFO. Abdominal US: small amount of pericholecystic fluid associated with diffuse moderate gallbladder wall thickening. No evidence of cholelithiasis. Pelvic US: no evidence of acute pathology or suspicious lesions in the uterus of left ovary. Cardiology consulted, Dr. Rosen. GI, Dr Renae recommend that pt was stable from a GI perspective. Surgery consulted given gallbladder findings, determined that surgery was not indicated. Urology consulted, Dr Rivero due to pt urinary retention. Discharge Pt advised to follow up with Dr Reed. Advised to follow up with Dr Mullen for urology in the next 1 week as well as her Dental Assistant Medical Assistant within 1 week. Please follow up with Dr Camilo your green pipefitter, continue to take insulin as directed. Found to have a lung nodule, please follow up with your PMD and have repeat imaging taken in the next 3-6 months. - Date & Time of H&P Date of H&P: 07/21/18 Time of H&P: 08:00 Discharge Exam - Head Exam Head Exam: ATRAUMATIC, NORMAL INSPECTION, NORMOCEPHALIC - Eye Exam Eye Exam: EOMI - ENT Exam ENT Exam: Mucous Membranes Moist - Neck Exam Neck exam: Full Rom - Respiratory Exam Respiratory Exam: NORMAL BREATHING PATTERN, UNREMARKABLE. absent: Respiratory Distress - Cardiovascular Exam Cardiovascular Exam: RRR, +S1, +S2. absent: Diastolic murmur, Systolic Murmur - GI/Abdominal Exam GI & Abdominal Exam: Normal Bowel Sounds, Unremarkable - Extremities Exam Extremities exam: full ROM, pedal edema - Neurological Exam Neurological exam: Normal Gait, Oriented x3 - Psychiatric Exam Psychiatric exam: Normal Affect, Normal Mood - Skin Skin Exam: Dry, Normal Color, Warm Discharge Plan - Discharge Medications Prescriptions: Furosemide [Lasix] 40 mg PO DAILY #7 tablet Polyethylene Glycol 3350 [Miralax] 17 gm PO DAILY #30 ml - Follow Up Plan Condition: STABLE Disposition: HOME/ ROUTINE Instructions: Acute Abdominal Pain (DC), Acute Abdominal Pain (GEN) Additional Instructions: 1. please follow up with your primary care physician, Dr Reed within the next 3-5 days 2. please follow up with Dr Mullen for urology in the next 1 week 3. please follow up with your Dental Assistant Medical Assistant within 1 week. Follow up with GI per PMD. 4. please follow up with Dr Camilo your green pipefitter, please continue to take your insulin as directed 5. you were found to have a lung nodule, please follow up with your PMD and have repeat imaging taken in the next 3-6 months. Follow-up with pulmonary per PMD. 6. if your symptoms return please go to the nearest emergency department The patient might need to follow-up with tertiary care center depending upon the rheumatological diagnosis. Referrals: Rani Reed DO [Primary Care Provider] - Easton Rosen MD [Staff Provider] - <Anil Dueñas - Last Filed: 07/22/18 12:02> Provider - Provider Date of Admission: 07/17/18 00:47 Attending physician: Anil Dueñas MD Primary care physician: Rani Reed DO Consults: 07/17/18 02:59 Physician Consult Routine Comment: Consulting Provider: Jaylen Renae Consulting Physician: Jaylen Renae Reason for Consult: transaminitis, abd distention, anasarca 07/17/18 03:00 Physician Consult Routine Comment: Consulting Provider: Easton Rosen Consulting Physician: Easton Rosen Reason for Consult: anasarca, r/o RHF 07/18/18 10:17 Physician Consult Routine Comment: Consulting Provider: Surendra Rivero Consulting Physician: Surendra Rivero Reason for Consult: unable to urinate 07/20/18 11:41 Physician Consult Routine Comment: Consulting Provider: Luis Dee Consulting Physician: Luis Dee Reason for Consult: moderate gallbladder wall thickening 07/20/18 12:36 Consult [Physician Consult] Routine Comment: Consulting Provider: Nehal King Consulting Physician: Nehal King Reason for Consult: shortness of breath 07/21/18 07:34 Diabetic Education Referral Routine Comment: Physician Instructions: Reason For Exam: poor diabetes control Hospital Course - Lab Results Lab Results: Micro Results 07/16/18 22:20 Urine Random Urine Culture - Final No Growth (<1,000 CFU/ML) Most Recent Lab Values WBC 5.7 10^3/uL (4.5-11.0) 07/21/18 09:15 RBC 3.47 10^6/uL (3.5-6.1) L 07/21/18 09:15 Hgb 10.1 g/dL (12.0-16.0) L 07/21/18 09:15 Hct 32.1 % (36.0-48.0) L 07/21/18 09:15 MCV 92.5 fl (80.0-105.0) 07/21/18 09:15 MCH 29.1 pg (25.0-35.0) 07/21/18 09:15 MCHC 31.5 g/dl (31.0-37.0) 07/21/18 09:15 RDW 13.1 % (11.5-14.5) 07/21/18 09:15 Plt Count 321 10^3/uL (120.0-450.0) 07/21/18 09:15 MPV 9.2 fl (7.0-11.0) 07/21/18 09:15 Gran % 49.4 % (50.0-68.0) L 07/21/18 09:15 Lymph % (Auto) 34.3 % (22.0-35.0) 07/21/18 09:15 Weber % (Auto) 11.6 % (1.0-6.0) H 07/21/18 09:15 Eos % (Auto) 4.2 % (1.5-5.0) 07/21/18 09:15 Baso % (Auto) 0.5 % (0.0-3.0) 07/21/18 09:15 Gran # 2.82 (1.4-6.5) 07/21/18 09:15 Lymph # (Auto) 2.0 (1.2-3.4) 07/21/18 09:15 Weber # (Auto) 0.7 (0.1-0.6) H 07/21/18 09:15 Eos # (Auto) 0.2 (0.0-0.7) 07/21/18 09:15 Baso # (Auto) 0.03 K/mm3 (0.0-2.0) 07/21/18 09:15 Differential Comment See pathology report 07/20/18 06:00 ESR 72 mm/hr (0.0-20.0) H 07/20/18 12:30 Retic Count 2.69 % (0.5-1.5) H 07/17/18 05:00 pO2 42 mm/Hg (30-55) 07/16/18 22:20 VBG pH 7.32 (7.32-7.43) 07/16/18 22:20 VBG pCO2 58.0 (40-60) 07/16/18 22:20 VBG HCO3 29.9 mmol/l (21-28) H 07/16/18 22:20 VBG Total CO2 31.7 mmol.L (22-28) H 07/16/18 22:20 VBG O2 Sat (Calc) 81.4 % (40-65) H 07/16/18 22:20 VBG Base Excess 2.4 mmol/L (0.0-2.0) H 07/16/18 22:20 VBG Potassium 3.8 mmol/L (3.6-5.2) 07/16/18 22:20 Sodium 138.0 mmol/L (132-148) 07/16/18 22:20 Chloride 105.0 mmol/L (98-107) 07/16/18 22:20 Glucose 125 mg/dl (65-105) H 07/16/18 22:20 Lactate 1.2 mmol/L (0.7-2.1) 07/16/18 22:20 FiO2 21.0 % 07/16/18 22:20 Sodium 134 mmol/L (132-148) 07/21/18 09:15 Potassium 4.4 mmol/L (3.6-5.0) 07/21/18 09:15 Chloride 100 mmol/L (98-107) 07/21/18 09:15 Carbon Dioxide 29 mmol/L (21-33) 07/21/18 09:15 Anion Gap 10 (10-20) 07/21/18 09:15 BUN 13 mg/dL (7-21) 07/21/18 09:15 Creatinine 0.5 mg/dl (0.7-1.2) L 07/21/18 09:15 Est GFR ( Amer) > 60 07/21/18 09:15 Est GFR (Non-Af Amer) > 60 07/21/18 09:15 POC Glucose (mg/dL) 100 mg/dL (65-110) 07/21/18 16:15 Random Glucose 222 mg/dL (70-110) H 07/21/18 09:15 Hemoglobin A1c 14.2 % (4.2-6.5) H 07/16/18 22:20 Serum Osmolality 296 mosm/kg (272-300) 07/16/18 22:20 Uric Acid 3.2 mg/dL (2.5-6.2) 07/16/18 22:20 Calcium 9.2 mg/dL (8.4-10.5) 07/21/18 09:15 Phosphorus 3.9 mg/dL (2.5-4.5) 07/21/18 09:15 Magnesium 2.2 mg/dL (1.7-2.2) 07/21/18 09:15 Iron 50 ug/dL (45-180) 07/17/18 06:00 TIBC 274 ug/dL (265-497) 07/17/18 06:00 % Saturation 18 % (20-55) L 07/17/18 06:00 Transferrin 201.49 mg/dL (206-381) L 07/17/18 06:00 Ferritin 42.8 ng/mL 07/17/18 06:00 Total Bilirubin 0.3 mg/dL (0.2-1.3) 07/21/18 09:15 AST 48 U/L (14-36) H 07/21/18 09:15 ALT 69 U/L (7-56) H 07/21/18 09:15 Alkaline Phosphatase 84 U/L (38-126) 07/21/18 09:15 Lactate Dehydrogenase 492 U/L (333-699) 07/17/18 06:00 C-React Prot High Sens 13.22 mg/L (1.00-3.00) H 07/20/18 11:40 NT-Pro-B Natriuret Pep 265 pg/mL (0-450) 07/16/18 22:20 Total Protein 6.6 g/dL (5.8-8.3) 07/21/18 09:15 Albumin 3.4 g/dL (3.0-4.8) 07/21/18 09:15 Globulin 3.2 gm/dL 07/21/18 09:15 Albumin/Globulin Ratio 1.1 (1.1-1.8) 07/21/18 09:15 Amylase 67 U/L (35-125) 07/16/18 22:20 Lipase 120 U/L (23-300) 07/16/18 22:20 Vitamin B12 667 pg/mL (239-931) 07/17/18 06:00 Folate 5.3 ng/mL 07/17/18 06:00 Free T4 0.78 ng/dL (0.78-2.19) 07/16/18 22:20 TSH 3rd Generation 1.08 mIU/mL (0.46-4.68) 07/16/18 22:20 Beta HCG, Quant < 2.39 mIU/mL (0-6.15) 07/16/18 22:20 Venous Blood Potassium 3.8 mmol/L (3.6-5.2) 07/16/18 22:20 Urine Color Light yellow (YELLOW) 07/16/18 22:20 Urine Appearance Clear (CLEAR) 07/16/18 22:20 Urine pH 6.0 (4.7-8.0) 07/16/18 22:20 Ur Specific Allen 1.025 (1.005-1.035) 07/16/18 22:20 Urine Protein Negative mg/dL (<30 mg/dL) 07/16/18 22:20 Urine Glucose (UA) 250 mg/dL (NEGATIVE) H 07/16/18 22:20 Urine Ketones Negative mg/dL (NEGATIVE) 07/16/18 22:20 Urine Blood Negative (NEGATIVE) 07/16/18 22:20 Urine Nitrate Negative (NEGATIVE) 07/16/18 22:20 Urine Bilirubin Negative (NEGATIVE) 07/16/18 22:20 Urine Urobilinogen 0.2 E.U./dL (<1 E.U./dL) 07/16/18 22:20 Ur Leukocyte Esterase Negative Manolo/uL (NEGATIVE) 07/16/18 22:20 Urine Osmolality 620 mosm/kg (300-1000) 07/17/18 01:36 Ur Random Creatinine 39 mg/dL 07/17/18 01:36 Ur Random Sodium 162 meq/L 07/17/18 01:36 Ur Random Potassium 21.2 meq/L 07/17/18 01:36 Ur Random Urea Nitrogn 664 mg/dL 07/17/18 01:36 Urine Chloride 169 mmol/L (32-290) 07/17/18 01:36 Urine Opiates Screen Negative (NEGATIVE) 07/17/18 01:36 Urine Methadone Screen Negative (NEGATIVE) 07/17/18 01:36 Ur Barbiturates Screen Negative (NEGATIVE) 07/17/18 01:36 Ur Phencyclidine Scrn Negative (NEGATIVE) 07/17/18 01:36 Ur Amphetamines Screen Negative (NEGATIVE) 07/17/18 01:36 U Benzodiazepines Scrn Negative (NEGATIVE) 07/17/18 01:36 U Oth Cocaine Metabols Negative (NEGATIVE) 07/17/18 01:36 U Cannabinoids Screen Negative (NEGATIVE) 07/17/18 01:36 EBONY Screen Negative (Negative) 07/17/18 06:00 ANCA Screen Negative (NEGATIVE) 07/17/18 06:00 c-ANCA Titer TNP 07/17/18 06:00 Proteinase 3 (PR3) <1.0 AI (<1.0) 07/17/18 06:00 p-ANCA Titer TNP 07/17/18 06:00 Atypical p-ANCA Titer TNP 07/17/18 06:00 Myeloperoxidase Ab <1.0 AI (<1.0) 07/17/18 06:00 Anti-Mitochondrial Ab Negative (Negative) 07/17/18 06:00 Smooth Muscle Ab Titer TEST NOT PERFORMED 07/17/18 06:00 Anti-Smooth Muscle Ab Negative (Negative) 07/17/18 06:00 Liver/Kid Microsomes Ab <=20.0 U (<=20.0) 07/17/18 06:00 Hepatitis A IgM Ab Negative (NEGATIVE) 07/16/18 22:20 Hep Bs Antigen Negative (NEGATIVE) 07/16/18 22:20 Hep B Core IgM Ab Negative (NEGATIVE) 07/16/18 22:20 Hepatitis C Antibody Negative (NEGATIVE) 07/16/18 22:20 HIV 1&2 Ag/Ab, 4th Gen Nonreactive (Nonreactive) 07/17/18 06:00 S.cerevisiae IgA Ab 61.6 U (<=20.0) H 07/17/18 06:00 Attending/Attestation - Attestation I have personally seen and examined this patient.: Yes I have fully participated in the care of the patient.: Yes I have reviewed all pertinent clinical information, including history, physical exam and plan: Yes Notes (Text): 07/22/18 11:37 Attending note; Patient seen and examined with the resident. Patient is alert and awake. Leg swelling improved. ochoa catheter removed. Patient is voiding without difficulty. Had BM yesterday. Denies any fevers, chills. Denies any nausea, vomiting. Patient is a 33-year-old female past medical history significant for insulin- dependent type 1 diabetes, DKA, rhabdomyolysis, ovarian torsion status post right salpingo-oophorectomy, breast cyst, and strep throat that presented to the emergency room with abdominal pain and distention. 1. Anasarca. Lower extremity swelling improved. Treated with IV Lasix. Continue compression stockings. Case discussed with tree cutter in detail. Chest CT showed no evidence of pulmonary embolus, vascular and interstitial congestion with small bilateral pleural effusions. Bilateral lower extremity venous Dopplers negative for DVTs. 2-D echo showed dilated left atrium, normal left ventricular size and systolic function, mild to moderate mitral regurgitation, small PFO noted by color Doppler. Continue on Lasix. EBONY negative. Hepatitis panel negative. HIV negative. Pending antimitochondrial antibody, smooth muscle antibody titer, anti-smooth muscle antibody, liver/kidney microsomes antibody. Patient will be discharged home with close follow-up with rheumatology. Possibility of a cardiac workup including stress test or MRI as outpatient recommended by cardiology. Patient follows up with cardiology as outpatient. 2. Abdominal distention; resolved. Constipation resolved . GI evaluation appreciated. CT abdomen and pelvis showed actually image 3 mm right lower lobe nodule, mild bibasilar atelectasis, scattered groundglass pulmonary opacities, interlo bular septal thickening, periportal edema, mildly thick-walled loops of small bowel, moderate constipation, presumed appendix measuring up to approximately 7 mm mildly enlarged, fibroid uterus, 2.5 cm left adnexal low-density presumably ovarian cyst, mildly thick-walled urinary bladder, mild soft tissue edema. Needs close follow-up with GI as outpatient 3. Possible autoimmune disorder; EBONY negative. Hepatitis panel negative. HIV negative. Pending antimitochondrial antibody, smooth muscle antibody titer, anti-smooth muscle antibody, liver/kidney microsomes antibody. Patient has an appointment with retail account representative on August 17. 4. Pulmonary evaluation appreciated; PFT showed no obstructive lung disease mild restrictive lung disease with decreased DLCO. Case reviewed with co op in detail. Patient needs outpatient pulmonary follow-up. Repeat PFTs in 3 to 6 months. Repeat CAT scan as needed. Patient may follow up with tertiary Center [facility] for further workup. 5. Transaminitis. May be secondary to hepatic congestion. Downtrending. Hepatitis panel negative. HIV negative. 6. Anemia. H&H stable. Iron within normal limits. Ferritin within normal limits. No signs of acute bleeding. Needs close outpatient GI follow up. 7. Urinary retention; resolved. Ochoa removed. 8. Insulin-dependent type 1 diabetes. Continue Levemir twice a day. Continue insulin sliding scale. Started on Lispro AC. Hemoglobin A1c 14.2. Continue to monitor Accu-Cheks. 9. Constipation. Resolved. continue MiraLAX The diagnosis, possible autoimmune disorder discussed with patient in detail. Patient needs close follow-up with cardiology, GI, rheumatology, pulmonary as outpatient. Case discussed with PMD Dr. Reed in detail. As per PMD the patient was recently admitted in [facility] for the same exact problem. Patient had multiple tests done including PE study, Doppler which was negative. Patient has an appointment with tree cutter on August 05. Patient has retail account representative appointment with Dr. Young on aug 17. The patient follows up with [facility] group. Primary care is referring her to cardiology, pulmonary, rheumatology, GI within their group for further follow up. Advised to get medical records transferred to primary care attending's office. Time spent over 1 hour communicating diagnosis and outpatient follow-up plan with patient and PMD.
--- NOTE | 2018-07-21 17:30 | PN ---
DATE: 07/21/2018 CARDIOLOGY FOLLOWUP SUBJECTIVE: The patient's breathing is better. The Escobar is out. PHYSICAL EXAMINATION: VITAL SIGNS: Blood pressure is 109/73, the heart rate is in the 90s. NECK: Negative JVD. LUNGS: Without rales. HEART: S1, S2. EXTREMITIES: Without edema. LABORATORY DATA: Hemoglobin is 10.1. Chemistries, BUN and creatinine are unremarkable. The glucose is 222. IMPRESSION: 1. Recurrent dyspnea. 2. History of mitral regurgitation. 3. Small patent foramen ovale. 4. Mild restrictive lung disease on pulmonary function tests. 5. Diabetes mellitus. Given these findings, the patient's dyspnea is still not completely explained. The patient is scheduled for evaluation by Rheumatology next week. I have discussed the order of things with the patient. She will see the tool and die supervisor. She will come back for a stress test to rule out atypical presentation of coronary artery disease. If all negative, we will consider an MRI of the heart. Followup and instructions have been given to the patient in detail. Easton Rosen MD
[2018-07-22 04:37] LABS: ANCA SCREEN NEGATIVE (NEGATIVE)
[2018-07-23 12:16] LABS: CARDIOLIPIN AB (IGA) <11 APL (<=11); CARDIOLIPIN AB (IGG) <14 GPL (<=14)
[2018-07-23 21:58] LABS: B2 GLYCOPROTEIN I AB(IGA) <9 SAU (<=20); B2 GLYCOPROTEIN I AB(IGG) <9 SGU (<=20); B2 GLYCOPROTEIN I AB(IGM) <9 SMU (<=20)
[2018-07-23 23:21] LABS: CARDIOLIPIN AB (IGM) <12 MPL (<=12); PHOSPHATIDYLSERINE AB IGA <20 U/mL (<20); PHOSPHATIDYLSERINE AB IGG <10 U/mL (<10); PHOSPHATIDYLSERINE AB IGM <25 U/mL (<25)
== END 2018-07-21 18:34 | disposition home or self-care (01) | DRG 251 ==
LOC: ED 20:23 → ERH 07-17 00:47 → 3RNO 07-17 02:28
PROVIDERS: ADMIT Hospitalist; ATTEND Internal Medicine
DX: R10.30 Lower abdominal pain, unspecified (principal); M62.82 Rhabdomyolysis; E87.70 Fluid overload, unspecified; E10.65 Type 1 diabetes mellitus with hyperglycemia; Q21.1 Atrial septal defect; D63.8 Anemia in other chronic diseases classified elsewhere; J98.4 Other disorders of lung; J98.11 Atelectasis; D25.9 Leiomyoma of uterus, unspecified; I34.0 Nonrheumatic mitral (valve) insufficiency; K52.9 Noninfective gastroenteritis and colitis, unspecified; K59.00 Constipation, unspecified; N83.202 Unspecified ovarian cyst, left side; R09.02 Hypoxemia; R76.11 Nonspecific reaction to tuberculin skin test without active tuberculosis; R06.00 Dyspnea, unspecified; R33.9 Retention of urine, unspecified; Z79.4 Long term (current) use of insulin; Z82.61 Family history of arthritis; Z83.3 Family history of diabetes mellitus; Z90.721 Acquired absence of ovaries, unilateral; Z98.891 History of uterine scar from previous surgery

== ENCOUNTER 2018-08-15 11:21 | Emergency (ER) | payer MEDICAID ==
[2018-08-15 11:21] VITALS: BMI 25.4
[2018-08-15] MEDS ORDERED: Sodium Chloride 0.9% 1,000 ML IV STA (12:31)
[2018-08-15 12:53] LABS: URINE BILIRUBIN NEGATIVE (NEGATIVE); URINE BLOOD TRACE-LYSED (NEGATIVE); URINE GLUCOSE (UA) NEGATIVE (NEGATIVE); URINE LEUKOCYTE ESTERASE NEGATIVE Leu/uL (NEGATIVE); URINE PROTEIN NEGATIVE mg/dL (<30 mg/dL); URINE UROBILINOGEN 0.2 E.U./dL (<1 E.U./dL)
[2018-08-15 12:59] LABS: URINE APPEARANCE CLOUDY (CLEAR); URINE COLOR YELLOW (YELLOW)
[2018-08-15 13:01] LABS: URINE BACTERIA FEW /hpf; URINE WBC 0 - 2 /hpf (0-6)
--- NOTE | 2018-08-15 13:20 | ED PDOC ---
Arrival/HPI - General Chief Complaint: GI Problem Time Seen by Provider: 08/15/18 12:13 Historian: Patient - History of Present Illness Narrative History of Present Illness (Text): 08/15/18 13:20 A 33 year old female, whose past medical history gastroparesis, Type 1 diabetes (takes Insulin), DKA, rhabdomyolysis, and ovarian torsian s/p right salpingo- oopherectomy, presents to the emergency department complaining of constipation for the past few weeks. Patient reports also experiencing worsening abdominal pain from the constipation. States she has taken Miralax w/o relief of constipation and then 2 days ago she took Mag Citrate after which she had a small bowel movement. Patient states she has taken Ibuprofen but has no relief from abdominal pain. Patient denies any fever, chils, vomiting, nausea, chest pain, shortness of breath, or any other complaints at this time. LMP 07/31/2018. PMD: Dr. Reed Past Medical History - Provider Review Nursing Documentation Reviewed: Yes - Infectious Disease Hx of Infectious Diseases: None - Tetanus Immunization Tetanus Immunization: Unknown - Reproductive Currently : No - Cardiac Hx Cardiac Disorders: Yes (heart murmur) - Pulmonary Hx Respiratory Disorders: No - Neurological Hx Neurological Disorder: Yes Hx Dizziness: Yes Hx Syncope: Yes - HEENT Hx HEENT Disorder: No - Renal Hx Renal Disorder: No - Endocrine/Metabolic Hx Endocrine Disorders: Yes Hx Diabetes Mellitus Type 1: Yes - Hematological/Oncological Hx Blood Disorders: No - Integumentary Hx Dermatological Disorder: Yes Other/Comment: SCAR - Musculoskeletal/Rheumatological Hx Falls: No - Gastrointestinal Hx Gastrointestinal Disorders: Yes Hx Constipation: Yes - Genitourinary/Gynecological Hx Genitourinary Disorders: No - Psychiatric Hx Psychophysiologic Disorder: No Hx Substance Use: No - Past Surgical History Past Surgical History: Non-Contributing - Surgical History Hx Section: Yes Other/Comment: cyst removed from right breast and posterior right ear benign, c section 2010, right ovary and right fallopian tube december 2014 - Anesthesia Hx Anesthesia: Yes Hx Anesthesia Reactions: No Hx Malignant Hyperthermia: No - Suicidal Assessment Feels Threatened In Home Enviroment: No Family/Social History - Physician Review Nursing Documentation Reviewed: Yes Family/Social History: No Known Family HX Smoking Status: Never Smoked Hx Alcohol Use: No Hx Substance Use: No Hx Substance Use Treatment: No Allergies/Home Meds Allergies/Adverse Reactions: Allergies No Known Allergies Allergy (Verified 09/22/16 07:28) Home Medications: Home Meds Medication Instructions Recorded Confirmed RX: Insulin Glargine, Recombina 12 unit SC AMHS 07/17/18 08/15/18 [Lantus] RX: Insulin Lispro [humALOG] 1 unit SC ACHS 07/17/18 08/15/18 Review of Systems - Physician Review All systems were reviewed & negative as marked: Yes - Review of Systems Respiratory: absent: SOB Cardiovascular: absent: Chest Pain Gastrointestinal: Abdominal Pain (worsening), Constipation. absent: Nausea, Vomiting Physical Exam Vital Signs Reviewed: Yes Vital Signs Temp Pulse Resp BP Pulse Ox 08/15/18 12:47 96 H 18 142/74 98 08/15/18 11:56 98.1 F 104 H 17 146/88 98 Temperature: Afebrile Blood Pressure: Normal Pulse: Regular Respiratory Rate: Normal Appearance: Positive for: Well-Appearing, Non-Toxic, Comfortable Pain Distress: None Mental Status: Positive for: Alert and Oriented X 3 - Systems Exam Head: Present: Atraumatic, Normocephalic Pupils: Present: PERRL Extroacular Muscles: Present: EOMI Conjunctiva: Present: Normal Mouth: Present: Moist Mucous Membranes Neck: Present: Normal Range of Motion Respiratory/Chest: Present: Clear to Auscultation, Good Air Exchange. No: Respiratory Distress, Accessory Muscle Use Cardiovascular: Present: Regular Rate and Rhythm, Normal S1, S2. No: Murmurs Abdomen: Present: Tenderness (left lateral, suprapubic, and LLQ tenderness). No: Distention, Peritoneal Signs Back: Present: CVA Tenderness (left-side) Upper Extremity: Present: Normal Inspection. No: Cyanosis, Edema Lower Extremity: Present: Normal Inspection. No: Edema Neurological: Present: GCS=15, CN II-XII Intact, Speech Normal Skin: Present: Warm, Dry, Normal Color. No: Rashes Psychiatric: Present: Alert, Oriented x 3, Normal Insight, Normal Concentration Medical Decision Making ED Course and Treatment: 08/15/18 13:30 Impression: 33 year old female with constipation and worsening abdominal pain. Plan: -- Abd/Pelvis CT -- Labs -- Toradol -- IV Fluids -- POC Urine Test -- Reassess and disposition Prior Visits: Notes and results from previous visits were reviewed. Patient was last seen in the emergency department on 07/16/2018 for abdominal pain and distention. Patient was admitted. Progress Notes: 08/15/18 13:40 Upon reassessment, patient is feeling much better. Lab results showed patient's glucose on lab is 50, so patient was given orange juice, which she tolerated. Results of w/u d/w pt. 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 Patient stable for d/c home and is agreeable w/POC. She verbalized understanding of her d/c instructions. 08/15/2018 12:31 Abd/Pelvis CT IMPRESSION: Mild hepatomegaly. urinary bladder physiologically distended through does exhibit slight wall thickening. Correlation with Urinalysis to exclude cystitis. There is a vague ill-defined somewhat elliptical shaped area of low attenuation in the left aspect of the pelvus abutting the uterine body and fundus that could represent a prominent left ovary however the possibility of hemorrhagic ovarian cyst or possibly a prominent proteinaceous filled fallopian tube not excluded. Recommend follow-up pelvic ultrasound. Small amount of fluid is present within the cul de sac. Large amount of stool is present within the right colon consistent with fecal retention/constipation. Dictator: Ran Chung MD - Lab Interpretations Lab Results: Urine Color Yellow (YELLOW) 08/15/18 12:30 Urine Appearance Cloudy (CLEAR) 08/15/18 12:30 Urine pH 6.0 (4.7-8.0) 08/15/18 12:30 Ur Specific [place] 1.015 (1.005-1.035) 08/15/18 12:30 Urine Protein Negative mg/dL (<30 mg/dL) 08/15/18 12:30 Urine Glucose (UA) Negative mg/dL (NEGATIVE) 08/15/18 12:30 Urine Ketones Negative mg/dL (NEGATIVE) 08/15/18 12:30 Urine Blood Trace-lysed (NEGATIVE) H 08/15/18 12:30 Urine Nitrate Negative (NEGATIVE) 08/15/18 12:30 Urine Bilirubin Negative (NEGATIVE) 08/15/18 12:30 Urine Urobilinogen 0.2 E.U./dL (<1 E.U./dL) 08/15/18 12:30 Ur Leukocyte Esterase Negative Manolo/uL (NEGATIVE) 08/15/18 12:30 Urine RBC 1 - 3 /hpf (0-2) H 08/15/18 12:30 Urine WBC 0 - 2 /hpf (0-6) 08/15/18 12:30 Ur Epithelial Cells 4 - 5 /hpf (0-5) 08/15/18 12:30 Urine Bacteria Few /hpf (NONE) 08/15/18 12:30 - RAD Interpretation Radiology Orders: 08/15/18 12:31 ABD & PELVIS W/O PO OR IV CONT [CT] Stat - Medication Orders Current Medication Orders: Sodium Chloride (Sodium Chloride 0.9%) 1,000 mls @ 1,000 mls/hr IV .Q1H STA Stop: 08/15/18 13:30 Discontinued Medications Ketorolac Tromethamine (Toradol) 30 mg IVP STAT STA Stop: 08/15/18 12:32 - Scribe Statement The provider has reviewed the documentation as recorded by the Doyle Segundo Provider Scribe Attestation: All medical record entries made by the Scribe were at my direction and personally dictated by me. I have reviewed the chart and agree that the record accurately reflects my personal performance of the history, physical exam, medical decision making, and the department course for this patient. I have also personally directed, reviewed, and agree with the discharge instructions and disposition. Disposition/Present on Arrival - Present on Arrival Any Indicators Present on Arrival: Yes History of DVT/PE: No History of Uncontrolled Diabetes: Yes Urinary Catheter: No History of Decub. Ulcer: No History Surgical Site Infection Following: None - Disposition Have Diagnosis and Disposition been Completed?: Yes Diagnosis: Abdominal pain, Hypoglycemia, Constipation Disposition: HOME/ ROUTINE Disposition Time: 16:46 Patient Plan: Discharge Condition: IMPROVED Discharge Instructions (ExitCare): Constipation, Adult (DC), Low Blood Sugar, Adult (DC), Acute Abdomen (Belly Pain), Adult (DC) Additional Instructions: RAMONA METCALF, thank you for letting us take care of you today. Your provider was Justa Belcher MD and you were treated for PAIN IN SIDE. The emergency medical care you received today was directed at your acute symptoms. If you were prescribed any medication, please fill it and take as directed. It may take several days for your symptoms to resolve. Return to the Emergency Department if your symptoms worsen, do not improve, or if you have any other problems. Please contact your doctor for a follow up appointment in 2 days. Bring any paperwork you were given at discharge with you along with any medications you are taking to your follow up visit. Our treatment cannot replace ongoing medical care by a primary care provider outside of the emergency department. Thank you for allowing the [facility] team to be part of your care today. If you had an X-Ray or CT scan: A Radiologist will review the ED reading if any change in treatment is needed we will contact you. If you had a blood, urine, or wound culture: It will take several days for the results, if any change in treatment is needed we will contact you. If you had an STI test: It will take 48 hours for the results. Please call after 1 week if you have not heard back. Referrals: Rani Reed DO [Family Provider] - Follow up with primary Forms: [employer] (Irish)
[2018-08-15 13:48] LABS: BASO # 0.02 K/mm3 (0.0-2.0); BASO % 0.3 % (0.0-3.0); EOS # 0.1 (0.0-0.7); EOS % 2.4 % (1.5-5.0); HEMOGLOBIN 11.9 g/dL (12.0-16.0); LYMPH # 2.1 (1.2-3.4); LYMPH % 35.8 % (22.0-35.0); MEAN CELL VOLUME 90.9 fl (80.0-105.0); MEAN CORPUSCULAR HEMOGLOBIN 29.2 pg (25.0-35.0); MEAN CORPUSCULAR HGB CONC 32.2 g/dl (31.0-37.0); MEAN PLATELET VOLUME 8.7 fl (7.0-11.0); MONO # 0.4 (0.1-0.6); MONO % 6.7 % (1.0-6.0); RBC 4.07 10^6/uL (3.5-6.1); RED CELL DISTRIBUTION WIDTH 11.9 % (11.5-14.5); WHITE BLOOD COUNT 5.9 10^3/uL (4.5-11.0)
[2018-08-15 13:55] LABS: ALB/GLOB RATIO 1.2 (1.1-1.8); ALBUMIN 3.9 g/dL (3.0-4.8); ALT/SGPT 15 U/L (7-56); AST/SGOT 22 U/L (14-36); BLOOD UREA NITROGEN 13 mg/dL (7-21); CALCIUM 8.6 mg/dL (8.4-10.5); GFR NON-AFRICAN AMERICAN > 60; LIPASE 35 U/L (23-300)
--- NOTE | 2018-08-15 16:10 | CT ---
Date of service: 08/15/2018 PROCEDURE: CT Abdomen and Pelvis.. HISTORY: Left flank pain COMPARISON: Comparison made with CT chest 07/17/2018 which partially imaged the abdomen; lower abdomen not scan on this prior study. Correlation also made with prior abdominal ultrasound 07/17/2018. The. TECHNIQUE: Contiguous axial images of the abdomen and pelvis performed without oral or intravenous contrast material. Additional 2D sagittal and coronal reformats generated. . Radiation dose: Total exam DLP = 471.1 mGy-cm. This CT exam was performed using one or more of the following dose reduction techniques: Automated exposure control, adjustment of the mA and/or kV according to patient size, and/or use of iterative reconstruction technique. FINDINGS: LOWER THORAX: Heart size is within range of normal. No significant pericardial effusion. The tiny hiatal hernia. No evidence of effusion or basilar pneumothorax. No acute consolidation. LIVER: Liver is enlarged measuring over 19 cm in CC dimension. No obvious hepatic masses collections or calcifications identified on this noncontrast study. GALLBLADDER AND BILE DUCTS: Gallbladder appears incompletely distended likely due to nonfasting state. PANCREAS: The pancreas is not well delineated due to the lack of oral and intravenous contrast material. No definitive pancreatic masses or collections. SPLEEN: Unremarkable. No splenomegaly. ADRENALS: No adrenal lesions. KIDNEYS AND URETERS: Unremarkable. No stone or hydronephrosis. BLADDER: Urinary bladder is physiologically distended however there does appear to be some minor wall thickening. Correlation with urinalysis recommended to exclude cystitis. REPRODUCTIVE: There is a vague ill-defined somewhat elliptical shaped area of low attenuation in the left aspect of the pelvis abutting the uterine body and fundus that could represent a prominent left ovary however the possibility of hemorrhagic ovarian cyst or possibly a prominent proteinaceous filled fallopian tube not excluded. Recommend follow-up pelvic ultrasound. APPENDIX: Unremarkable. BOWEL: Unremarkable. No obstruction. No gross mural thickening. Visualized loops of small bowel exhibit normal contour and caliber. No evidence acute mechanical small bowel obstruction. Large amount of stool is seen in the cecum ascending and proximal transverse colon consistent with mild fecal retention/constipation. No definitive evidence of mural wall thickening. PERITONEUM: Small amount of free fluid is present within cul-de-sac. No free air. There is a tiny fat containing umbilical hernia LYMPH NODES: Unremarkable. No enlarged lymph nodes. VASCULATURE: Unremarkable. No aortic aneurysm. No aortic atherosclerotic calcification or mural plaque present. BONES: No fracture or destructive lesion. OTHER FINDINGS: None. IMPRESSION: Mild hepatomegaly. . Urinary bladder is physiologically distended though does exhibit slight wall thickening. Correlation with urinalysis to exclude cystitis. There is a vague ill-defined somewhat elliptical shaped area of low attenuation in the left aspect of the pelvis abutting the uterine body and fundus that could represent a prominent left ovary however the possibility of hemorrhagic ovarian cyst or possibly a prominent proteinaceous filled fallopian tube not excluded. Recommend follow-up pelvic ultrasound. Small amount of fluid is present within the cul de sac. Large amount of stool is present within the right colon consistent with fecal retention/constipation
[2018-08-15 17:19] VITALS: BP 107/82; PULSE 85; RESP 19; TEMP 98.6; O2SAT 100
== END 2018-08-15 17:15 | disposition home or self-care (01) ==
LOC: ED 11:21
DX: E10.649 Type 1 diabetes mellitus with hypoglycemia without coma (principal); K59.00 Constipation, unspecified; R10.9 Unspecified abdominal pain; K31.84 Gastroparesis; Z79.4 Long term (current) use of insulin
CPT/HCPCS: 74176; 80053; 81001; 81025; 83690; 83735; 85025; 96361; 96374; 99285; J1885; J7030

== ENCOUNTER 2018-11-16 01:14 | Inpatient (IN) | payer MEDICAID ==
[2018-11-16 01:14] VITALS: BMI 25.4
--- NOTE | 2018-11-16 01:46 | ED PDOC ---
Arrival/HPI - General Chief Complaint: Psychiatric Evaluation Time Seen by Provider: 11/16/18 01:15 Historian: Patient - History of Present Illness Narrative History of Present Illness (Text): 11/16/18 01:46 Nataly Maciel is a 33 year old female, whose past medical history includes Type 1 diabetes, DKA, rhabdomyolysis, and ovarian torsian s/p right salpingo-oopherectomy, who presents to the Emergency department brought in by EMS after attempting to overdose on Tylenol. Patient states she has been feeling depressed for a while, however when questioned, patient will not state why. Patient states she took "a handful" of Tylenol 500 mg prior to arrival, unsure how many exactly. Patient states she also took Benadryl earlier for a rash. Patient denies any homicidal ideation, fever, chills, chest pain, shortness of breath, abdominal pain, nausea, vomiting, diarrhea, urinary symptoms, back pain, neck pain, headache, dizziness, or any other complaints. PMD: Dr. Reed Symptom Onset: Gradual Symptom Course: Unchanged Activities at Onset: Light Context: Home Past Medical History - Provider Review Nursing Documentation Reviewed: Yes Primary Care Provider: Rani Reed V - Infectious Disease Hx of Infectious Diseases: None - Tetanus Immunization Tetanus Immunization: Unknown - Cardiac Hx Cardiac Disorders: Yes (heart murmur) - Pulmonary Hx Respiratory Disorders: No - Neurological Hx Neurological Disorder: Yes Hx Dizziness: Yes Hx Syncope: Yes - HEENT Hx HEENT Disorder: No - Renal Hx Renal Disorder: No - Endocrine/Metabolic Hx Endocrine Disorders: Yes Hx Diabetes Mellitus Type 1: Yes - Hematological/Oncological Hx Blood Disorders: No - Integumentary Hx Dermatological Disorder: Yes Other/Comment: SCAR - Musculoskeletal/Rheumatological Hx Falls: No - Gastrointestinal Hx Gastrointestinal Disorders: Yes Hx Constipation: Yes - Genitourinary/Gynecological Hx Genitourinary Disorders: No - Psychiatric Hx Psychophysiologic Disorder: No Hx Substance Use: No - Past Surgical History Past Surgical History: Non-Contributing - Surgical History Hx Section: Yes Other/Comment: cyst removed from right breast and posterior right ear benign, c section 2010, right ovary and right fallopian tube december 2014 - Anesthesia Hx Anesthesia: Yes Hx Anesthesia Reactions: No Hx Malignant Hyperthermia: No - Suicidal Assessment Feels Threatened In Home Enviroment: No Family/Social History - Physician Review Nursing Documentation Reviewed: Yes Family/Social History: Unknown Family HX Smoking Status: Never Smoked Hx Alcohol Use: No Hx Substance Use: No Hx Substance Use Treatment: No Allergies/Home Meds Allergies/Adverse Reactions: Allergies No Known Allergies Allergy (Verified 09/22/16 07:28) Home Medications: Home Meds Medication Instructions Recorded Confirmed Insulin Glargine, Recombina 12 unit SC AMHS 07/17/18 08/15/18 [Lantus] Insulin Lispro [humALOG] 1 unit SC ACHS 07/17/18 08/15/18 Review of Systems - Physician Review All systems were reviewed & negative as marked: Yes - Review of Systems Constitutional: Normal. absent: Fevers Eyes: Normal ENT: Normal Respiratory: Normal. absent: SOB, Cough Cardiovascular: Normal. absent: Chest Pain Gastrointestinal: Normal. absent: Abdominal Pain, Diarrhea, Nausea, Vomiting Genitourinary Female: Normal. absent: Dysuria, Frequency, Hematuria, Urine Output Changes Musculoskeletal: Normal. absent: Back Pain, Neck Pain Skin: Normal. absent: Rash Neurological: Normal. absent: Headache, Dizziness Endocrine: Normal Hemo/Lymphatic: Normal Psychiatric: Depression, Suicidal Ideation Physical Exam Vital Signs Reviewed: Yes Temperature: Afebrile Blood Pressure: Normal Pulse: Regular Respiratory Rate: Normal Appearance: Positive for: Well-Appearing, Non-Toxic, Comfortable Pain Distress: None Mental Status: Positive for: Alert and Oriented X 3 - Systems Exam Head: Present: Atraumatic, Normocephalic Pupils: Present: PERRL Extroacular Muscles: Present: EOMI Conjunctiva: Present: Normal Mouth: Present: Moist Mucous Membranes Neck: Present: Normal Range of Motion Respiratory/Chest: Present: Clear to Auscultation, Good Air Exchange. No: Respiratory Distress, Accessory Muscle Use Cardiovascular: Present: Regular Rate and Rhythm, Normal S1, S2. No: Murmurs Abdomen: No: Tenderness, Distention, Peritoneal Signs Back: Present: Normal Inspection Upper Extremity: Present: Normal Inspection. No: Cyanosis, Edema Lower Extremity: Present: Normal Inspection. No: Edema Neurological: Present: GCS=15, CN II-XII Intact, Speech Normal Skin: Present: Warm, Dry, Normal Color. No: Rashes Psychiatric: Present: Alert, Oriented x 3, Normal Insight, Normal Concentration. No: Normal Affect (Flat affect) Medical Decision Making ED Course and Treatment: 11/16/18 01:46 Impression: 33 year old female brought in for depression after attempting to overdose on Tylenol. Plan: -- EKG -- Labs, alcohol level, acetaminophen level, salicylate level -- Urinalysis, urine drug screen -- Reassess and disposition Prior Visits: Notes and results from previous visits were reviewed. Progress Notes: Case discussed with Poison Control. Recommend Acetadote be administered as per protocol and to repeat labwork in 4 hours. Acetadote ordered. 11/16/18 03:19 Reviewed EKG, sinus tachycardia at 111 bpm. Non-specific T wave changes. 11/16/18 04:[address] Marquez, gear inspector, who is aware and agrees with plan. Accepts pt in to hospitalist service. Pt will be admitted to the ICU for tylenol drug overdose and suicidal ideation. osteopathic resident notified. 11/16/18 04:20 Chest X-ray reviewed, shows no acute processes. - Lab Interpretations I have reviewed the lab results: Yes - RAD Interpretation Radiology Orders: 11/16/18 01:32 CHEST PORTABLE [RAD] Stat Customer Support Advisor: ED Physician, Radiologist - EKG Interpretation Interpreted by ED Physician: Yes Type: 12 lead EKG - Scribe Statement The provider has reviewed the documentation as recorded by the Doyle Newberry Provider Scribe Attestation: All medical record entries made by the Scribe were at my direction and personally dictated by me. I have reviewed the chart and agree that the record accurately reflects my personal performance of the history, physical exam, medical decision making, and the department course for this patient. I have also personally directed, reviewed, and agree with the discharge instructions and disposition. Disposition/Present on Arrival - Present on Arrival Any Indicators Present on Arrival: No History of DVT/PE: No History of Uncontrolled Diabetes: Yes Urinary Catheter: No History of Decub. Ulcer: No History Surgical Site Infection Following: None - Disposition Have Diagnosis and Disposition been Completed?: Yes Diagnosis: Drug overdose, Suicide attempt, Tylenol overdose Disposition: HOSPITALIZED Disposition Time: 04:05 Patient Problems: Current Active Problems Problem Status Onset Drug overdose Acute Suicide attempt Acute Tylenol overdose Acute Condition: STABLE
[2018-11-16] MEDS ORDERED: WATER IV ONE ×2 (01:57→04:56)
[2018-11-16] MEDS ORDERED: DEXTROSE 5% IV ONE ×2 (01:57→04:56)
[2018-11-16] MEDS ORDERED: ACETYLCYSTEINE IV ONE ×4 (01:57→04:56)
[2018-11-16] MEDS ORDERED: SODIUM CHLORIDE 0.45% IV ONE ×2 (02:15)
[2018-11-16 02:20] LABS: URINE BILIRUBIN NEGATIVE (NEGATIVE); URINE BLOOD NEGATIVE (NEGATIVE); URINE GLUCOSE (UA) NEGATIVE (NEGATIVE); URINE LEUKOCYTE ESTERASE NEGATIVE Leu/uL (NEGATIVE); URINE PROTEIN 30 mg/dL (<30 mg/dL); URINE UROBILINOGEN 0.2 E.U./dL (<1 E.U./dL)
[2018-11-16 02:20] LABS: SALICYLATE < 1 mg/dL (2.0-20.0)
[2018-11-16 02:21] LABS: BASO # 0.02 K/mm3 (0.0-2.0); BASO % 0.2 % (0.0-3.0); EOS # 0.3 (0.0-0.7); HEMOGLOBIN 11.8 g/dL (12.0-16.0); LYMPH # 1.9 (1.2-3.4); LYMPH % 22.2 % (22.0-35.0); MEAN CELL VOLUME 85.3 fl (80.0-105.0); MEAN CORPUSCULAR HEMOGLOBIN 27.9 pg (25.0-35.0); MEAN CORPUSCULAR HGB CONC 32.7 g/dl (31.0-37.0); MEAN PLATELET VOLUME 8.9 fl (7.0-11.0); MONO # 0.7 (0.1-0.6); MONO % 7.8 % (1.0-6.0); RBC 4.23 10^6/uL (3.5-6.1); RED CELL DISTRIBUTION WIDTH 12.3 % (11.5-14.5); WHITE BLOOD COUNT 8.5 10^3/uL (4.5-11.0)
[2018-11-16 02:22] LABS: URINE APPEARANCE CLEAR (CLEAR); URINE COLOR YELLOW (YELLOW)
[2018-11-16 02:23] LABS: ALT/SGPT 25 U/L (7-56); AST/SGOT 25 U/L (14-36)
[2018-11-16 02:27] LABS: URINE BACTERIA FEW /hpf; URINE RBC 0 - 2 /hpf (0-2); URINE WBC 0 - 2 /hpf (0-6)
[2018-11-16 02:36] LABS: BARBITURATES, UR NEGATIVE (NEGATIVE); BENZODIAZEPINES, UR NEGATIVE (NEGATIVE); OPIATES, UR NEGATIVE (NEGATIVE); PHENCYCLIDINE, UR NEGATIVE (NEGATIVE)
[2018-11-16 02:36] LABS: ALB/GLOB RATIO 1.2 (1.1-1.8); ALBUMIN 3.8 g/dL (3.0-4.8); BLOOD UREA NITROGEN 16 mg/dL (7-21); CALCIUM 8.7 mg/dL (8.4-10.5); GFR NON-AFRICAN AMERICAN > 60
[2018-11-16 03:04] LABS: INR 1.07; PARTIAL THROMBOPLASTIN TIME 35.1 Seconds (26.9-38.3); PROTHROMBIN TIME 11.9 SECONDS (9.4-12.5)
--- NOTE | 2018-11-16 04:30 | CP.PCM.HP ---
History of Present Illness - History of Present Illness History of Present Illness: Gil Arreola, H&P DRAFT Nataly Maciel - 33 y/o F cc: "tylenol overdose, depression, suicide attempt" 33 year old female, whose past medical history includes Type 1 diabetes, DKA, rhabdomyolysis, and ovarian torsian s/p right salpingo-oopherectomy, who presents to the Emergency department brought in by EMS after attempting to overdose on Tylenol. Patient states she has been feeling depressed for a while, however when questioned, patient will not state why. Patient states she took "a handful" of Tylenol 500 mg prior to arrival, unsure how many exactly. Patient states she also took Benadryl earlier for a rash. Patient denies any homicidal ideation, fever, chills, chest pain, shortness of breath, abdominal pain, nausea, vomiting, diarrhea, urinary symptoms, back pain, neck pain, headache, dizziness, or any other complaints. Last admission: 07/17/18: worsening lower abdominal distention/pain. Patient had urinary retention and was told to f/u with urology as outpatient. Also had a lung nodule that she needed to f/u with PMD upon discharge. PMD: Dr. Reed PMH: Type 1 Diabetes Mellitus (Insulin Dependent), DKA, Rhabdomyolysis, Ovarian Torsion s/p right salpingo-oopherectomy Surgeries: R Salpingo-oopherectomy, R Breast cyst excision, R ear cyst excision, (7 years ago) [facility] Hx: Patient has been 3 times, 1 living child and 2 miscarriages in the first trimester. LMP was 06/30/2018, menstrual period regular. Sexually active only with . Denies contraceptive use. Family History: Mom: Rheumathoid arthritis, psoriatic arthritis, Bryan's, colitis. Brother: Diabetes Mellitus (Type 1) Social History: Denies: ETOH, tobacco, recreational drugs. Works at home. No recent travels, sick contacts, or pets. Medications: see MAR Allergies: NKDA ED Vitals: Temp 98, HR 101, BP 142/87, RR 18, SaO2 98% (RA) Labs: wbc 11.8 (baseline), coag wnl, AST.AKT 25/25, UA negative for UTI, Utox: Tylenol level 13 (range 10-20), rest is negative; neg EtOH EKG: sinus tachy, 111 bpm, non-specific T wave changes Poison control contacted: recommend acetadote/acetylcysteine and repeat labs in 4 hours ED orders: Acetylcysteine with 1/2 NS IVF piggy-back @ 200 cc/hr Past Patient History - Infectious Disease Hx of Infectious Diseases: None - Tetanus Immunizations Tetanus Immunization: Unknown - Past Medical History & Family History Past Medical History?: Yes - Past Social History Smoking Status: Never Smoked - CARDIAC Hx Cardiac Disorders: Yes (heart murmur) - PULMONARY Hx Respiratory Disorders: No - NEUROLOGICAL Hx Neurological Disorder: Yes Hx Dizziness: Yes Hx Syncope: Yes - HEENT Hx HEENT Problems: No - RENAL Hx Chronic Kidney Disease: No - ENDOCRINE/METABOLIC Hx Endocrine Disorders: Yes Hx Diabetes Mellitus Type 1: Yes - HEMATOLOGICAL/ONCOLOGICAL Hx Blood Disorders: No - INTEGUMENTARY Hx Dermatological Problems: Yes Other/Comment: SCAR - MUSCULOSKELETAL/RHEUMATOLOGICAL Hx Falls: No - GASTROINTESTINAL Hx Gastrointestinal Disorders: Yes Hx Constipation: Yes - GENITOURINARY/GYNECOLOGICAL Hx Genitourinary Disorders: No - PSYCHIATRIC Hx Psychophysiologic Disorder: No Hx Substance Use: No - SURGICAL HISTORY Hx Section: Yes Other/Comment: cyst removed from right breast and posterior right ear benign, c section 2010, right ovary and right fallopian tube december 2014 - ANESTHESIA Hx Anesthesia: Yes Hx Anesthesia Reactions: No Hx Malignant Hyperthermia: No Meds Allergies/Adverse Reactions: Allergies Allergy/AdvReac Type Severity Reaction Status Date / Time No Known Allergies Allergy Verified 09/22/16 07:28 Results - Vital Signs Recent Vital Signs: Last Vital Signs Temp 98 F 11/16/18 04:06 Pulse 107 H 11/16/18 04:06 Resp 18 11/16/18 04:06 BP 159/92 H 11/16/18 04:06 Pulse Ox 97 11/16/18 04:06 - Labs Result Diagrams: 11/16/18 01:46 11/16/18 01:46 Labs: Laboratory Results - last 24 hr 11/16/18 11/16/18 11/16/18 01:44 01:44 01:46 WBC 8.5 D RBC 4.23 Hgb 11.8 L Hct 36.1 MCV 85.3 D MCH 27.9 MCHC 32.7 RDW 12.3 Plt Count 272 MPV 8.9 Neut % (Auto) 66.8 Lymph % (Auto) 22.2 [place] % (Auto) 7.8 H Eos % (Auto) 3.0 Baso % (Auto) 0.2 Lymph # (Auto) 1.9 [place] # (Auto) 0.7 H Eos # (Auto) 0.3 Baso # (Auto) 0.02 Absolute Neuts (auto) 5.65 PT INR APTT Sodium Potassium Chloride Carbon Dioxide Anion Gap BUN Creatinine Est GFR ( Amer) Est GFR (Non-Af Amer) Random Glucose Calcium Magnesium Total Bilirubin AST ALT Alkaline Phosphatase Total Protein Albumin Globulin Albumin/Globulin Ratio Urine Color Yellow Urine Appearance Clear Urine pH 6.0 Ur Specific [place] 1.025 Urine Protein 30 H Urine Glucose (UA) Negative Urine Ketones Negative Urine Blood Negative Urine Nitrate Negative Urine Bilirubin Negative Urine Urobilinogen 0.2 Ur Leukocyte Esterase Negative Urine RBC 0 - 2 Urine WBC 0 - 2 Ur Epithelial Cells 6 - 8 H Urine Bacteria Few Salicylates Urine Opiates Screen Negative Urine Methadone Screen Negative Acetaminophen Ur Barbiturates Screen Negative Ur Phencyclidine Scrn Negative Ur Amphetamines Screen Negative U Benzodiazepines Scrn Negative U Oth Cocaine Metabols Negative U Cannabinoids Screen Negative Alcohol, Quantitative 11/16/18 11/16/18 11/16/18 01:46 01:46 01:46 WBC RBC Hgb Hct MCV MCH MCHC RDW Plt Count MPV Neut % (Auto) Lymph % (Auto) [place] % (Auto) Eos % (Auto) Baso % (Auto) Lymph # (Auto) [place] # (Auto) Eos # (Auto) Baso # (Auto) Absolute Neuts (auto) PT INR APTT Sodium 138 Potassium 3.8 Chloride 106 Carbon Dioxide 23 Anion Gap 13 BUN 16 Creatinine 0.7 Est GFR ( Amer) > 60 Est GFR (Non-Af Amer) > 60 Random Glucose 153 H Calcium 8.7 Magnesium 1.8 Total Bilirubin 0.4 AST 25 ALT 25 Alkaline Phosphatase 49 Total Protein 7.0 Albumin 3.8 Globulin 3.2 Albumin/Globulin Ratio 1.2 Urine Color Urine Appearance Urine pH Ur Specific [place] Urine Protein Urine Glucose (UA) Urine Ketones Urine Blood Urine Nitrate Urine Bilirubin Urine Urobilinogen Ur Leukocyte Esterase Urine RBC Urine WBC Ur Epithelial Cells Urine Bacteria Salicylates < 1 L Urine Opiates Screen Urine Methadone Screen Acetaminophen 13.0 Ur Barbiturates Screen Ur Phencyclidine Scrn Ur Amphetamines Screen U Benzodiazepines Scrn U Oth Cocaine Metabols U Cannabinoids Screen Alcohol, Quantitative < 10 11/16/18 01:46 WBC RBC Hgb Hct MCV MCH MCHC RDW Plt Count MPV Neut % (Auto) Lymph % (Auto) [place] % (Auto) Eos % (Auto) Baso % (Auto) Lymph # (Auto) [place] # (Auto) Eos # (Auto) Baso # (Auto) Absolute Neuts (auto) PT 11.9 INR 1.07 APTT 35.1 Sodium Potassium Chloride Carbon Dioxide Anion Gap BUN Creatinine Est GFR ( Amer) Est GFR (Non-Af Amer) Random Glucose Calcium Magnesium Total Bilirubin AST ALT Alkaline Phosphatase Total Protein Albumin Globulin Albumin/Globulin Ratio Urine Color Urine Appearance Urine pH Ur Specific [place] Urine Protein Urine Glucose (UA) Urine Ketones Urine Blood Urine Nitrate Urine Bilirubin Urine Urobilinogen Ur Leukocyte Esterase Urine RBC Urine WBC Ur Epithelial Cells Urine Bacteria Salicylates Urine Opiates Screen Urine Methadone Screen Acetaminophen Ur Barbiturates Screen Ur Phencyclidine Scrn Ur Amphetamines Screen U Benzodiazepines Scrn U Oth Cocaine Metabols U Cannabinoids Screen Alcohol, Quantitative
[2018-11-16] MEDS ORDERED: Dextrose 50% SYRINGE Inj (50 ml) IV PRN (05:06)
--- NOTE | 2018-11-16 05:41 | CP.PCM.HP ---
<Miah Landin - Last Filed: 11/16/18 06:11> History of Present Illness - History of Present Illness History of Present Illness: History and Physical note for Dr. 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 Patient states she has been feeling depressed for a while, however when questioned, patient will not state why reporting "a lot of different stuff is going on." Patient states she took "a handful" of Tylenol 500 mg prior to arrival at 11pm, unsure how many exactly. She reports an over the counter small size pill bottle with about half of the pills left inside the bottle. She denies drinking any alcohol with the ingestion. Patient states she also took Benadryl earlier for a recurrent rash on her right arm. Patient reports first suicidal attempt. Patient denies any homicidal ideation, fever, chills, chest pain, shortness of breath, abdominal pain, nausea, vomiting, diarrhea, urinary symptoms, back pain, neck pain, headache, dizziness, or any other complaints. Patient does report feelings of depression and fatigue. ED Vitals: Temp 98, HR 101, BP 142/87, RR 18, SaO2 98% (RA) Labs: wbc 11.8 (baseline), coag wnl, AST.AKT 25/25, UA negative for UTI, Utox: T ylenol level 13 (range 10-20), rest is negative; neg EtOH EKG: sinus tachy, 111 bpm, non-specific T wave changes Poison control contacted: recommend acetadote/acetylcysteine and repeat labs in 4 hours ED orders: Acetylcysteine with 1/2 NS IVF piggy-back @ 200 cc/hr PMD: Dr. Reed PMH: Type 1 Diabetes Mellitus (Insulin Dependent), DKA, Rhabdomyolysis, Ovarian Torsion s/p right salpingo-oopherectomy Surgeries: R Salpingo-oopherectomy, R Breast cyst excision, R ear cyst excision, (7 years ago) [facility] Hx: Patient has been 3 times, 1 living child and 2 miscarriages in the first trimester. LMP was 06/30/2018, menstrual period regular. Sexually active only with . Denies contraceptive use. Family History: Mom: Rheumathoid arthritis, psoriatic arthritis, Bryan's, co litis. Brother: Diabetes Mellitus (Type 1) Social History: Denies: ETOH, tobacco, recreational drugs. Works at home. No recent travels, sick contacts, or pets. Medications: see MAR Allergies: NKDA Present on Admission - Present on Admission Any Indicators Present on Admission: No History of DVT/PE: No Review of Systems - Review of Systems All systems: reviewed and no additional remarkable complaints except (as mentioned in HPI) Past Patient History - Infectious Disease Hx of Infectious Diseases: None - Tetanus Immunizations Tetanus Immunization: Unknown - Past Medical History & Family History Past Medical History?: Yes - Past Social History Smoking Status: Never Smoked - CARDIAC Hx Cardiac Disorders: Yes (heart murmur) - PULMONARY Hx Respiratory Disorders: No - NEUROLOGICAL Hx Neurological Disorder: Yes Hx Dizziness: Yes Hx Syncope: Yes - HEENT Hx HEENT Problems: No - RENAL Hx Chronic Kidney Disease: No - ENDOCRINE/METABOLIC Hx Endocrine Disorders: Yes Hx Diabetes Mellitus Type 1: Yes - HEMATOLOGICAL/ONCOLOGICAL Hx Blood Disorders: No - INTEGUMENTARY Hx Dermatological Problems: Yes Other/Comment: SCAR - MUSCULOSKELETAL/RHEUMATOLOGICAL Hx Falls: No - GASTROINTESTINAL Hx Gastrointestinal Disorders: Yes Hx Constipation: Yes - GENITOURINARY/GYNECOLOGICAL Hx Genitourinary Disorders: No - PSYCHIATRIC Hx Psychophysiologic Disorder: No Hx Substance Use: No - SURGICAL HISTORY Hx Section: Yes Other/Comment: cyst removed from right breast and posterior right ear benign, c section 2010, right ovary and right fallopian tube december 2014 - ANESTHESIA Hx Anesthesia: Yes Hx Anesthesia Reactions: No Hx Malignant Hyperthermia: No Meds Allergies/Adverse Reactions: Allergies Allergy/AdvReac Type Severity Reaction Status Date / Time No Known Allergies Allergy Verified 09/22/16 07:28 Physical Exam - Constitutional Appears: Non-toxic, No Acute Distress - Head Exam Head Exam: ATRAUMATIC, NORMOCEPHALIC - Eye Exam Eye Exam: EOMI, Normal appearance, PERRL - ENT Exam ENT Exam: Mucous Membranes Moist - Neck Exam Neck exam: Positive for: Full Rom - Respiratory Exam Respiratory Exam: Clear to Auscultation Bilateral, NORMAL BREATHING PATTERN. absent: Wheezes - Cardiovascular Exam Cardiovascular Exam: REGULAR RHYTHM, +S1, +S2 - GI/Abdominal Exam GI & Abdominal Exam: Normal Bowel Sounds, Soft. absent: Distended, Firm, Guarding, Organomegaly, Tenderness - Extremities Exam Extremities exam: Positive for: full ROM - Neurological Exam Neurological exam: Alert, CN II-XII Intact, Oriented x3 Additional comments: motor and sensory grossly intact - Psychiatric Exam Psychiatric exam: Depressed - Skin Skin Exam: Dry, Intact Results - Vital Signs Recent Vital Signs: Last Vital Signs Temp 98 F 11/16/18 04:06 Pulse 107 H 11/16/18 04:06 Resp 18 11/16/18 04:06 BP 159/92 H 11/16/18 04:06 Pulse Ox 97 11/16/18 04:06 - Labs Result Diagrams: 11/16/18 01:46 11/16/18 01:46 Labs: Laboratory Results - last 24 hr 11/16/18 11/16/18 11/16/18 01:44 01:44 01:46 WBC 8.5 D RBC 4.23 Hgb 11.8 L Hct 36.1 MCV 85.3 D MCH 27.9 MCHC 32.7 RDW 12.3 Plt Count 272 MPV 8.9 Neut % (Auto) 66.8 Lymph % (Auto) 22.2 [place] % (Auto) 7.8 H Eos % (Auto) 3.0 Baso % (Auto) 0.2 Lymph # (Auto) 1.9 [place] # (Auto) 0.7 H Eos # (Auto) 0.3 Baso # (Auto) 0.02 Absolute Neuts (auto) 5.65 PT INR APTT Sodium Potassium Chloride Carbon Dioxide Anion Gap BUN Creatinine Est GFR ( Amer) Est GFR (Non-Af Amer) Random Glucose Calcium Magnesium Total Bilirubin AST ALT Alkaline Phosphatase Total Protein Albumin Globulin Albumin/Globulin Ratio Urine Color Yellow Urine Appearance Clear Urine pH 6.0 Ur Specific [place] 1.025 Urine Protein 30 H Urine Glucose (UA) Negative Urine Ketones Negative Urine Blood Negative Urine Nitrate Negative Urine Bilirubin Negative Urine Urobilinogen 0.2 Ur Leukocyte Esterase Negative Urine RBC 0 - 2 Urine WBC 0 - 2 Ur Epithelial Cells 6 - 8 H Urine Bacteria Few Salicylates Urine Opiates Screen Negative Urine Methadone Screen Negative Acetaminophen Ur Barbiturates Screen Negative Ur Phencyclidine Scrn Negative Ur Amphetamines Screen Negative U Benzodiazepines Scrn Negative U Oth Cocaine Metabols Negative U Cannabinoids Screen Negative Alcohol, Quantitative 11/16/18 11/16/18 11/16/18 01:46 01:46 01:46 WBC RBC Hgb Hct MCV MCH MCHC RDW Plt Count MPV Neut % (Auto) Lymph % (Auto) [place] % (Auto) Eos % (Auto) Baso % (Auto) Lymph # (Auto) [place] # (Auto) Eos # (Auto) Baso # (Auto) Absolute Neuts (auto) PT INR APTT Sodium 138 Potassium 3.8 Chloride 106 Carbon Dioxide 23 Anion Gap 13 BUN 16 Creatinine 0.7 Est GFR ( Amer) > 60 Est GFR (Non-Af Amer) > 60 Random Glucose 153 H Calcium 8.7 Magnesium 1.8 Total Bilirubin 0.4 AST 25 ALT 25 Alkaline Phosphatase 49 Total Protein 7.0 Albumin 3.8 Globulin 3.2 Albumin/Globulin Ratio 1.2 Urine Color Urine Appearance Urine pH Ur Specific [place] Urine Protein Urine Glucose (UA) Urine Ketones Urine Blood Urine Nitrate Urine Bilirubin Urine Urobilinogen Ur Leukocyte Esterase Urine RBC Urine WBC Ur Epithelial Cells Urine Bacteria Salicylates < 1 L Urine Opiates Screen Urine Methadone Screen Acetaminophen 13.0 Ur Barbiturates Screen Ur Phencyclidine Scrn Ur Amphetamines Screen U Benzodiazepines Scrn U Oth Cocaine Metabols U Cannabinoids Screen Alcohol, Quantitative < 10 11/16/18 01:46 WBC RBC Hgb Hct MCV MCH MCHC RDW Plt Count MPV Neut % (Auto) Lymph % (Auto) [place] % (Auto) Eos % (Auto) Baso % (Auto) Lymph # (Auto) [place] # (Auto) Eos # (Auto) Baso # (Auto) Absolute Neuts (auto) PT 11.9 INR 1.07 APTT 35.1 Sodium Potassium Chloride Carbon Dioxide Anion Gap BUN Creatinine Est GFR ( Amer) Est GFR (Non-Af Amer) Random Glucose Calcium Magnesium Total Bilirubin AST ALT Alkaline Phosphatase Total Protein Albumin Globulin Albumin/Globulin Ratio Urine Color Urine Appearance Urine pH Ur Specific [place] Urine Protein Urine Glucose (UA) Urine Ketones Urine Blood Urine Nitrate Urine Bilirubin Urine Urobilinogen Ur Leukocyte Esterase Urine RBC Urine WBC Ur Epithelial Cells Urine Bacteria Salicylates Urine Opiates Screen Urine Methadone Screen Acetaminophen Ur Barbiturates Screen Ur Phencyclidine Scrn Ur Amphetamines Screen U Benzodiazepines Scrn U Oth Cocaine Metabols U Cannabinoids Screen Alcohol, Quantitative Assessment & Plan - Assessment and Plan (Free Text) Assessment: 33 year old female, whose past medical history includes Type 1 diabetes, DKA, rhabdomyolysis who presents to [facility] ED after overdose of Tylenol. Patient treated with dose #1 loading dose in ED. Patient to be admitted to ICU for close monitoring and evaluation for Acetaminophen toxicity. Plan: Acetaminophen Overdose - Ingestion of half a regular bottle of Tylenol 500mg at 11pm on 11/15/2018 - Initial Acetaminophen level of 13 - Dose #1 of NAC 150mg/kg in 200mL of D5W given in ED - Dose #2 of NAC 50mg/kg in 500mL of D5W to be given over next 4 hours - Plan for Dose #3 of 100mg/kg in 1000mL over 16 hours - Monitor Acetaminophen level - Monitor patient clinically in ICU - Poison control notified, symptomatic care - 1:1 sitter - Psych consult Type 1 DM - Patient on Insulin pump at home - Restart home patient insulin this PM - ISS medium - CCD moderate HTN - Patient on Lisnopril at home, restart meds - Monitor HR and BP, goal MAP >65mmHg Chronic lower extremity edema - Continue home lasix 40mg PO - Previous charts reviewed, ECHO from previous admission showing: EF 63.2%, dilated LA, mild/moderate MR, Small PFO GI/DVT ppx Patient case and plan discussed with attending, Dr. Marquez <Chris Marquez - Last Filed: 11/16/18 06:35> Results - Vital Signs Recent Vital Signs: Last Vital Signs Temp 98 F 11/16/18 04:06 Pulse 110 H 11/16/18 06:00 Resp 18 11/16/18 06:00 BP 161/95 H 11/16/18 06:00 Pulse Ox 100 11/16/18 06:00 - Labs Result Diagrams: 11/16/18 01:46 11/16/18 01:46 Labs: Laboratory Results - last 24 hr 11/16/18 11/16/18 11/16/18 01:44 01:44 01:46 WBC 8.5 D RBC 4.23 Hgb 11.8 L Hct 36.1 MCV 85.3 D MCH 27.9 MCHC 32.7 RDW 12.3 Plt Count 272 MPV 8.9 Neut % (Auto) 66.8 Lymph % (Auto) 22.2 [place] % (Auto) 7.8 H Eos % (Auto) 3.0 Baso % (Auto) 0.2 Lymph # (Auto) 1.9 [place] # (Auto) 0.7 H Eos # (Auto) 0.3 Baso # (Auto) 0.02 Absolute Neuts (auto) 5.65 PT INR APTT Sodium Potassium Chloride Carbon Dioxide Anion Gap BUN Creatinine Est GFR ( Amer) Est GFR (Non-Af Amer) Random Glucose Calcium Magnesium Total Bilirubin AST ALT Alkaline Phosphatase Total Protein Albumin Globulin Albumin/Globulin Ratio Urine Color Yellow Urine Appearance Clear Urine pH 6.0 Ur Specific [place] 1.025 Urine Protein 30 H Urine Glucose (UA) Negative Urine Ketones Negative Urine Blood Negative Urine Nitrate Negative Urine Bilirubin Negative Urine Urobilinogen 0.2 Ur Leukocyte Esterase Negative Urine RBC 0 - 2 Urine WBC 0 - 2 Ur Epithelial Cells 6 - 8 H Urine Bacteria Few Salicylates Urine Opiates Screen Negative Urine Methadone Screen Negative Acetaminophen Ur Barbiturates Screen Negative Ur Phencyclidine Scrn Negative Ur Amphetamines Screen Negative U Benzodiazepines Scrn Negative U Oth Cocaine Metabols Negative U Cannabinoids Screen Negative Alcohol, Quantitative 11/16/18 11/16/18 11/16/18 01:46 01:46 01:46 WBC RBC Hgb Hct MCV MCH MCHC RDW Plt Count MPV Neut % (Auto) Lymph % (Auto) [place] % (Auto) Eos % (Auto) Baso % (Auto) Lymph # (Auto) [place] # (Auto) Eos # (Auto) Baso # (Auto) Absolute Neuts (auto) PT INR APTT Sodium 138 Potassium 3.8 Chloride 106 Carbon Dioxide 23 Anion Gap 13 BUN 16 Creatinine 0.7 Est GFR ( Amer) > 60 Est GFR (Non-Af Amer) > 60 Random Glucose 153 H Calcium 8.7 Magnesium 1.8 Total Bilirubin 0.4 AST 25 ALT 25 Alkaline Phosphatase 49 Total Protein 7.0 Albumin 3.8 Globulin 3.2 Albumin/Globulin Ratio 1.2 Urine Color Urine Appearance Urine pH Ur Specific [place] Urine Protein Urine Glucose (UA) Urine Ketones Urine Blood Urine Nitrate Urine Bilirubin Urine Urobilinogen Ur Leukocyte Esterase Urine RBC Urine WBC Ur Epithelial Cells Urine Bacteria Salicylates < 1 L Urine Opiates Screen Urine Methadone Screen Acetaminophen 13.0 Ur Barbiturates Screen Ur Phencyclidine Scrn Ur Amphetamines Screen U Benzodiazepines Scrn U Oth Cocaine Metabols U Cannabinoids Screen Alcohol, Quantitative < 10 11/16/18 01:46 WBC RBC Hgb Hct MCV MCH MCHC RDW Plt Count MPV Neut % (Auto) Lymph % (Auto) [place] % (Auto) Eos % (Auto) Baso % (Auto) Lymph # (Auto) [place] # (Auto) Eos # (Auto) Baso # (Auto) Absolute Neuts (auto) PT 11.9 INR 1.07 APTT 35.1 Sodium Potassium Chloride Carbon Dioxide Anion Gap BUN Creatinine Est GFR ( Amer) Est GFR (Non-Af Amer) Random Glucose Calcium Magnesium Total Bilirubin AST ALT Alkaline Phosphatase Total Protein Albumin Globulin Albumin/Globulin Ratio Urine Color Urine Appearance Urine pH Ur Specific [place] Urine Protein Urine Glucose (UA) Urine Ketones Urine Blood Urine Nitrate Urine Bilirubin Urine Urobilinogen Ur Leukocyte Esterase Urine RBC Urine WBC Ur Epithelial Cells Urine Bacteria Salicylates Urine Opiates Screen Urine Methadone Screen Acetaminophen Ur Barbiturates Screen Ur Phencyclidine Scrn Ur Amphetamines Screen U Benzodiazepines Scrn U Oth Cocaine Metabols U Cannabinoids Screen Alcohol, Quantitative Attending/Attestation - Attestation I have personally seen and examined this patient.: Yes I have fully participated in the care of the patient.: Yes I have reviewed all pertinent clinical information: Yes Notes (Text): 11/16/18 06:35 Seen and examined. Discussed with resident. A&P as above.
--- NOTE | 2018-11-16 05:44 | CP.PCM.CON ---
History of Present Illness - History of Present Illness History of Present Illness: ICU Consult Note for Dr. 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 Patient states she has been feeling depressed for a while, however when questioned, patient will not state why reporting "a lot of different stuff is going on." Patient states she took "a handful" of Tylenol 500 mg prior to arrival at 11pm, unsure how many exactly. She reports an over the counter small size pill bottle with about half of the pills left inside the bottle. She denies drinking any alcohol with the ingestion. Patient states she also took Benadryl earlier for a recurrent rash on her right arm. Patient reports first suicidal attempt. Patient denies any homicidal ideation, fever, chills, chest pain, shortness of breath, abdominal pain, nausea, vomiting, diarrhea, urinary symptoms, back pain, neck pain, headache, dizziness, or any other complaints. Patient does report feelings of depression and fatigue. ED Vitals: Temp 98, HR 101, BP 142/87, RR 18, SaO2 98% (RA) Labs: wbc 11.8 (baseline), coag wnl, AST.AKT 25/25, UA negative for UTI, Utox: Tylenol level 13 (range 10-20), rest is negative; neg EtOH EKG: sinus tachy, 111 bpm, non-specific T wave changes Poison control contacted: recommend acetadote/acetylcysteine and repeat labs in 4 hours ED orders: Acetylcysteine with 1/2 NS IVF piggy-back @ 200 cc/hr PMD: Dr. Reed PMH: Type 1 Diabetes Mellitus (Insulin Dependent), DKA, Rhabdomyolysis, Ovarian Torsion s/p right salpingo-oopherectomy Surgeries: R Salpingo-oopherectomy, R Breast cyst excision, R ear cyst excision, (7 years ago) [employer] Hx: Patient has been 3 times, 1 living child and 2 miscarriages in the first trimester. LMP was 06/30/2018, menstrual period regular. Sexually active only with . Denies contraceptive use. Family History: Mom: Rheumathoid arthritis, psoriatic arthritis, Bryan's, colitis. Brother: Diabetes Mellitus (Type 1) Social History: Denies: ETOH, tobacco, recreational drugs. Works at home. No recent travels, sick contacts, or pets. Medications: see MAR Allergies: NKDA Review of Systems - Review of Systems All systems: reviewed and no additional remarkable complaints except (as mentioned in HPI) Past Patient History - Infectious Disease Hx of Infectious Diseases: None - Tetanus Immunizations Tetanus Immunization: Unknown - Past Medical History & Family History Past Medical History?: Yes - Past Social History Smoking Status: Never Smoked - CARDIAC Hx Cardiac Disorders: Yes (heart murmur) - PULMONARY Hx Respiratory Disorders: No - NEUROLOGICAL Hx Neurological Disorder: Yes Hx Dizziness: Yes Hx Syncope: Yes - HEENT Hx HEENT Problems: No - RENAL Hx Chronic Kidney Disease: No - ENDOCRINE/METABOLIC Hx Endocrine Disorders: Yes Hx Diabetes Mellitus Type 1: Yes - HEMATOLOGICAL/ONCOLOGICAL Hx Blood Disorders: No - INTEGUMENTARY Hx Dermatological Problems: Yes Other/Comment: SCAR - MUSCULOSKELETAL/RHEUMATOLOGICAL Hx Falls: No - GASTROINTESTINAL Hx Gastrointestinal Disorders: Yes Hx Constipation: Yes - GENITOURINARY/GYNECOLOGICAL Hx Genitourinary Disorders: No - PSYCHIATRIC Hx Psychophysiologic Disorder: No Hx Substance Use: No - SURGICAL HISTORY Hx Section: Yes Other/Comment: cyst removed from right breast and posterior right ear benign, c section 2010, right ovary and right fallopian tube december 2014 - ANESTHESIA Hx Anesthesia: Yes Hx Anesthesia Reactions: No Hx Malignant Hyperthermia: No Meds Allergies/Adverse Reactions: Allergies Allergy/AdvReac Type Severity Reaction Status Date / Time No Known Allergies Allergy Verified 09/22/16 07:28 - Medications Medications: Current Medications Dextrose (Dextrose 50% Inj) 0 ml IV STAT PRN; Protocol PRN Reason: Hypoglycemia Protocol Furosemide (Lasix) 20 mg PO DAILY [place] Acetylcysteine 3,785 mg/ (Dextrose) 518.925 mls @ 125 mls/hr IV .Q4H10M ONE Stop: 11/16/18 09:05 Dextrose (Dextrose 5% In Water 1000 Ml) 1,000 mls @ 0 mls/hr IV .Q0M PRN; Protocol PRN Reason: Hypoglycemia Protocol Insulin Human Lispro (Humalog Med) 0 units SC ACHS [place]; Protocol Lisinopril (Zestril) 20 mg PO DAILY [place] Results - Vital Signs Recent Vital Signs: Last Vital Signs Temp 98 F 11/16/18 04:06 Pulse 107 H 11/16/18 04:06 Resp 18 11/16/18 04:06 BP 159/92 H 11/16/18 04:06 Pulse Ox 97 11/16/18 04:06 - Labs Result Diagrams: 11/16/18 01:46 11/16/18 01:46 Labs: Laboratory Results - last 24 hr 11/16/18 11/16/18 11/16/18 01:44 01:44 01:46 WBC 8.5 D RBC 4.23 Hgb 11.8 L Hct 36.1 MCV 85.3 D MCH 27.9 MCHC 32.7 RDW 12.3 Plt Count 272 MPV 8.9 Neut % (Auto) 66.8 Lymph % (Auto) 22.2 [place] % (Auto) 7.8 H Eos % (Auto) 3.0 Baso % (Auto) 0.2 Lymph # (Auto) 1.9 [place] # (Auto) 0.7 H Eos # (Auto) 0.3 Baso # (Auto) 0.02 Absolute Neuts (auto) 5.65 PT INR APTT Sodium Potassium Chloride Carbon Dioxide Anion Gap BUN Creatinine Est GFR ( Amer) Est GFR (Non-Af Amer) Random Glucose Calcium Magnesium Total Bilirubin AST ALT Alkaline Phosphatase Total Protein Albumin Globulin Albumin/Globulin Ratio Urine Color Yellow Urine Appearance Clear Urine pH 6.0 Ur Specific [place] 1.025 Urine Protein 30 H Urine Glucose (UA) Negative Urine Ketones Negative Urine Blood Negative Urine Nitrate Negative Urine Bilirubin Negative Urine Urobilinogen 0.2 Ur Leukocyte Esterase Negative Urine RBC 0 - 2 Urine WBC 0 - 2 Ur Epithelial Cells 6 - 8 H Urine Bacteria Few Salicylates Urine Opiates Screen Negative Urine Methadone Screen Negative Acetaminophen Ur Barbiturates Screen Negative Ur Phencyclidine Scrn Negative Ur Amphetamines Screen Negative U Benzodiazepines Scrn Negative U Oth Cocaine Metabols Negative U Cannabinoids Screen Negative Alcohol, Quantitative 11/16/18 11/16/18 11/16/18 01:46 01:46 01:46 WBC RBC Hgb Hct MCV MCH MCHC RDW Plt Count MPV Neut % (Auto) Lymph % (Auto) [place] % (Auto) Eos % (Auto) Baso % (Auto) Lymph # (Auto) [place] # (Auto) Eos # (Auto) Baso # (Auto) Absolute Neuts (auto) PT INR APTT Sodium 138 Potassium 3.8 Chloride 106 Carbon Dioxide 23 Anion Gap 13 BUN 16 Creatinine 0.7 Est GFR ( Amer) > 60 Est GFR (Non-Af Amer) > 60 Random Glucose 153 H Calcium 8.7 Magnesium 1.8 Total Bilirubin 0.4 AST 25 ALT 25 Alkaline Phosphatase 49 Total Protein 7.0 Albumin 3.8 Globulin 3.2 Albumin/Globulin Ratio 1.2 Urine Color Urine Appearance Urine pH Ur Specific [place] Urine Protein Urine Glucose (UA) Urine Ketones Urine Blood Urine Nitrate Urine Bilirubin Urine Urobilinogen Ur Leukocyte Esterase Urine RBC Urine WBC Ur Epithelial Cells Urine Bacteria Salicylates < 1 L Urine Opiates Screen Urine Methadone Screen Acetaminophen 13.0 Ur Barbiturates Screen Ur Phencyclidine Scrn Ur Amphetamines Screen U Benzodiazepines Scrn U Oth Cocaine Metabols U Cannabinoids Screen Alcohol, Quantitative < 10 11/16/18 01:46 WBC RBC Hgb Hct MCV MCH MCHC RDW Plt Count MPV Neut % (Auto) Lymph % (Auto) [place] % (Auto) Eos % (Auto) Baso % (Auto) Lymph # (Auto) [place] # (Auto) Eos # (Auto) Baso # (Auto) Absolute Neuts (auto) PT 11.9 INR 1.07 APTT 35.1 Sodium Potassium Chloride Carbon Dioxide Anion Gap BUN Creatinine Est GFR ( Amer) Est GFR (Non-Af Amer) Random Glucose Calcium Magnesium Total Bilirubin AST ALT Alkaline Phosphatase Total Protein Albumin Globulin Albumin/Globulin Ratio Urine Color Urine Appearance Urine pH Ur Specific [place] Urine Protein Urine Glucose (UA) Urine Ketones Urine Blood Urine Nitrate Urine Bilirubin Urine Urobilinogen Ur Leukocyte Esterase Urine RBC Urine WBC Ur Epithelial Cells Urine Bacteria Salicylates Urine Opiates Screen Urine Methadone Screen Acetaminophen Ur Barbiturates Screen Ur Phencyclidine Scrn Ur Amphetamines Screen U Benzodiazepines Scrn U Oth Cocaine Metabols U Cannabinoids Screen Alcohol, Quantitative
[2018-11-16 06:46] LABS: ALB/GLOB RATIO 1.2 (1.1-1.8); ALBUMIN 3.7 g/dL (3.0-4.8); ALT/SGPT 20 U/L (7-56); AST/SGOT 25 U/L (14-36); BLOOD UREA NITROGEN 13 mg/dL (7-21); CALCIUM 8.4 mg/dL (8.4-10.5); GFR NON-AFRICAN AMERICAN > 60
--- NOTE | 2018-11-16 08:49 | CP.PCM.PCO ---
Physician Communication Note - Physician Communication Note Physician Communication Note: consult was called from ED, pt will be seen on medical site
[2018-11-16] MEDS: Insulin Lispro (humaLOG) MEDIUM Coverage SC SCH ×4 (09:04→23:17)
[2018-11-16 09:19] LABS: INR 1.19; PARTIAL THROMBOPLASTIN TIME 32.8 Seconds (26.9-38.3); PROTHROMBIN TIME 13.4 SECONDS (9.4-12.5)
[2018-11-16 09:29] LABS: ALB/GLOB RATIO 1.2 (1.1-1.8); ALBUMIN 3.6 g/dL (3.0-4.8); ALT/SGPT 24 U/L (7-56); AST/SGOT 19 U/L (14-36); BLOOD UREA NITROGEN 11 mg/dL (7-21); CALCIUM 8.5 mg/dL (8.4-10.5); GFR NON-AFRICAN AMERICAN > 60
--- NOTE | 2018-11-16 10:03 | CARD ---
APPROVED REPORT Date of service: 11/16/2018 EKG Measurement Heart [id number] <Conclusion> Sinus tachycardia Nonspecific T wave abnormality Abnormal ECG
--- NOTE | 2018-11-16 10:15 | RAD ---
Date of service: 11/16/2018 HISTORY: medical clearance COMPARISON: 07/17/2018 TECHNIQUE: 1 view obtained. FINDINGS: LUNGS: No active pulmonary disease. PLEURA: No significant pleural effusion identified, no pneumothorax apparent. CARDIOVASCULAR: No aortic atherosclerotic calcification present. Normal cardiac size. No pulmonary vascular congestion. OSSEOUS STRUCTURES: No significant abnormalities. VISUALIZED UPPER ABDOMEN: Normal. OTHER FINDINGS: None. IMPRESSION: No active disease.
[2018-11-16] MEDS: Enoxaparin 40 mg Syringe SC SCH (11:31)
--- NOTE | 2018-11-16 12:24 | CP.CCUPN ---
<MameArnoldo zhang R - Last Filed: 11/16/18 12:28> CCU Subjective - Physician Review Subjective (Free Text): PGY - 2 ICU progress note for Fernando Patient states she has a headache otherwise denies discomfort, pain, abd pain, cp, n/v. States she is not eating bc she doesn't like the look of the food she was offered - not due to nausea/loss of appetite. States she might eat dinner. Requesting her sugars be checked more often. 11/16/18 12:28 Critical Care Time Spent (in minutes): 35 CCU Objective - Vital Signs / Intake & Output Vital Signs (Last 4 hours): Vital Signs Temp Pulse Resp BP Pulse Ox 11/16/18 11:33 119 H 167/101 H 11/16/18 11:31 167/101 H 11/16/18 09:55 97.9 F 111 H 19 98 Intake and Output (Last 8hrs): Intake & Output 11/15/18 11/16/18 11/16/18 22:59 06:59 14:59 Weight 167 lb - Physical Exam Head: Positive for: Atraumatic, Normocephalic Pupils: Positive for: PERRL Extroacular Muscles: Positive for: EOMI Conjunctiva: Positive for: Normal Mouth: Positive for: Moist Mucous Membranes Neck: Positive for: Normal Range of Motion Respiratory/Chest: Positive for: Clear to Auscultation, Good Air Exchange. Negative for: Respiratory Distress, Accessory Muscle Use Cardiovascular: Positive for: Regular Rate and Rhythm, Normal S1, S2. Negative for: Murmurs Abdomen: Positive for: Normal Bowel Sounds. Negative for: Tenderness, Distention, Peritoneal Signs Back: Positive for: Normal Inspection Upper Extremity: Positive for: Normal Inspection. Negative for: Cyanosis, Edema Lower Extremity: Positive for: Normal Inspection. Negative for: Edema Neurological: Positive for: GCS=15, CN II-XII Intact, Speech Normal Skin: Positive for: Warm, Dry, Normal Color. Negative for: Rashes Psychiatric: Positive for: Alert, Oriented x 3, Normal Insight, Normal Concentration. Negative for: Normal Affect (Flat affect) - Medications Active Medications: Active Medications Generic Name Dose Route Start Last Admin Trade Name Freq PRN Reason Stop Dose Admin Dextrose 0 ml 11/16/18 05:06 Dextrose 50% Inj IV STAT PRN Hypoglycemia Protocol Protocol Enoxaparin Sodium 40 mg 11/16/18 10:00 11/16/18 11:31 Lovenox SC 40 mg DAILY [facility] Administration Protocol Famotidine 40 mg 11/16/18 22:00 Pepcid PO HS R[place] Furosemide 20 mg 11/16/18 10:00 11/16/18 11:31 Lasix PO 20 mg DAILY [place] Administration Dextrose 1,000 mls @ 0 mls/hr 11/16/18 05:06 Dextrose 5% In Water 1000 Ml IV .Q0M PRN Hypoglycemia Protocol Protocol Per Protocol Insulin Human Lispro 0 units 11/16/18 07:30 11/16/18 11:33 Humalog Med SC Not Given ACHS R[place] Protocol Lisinopril 20 mg 11/16/18 10:00 11/16/18 11:33 Zestril PO 20 mg DAILY [place] Administration - Patient Studies Lab Studies: Lab Studies 11/16/18 11/16/18 11/16/18 Range/Units 09:00 08:58 08:38 WBC (4.5-11.0) 10^3/uL RBC (3.5-6.1) 10^6/uL Hgb (12.0-16.0) g/dL Hct (36.0-48.0) % MCV (80.0-105.0) fl MCH (25.0-35.0) pg MCHC (31.0-37.0) g/dl RDW (11.5-14.5) % Plt Count (120.0-450.0) 10^3/uL MPV (7.0-11.0) fl Neut % (Auto) (50.0-68.0) % Lymph % (Auto) (22.0-35.0) % Howell % (Auto) (1.0-6.0) % Eos % (Auto) (1.5-5.0) % Baso % (Auto) (0.0-3.0) % Lymph # (Auto) (1.2-3.4) Howell # (Auto) (0.1-0.6) Eos # (Auto) (0.0-0.7) Baso # (Auto) (0.0-2.0) K/mm3 Absolute Neuts (auto) (1.4-6.5) PT 13.4 H (9.4-12.5) SECONDS INR 1.19 APTT 32.8 (26.9-38.3) Seconds Sodium 140 (132-148) mmol/L Potassium 3.7 (3.6-5.0) mmol/L Chloride 106 (98-107) mmol/L Carbon Dioxide 22 (21-33) mmol/L Anion Gap 16 (10-20) BUN 11 (7-21) mg/dL Creatinine 0.4 L (0.7-1.2) mg/dl Est GFR ( Amer) > 60 Est GFR (Non-Af Amer) > 60 POC Glucose (mg/dL) 204 H (65-110) mg/dL Random Glucose 191 H (70-110) mg/dL Calcium 8.5 (8.4-10.5) mg/dL Phosphorus (2.5-4.5) mg/dL Magnesium (1.7-2.2) mg/dL Total Bilirubin 0.5 (0.2-1.3) mg/dL AST 19 (14-36) U/L ALT 24 (7-56) U/L Alkaline Phosphatase 35 L (38-126) U/L Total Protein 6.7 (5.8-8.3) g/dL Albumin 3.6 (3.0-4.8) g/dL Globulin 3.1 gm/dL Albumin/Globulin Ratio 1.2 (1.1-1.8) Urine Color (YELLOW) Urine Appearance (CLEAR) Urine pH (4.7-8.0) Ur Specific [place] (1.005-1.035) Urine Protein (<30 mg/dL) mg/dL Urine Glucose (UA) (NEGATIVE) mg/dL Urine Ketones (NEGATIVE) mg/dL Urine Blood (NEGATIVE) Urine Nitrate (NEGATIVE) Urine Bilirubin (NEGATIVE) Urine Urobilinogen (<1 E.U./dL) E.U./dL Ur Leukocyte Esterase (NEGATIVE) Manolo/uL Urine RBC (0-2) /hpf Urine WBC (0-6) /hpf Ur Epithelial Cells (0-5) /hpf Urine Bacteria (NONE) /hpf Salicylates (2.0-20.0) mg/dL Urine Opiates Screen (NEGATIVE) Urine Methadone Screen (NEGATIVE) Acetaminophen (10.0-20.0) ug/ml Ur Barbiturates Screen (NEGATIVE) Ur Phencyclidine Scrn (NEGATIVE) Ur Amphetamines Screen (NEGATIVE) U Benzodiazepines Scrn (NEGATIVE) U Oth Cocaine Metabols (NEGATIVE) U Cannabinoids Screen (NEGATIVE) Alcohol, Quantitative (0-10) mg/dL 11/16/18 11/16/18 11/16/18 Range/Units 08:38 05:42 05:28 WBC (4.5-11.0) 10^3/uL RBC (3.5-6.1) 10^6/uL Hgb (12.0-16.0) g/dL Hct (36.0-48.0) % MCV (80.0-105.0) fl MCH (25.0-35.0) pg MCHC (31.0-37.0) g/dl RDW (11.5-14.5) % Plt Count (120.0-450.0) 10^3/uL MPV (7.0-11.0) fl Neut % (Auto) (50.0-68.0) % Lymph % (Auto) (22.0-35.0) % Howell % (Auto) (1.0-6.0) % Eos % (Auto) (1.5-5.0) % Baso % (Auto) (0.0-3.0) % Lymph # (Auto) (1.2-3.4) Howell # (Auto) (0.1-0.6) Eos # (Auto) (0.0-0.7) Baso # (Auto) (0.0-2.0) K/mm3 Absolute Neuts (auto) (1.4-6.5) PT (9.4-12.5) SECONDS INR APTT (26.9-38.3) Seconds Sodium 139 (132-148) mmol/L Potassium 3.7 (3.6-5.0) mmol/L Chloride 107 (98-107) mmol/L Carbon Dioxide 22 (21-33) mmol/L Anion Gap 15 (10-20) BUN 13 (7-21) mg/dL Creatinine 0.4 L (0.7-1.2) mg/dl Est GFR ( Amer) > 60 Est GFR (Non-Af Amer) > 60 POC Glucose (mg/dL) 206 H (65-110) mg/dL Random Glucose 183 H (70-110) mg/dL Calcium 8.4 (8.4-10.5) mg/dL Phosphorus 3.3 (2.5-4.5) mg/dL Magnesium 1.8 (1.7-2.2) mg/dL Total Bilirubin 0.5 (0.2-1.3) mg/dL AST 25 (14-36) U/L ALT 20 (7-56) U/L Alkaline Phosphatase 30 L D (38-126) U/L Total Protein 6.7 (5.8-8.3) g/dL Albumin 3.7 (3.0-4.8) g/dL Globulin 3.0 gm/dL Albumin/Globulin Ratio 1.2 (1.1-1.8) Urine Color (YELLOW) Urine Appearance (CLEAR) Urine pH (4.7-8.0) Ur Specific [place] (1.005-1.035) Urine Protein (<30 mg/dL) mg/dL Urine Glucose (UA) (NEGATIVE) mg/dL Urine Ketones (NEGATIVE) mg/dL Urine Blood (NEGATIVE) Urine Nitrate (NEGATIVE) Urine Bilirubin (NEGATIVE) Urine Urobilinogen (<1 E.U./dL) E.U./dL Ur Leukocyte Esterase (NEGATIVE) Manolo/uL Urine RBC (0-2) /hpf Urine WBC (0-6) /hpf Ur Epithelial Cells (0-5) /hpf Urine Bacteria (NONE) /hpf Salicylates (2.0-20.0) mg/dL Urine Opiates Screen (NEGATIVE) Urine Methadone Screen (NEGATIVE) Acetaminophen < 10.0 L (10.0-20.0) ug/ml Ur Barbiturates Screen (NEGATIVE) Ur Phencyclidine Scrn (NEGATIVE) Ur Amphetamines Screen (NEGATIVE) U Benzodiazepines Scrn (NEGATIVE) U Oth Cocaine Metabols (NEGATIVE) U Cannabinoids Screen (NEGATIVE) Alcohol, Quantitative (0-10) mg/dL 11/16/18 11/16/18 11/16/18 Range/Units 01:46 01:46 01:46 WBC (4.5-11.0) 10^3/uL RBC (3.5-6.1) 10^6/uL Hgb (12.0-16.0) g/dL Hct (36.0-48.0) % MCV (80.0-105.0) fl MCH (25.0-35.0) pg MCHC (31.0-37.0) g/dl RDW (11.5-14.5) % Plt Count (120.0-450.0) 10^3/uL MPV (7.0-11.0) fl Neut % (Auto) (50.0-68.0) % Lymph % (Auto) (22.0-35.0) % Howell % (Auto) (1.0-6.0) % Eos % (Auto) (1.5-5.0) % Baso % (Auto) (0.0-3.0) % Lymph # (Auto) (1.2-3.4) Howell # (Auto) (0.1-0.6) Eos # (Auto) (0.0-0.7) Baso # (Auto) (0.0-2.0) K/mm3 Absolute Neuts (auto) (1.4-6.5) PT 11.9 (9.4-12.5) SECONDS INR 1.07 APTT 35.1 (26.9-38.3) Seconds Sodium (132-148) mmol/L Potassium (3.6-5.0) mmol/L Chloride (98-107) mmol/L Carbon Dioxide (21-33) mmol/L Anion Gap (10-20) BUN (7-21) mg/dL Creatinine (0.7-1.2) mg/dl Est GFR ( Amer) Est GFR (Non-Af Amer) POC Glucose (mg/dL) (65-110) mg/dL Random Glucose (70-110) mg/dL Calcium (8.4-10.5) mg/dL Phosphorus (2.5-4.5) mg/dL Magnesium (1.7-2.2) mg/dL Total Bilirubin (0.2-1.3) mg/dL AST (14-36) U/L ALT (7-56) U/L Alkaline Phosphatase (38-126) U/L Total Protein (5.8-8.3) g/dL Albumin (3.0-4.8) g/dL Globulin gm/dL Albumin/Globulin Ratio (1.1-1.8) Urine Color (YELLOW) Urine Appearance (CLEAR) Urine pH (4.7-8.0) Ur Specific [place] (1.005-1.035) Urine Protein (<30 mg/dL) mg/dL Urine Glucose (UA) (NEGATIVE) mg/dL Urine Ketones (NEGATIVE) mg/dL Urine Blood (NEGATIVE) Urine Nitrate (NEGATIVE) Urine Bilirubin (NEGATIVE) Urine Urobilinogen (<1 E.U./dL) E.U./dL Ur Leukocyte Esterase (NEGATIVE) Manolo/uL Urine RBC (0-2) /hpf Urine WBC (0-6) /hpf Ur Epithelial Cells (0-5) /hpf Urine Bacteria (NONE) /hpf Salicylates < 1 L (2.0-20.0) mg/dL Urine Opiates Screen (NEGATIVE) Urine Methadone Screen (NEGATIVE) Acetaminophen 13.0 (10.0-20.0) ug/ml Ur Barbiturates Screen (NEGATIVE) Ur Phencyclidine Scrn (NEGATIVE) Ur Amphetamines Screen (NEGATIVE) U Benzodiazepines Scrn (NEGATIVE) U Oth Cocaine Metabols (NEGATIVE) U Cannabinoids Screen (NEGATIVE) Alcohol, Quantitative < 10 (0-10) mg/dL 11/16/18 11/16/18 11/16/18 Range/Units 01:46 01:46 01:44 WBC 8.5 D (4.5-11.0) 10^3/uL RBC 4.23 (3.5-6.1) 10^6/uL Hgb 11.8 L (12.0-16.0) g/dL Hct 36.1 (36.0-48.0) % MCV 85.3 D (80.0-105.0) fl MCH 27.9 (25.0-35.0) pg MCHC 32.7 (31.0-37.0) g/dl RDW 12.3 (11.5-14.5) % Plt Count 272 (120.0-450.0) 10^3/uL MPV 8.9 (7.0-11.0) fl Neut % (Auto) 66.8 (50.0-68.0) % Lymph % (Auto) 22.2 (22.0-35.0) % Howell % (Auto) 7.8 H (1.0-6.0) % Eos % (Auto) 3.0 (1.5-5.0) % Baso % (Auto) 0.2 (0.0-3.0) % Lymph # (Auto) 1.9 (1.2-3.4) Howell # (Auto) 0.7 H (0.1-0.6) Eos # (Auto) 0.3 (0.0-0.7) Baso # (Auto) 0.02 (0.0-2.0) K/mm3 Absolute Neuts (auto) 5.65 (1.4-6.5) PT (9.4-12.5) SECONDS INR APTT (26.9-38.3) Seconds Sodium 138 (132-148) mmol/L Potassium 3.8 (3.6-5.0) mmol/L Chloride 106 (98-107) mmol/L Carbon Dioxide 23 (21-33) mmol/L Anion Gap 13 (10-20) BUN 16 (7-21) mg/dL Creatinine 0.7 (0.7-1.2) mg/dl Est GFR ( Amer) > 60 Est GFR (Non-Af Amer) > 60 POC Glucose (mg/dL) (65-110) mg/dL Random Glucose 153 H (70-110) mg/dL Calcium 8.7 (8.4-10.5) mg/dL Phosphorus (2.5-4.5) mg/dL Magnesium 1.8 (1.7-2.2) mg/dL Total Bilirubin 0.4 (0.2-1.3) mg/dL AST 25 (14-36) U/L ALT 25 (7-56) U/L Alkaline Phosphatase 49 (38-126) U/L Total Protein 7.0 (5.8-8.3) g/dL Albumin 3.8 (3.0-4.8) g/dL Globulin 3.2 gm/dL Albumin/Globulin Ratio 1.2 (1.1-1.8) Urine Color (YELLOW) Urine Appearance (CLEAR) Urine pH (4.7-8.0) Ur Specific [place] (1.005-1.035) Urine Protein (<30 mg/dL) mg/dL Urine Glucose (UA) (NEGATIVE) mg/dL Urine Ketones (NEGATIVE) mg/dL Urine Blood (NEGATIVE) Urine Nitrate (NEGATIVE) Urine Bilirubin (NEGATIVE) Urine Urobilinogen (<1 E.U./dL) E.U./dL Ur Leukocyte Esterase (NEGATIVE) Manolo/uL Urine RBC (0-2) /hpf Urine WBC (0-6) /hpf Ur Epithelial Cells (0-5) /hpf Urine Bacteria (NONE) /hpf Salicylates (2.0-20.0) mg/dL Urine Opiates Screen Negative (NEGATIVE) Urine Methadone Screen Negative (NEGATIVE) Acetaminophen (10.0-20.0) ug/ml Ur Barbiturates Screen Negative (NEGATIVE) Ur Phencyclidine Scrn Negative (NEGATIVE) Ur Amphetamines Screen Negative (NEGATIVE) U Benzodiazepines Scrn Negative (NEGATIVE) U Oth Cocaine Metabols Negative (NEGATIVE) U Cannabinoids Screen Negative (NEGATIVE) Alcohol, Quantitative (0-10) mg/dL 11/16/18 Range/Units 01:44 WBC (4.5-11.0) 10^3/uL RBC (3.5-6.1) 10^6/uL Hgb (12.0-16.0) g/dL Hct (36.0-48.0) % MCV (80.0-105.0) fl MCH (25.0-35.0) pg MCHC (31.0-37.0) g/dl RDW (11.5-14.5) % Plt Count (120.0-450.0) 10^3/uL MPV (7.0-11.0) fl Neut % (Auto) (50.0-68.0) % Lymph % (Auto) (22.0-35.0) % Howell % (Auto) (1.0-6.0) % Eos % (Auto) (1.5-5.0) % Baso % (Auto) (0.0-3.0) % Lymph # (Auto) (1.2-3.4) Howell # (Auto) (0.1-0.6) Eos # (Auto) (0.0-0.7) Baso # (Auto) (0.0-2.0) K/mm3 Absolute Neuts (auto) (1.4-6.5) PT (9.4-12.5) SECONDS INR APTT (26.9-38.3) Seconds Sodium (132-148) mmol/L Potassium (3.6-5.0) mmol/L Chloride (98-107) mmol/L Carbon Dioxide (21-33) mmol/L Anion Gap (10-20) BUN (7-21) mg/dL Creatinine (0.7-1.2) mg/dl Est GFR ( Amer) Est GFR (Non-Af Amer) POC Glucose (mg/dL) (65-110) mg/dL Random Glucose (70-110) mg/dL Calcium (8.4-10.5) mg/dL Phosphorus (2.5-4.5) mg/dL Magnesium (1.7-2.2) mg/dL Total Bilirubin (0.2-1.3) mg/dL AST (14-36) U/L ALT (7-56) U/L Alkaline Phosphatase (38-126) U/L Total Protein (5.8-8.3) g/dL Albumin (3.0-4.8) g/dL Globulin gm/dL Albumin/Globulin Ratio (1.1-1.8) Urine Color Yellow (YELLOW) Urine Appearance Clear (CLEAR) Urine pH 6.0 (4.7-8.0) Ur Specific [place] 1.025 (1.005-1.035) Urine Protein 30 H (<30 mg/dL) mg/dL Urine Glucose (UA) Negative (NEGATIVE) mg/dL Urine Ketones Negative (NEGATIVE) mg/dL Urine Blood Negative (NEGATIVE) Urine Nitrate Negative (NEGATIVE) Urine Bilirubin Negative (NEGATIVE) Urine Urobilinogen 0.2 (<1 E.U./dL) E.U./dL Ur Leukocyte Esterase Negative (NEGATIVE) Manolo/uL Urine RBC 0 - 2 (0-2) /hpf Urine WBC 0 - 2 (0-6) /hpf Ur Epithelial Cells 6 - 8 H (0-5) /hpf Urine Bacteria Few (NONE) /hpf Salicylates (2.0-20.0) mg/dL Urine Opiates Screen (NEGATIVE) Urine Methadone Screen (NEGATIVE) Acetaminophen (10.0-20.0) ug/ml Ur Barbiturates Screen (NEGATIVE) Ur Phencyclidine Scrn (NEGATIVE) Ur Amphetamines Screen (NEGATIVE) U Benzodiazepines Scrn (NEGATIVE) U Oth Cocaine Metabols (NEGATIVE) U Cannabinoids Screen (NEGATIVE) Alcohol, Quantitative (0-10) mg/dL Laboratory Results - last 24 hr 11/16/18 11/16/18 11/16/18 01:44 01:44 01:46 WBC 8.5 D RBC 4.23 Hgb 11.8 L Hct 36.1 MCV 85.3 D MCH 27.9 MCHC 32.7 RDW 12.3 Plt Count 272 MPV 8.9 Neut % (Auto) 66.8 Lymph % (Auto) 22.2 Howell % (Auto) 7.8 H Eos % (Auto) 3.0 Baso % (Auto) 0.2 Lymph # (Auto) 1.9 Howell # (Auto) 0.7 H Eos # (Auto) 0.3 Baso # (Auto) 0.02 Absolute Neuts (auto) 5.65 PT INR APTT Sodium Potassium Chloride Carbon Dioxide Anion Gap BUN Creatinine Est GFR ( Amer) Est GFR (Non-Af Amer) POC Glucose (mg/dL) Random Glucose Calcium Phosphorus Magnesium Total Bilirubin AST ALT Alkaline Phosphatase Total Protein Albumin Globulin Albumin/Globulin Ratio Urine Color Yellow Urine Appearance Clear Urine pH 6.0 Ur Specific [place] 1.025 Urine Protein 30 H Urine Glucose (UA) Negative Urine Ketones Negative Urine Blood Negative Urine Nitrate Negative Urine Bilirubin Negative Urine Urobilinogen 0.2 Ur Leukocyte Esterase Negative Urine RBC 0 - 2 Urine WBC 0 - 2 Ur Epithelial Cells 6 - 8 H Urine Bacteria Few Salicylates Urine Opiates Screen Negative Urine Methadone Screen Negative Acetaminophen Ur Barbiturates Screen Negative Ur Phencyclidine Scrn Negative Ur Amphetamines Screen Negative U Benzodiazepines Scrn Negative U Oth Cocaine Metabols Negative U Cannabinoids Screen Negative Alcohol, Quantitative 11/16/18 11/16/18 11/16/18 01:46 01:46 01:46 WBC RBC Hgb Hct MCV MCH MCHC RDW Plt Count MPV Neut % (Auto) Lymph % (Auto) Howell % (Auto) Eos % (Auto) Baso % (Auto) Lymph # (Auto) Howell # (Auto) Eos # (Auto) Baso # (Auto) Absolute Neuts (auto) PT INR APTT Sodium 138 Potassium 3.8 Chloride 106 Carbon Dioxide 23 Anion Gap 13 BUN 16 Creatinine 0.7 Est GFR ( Amer) > 60 Est GFR (Non-Af Amer) > 60 POC Glucose (mg/dL) Random Glucose 153 H Calcium 8.7 Phosphorus Magnesium 1.8 Total Bilirubin 0.4 AST 25 ALT 25 Alkaline Phosphatase 49 Total Protein 7.0 Albumin 3.8 Globulin 3.2 Albumin/Globulin Ratio 1.2 Urine Color Urine Appearance Urine pH Ur Specific [place] Urine Protein Urine Glucose (UA) Urine Ketones Urine Blood Urine Nitrate Urine Bilirubin Urine Urobilinogen Ur Leukocyte Esterase Urine RBC Urine WBC Ur Epithelial Cells Urine Bacteria Salicylates < 1 L Urine Opiates Screen Urine Methadone Screen Acetaminophen 13.0 Ur Barbiturates Screen Ur Phencyclidine Scrn Ur Amphetamines Screen U Benzodiazepines Scrn U Oth Cocaine Metabols U Cannabinoids Screen Alcohol, Quantitative < 10 11/16/18 11/16/18 11/16/18 01:46 05:28 05:42 WBC RBC Hgb Hct MCV MCH MCHC RDW Plt Count MPV Neut % (Auto) Lymph % (Auto) Howell % (Auto) Eos % (Auto) Baso % (Auto) Lymph # (Auto) Howell # (Auto) Eos # (Auto) Baso # (Auto) Absolute Neuts (auto) PT 11.9 INR 1.07 APTT 35.1 Sodium 139 Potassium 3.7 Chloride 107 Carbon Dioxide 22 Anion Gap 15 BUN 13 Creatinine 0.4 L Est GFR ( Amer) > 60 Est GFR (Non-Af Amer) > 60 POC Glucose (mg/dL) 206 H Random Glucose 183 H Calcium 8.4 Phosphorus 3.3 Magnesium 1.8 Total Bilirubin 0.5 AST 25 ALT 20 Alkaline Phosphatase 30 L D Total Protein 6.7 Albumin 3.7 Globulin 3.0 Albumin/Globulin Ratio 1.2 Urine Color Urine Appearance Urine pH Ur Specific [place] Urine Protein Urine Glucose (UA) Urine Ketones Urine Blood Urine Nitrate Urine Bilirubin Urine Urobilinogen Ur Leukocyte Esterase Urine RBC Urine WBC Ur Epithelial Cells Urine Bacteria Salicylates Urine Opiates Screen Urine Methadone Screen Acetaminophen Ur Barbiturates Screen Ur Phencyclidine Scrn Ur Amphetamines Screen U Benzodiazepines Scrn U Oth Cocaine Metabols U Cannabinoids Screen Alcohol, Quantitative 11/16/18 11/16/18 11/16/18 08:38 08:38 08:58 WBC RBC Hgb Hct MCV MCH MCHC RDW Plt Count MPV Neut % (Auto) Lymph % (Auto) Howell % (Auto) Eos % (Auto) Baso % (Auto) Lymph # (Auto) Howell # (Auto) Eos # (Auto) Baso # (Auto) Absolute Neuts (auto) PT 13.4 H INR 1.19 APTT 32.8 Sodium Potassium Chloride Carbon Dioxide Anion Gap BUN Creatinine Est GFR ( Amer) Est GFR (Non-Af Amer) POC Glucose (mg/dL) 204 H Random Glucose Calcium Phosphorus Magnesium Total Bilirubin AST ALT Alkaline Phosphatase Total Protein Albumin Globulin Albumin/Globulin Ratio Urine Color Urine Appearance Urine pH Ur Specific [place] Urine Protein Urine Glucose (UA) Urine Ketones Urine Blood Urine Nitrate Urine Bilirubin Urine Urobilinogen Ur Leukocyte Esterase Urine RBC Urine WBC Ur Epithelial Cells Urine Bacteria Salicylates Urine Opiates Screen Urine Methadone Screen Acetaminophen < 10.0 L Ur Barbiturates Screen Ur Phencyclidine Scrn Ur Amphetamines Screen U Benzodiazepines Scrn U Oth Cocaine Metabols U Cannabinoids Screen Alcohol, Quantitative 11/16/18 09:00 WBC RBC Hgb Hct MCV MCH MCHC RDW Plt Count MPV Neut % (Auto) Lymph % (Auto) Howell % (Auto) Eos % (Auto) Baso % (Auto) Lymph # (Auto) Howell # (Auto) Eos # (Auto) Baso # (Auto) Absolute Neuts (auto) PT INR APTT Sodium 140 Potassium 3.7 Chloride 106 Carbon Dioxide 22 Anion Gap 16 BUN 11 Creatinine 0.4 L Est GFR ( Amer) > 60 Est GFR (Non-Af Amer) > 60 POC Glucose (mg/dL) Random Glucose 191 H Calcium 8.5 Phosphorus Magnesium Total Bilirubin 0.5 AST 19 ALT 24 Alkaline Phosphatase 35 L Total Protein 6.7 Albumin 3.6 Globulin 3.1 Albumin/Globulin Ratio 1.2 Urine Color Urine Appearance Urine pH Ur Specific [place] Urine Protein Urine Glucose (UA) Urine Ketones Urine Blood Urine Nitrate Urine Bilirubin Urine Urobilinogen Ur Leukocyte Esterase Urine RBC Urine WBC Ur Epithelial Cells Urine Bacteria Salicylates Urine Opiates Screen Urine Methadone Screen Acetaminophen Ur Barbiturates Screen Ur Phencyclidine Scrn Ur Amphetamines Screen U Benzodiazepines Scrn U Oth Cocaine Metabols U Cannabinoids Screen Alcohol, Quantitative Radiology Impressions: Radiology Impressions Chest X-Ray 11/16/18 01:32 IMPRESSION: No active disease. EKG/Cardiology Studies: Cardiology / EKG Studies 11/16/18 ELECTROCARDIOGRAM Stat Comment: Reason For Exam: overdoase Fingerstick Blood Sugar Results: 204 Review of Systems - Review of Systems All systems: reviewed and no additional remarkable complaints except (as stated in HPI) Critical Care Progress Note - Nutrition Nutrition: Nutrition Category Date Time Status Consistent Carbohydrate [DIET] Diets 11/16/18 Breakfast Ordered Assessment/Plan - Assessment and Plan (Free Text) Plan: 33 year old female, whose past medical history includes Type 1 diabetes, DKA, rhabdomyolysis who presents to [facility] after overdose of Tylenol. Patient treated with dose #1 loading dose in ED. Patient to be admitted to ICU for close monitoring and evaluation for Acetaminophen toxicity. GI #Acetaminophen Overdose - Ingestion of half a regular bottle of Tylenol 500mg at 11pm on 11/15/2018 - Acetaminophen level of 13 -> <10.0, f/u repeat levels q4h - LFTs have remained normal, f/u repeat cmp in the afternoon - Dose #1 of NAC 150mg/kg in 200mL of D5W given in ED - Dose #2 of NAC 50mg/kg in 500mL of D5W to be given over next 4 hours - Dose #3 of 100mg/kg in 1000mL over 16 hours - Poison control notified, symptomatic care - 1:1 sitter - Psych consulted, Dr Cummings, pending eval - GI consulted, Dr Delgado #Constipation - hx of alternating constipation and diarrhea likely IBS - has tried stool softeners, laxatives, without avail - patient is scheduled to have a colonoscopy in [place] on 11/18/18 Neuro - mild headache, likely 2/2 to tylenol intoxication - no focal deficits, AAOx3 Cardiovascular - hemodynamically stable - ekg without st abnormalities, qtc ~460 #HTN - continue home med lisinopril 20mg po qd #Chronic Lower Extremity Edema -continue home lasix 20mg po qd -Previous charts reviewed, ECHO from previous admission showing: EF 63.2%, dilated LA, mild/moderate MR, Small PFO Pulmonary - saturating well on room air Endocrine #Type 1 DM - Patient on Insulin pump at home, states she does not take any other form of insulin - finger checks q2h - ISS medium - CCD moderate GI/DVT ppx Seen and discussed with Dr King <Nehal King - Last Filed: 11/16/18 15:56> CCU Objective - Vital Signs / Intake & Output Vital Signs (Last 4 hours): Vital Signs Pulse Resp 11/16/18 13:41 119 H 19 Intake and Output (Last 8hrs): Intake & Output 11/16/18 11/16/18 11/16/18 06:59 14:59 22:59 Weight 75.75 kg 75.75 kg Other: Voiding Method Toilet - Medications Active Medications: Active Medications Generic Name Dose Route Start Last Admin Trade Name Freq PRN Reason Stop Dose Admin Dextrose 0 ml 11/16/18 05:06 Dextrose 50% Inj IV STAT PRN Hypoglycemia Protocol Protocol Divalproex Sodium 125 mg 11/16/18 22:00 Depakote Sprinkles PO AMHS [facility] Protocol Enoxaparin Sodium 40 mg 11/16/18 10:00 11/16/18 11:31 Lovenox SC 40 mg DAILY [place] Administration Protocol Famotidine 40 mg 11/16/18 22:00 Pepcid PO HS [place] Furosemide 20 mg 11/16/18 10:00 11/16/18 11:31 Lasix PO 20 mg DAILY [place] Administration Dextrose 1,000 mls @ 0 mls/hr 11/16/18 05:06 Dextrose 5% In Water 1000 Ml IV .Q0M PRN Hypoglycemia Protocol Protocol Per Protocol Ibuprofen 400 mg 11/16/18 15:05 11/16/18 15:23 Motrin Tab PO 400 mg Q6H PRN Administration Headache Insulin Human Lispro 0 units 11/16/18 07:30 11/16/18 11:33 Humalog Med SC Not Given ACHS [facility] Protocol Lisinopril 20 mg 11/16/18 10:00 11/16/18 11:33 Zestril PO 20 mg DAILY [place] Administration Lorazepam 0.5 mg 11/16/18 15:49 Ativan PO Q6H PRN anxiety/agitation Protocol - Patient Studies Lab Studies: Lab Studies 11/16/18 11/16/18 11/16/18 Range/Units 13:58 13:45 12:54 WBC (4.5-11.0) 10^3/uL RBC (3.5-6.1) 10^6/uL Hgb (12.0-16.0) g/dL Hct (36.0-48.0) % MCV (80.0-105.0) fl MCH (25.0-35.0) pg MCHC (31.0-37.0) g/dl RDW (11.5-14.5) % Plt Count (120.0-450.0) 10^3/uL MPV (7.0-11.0) fl Neut % (Auto) (50.0-68.0) % Lymph % (Auto) (22.0-35.0) % Howell % (Auto) (1.0-6.0) % Eos % (Auto) (1.5-5.0) % Baso % (Auto) (0.0-3.0) % Lymph # (Auto) (1.2-3.4) Howell # (Auto) (0.1-0.6) Eos # (Auto) (0.0-0.7) Baso # (Auto) (0.0-2.0) K/mm3 Absolute Neuts (auto) (1.4-6.5) PT (9.4-12.5) SECONDS INR APTT (26.9-38.3) Seconds Sodium 141 (132-148) mmol/L Potassium 3.9 (3.6-5.0) mmol/L Chloride 107 (98-107) mmol/L Carbon Dioxide 23 (21-33) mmol/L Anion Gap 14 (10-20) BUN 9 (7-21) mg/dL Creatinine 0.5 L (0.7-1.2) mg/dl Est GFR ( Amer) > 60 Est GFR (Non-Af Amer) > 60 POC Glucose (mg/dL) 126 H (65-110) mg/dL Random Glucose 145 H (70-110) mg/dL Calcium 8.9 (8.4-10.5) mg/dL Phosphorus (2.5-4.5) mg/dL Magnesium (1.7-2.2) mg/dL Total Bilirubin 0.8 (0.2-1.3) mg/dL AST 21 (14-36) U/L ALT 17 (7-56) U/L Alkaline Phosphatase 51 (38-126) U/L Total Protein 6.8 (5.8-8.3) g/dL Albumin 3.7 (3.0-4.8) g/dL Globulin 3.1 gm/dL Albumin/Globulin Ratio 1.2 (1.1-1.8) Urine Color (YELLOW) Urine Appearance (CLEAR) Urine pH (4.7-8.0) Ur Specific [place] (1.005-1.035) Urine Protein (<30 mg/dL) mg/dL Urine Glucose (UA) (NEGATIVE) mg/dL Urine Ketones (NEGATIVE) mg/dL Urine Blood (NEGATIVE) Urine Nitrate (NEGATIVE) Urine Bilirubin (NEGATIVE) Urine Urobilinogen (<1 E.U./dL) E.U./dL Ur Leukocyte Esterase (NEGATIVE) Manolo/uL Urine RBC (0-2) /hpf Urine WBC (0-6) /hpf Ur Epithelial Cells (0-5) /hpf Urine Bacteria (NONE) /hpf Salicylates (2.0-20.0) mg/dL Urine Opiates Screen (NEGATIVE) Urine Methadone Screen (NEGATIVE) Acetaminophen < 10.0 L (10.0-20.0) ug/ml Ur Barbiturates Screen (NEGATIVE) Ur Phencyclidine Scrn (NEGATIVE) Ur Amphetamines Screen (NEGATIVE) U Benzodiazepines Scrn (NEGATIVE) U Oth Cocaine Metabols (NEGATIVE) U Cannabinoids Screen (NEGATIVE) Alcohol, Quantitative (0-10) mg/dL 11/16/18 11/16/18 11/16/18 Range/Units 12:48 09:00 08:58 WBC (4.5-11.0) 10^3/uL RBC (3.5-6.1) 10^6/uL Hgb (12.0-16.0) g/dL Hct (36.0-48.0) % MCV (80.0-105.0) fl MCH (25.0-35.0) pg MCHC (31.0-37.0) g/dl RDW (11.5-14.5) % Plt Count (120.0-450.0) 10^3/uL MPV (7.0-11.0) fl Neut % (Auto) (50.0-68.0) % Lymph % (Auto) (22.0-35.0) % Howell % (Auto) (1.0-6.0) % Eos % (Auto) (1.5-5.0) % Baso % (Auto) (0.0-3.0) % Lymph # (Auto) (1.2-3.4) Howell # (Auto) (0.1-0.6) Eos # (Auto) (0.0-0.7) Baso # (Auto) (0.0-2.0) K/mm3 Absolute Neuts (auto) (1.4-6.5) PT (9.4-12.5) SECONDS INR APTT (26.9-38.3) Seconds Sodium 140 (132-148) mmol/L Potassium 3.7 (3.6-5.0) mmol/L Chloride 106 (98-107) mmol/L Carbon Dioxide 22 (21-33) mmol/L Anion Gap 16 (10-20) BUN 11 (7-21) mg/dL Creatinine 0.4 L (0.7-1.2) mg/dl Est GFR ( Amer) > 60 Est GFR (Non-Af Amer) > 60 POC Glucose (mg/dL) 143 H 204 H (65-110) mg/dL Random Glucose 191 H (70-110) mg/dL Calcium 8.5 (8.4-10.5) mg/dL Phosphorus (2.5-4.5) mg/dL Magnesium (1.7-2.2) mg/dL Total Bilirubin 0.5 (0.2-1.3) mg/dL AST 19 (14-36) U/L ALT 24 (7-56) U/L Alkaline Phosphatase 35 L (38-126) U/L Total Protein 6.7 (5.8-8.3) g/dL Albumin 3.6 (3.0-4.8) g/dL Globulin 3.1 gm/dL Albumin/Globulin Ratio 1.2 (1.1-1.8) Urine Color (YELLOW) Urine Appearance (CLEAR) Urine pH (4.7-8.0) Ur Specific [place] (1.005-1.035) Urine Protein (<30 mg/dL) mg/dL Urine Glucose (UA) (NEGATIVE) mg/dL Urine Ketones (NEGATIVE) mg/dL Urine Blood (NEGATIVE) Urine Nitrate (NEGATIVE) Urine Bilirubin (NEGATIVE) Urine Urobilinogen (<1 E.U./dL) E.U./dL Ur Leukocyte Esterase (NEGATIVE) Manolo/uL Urine RBC (0-2) /hpf Urine WBC (0-6) /hpf Ur Epithelial Cells (0-5) /hpf Urine Bacteria (NONE) /hpf Salicylates (2.0-20.0) mg/dL Urine Opiates Screen (NEGATIVE) Urine Methadone Screen (NEGATIVE) Acetaminophen (10.0-20.0) ug/ml Ur Barbiturates Screen (NEGATIVE) Ur Phencyclidine Scrn (NEGATIVE) Ur Amphetamines Screen (NEGATIVE) U Benzodiazepines Scrn (NEGATIVE) U Oth Cocaine Metabols (NEGATIVE) U Cannabinoids Screen (NEGATIVE) Alcohol, Quantitative (0-10) mg/dL 11/16/18 11/16/18 11/16/18 Range/Units 08:38 08:38 05:42 WBC (4.5-11.0) 10^3/uL RBC (3.5-6.1) 10^6/uL Hgb (12.0-16.0) g/dL Hct (36.0-48.0) % MCV (80.0-105.0) fl MCH (25.0-35.0) pg MCHC (31.0-37.0) g/dl RDW (11.5-14.5) % Plt Count (120.0-450.0) 10^3/uL MPV (7.0-11.0) fl Neut % (Auto) (50.0-68.0) % Lymph % (Auto) (22.0-35.0) % Howell % (Auto) (1.0-6.0) % Eos % (Auto) (1.5-5.0) % Baso % (Auto) (0.0-3.0) % Lymph # (Auto) (1.2-3.4) Howell # (Auto) (0.1-0.6) Eos # (Auto) (0.0-0.7) Baso # (Auto) (0.0-2.0) K/mm3 Absolute Neuts (auto) (1.4-6.5) PT 13.4 H (9.4-12.5) SECONDS INR 1.19 APTT 32.8 (26.9-38.3) Seconds Sodium 139 (132-148) mmol/L Potassium 3.7 (3.6-5.0) mmol/L Chloride 107 (98-107) mmol/L Carbon Dioxide 22 (21-33) mmol/L Anion Gap 15 (10-20) BUN 13 (7-21) mg/dL Creatinine 0.4 L (0.7-1.2) mg/dl Est GFR ( Amer) > 60 Est GFR (Non-Af Amer) > 60 POC Glucose (mg/dL) (65-110) mg/dL Random Glucose 183 H (70-110) mg/dL Calcium 8.4 (8.4-10.5) mg/dL Phosphorus 3.3 (2.5-4.5) mg/dL Magnesium 1.8 (1.7-2.2) mg/dL Total Bilirubin 0.5 (0.2-1.3) mg/dL AST 25 (14-36) U/L ALT 20 (7-56) U/L Alkaline Phosphatase 30 L D (38-126) U/L Total Protein 6.7 (5.8-8.3) g/dL Albumin 3.7 (3.0-4.8) g/dL Globulin 3.0 gm/dL Albumin/Globulin Ratio 1.2 (1.1-1.8) Urine Color (YELLOW) Urine Appearance (CLEAR) Urine pH (4.7-8.0) Ur Specific [place] (1.005-1.035) Urine Protein (<30 mg/dL) mg/dL Urine Glucose (UA) (NEGATIVE) mg/dL Urine Ketones (NEGATIVE) mg/dL Urine Blood (NEGATIVE) Urine Nitrate (NEGATIVE) Urine Bilirubin (NEGATIVE) Urine Urobilinogen (<1 E.U./dL) E.U./dL Ur Leukocyte Esterase (NEGATIVE) Manolo/uL Urine RBC (0-2) /hpf Urine WBC (0-6) /hpf Ur Epithelial Cells (0-5) /hpf Urine Bacteria (NONE) /hpf Salicylates (2.0-20.0) mg/dL Urine Opiates Screen (NEGATIVE) Urine Methadone Screen (NEGATIVE) Acetaminophen < 10.0 L (10.0-20.0) ug/ml Ur Barbiturates Screen (NEGATIVE) Ur Phencyclidine Scrn (NEGATIVE) Ur Amphetamines Screen (NEGATIVE) U Benzodiazepines Scrn (NEGATIVE) U Oth Cocaine Metabols (NEGATIVE) U Cannabinoids Screen (NEGATIVE) Alcohol, Quantitative (0-10) mg/dL 11/16/18 11/16/18 11/16/18 Range/Units 05:28 01:46 01:46 WBC (4.5-11.0) 10^3/uL RBC (3.5-6.1) 10^6/uL Hgb (12.0-16.0) g/dL Hct (36.0-48.0) % MCV (80.0-105.0) fl MCH (25.0-35.0) pg MCHC (31.0-37.0) g/dl RDW (11.5-14.5) % Plt Count (120.0-450.0) 10^3/uL MPV (7.0-11.0) fl Neut % (Auto) (50.0-68.0) % Lymph % (Auto) (22.0-35.0) % Howell % (Auto) (1.0-6.0) % Eos % (Auto) (1.5-5.0) % Baso % (Auto) (0.0-3.0) % Lymph # (Auto) (1.2-3.4) Howell # (Auto) (0.1-0.6) Eos # (Auto) (0.0-0.7) Baso # (Auto) (0.0-2.0) K/mm3 Absolute Neuts (auto) (1.4-6.5) PT 11.9 (9.4-12.5) SECONDS INR 1.07 APTT 35.1 (26.9-38.3) Seconds Sodium (132-148) mmol/L Potassium (3.6-5.0) mmol/L Chloride (98-107) mmol/L Carbon Dioxide (21-33) mmol/L Anion Gap (10-20) BUN (7-21) mg/dL Creatinine (0.7-1.2) mg/dl Est GFR ( Amer) Est GFR (Non-Af Amer) POC Glucose (mg/dL) 206 H (65-110) mg/dL Random Glucose (70-110) mg/dL Calcium (8.4-10.5) mg/dL Phosphorus (2.5-4.5) mg/dL Magnesium (1.7-2.2) mg/dL Total Bilirubin (0.2-1.3) mg/dL AST (14-36) U/L ALT (7-56) U/L Alkaline Phosphatase (38-126) U/L Total Protein (5.8-8.3) g/dL Albumin (3.0-4.8) g/dL Globulin gm/dL Albumin/Globulin Ratio (1.1-1.8) Urine Color (YELLOW) Urine Appearance (CLEAR) Urine pH (4.7-8.0) Ur Specific [place] (1.005-1.035) Urine Protein (<30 mg/dL) mg/dL Urine Glucose (UA) (NEGATIVE) mg/dL Urine Ketones (NEGATIVE) mg/dL Urine Blood (NEGATIVE) Urine Nitrate (NEGATIVE) Urine Bilirubin (NEGATIVE) Urine Urobilinogen (<1 E.U./dL) E.U./dL Ur Leukocyte Esterase (NEGATIVE) Manolo/uL Urine RBC (0-2) /hpf Urine WBC (0-6) /hpf Ur Epithelial Cells (0-5) /hpf Urine Bacteria (NONE) /hpf Salicylates (2.0-20.0) mg/dL Urine Opiates Screen (NEGATIVE) Urine Methadone Screen (NEGATIVE) Acetaminophen (10.0-20.0) ug/ml Ur Barbiturates Screen (NEGATIVE) Ur Phencyclidine Scrn (NEGATIVE) Ur Amphetamines Screen (NEGATIVE) U Benzodiazepines Scrn (NEGATIVE) U Oth Cocaine Metabols (NEGATIVE) U Cannabinoids Screen (NEGATIVE) Alcohol, Quantitative < 10 (0-10) mg/dL 11/16/18 11/16/18 11/16/18 Range/Units 01:46 01:46 01:46 WBC 8.5 D (4.5-11.0) 10^3/uL RBC 4.23 (3.5-6.1) 10^6/uL Hgb 11.8 L (12.0-16.0) g/dL Hct 36.1 (36.0-48.0) % MCV 85.3 D (80.0-105.0) fl MCH 27.9 (25.0-35.0) pg MCHC 32.7 (31.0-37.0) g/dl RDW 12.3 (11.5-14.5) % Plt Count 272 (120.0-450.0) 10^3/uL MPV 8.9 (7.0-11.0) fl Neut % (Auto) 66.8 (50.0-68.0) % Lymph % (Auto) 22.2 (22.0-35.0) % Howell % (Auto) 7.8 H (1.0-6.0) % Eos % (Auto) 3.0 (1.5-5.0) % Baso % (Auto) 0.2 (0.0-3.0) % Lymph # (Auto) 1.9 (1.2-3.4) Howell # (Auto) 0.7 H (0.1-0.6) Eos # (Auto) 0.3 (0.0-0.7) Baso # (Auto) 0.02 (0.0-2.0) K/mm3 Absolute Neuts (auto) 5.65 (1.4-6.5) PT (9.4-12.5) SECONDS INR APTT (26.9-38.3) Seconds Sodium 138 (132-148) mmol/L Potassium 3.8 (3.6-5.0) mmol/L Chloride 106 (98-107) mmol/L Carbon Dioxide 23 (21-33) mmol/L Anion Gap 13 (10-20) BUN 16 (7-21) mg/dL Creatinine 0.7 (0.7-1.2) mg/dl Est GFR ( Amer) > 60 Est GFR (Non-Af Amer) > 60 POC Glucose (mg/dL) (65-110) mg/dL Random Glucose 153 H (70-110) mg/dL Calcium 8.7 (8.4-10.5) mg/dL Phosphorus (2.5-4.5) mg/dL Magnesium 1.8 (1.7-2.2) mg/dL Total Bilirubin 0.4 (0.2-1.3) mg/dL AST 25 (14-36) U/L ALT 25 (7-56) U/L Alkaline Phosphatase 49 (38-126) U/L Total Protein 7.0 (5.8-8.3) g/dL Albumin 3.8 (3.0-4.8) g/dL Globulin 3.2 gm/dL Albumin/Globulin Ratio 1.2 (1.1-1.8) Urine Color (YELLOW) Urine Appearance (CLEAR) Urine pH (4.7-8.0) Ur Specific [place] (1.005-1.035) Urine Protein (<30 mg/dL) mg/dL Urine Glucose (UA) (NEGATIVE) mg/dL Urine Ketones (NEGATIVE) mg/dL Urine Blood (NEGATIVE) Urine Nitrate (NEGATIVE) Urine Bilirubin (NEGATIVE) Urine Urobilinogen (<1 E.U./dL) E.U./dL Ur Leukocyte Esterase (NEGATIVE) Manolo/uL Urine RBC (0-2) /hpf Urine WBC (0-6) /hpf Ur Epithelial Cells (0-5) /hpf Urine Bacteria (NONE) /hpf Salicylates < 1 L (2.0-20.0) mg/dL Urine Opiates Screen (NEGATIVE) Urine Methadone Screen (NEGATIVE) Acetaminophen 13.0 (10.0-20.0) ug/ml Ur Barbiturates Screen (NEGATIVE) Ur Phencyclidine Scrn (NEGATIVE) Ur Amphetamines Screen (NEGATIVE) U Benzodiazepines Scrn (NEGATIVE) U Oth Cocaine Metabols (NEGATIVE) U Cannabinoids Screen (NEGATIVE) Alcohol, Quantitative (0-10) mg/dL 11/16/18 11/16/18 Range/Units 01:44 01:44 WBC (4.5-11.0) 10^3/uL RBC (3.5-6.1) 10^6/uL Hgb (12.0-16.0) g/dL Hct (36.0-48.0) % MCV (80.0-105.0) fl MCH (25.0-35.0) pg MCHC (31.0-37.0) g/dl RDW (11.5-14.5) % Plt Count (120.0-450.0) 10^3/uL MPV (7.0-11.0) fl Neut % (Auto) (50.0-68.0) % Lymph % (Auto) (22.0-35.0) % Howell % (Auto) (1.0-6.0) % Eos % (Auto) (1.5-5.0) % Baso % (Auto) (0.0-3.0) % Lymph # (Auto) (1.2-3.4) Howell # (Auto) (0.1-0.6) Eos # (Auto) (0.0-0.7) Baso # (Auto) (0.0-2.0) K/mm3 Absolute Neuts (auto) (1.4-6.5) PT (9.4-12.5) SECONDS INR APTT (26.9-38.3) Seconds Sodium (132-148) mmol/L Potassium (3.6-5.0) mmol/L Chloride (98-107) mmol/L Carbon Dioxide (21-33) mmol/L Anion Gap (10-20) BUN (7-21) mg/dL Creatinine (0.7-1.2) mg/dl Est GFR ( Amer) Est GFR (Non-Af Amer) POC Glucose (mg/dL) (65-110) mg/dL Random Glucose (70-110) mg/dL Calcium (8.4-10.5) mg/dL Phosphorus (2.5-4.5) mg/dL Magnesium (1.7-2.2) mg/dL Total Bilirubin (0.2-1.3) mg/dL AST (14-36) U/L ALT (7-56) U/L Alkaline Phosphatase (38-126) U/L Total Protein (5.8-8.3) g/dL Albumin (3.0-4.8) g/dL Globulin gm/dL Albumin/Globulin Ratio (1.1-1.8) Urine Color Yellow (YELLOW) Urine Appearance Clear (CLEAR) Urine pH 6.0 (4.7-8.0) Ur Specific [place] 1.025 (1.005-1.035) Urine Protein 30 H (<30 mg/dL) mg/dL Urine Glucose (UA) Negative (NEGATIVE) mg/dL Urine Ketones Negative (NEGATIVE) mg/dL Urine Blood Negative (NEGATIVE) Urine Nitrate Negative (NEGATIVE) Urine Bilirubin Negative (NEGATIVE) Urine Urobilinogen 0.2 (<1 E.U./dL) E.U./dL Ur Leukocyte Esterase Negative (NEGATIVE) Manolo/uL Urine RBC 0 - 2 (0-2) /hpf Urine WBC 0 - 2 (0-6) /hpf Ur Epithelial Cells 6 - 8 H (0-5) /hpf Urine Bacteria Few (NONE) /hpf Salicylates (2.0-20.0) mg/dL Urine Opiates Screen Negative (NEGATIVE) Urine Methadone Screen Negative (NEGATIVE) Acetaminophen (10.0-20.0) ug/ml Ur Barbiturates Screen Negative (NEGATIVE) Ur Phencyclidine Scrn Negative (NEGATIVE) Ur Amphetamines Screen Negative (NEGATIVE) U Benzodiazepines Scrn Negative (NEGATIVE) U Oth Cocaine Metabols Negative (NEGATIVE) U Cannabinoids Screen Negative (NEGATIVE) Alcohol, Quantitative (0-10) mg/dL Laboratory Results - last 24 hr 11/16/18 11/16/18 11/16/18 01:44 01:44 01:46 WBC 8.5 D RBC 4.23 Hgb 11.8 L Hct 36.1 MCV 85.3 D MCH 27.9 MCHC 32.7 RDW 12.3 Plt Count 272 MPV 8.9 Neut % (Auto) 66.8 Lymph % (Auto) 22.2 Howell % (Auto) 7.8 H Eos % (Auto) 3.0 Baso % (Auto) 0.2 Lymph # (Auto) 1.9 Howell # (Auto) 0.7 H Eos # (Auto) 0.3 Baso # (Auto) 0.02 Absolute Neuts (auto) 5.65 PT INR APTT Sodium Potassium Chloride Carbon Dioxide Anion Gap BUN Creatinine Est GFR ( Amer) Est GFR (Non-Af Amer) POC Glucose (mg/dL) Random Glucose Calcium Phosphorus Magnesium Total Bilirubin AST ALT Alkaline Phosphatase Total Protein Albumin Globulin Albumin/Globulin Ratio Urine Color Yellow Urine Appearance Clear Urine pH 6.0 Ur Specific [place] 1.025 Urine Protein 30 H Urine Glucose (UA) Negative Urine Ketones Negative Urine Blood Negative Urine Nitrate Negative Urine Bilirubin Negative Urine Urobilinogen 0.2 Ur Leukocyte Esterase Negative Urine RBC 0 - 2 Urine WBC 0 - 2 Ur Epithelial Cells 6 - 8 H Urine Bacteria Few Salicylates Urine Opiates Screen Negative Urine Methadone Screen Negative Acetaminophen Ur Barbiturates Screen Negative Ur Phencyclidine Scrn Negative Ur Amphetamines Screen Negative U Benzodiazepines Scrn Negative U Oth Cocaine Metabols Negative U Cannabinoids Screen Negative Alcohol, Quantitative 11/16/18 11/16/18 11/16/18 01:46 01:46 01:46 WBC RBC Hgb Hct MCV MCH MCHC RDW Plt Count MPV Neut % (Auto) Lymph % (Auto) Howell % (Auto) Eos % (Auto) Baso % (Auto) Lymph # (Auto) Howell # (Auto) Eos # (Auto) Baso # (Auto) Absolute Neuts (auto) PT INR APTT Sodium 138 Potassium 3.8 Chloride 106 Carbon Dioxide 23 Anion Gap 13 BUN 16 Creatinine 0.7 Est GFR ( Amer) > 60 Est GFR (Non-Af Amer) > 60 POC Glucose (mg/dL) Random Glucose 153 H Calcium 8.7 Phosphorus Magnesium 1.8 Total Bilirubin 0.4 AST 25 ALT 25 Alkaline Phosphatase 49 Total Protein 7.0 Albumin 3.8 Globulin 3.2 Albumin/Globulin Ratio 1.2 Urine Color Urine Appearance Urine pH Ur Specific [place] Urine Protein Urine Glucose (UA) Urine Ketones Urine Blood Urine Nitrate Urine Bilirubin Urine Urobilinogen Ur Leukocyte Esterase Urine RBC Urine WBC Ur Epithelial Cells Urine Bacteria Salicylates < 1 L Urine Opiates Screen Urine Methadone Screen Acetaminophen 13.0 Ur Barbiturates Screen Ur Phencyclidine Scrn Ur Amphetamines Screen U Benzodiazepines Scrn U Oth Cocaine Metabols U Cannabinoids Screen Alcohol, Quantitative < 10 11/16/18 11/16/18 11/16/18 01:46 05:28 05:42 WBC RBC Hgb Hct MCV MCH MCHC RDW Plt Count MPV Neut % (Auto) Lymph % (Auto) Howell % (Auto) Eos % (Auto) Baso % (Auto) Lymph # (Auto) Howell # (Auto) Eos # (Auto) Baso # (Auto) Absolute Neuts (auto) PT 11.9 INR 1.07 APTT 35.1 Sodium 139 Potassium 3.7 Chloride 107 Carbon Dioxide 22 Anion Gap 15 BUN 13 Creatinine 0.4 L Est GFR ( Amer) > 60 Est GFR (Non-Af Amer) > 60 POC Glucose (mg/dL) 206 H Random Glucose 183 H Calcium 8.4 Phosphorus 3.3 Magnesium 1.8 Total Bilirubin 0.5 AST 25 ALT 20 Alkaline Phosphatase 30 L D Total Protein 6.7 Albumin 3.7 Globulin 3.0 Albumin/Globulin Ratio 1.2 Urine Color Urine Appearance Urine pH Ur Specific [place] Urine Protein Urine Glucose (UA) Urine Ketones Urine Blood Urine Nitrate Urine Bilirubin Urine Urobilinogen Ur Leukocyte Esterase Urine RBC Urine WBC Ur Epithelial Cells Urine Bacteria Salicylates Urine Opiates Screen Urine Methadone Screen Acetaminophen Ur Barbiturates Screen Ur Phencyclidine Scrn Ur Amphetamines Screen U Benzodiazepines Scrn U Oth Cocaine Metabols U Cannabinoids Screen Alcohol, Quantitative 11/16/18 11/16/18 11/16/18 08:38 08:38 08:58 WBC RBC Hgb Hct MCV MCH MCHC RDW Plt Count MPV Neut % (Auto) Lymph % (Auto) Howell % (Auto) Eos % (Auto) Baso % (Auto) Lymph # (Auto) Howell # (Auto) Eos # (Auto) Baso # (Auto) Absolute Neuts (auto) PT 13.4 H INR 1.19 APTT 32.8 Sodium Potassium Chloride Carbon Dioxide Anion Gap BUN Creatinine Est GFR ( Amer) Est GFR (Non-Af Amer) POC Glucose (mg/dL) 204 H Random Glucose Calcium Phosphorus Magnesium Total Bilirubin AST ALT Alkaline Phosphatase Total Protein Albumin Globulin Albumin/Globulin Ratio Urine Color Urine Appearance Urine pH Ur Specific [place] Urine Protein Urine Glucose (UA) Urine Ketones Urine Blood Urine Nitrate Urine Bilirubin Urine Urobilinogen Ur Leukocyte Esterase Urine RBC Urine WBC Ur Epithelial Cells Urine Bacteria Salicylates Urine Opiates Screen Urine Methadone Screen Acetaminophen < 10.0 L Ur Barbiturates Screen Ur Phencyclidine Scrn Ur Amphetamines Screen U Benzodiazepines Scrn U Oth Cocaine Metabols U Cannabinoids Screen Alcohol, Quantitative 11/16/18 11/16/18 11/16/18 09:00 12:48 12:54 WBC RBC Hgb Hct MCV MCH MCHC RDW Plt Count MPV Neut % (Auto) Lymph % (Auto) Howell % (Auto) Eos % (Auto) Baso % (Auto) Lymph # (Auto) Howell # (Auto) Eos # (Auto) Baso # (Auto) Absolute Neuts (auto) PT INR APTT Sodium 140 Potassium 3.7 Chloride 106 Carbon Dioxide 22 Anion Gap 16 BUN 11 Creatinine 0.4 L Est GFR ( Amer) > 60 Est GFR (Non-Af Amer) > 60 POC Glucose (mg/dL) 143 H Random Glucose 191 H Calcium 8.5 Phosphorus Magnesium Total Bilirubin 0.5 AST 19 ALT 24 Alkaline Phosphatase 35 L Total Protein 6.7 Albumin 3.6 Globulin 3.1 Albumin/Globulin Ratio 1.2 Urine Color Urine Appearance Urine pH Ur Specific [place] Urine Protein Urine Glucose (UA) Urine Ketones Urine Blood Urine Nitrate Urine Bilirubin Urine Urobilinogen Ur Leukocyte Esterase Urine RBC Urine WBC Ur Epithelial Cells Urine Bacteria Salicylates Urine Opiates Screen Urine Methadone Screen Acetaminophen < 10.0 L Ur Barbiturates Screen Ur Phencyclidine Scrn Ur Amphetamines Screen U Benzodiazepines Scrn U Oth Cocaine Metabols U Cannabinoids Screen Alcohol, Quantitative 11/16/18 11/16/18 13:45 13:58 WBC RBC Hgb Hct MCV MCH MCHC RDW Plt Count MPV Neut % (Auto) Lymph % (Auto) Howell % (Auto) Eos % (Auto) Baso % (Auto) Lymph # (Auto) Howell # (Auto) Eos # (Auto) Baso # (Auto) Absolute Neuts (auto) PT INR APTT Sodium 141 Potassium 3.9 Chloride 107 Carbon Dioxide 23 Anion Gap 14 BUN 9 Creatinine 0.5 L Est GFR ( Amer) > 60 Est GFR (Non-Af Amer) > 60 POC Glucose (mg/dL) 126 H Random Glucose 145 H Calcium 8.9 Phosphorus Magnesium Total Bilirubin 0.8 AST 21 ALT 17 Alkaline Phosphatase 51 Total Protein 6.8 Albumin 3.7 Globulin 3.1 Albumin/Globulin Ratio 1.2 Urine Color Urine Appearance Urine pH Ur Specific [place] Urine Protein Urine Glucose (UA) Urine Ketones Urine Blood Urine Nitrate Urine Bilirubin Urine Urobilinogen Ur Leukocyte Esterase Urine RBC Urine WBC Ur Epithelial Cells Urine Bacteria Salicylates Urine Opiates Screen Urine Methadone Screen Acetaminophen Ur Barbiturates Screen Ur Phencyclidine Scrn Ur Amphetamines Screen U Benzodiazepines Scrn U Oth Cocaine Metabols U Cannabinoids Screen Alcohol, Quantitative Radiology Impressions: Radiology Impressions Chest X-Ray 11/16/18 01:32 IMPRESSION: No active disease. EKG/Cardiology Studies: Cardiology / EKG Studies 11/16/18 ELECTROCARDIOGRAM Stat Comment: Reason For Exam: overdoase Critical Care Progress Note - Nutrition Nutrition: Nutrition Category Date Time Status Consistent Carbohydrate [DIET] Diets 11/16/18 Breakfast Ordered Addendum Addendum: 11/16/18 15:56 MICU Attending addendum Patient seen and examined with housestaff Agree with resident note above with the follow add/exceptions 33 year old female, hx of Type 1 diabetes admitted to ICU after stating she overdosed Tylenol. Patient treated NAC ED. Tyl level went from 13 to < 10. Repeat another 4 hours later < 10 Likely non-toxic levels LFTs normal Would check LFTs again later today and tomorrow as Tylenol toxicicty can manifest in the 24-72 hour period psych consult 1:1 suicide Rest of care as per above resident note Nehal King MD MICU Attending
--- NOTE | 2018-11-16 12:29 | CP.PCM.CON ---
<Benny Sheldon - Last Filed: 11/16/18 16:47> History of Present Illness - History of Present Illness History of Present Illness: Benny Sheldon Internal Medicine Resident- Consult Note on Behalf of Dr. Delgado Subjective: CC: Overdose HPI: Patient is a 33 year old female with a past medical history of Type 1 Diabetes Mellitus (Insulin Dependent), DKA, rhabdomyolysis, ovarian torsion s/p right salpingo-oopherectomy who was admitted for evaluation and treatment of Tylenol overdose. The GI team was consulted for management/recs of the aforementioned symptoms. Patient seen and examined at bedside. Admits to taking a handful of Tylenol 500 mg tablets yesterday evening in a suicide attempt. Admits to feelings of depression and fatigue. Also states she is chronically constipation with an average of one nonbloody bowel movement per week. She has tried miralax and other laxative without relief. Last bowel movement was yesterday and was described as being nonbloody, brown, and thin. She was scheduled for a colonoscopy on 11/18/2018. Patient denies abdominal pain, nausea, vomiting, diarrhea, constipation, bright red blood per rectum, and black stools. Furthermore, denies fever, chills, chest pain, SOB, homicidal ideation, and urinary symptoms. 12 point ROS negative except as indicated above Past Medical History: Type 1 Diabetes Mellitus (Insulin Dependent), DKA, Rhabdomyolysis, Ovarian Torsion s/p right salpingo-oopherectomy Past Surgical History: R Salpingo-oopherectomy, R Breast cyst excision, R ear cyst excision, (7 years ago) [employer] Hx: Patient has been 3 times, 1 living child and 2 miscarriages in the first trimester. LMP was 06/30/2018, menstrual period regular. Sexually active only with . Denies contraceptive use. Allergies: NKDA Family History: Mom: Rheumathoid arthritis, psoriatic arthritis, Bryan's, colitis. Brother: Diabetes Mellitus (Type 1) Social History: Denies: ETOH, tobacco, recreational drugs. Works at home. No recent travels, sick contacts, or pets.: Medications: As per MAR Physical Examination: - Constitutional Appears: No acute distress - Head Exam Head Exam: ATRAUMATIC, NORMAL INSPECTION, NORMOCEPHALIC - Eye Exam Eye Exam: EOMI, Normal appearance - ENT Exam ENT Exam: Mucous Membranes Dry - Neck Exam Neck exam: Positive for: Normal Inspection - Respiratory Exam Respiratory Exam: Clear to Auscultation Bilateral, NORMAL BREATHING PATTERN - Cardiovascular Exam Cardiovascular Exam: +S1, +S2. absent: Gallop, Rubs - GI/Abdominal Exam GI & Abdominal Exam: soft, NTTP, no guarding, no rebound tenderness - Extremities Exam Extremities exam: no clubbing, no cyanosis - Neurological Exam Neurological exam: Alert, CN II-XII Intact, Oriented x3 - Skin Skin Exam: Dry, Intact, Normal Color, Warm Assessment and Plan: Patient is a 33 year old female with a past medical history of Type 1 Diabetes Mellitus (Insulin Dependent), DKA, rhabdomyolysis, ovarian torsion s/p right salpingo-oopherectomy who was admitted for evaluation and treatment of Tylenol overdose. Poison control was contacted who recommended acetadote/acetylcysteine and repeat labs. Chronic constipation Tylenol Overdose Hx of Type 1 DM - s/p acetadote treatment - attain baseline abdominal ultrasound and hep panel - follow up outpatient for colonoscopy Patient seen, case discussed with, and plan approved by attending physician, Dr. Delgado. Past Patient History - Infectious Disease Hx of Infectious Diseases: None - Tetanus Immunizations Tetanus Immunization: Unknown - Past Medical History & Family History Past Medical History?: Yes - Past Social History Smoking Status: Never Smoked - CARDIAC Hx Cardiac Disorders: Yes (heart murmur) - PULMONARY Hx Respiratory Disorders: No - NEUROLOGICAL Hx Neurological Disorder: Yes Hx Dizziness: Yes Hx Syncope: Yes - HEENT Hx HEENT Problems: No - RENAL Hx Chronic Kidney Disease: No - ENDOCRINE/METABOLIC Hx Endocrine Disorders: Yes Hx Diabetes Mellitus Type 1: Yes - HEMATOLOGICAL/ONCOLOGICAL Hx Blood Disorders: No - INTEGUMENTARY Hx Dermatological Problems: Yes Other/Comment: SCAR - MUSCULOSKELETAL/RHEUMATOLOGICAL Hx Falls: No - GASTROINTESTINAL Hx Gastrointestinal Disorders: Yes Hx Constipation: Yes - GENITOURINARY/GYNECOLOGICAL Hx Genitourinary Disorders: No - PSYCHIATRIC Hx Psychophysiologic Disorder: No Hx Substance Use: No - SURGICAL HISTORY Hx Section: Yes Other/Comment: cyst removed from right breast and posterior right ear benign, c section 2010, right ovary and right fallopian tube december 2014 - ANESTHESIA Hx Anesthesia: Yes Hx Anesthesia Reactions: No Hx Malignant Hyperthermia: No Meds Home Medications: Home Medication List Medication Instructions Recorded Confirmed Type DULoxetine [Cymbalta] 20 mg PO DAILY 14 Days #28 ecc 11/18/18 Rx Divalproex [Depakote Sprinkles] 250 mg PO AMHS 14 Days #28 ecc 11/18/18 Rx Polyethylene Glycol 3350 [Miralax] 17 gm PO DAILY PRN #30 ml 11/18/18 Rx Allergies/Adverse Reactions: Allergies Allergy/AdvReac Type Severity Reaction Status Date / Time No Known Allergies Allergy Verified 09/22/16 07:28 - Medications Medications: Current Medications Dextrose (Dextrose 50% Inj) 0 ml IV STAT PRN; Protocol PRN Reason: Hypoglycemia Protocol Enoxaparin Sodium (Lovenox) 40 mg SC DAILY [place]; Protocol Last Admin: 11/16/18 11:31 Dose: 40 mg Famotidine (Pepcid) 40 mg PO HS [place] Furosemide (Lasix) 20 mg PO DAILY [place] Last Admin: 11/16/18 11:31 Dose: 20 mg Dextrose (Dextrose 5% In Water 1000 Ml) 1,000 mls @ 0 mls/hr IV .Q0M PRN; Protocol PRN Reason: Hypoglycemia Protocol Insulin Human Lispro (Humalog Med) 0 units SC ACHS [place]; Protocol Last Admin: 11/16/18 11:33 Dose: Not Given Lisinopril (Zestril) 20 mg PO DAILY [facility] Last Admin: 11/16/18 11:33 Dose: 20 mg Results - Vital Signs Recent Vital Signs: Last Vital Signs Temp 97.9 F 11/16/18 09:55 Pulse 119 H 11/16/18 11:33 Resp 19 11/16/18 09:55 BP 167/101 H 11/16/18 11:33 Pulse Ox 98 11/16/18 09:55 - Labs Result Diagrams: 11/16/18 01:46 11/16/18 13:45 Labs: Laboratory Results - last 24 hr 11/16/18 11/16/18 11/16/18 01:44 01:44 01:46 WBC 8.5 D RBC 4.23 Hgb 11.8 L Hct 36.1 MCV 85.3 D MCH 27.9 MCHC 32.7 RDW 12.3 Plt Count 272 MPV 8.9 Neut % (Auto) 66.8 Lymph % (Auto) 22.2 [place] % (Auto) 7.8 H Eos % (Auto) 3.0 Baso % (Auto) 0.2 Lymph # (Auto) 1.9 [place] # (Auto) 0.7 H Eos # (Auto) 0.3 Baso # (Auto) 0.02 Absolute Neuts (auto) 5.65 PT INR APTT Sodium Potassium Chloride Carbon Dioxide Anion Gap BUN Creatinine Est GFR ( Amer) Est GFR (Non-Af Amer) POC Glucose (mg/dL) Random Glucose Calcium Phosphorus Magnesium Total Bilirubin AST ALT Alkaline Phosphatase Total Protein Albumin Globulin Albumin/Globulin Ratio Urine Color Yellow Urine Appearance Clear Urine pH 6.0 Ur Specific [place] 1.025 Urine Protein 30 H Urine Glucose (UA) Negative Urine Ketones Negative Urine Blood Negative Urine Nitrate Negative Urine Bilirubin Negative Urine Urobilinogen 0.2 Ur Leukocyte Esterase Negative Urine RBC 0 - 2 Urine WBC 0 - 2 Ur Epithelial Cells 6 - 8 H Urine Bacteria Few Salicylates Urine Opiates Screen Negative Urine Methadone Screen Negative Acetaminophen Ur Barbiturates Screen Negative Ur Phencyclidine Scrn Negative Ur Amphetamines Screen Negative U Benzodiazepines Scrn Negative U Oth Cocaine Metabols Negative U Cannabinoids Screen Negative Alcohol, Quantitative 11/16/18 11/16/18 11/16/18 01:46 01:46 01:46 WBC RBC Hgb Hct MCV MCH MCHC RDW Plt Count MPV Neut % (Auto) Lymph % (Auto) [place] % (Auto) Eos % (Auto) Baso % (Auto) Lymph # (Auto) [place] # (Auto) Eos # (Auto) Baso # (Auto) Absolute Neuts (auto) PT INR APTT Sodium 138 Potassium 3.8 Chloride 106 Carbon Dioxide 23 Anion Gap 13 BUN 16 Creatinine 0.7 Est GFR ( Amer) > 60 Est GFR (Non-Af Amer) > 60 POC Glucose (mg/dL) Random Glucose 153 H Calcium 8.7 Phosphorus Magnesium 1.8 Total Bilirubin 0.4 AST 25 ALT 25 Alkaline Phosphatase 49 Total Protein 7.0 Albumin 3.8 Globulin 3.2 Albumin/Globulin Ratio 1.2 Urine Color Urine Appearance Urine pH Ur Specific [place] Urine Protein Urine Glucose (UA) Urine Ketones Urine Blood Urine Nitrate Urine Bilirubin Urine Urobilinogen Ur Leukocyte Esterase Urine RBC Urine WBC Ur Epithelial Cells Urine Bacteria Salicylates < 1 L Urine Opiates Screen Urine Methadone Screen Acetaminophen 13.0 Ur Barbiturates Screen Ur Phencyclidine Scrn Ur Amphetamines Screen U Benzodiazepines Scrn U Oth Cocaine Metabols U Cannabinoids Screen Alcohol, Quantitative < 10 11/16/18 11/16/18 11/16/18 01:46 05:28 05:42 WBC RBC Hgb Hct MCV MCH MCHC RDW Plt Count MPV Neut % (Auto) Lymph % (Auto) [place] % (Auto) Eos % (Auto) Baso % (Auto) Lymph # (Auto) [place] # (Auto) Eos # (Auto) Baso # (Auto) Absolute Neuts (auto) PT 11.9 INR 1.07 APTT 35.1 Sodium 139 Potassium 3.7 Chloride 107 Carbon Dioxide 22 Anion Gap 15 BUN 13 Creatinine 0.4 L Est GFR ( Amer) > 60 Est GFR (Non-Af Amer) > 60 POC Glucose (mg/dL) 206 H Random Glucose 183 H Calcium 8.4 Phosphorus 3.3 Magnesium 1.8 Total Bilirubin 0.5 AST 25 ALT 20 Alkaline Phosphatase 30 L D Total Protein 6.7 Albumin 3.7 Globulin 3.0 Albumin/Globulin Ratio 1.2 Urine Color Urine Appearance Urine pH Ur Specific [place] Urine Protein Urine Glucose (UA) Urine Ketones Urine Blood Urine Nitrate Urine Bilirubin Urine Urobilinogen Ur Leukocyte Esterase Urine RBC Urine WBC Ur Epithelial Cells Urine Bacteria Salicylates Urine Opiates Screen Urine Methadone Screen Acetaminophen Ur Barbiturates Screen Ur Phencyclidine Scrn Ur Amphetamines Screen U Benzodiazepines Scrn U Oth Cocaine Metabols U Cannabinoids Screen Alcohol, Quantitative 11/16/18 11/16/18 11/16/18 08:38 08:38 08:58 WBC RBC Hgb Hct MCV MCH MCHC RDW Plt Count MPV Neut % (Auto) Lymph % (Auto) [place] % (Auto) Eos % (Auto) Baso % (Auto) Lymph # (Auto) [place] # (Auto) Eos # (Auto) Baso # (Auto) Absolute Neuts (auto) PT 13.4 H INR 1.19 APTT 32.8 Sodium Potassium Chloride Carbon Dioxide Anion Gap BUN Creatinine Est GFR ( Amer) Est GFR (Non-Af Amer) POC Glucose (mg/dL) 204 H Random Glucose Calcium Phosphorus Magnesium Total Bilirubin AST ALT Alkaline Phosphatase Total Protein Albumin Globulin Albumin/Globulin Ratio Urine Color Urine Appearance Urine pH Ur Specific [place] Urine Protein Urine Glucose (UA) Urine Ketones Urine Blood Urine Nitrate Urine Bilirubin Urine Urobilinogen Ur Leukocyte Esterase Urine RBC Urine WBC Ur Epithelial Cells Urine Bacteria Salicylates Urine Opiates Screen Urine Methadone Screen Acetaminophen < 10.0 L Ur Barbiturates Screen Ur Phencyclidine Scrn Ur Amphetamines Screen U Benzodiazepines Scrn U Oth Cocaine Metabols U Cannabinoids Screen Alcohol, Quantitative 11/16/18 09:00 WBC RBC Hgb Hct MCV MCH MCHC RDW Plt Count MPV Neut % (Auto) Lymph % (Auto) [place] % (Auto) Eos % (Auto) Baso % (Auto) Lymph # (Auto) [place] # (Auto) Eos # (Auto) Baso # (Auto) Absolute Neuts (auto) PT INR APTT Sodium 140 Potassium 3.7 Chloride 106 Carbon Dioxide 22 Anion Gap 16 BUN 11 Creatinine 0.4 L Est GFR ( Amer) > 60 Est GFR (Non-Af Amer) > 60 POC Glucose (mg/dL) Random Glucose 191 H Calcium 8.5 Phosphorus Magnesium Total Bilirubin 0.5 AST 19 ALT 24 Alkaline Phosphatase 35 L Total Protein 6.7 Albumin 3.6 Globulin 3.1 Albumin/Globulin Ratio 1.2 Urine Color Urine Appearance Urine pH Ur Specific [place] Urine Protein Urine Glucose (UA) Urine Ketones Urine Blood Urine Nitrate Urine Bilirubin Urine Urobilinogen Ur Leukocyte Esterase Urine RBC Urine WBC Ur Epithelial Cells Urine Bacteria Salicylates Urine Opiates Screen Urine Methadone Screen Acetaminophen Ur Barbiturates Screen Ur Phencyclidine Scrn Ur Amphetamines Screen U Benzodiazepines Scrn U Oth Cocaine Metabols U Cannabinoids Screen Alcohol, Quantitative <Sandy,Kovil V - Last Filed: 11/18/18 18:56> Meds - Medications Medications: Current Medications Dextrose (Dextrose 50% Inj) 0 ml IV STAT PRN; Protocol PRN Reason: Hypoglycemia Protocol Divalproex Sodium (Depakote Sprinkles) 125 mg PO AMHS [place]; Protocol Enoxaparin Sodium (Lovenox) 40 mg SC DAILY [facility]; Protocol Last Admin: 11/16/18 11:31 Dose: 40 mg Famotidine (Pepcid) 40 mg PO HS [place] Last Admin: 11/16/18 22:23 Dose: 40 mg Furosemide (Lasix) 20 mg PO DAILY [facility] Last Admin: 11/16/18 11:31 Dose: 20 mg Dextrose (Dextrose 5% In Water 1000 Ml) 1,000 mls @ 0 mls/hr IV .Q0M PRN; Protocol PRN Reason: Hypoglycemia Protocol Ibuprofen (Motrin Tab) 400 mg PO Q6H PRN PRN Reason: Headache Last Admin: 11/16/18 15:23 Dose: 400 mg Insulin Human Lispro (Humalog Med) 0 units SC ACHS [facility]; Protocol Last Admin: 11/16/18 23:17 Dose: Not Given Lisinopril (Zestril) 20 mg PO DAILY [facility] Last Admin: 11/16/18 11:33 Dose: 20 mg Lorazepam (Ativan) 0.5 mg PO Q6H PRN; Protocol PRN Reason: anxiety/agitation Results - Vital Signs Recent Vital Signs: Last Vital Signs Temp 98 F 11/16/18 20:43 Pulse 110 H 11/16/18 22:00 Resp 20 11/16/18 22:00 BP 144/86 11/16/18 22:00 Pulse Ox 98 11/16/18 22:00 - Labs Result Diagrams: 11/18/18 07:15 11/18/18 07:15 Labs: Laboratory Results - last 24 hr 11/16/18 11/16/18 11/16/18 01:44 01:44 01:46 WBC 8.5 D RBC 4.23 Hgb 11.8 L Hct 36.1 MCV 85.3 D MCH 27.9 MCHC 32.7 RDW 12.3 Plt Count 272 MPV 8.9 Neut % (Auto) 66.8 Lymph % (Auto) 22.2 [place] % (Auto) 7.8 H Eos % (Auto) 3.0 Baso % (Auto) 0.2 Lymph # (Auto) 1.9 [place] # (Auto) 0.7 H Eos # (Auto) 0.3 Baso # (Auto) 0.02 Absolute Neuts (auto) 5.65 PT INR APTT Sodium Potassium Chloride Carbon Dioxide Anion Gap BUN Creatinine Est GFR ( Amer) Est GFR (Non-Af Amer) POC Glucose (mg/dL) Random Glucose Calcium Phosphorus Magnesium Total Bilirubin AST ALT Alkaline Phosphatase Total Protein Albumin Globulin Albumin/Globulin Ratio Urine Color Yellow Urine Appearance Clear Urine pH 6.0 Ur Specific [place] 1.025 Urine Protein 30 H Urine Glucose (UA) Negative Urine Ketones Negative Urine Blood Negative Urine Nitrate Negative Urine Bilirubin Negative Urine Urobilinogen 0.2 Ur Leukocyte Esterase Negative Urine RBC 0 - 2 Urine WBC 0 - 2 Ur Epithelial Cells 6 - 8 H Urine Bacteria Few Salicylates Urine Opiates Screen Negative Urine Methadone Screen Negative Acetaminophen Ur Barbiturates Screen Negative Ur Phencyclidine Scrn Negative Ur Amphetamines Screen Negative U Benzodiazepines Scrn Negative U Oth Cocaine Metabols Negative U Cannabinoids Screen Negative Alcohol, Quantitative Hepatitis A IgM Ab Hep Bs Antigen Hep B Core IgM Ab Hepatitis C Antibody 11/16/18 11/16/18 11/16/18 01:46 01:46 01:46 WBC RBC Hgb Hct MCV MCH MCHC RDW Plt Count MPV Neut % (Auto) Lymph % (Auto) [place] % (Auto) Eos % (Auto) Baso % (Auto) Lymph # (Auto) [place] # (Auto) Eos # (Auto) Baso # (Auto) Absolute Neuts (auto) PT INR APTT Sodium 138 Potassium 3.8 Chloride 106 Carbon Dioxide 23 Anion Gap 13 BUN 16 Creatinine 0.7 Est GFR ( Amer) > 60 Est GFR (Non-Af Amer) > 60 POC Glucose (mg/dL) Random Glucose 153 H Calcium 8.7 Phosphorus Magnesium 1.8 Total Bilirubin 0.4 AST 25 ALT 25 Alkaline Phosphatase 49 Total Protein 7.0 Albumin 3.8 Globulin 3.2 Albumin/Globulin Ratio 1.2 Urine Color Urine Appearance Urine pH Ur Specific [place] Urine Protein Urine Glucose (UA) Urine Ketones Urine Blood Urine Nitrate Urine Bilirubin Urine Urobilinogen Ur Leukocyte Esterase Urine RBC Urine WBC Ur Epithelial Cells Urine Bacteria Salicylates < 1 L Urine Opiates Screen Urine Methadone Screen Acetaminophen 13.0 Ur Barbiturates Screen Ur Phencyclidine Scrn Ur Amphetamines Screen U Benzodiazepines Scrn U Oth Cocaine Metabols U Cannabinoids Screen Alcohol, Quantitative < 10 Hepatitis A IgM Ab Hep Bs Antigen Hep B Core IgM Ab Hepatitis C Antibody 11/16/18 11/16/18 11/16/18 01:46 05:28 05:42 WBC RBC Hgb Hct MCV MCH MCHC RDW Plt Count MPV Neut % (Auto) Lymph % (Auto) [place] % (Auto) Eos % (Auto) Baso % (Auto) Lymph # (Auto) [place] # (Auto) Eos # (Auto) Baso # (Auto) Absolute Neuts (auto) PT 11.9 INR 1.07 APTT 35.1 Sodium 139 Potassium 3.7 Chloride 107 Carbon Dioxide 22 Anion Gap 15 BUN 13 Creatinine 0.4 L Est GFR ( Amer) > 60 Est GFR (Non-Af Amer) > 60 POC Glucose (mg/dL) 206 H Random Glucose 183 H Calcium 8.4 Phosphorus 3.3 Magnesium 1.8 Total Bilirubin 0.5 AST 25 ALT 20 Alkaline Phosphatase 30 L D Total Protein 6.7 Albumin 3.7 Globulin 3.0 Albumin/Globulin Ratio 1.2 Urine Color Urine Appearance Urine pH Ur Specific [place] Urine Protein Urine Glucose (UA) Urine Ketones Urine Blood Urine Nitrate Urine Bilirubin Urine Urobilinogen Ur Leukocyte Esterase Urine RBC Urine WBC Ur Epithelial Cells Urine Bacteria Salicylates Urine Opiates Screen Urine Methadone Screen Acetaminophen Ur Barbiturates Screen Ur Phencyclidine Scrn Ur Amphetamines Screen U Benzodiazepines Scrn U Oth Cocaine Metabols U Cannabinoids Screen Alcohol, Quantitative Hepatitis A IgM Ab Hep Bs Antigen Hep B Core IgM Ab Hepatitis C Antibody 11/16/18 11/16/18 11/16/18 08:38 08:38 08:58 WBC RBC Hgb Hct MCV MCH MCHC RDW Plt Count MPV Neut % (Auto) Lymph % (Auto) [place] % (Auto) Eos % (Auto) Baso % (Auto) Lymph # (Auto) [place] # (Auto) Eos # (Auto) Baso # (Auto) Absolute Neuts (auto) PT 13.4 H INR 1.19 APTT 32.8 Sodium Potassium Chloride Carbon Dioxide Anion Gap BUN Creatinine Est GFR ( Amer) Est GFR (Non-Af Amer) POC Glucose (mg/dL) 204 H Random Glucose Calcium Phosphorus Magnesium Total Bilirubin AST ALT Alkaline Phosphatase Total Protein Albumin Globulin Albumin/Globulin Ratio Urine Color Urine Appearance Urine pH Ur Specific [place] Urine Protein Urine Glucose (UA) Urine Ketones Urine Blood Urine Nitrate Urine Bilirubin Urine Urobilinogen Ur Leukocyte Esterase Urine RBC Urine WBC Ur Epithelial Cells Urine Bacteria Salicylates Urine Opiates Screen Urine Methadone Screen Acetaminophen < 10.0 L Ur Barbiturates Screen Ur Phencyclidine Scrn Ur Amphetamines Screen U Benzodiazepines Scrn U Oth Cocaine Metabols U Cannabinoids Screen Alcohol, Quantitative Hepatitis A IgM Ab Hep Bs Antigen Hep B Core IgM Ab Hepatitis C Antibody 11/16/18 11/16/18 11/16/18 09:00 12:48 12:54 WBC RBC Hgb Hct MCV MCH MCHC RDW Plt Count MPV Neut % (Auto) Lymph % (Auto) [place] % (Auto) Eos % (Auto) Baso % (Auto) Lymph # (Auto) [place] # (Auto) Eos # (Auto) Baso # (Auto) Absolute Neuts (auto) PT INR APTT Sodium 140 Potassium 3.7 Chloride 106 Carbon Dioxide 22 Anion Gap 16 BUN 11 Creatinine 0.4 L Est GFR ( Amer) > 60 Est GFR (Non-Af Amer) > 60 POC Glucose (mg/dL) 143 H Random Glucose 191 H Calcium 8.5 Phosphorus Magnesium Total Bilirubin 0.5 AST 19 ALT 24 Alkaline Phosphatase 35 L Total Protein 6.7 Albumin 3.6 Globulin 3.1 Albumin/Globulin Ratio 1.2 Urine Color Urine Appearance Urine pH Ur Specific [place] Urine Protein Urine Glucose (UA) Urine Ketones Urine Blood Urine Nitrate Urine Bilirubin Urine Urobilinogen Ur Leukocyte Esterase Urine RBC Urine WBC Ur Epithelial Cells Urine Bacteria Salicylates Urine Opiates Screen Urine Methadone Screen Acetaminophen < 10.0 L Ur Barbiturates Screen Ur Phencyclidine Scrn Ur Amphetamines Screen U Benzodiazepines Scrn U Oth Cocaine Metabols U Cannabinoids Screen Alcohol, Quantitative Hepatitis A IgM Ab Hep Bs Antigen Hep B Core IgM Ab Hepatitis C Antibody 11/16/18 11/16/18 11/16/18 13:45 13:58 14:00 WBC RBC Hgb Hct MCV MCH MCHC RDW Plt Count MPV Neut % (Auto) Lymph % (Auto) [place] % (Auto) Eos % (Auto) Baso % (Auto) Lymph # (Auto) [place] # (Auto) Eos # (Auto) Baso # (Auto) Absolute Neuts (auto) PT INR APTT Sodium 141 Potassium 3.9 Chloride 107 Carbon Dioxide 23 Anion Gap 14 BUN 9 Creatinine 0.5 L Est GFR ( Amer) > 60 Est GFR (Non-Af Amer) > 60 POC Glucose (mg/dL) 126 H Random Glucose 145 H Calcium 8.9 Phosphorus Magnesium Total Bilirubin 0.8 AST 21 ALT 17 Alkaline Phosphatase 51 Total Protein 6.8 Albumin 3.7 Globulin 3.1 Albumin/Globulin Ratio 1.2 Urine Color Urine Appearance Urine pH Ur Specific [place] Urine Protein Urine Glucose (UA) Urine Ketones Urine Blood Urine Nitrate Urine Bilirubin Urine Urobilinogen Ur Leukocyte Esterase Urine RBC Urine WBC Ur Epithelial Cells Urine Bacteria Salicylates Urine Opiates Screen Urine Methadone Screen Acetaminophen Ur Barbiturates Screen Ur Phencyclidine Scrn Ur Amphetamines Screen U Benzodiazepines Scrn U Oth Cocaine Metabols U Cannabinoids Screen Alcohol, Quantitative Hepatitis A IgM Ab Negative Hep Bs Antigen Negative Hep B Core IgM Ab Negative Hepatitis C Antibody Negative 11/16/18 11/16/18 11/16/18 17:34 18:27 18:27 WBC RBC Hgb Hct MCV MCH MCHC RDW Plt Count MPV Neut % (Auto) Lymph % (Auto) [place] % (Auto) Eos % (Auto) Baso % (Auto) Lymph # (Auto) [place] # (Auto) Eos # (Auto) Baso # (Auto) Absolute Neuts (auto) PT INR APTT Sodium 141 Potassium 3.6 Chloride 105 Carbon Dioxide 24 Anion Gap 16 BUN 11 Creatinine 0.6 L Est GFR ( Amer) > 60 Est GFR (Non-Af Amer) > 60 POC Glucose (mg/dL) 148 H Random Glucose 135 H Calcium 9.1 Phosphorus Magnesium Total Bilirubin 0.6 AST 23 ALT 19 Alkaline Phosphatase 48 Total Protein 7.3 Albumin 3.9 Globulin 3.4 Albumin/Globulin Ratio 1.2 Urine Color Urine Appearance Urine pH Ur Specific [place] Urine Protein Urine Glucose (UA) Urine Ketones Urine Blood Urine Nitrate Urine Bilirubin Urine Urobilinogen Ur Leukocyte Esterase Urine RBC Urine WBC Ur Epithelial Cells Urine Bacteria Salicylates Urine Opiates Screen Urine Methadone Screen Acetaminophen < 10.0 L Ur Barbiturates Screen Ur Phencyclidine Scrn Ur Amphetamines Screen U Benzodiazepines Scrn U Oth Cocaine Metabols U Cannabinoids Screen Alcohol, Quantitative Hepatitis A IgM Ab Hep Bs Antigen Hep B Core IgM Ab Hepatitis C Antibody 11/16/18 22:19 WBC RBC Hgb Hct MCV MCH MCHC RDW Plt Count MPV Neut % (Auto) Lymph % (Auto) [place] % (Auto) Eos % (Auto) Baso % (Auto) Lymph # (Auto) [place] # (Auto) Eos # (Auto) Baso # (Auto) Absolute Neuts (auto) PT INR APTT Sodium Potassium Chloride Carbon Dioxide Anion Gap BUN Creatinine Est GFR ( Amer) Est GFR (Non-Af Amer) POC Glucose (mg/dL) 206 H Random Glucose Calcium Phosphorus Magnesium Total Bilirubin AST ALT Alkaline Phosphatase Total Protein Albumin Globulin Albumin/Globulin Ratio Urine Color Urine Appearance Urine pH Ur Specific [place] Urine Protein Urine Glucose (UA) Urine Ketones Urine Blood Urine Nitrate Urine Bilirubin Urine Urobilinogen Ur Leukocyte Esterase Urine RBC Urine WBC Ur Epithelial Cells Urine Bacteria Salicylates Urine Opiates Screen Urine Methadone Screen Acetaminophen Ur Barbiturates Screen Ur Phencyclidine Scrn Ur Amphetamines Screen U Benzodiazepines Scrn U Oth Cocaine Metabols U Cannabinoids Screen Alcohol, Quantitative Hepatitis A IgM Ab Hep Bs Antigen Hep B Core IgM Ab Hepatitis C Antibody Attending/Attestation - Attestation I have personally seen and examined this patient.: Yes I have fully participated in the care of the patient.: Yes I have reviewed all pertinent clinical information: Yes Notes (Text): This is a delayed addendum to the consultation report dictated by the resident. The patient was seen and evaluated along with the resident earlier. Patient has been treated with NAC for atenolol overdose. Chronic constipation episodes of bleeding patient was scheduled for an outpatient colonoscopy. We will start the patient on MiraLAX here. Follow-up LFT 11/16/18 23:58 11/18/18 18:55
[2018-11-16] MEDS ORDERED: Pneumococcal 23-Valent Vaccine IM ONE (14:06)
[2018-11-16 14:18] LABS: ALB/GLOB RATIO 1.2 (1.1-1.8); ALBUMIN 3.7 g/dL (3.0-4.8); ALT/SGPT 17 U/L (7-56); AST/SGOT 21 U/L (14-36); BLOOD UREA NITROGEN 9 mg/dL (7-21); CALCIUM 8.9 mg/dL (8.4-10.5); GFR NON-AFRICAN AMERICAN > 60
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
[2018-11-16 19:02] LABS: ALT/SGPT 19 U/L (7-56)
[2018-11-16 19:08] LABS: ALB/GLOB RATIO 1.2 (1.1-1.8); ALBUMIN 3.9 g/dL (3.0-4.8); AST/SGOT 23 U/L (14-36); BLOOD UREA NITROGEN 11 mg/dL (7-21); CALCIUM 9.1 mg/dL (8.4-10.5); GFR NON-AFRICAN AMERICAN > 60
[2018-11-16] MEDS: Divalproex 125 mg EC Sprinkle Cap PO SCH ×2 (22:00→22:22)
[2018-11-16 22:37] LABS: HEPATITIS B SURFACE AG Negative (NEGATIVE)
[2018-11-16 22:42] LABS: HEPATITIS A IGM NEGATIVE (NEGATIVE); HEPATITIS B CORE AB NEGATIVE (NEGATIVE)
[2018-11-16 22:54] LABS: HEPATITIS C ANTIBODY NEGATIVE (NEGATIVE)
[2018-11-17 06:15] LABS: BASO # 0.02 K/mm3 (0.0-2.0); BASO % 0.4 % (0.0-3.0); EOS # 0.2 (0.0-0.7); EOS % 3.4 % (1.5-5.0); HEMOGLOBIN 12.1 g/dL (12.0-16.0); LYMPH # 1.8 (1.2-3.4); LYMPH % 33.5 % (22.0-35.0); MEAN CELL VOLUME 85.8 fl (80.0-105.0); MEAN CORPUSCULAR HEMOGLOBIN 28.2 pg (25.0-35.0); MEAN CORPUSCULAR HGB CONC 32.9 g/dl (31.0-37.0); MONO # 0.4 (0.1-0.6); RBC 4.29 10^6/uL (3.5-6.1); RED CELL DISTRIBUTION WIDTH 12.4 % (11.5-14.5); WHITE BLOOD COUNT 5.2 10^3/uL (4.5-11.0)
[2018-11-17 06:20] LABS: INR 1.1; PROTHROMBIN TIME 12.4 SECONDS (9.4-12.5)
[2018-11-17 06:51] LABS: ALB/GLOB RATIO 1.2 (1.1-1.8); ALBUMIN 3.5 g/dL (3.0-4.8); ALT/SGPT 23 U/L (7-56); AST/SGOT 25 U/L (14-36); BLOOD UREA NITROGEN 16 mg/dL (7-21); CALCIUM 8.6 mg/dL (8.4-10.5); GFR NON-AFRICAN AMERICAN > 60
[2018-11-17] MEDS: Insulin Lispro (humaLOG) MEDIUM Coverage SC SCH ×4 (07:30→21:40)
[2018-11-17] MEDS: Divalproex 125 mg EC Sprinkle Cap PO SCH ×2 (09:46→21:37)
[2018-11-17] MEDS: Enoxaparin 40 mg Syringe SC SCH (09:47)
--- NOTE | 2018-11-17 11:24 | US ---
Date of service: 11/17/2018 HISTORY: tylenol overdose COMPARISON: None. TECHNIQUE: Sonographic evaluation of the abdomen. FINDINGS: LIVER: Measures cm. Normal echogenicity of the liver parenchyma. No mass. No intrahepatic bile duct dilatation. GALLBLADDER: Unremarkable. No gallstones. COMMON BILE DUCT: Measures mm. No stones. No dilatation. PANCREAS: Unremarkable as visualized. No mass. No ductal dilatation. RIGHT KIDNEY: Measures cm. Normal echogenicity. No calculus, mass, or hydronephrosis. LEFT KIDNEY: Measures cm. Normal echogenicity. No calculus, mass, or hydronephrosis. SPLEEN: Normal in size and contour. No mass. AORTA: No aneurysmal dilatation. IVC: Unremarkable. OTHER FINDINGS: None. IMPRESSION: Unremarkable abdominal sonogram.
--- NOTE | 2018-11-17 12:30 | CP.PCM.PN ---
<Benny Sheldon - Last Filed: 11/17/18 12:21> Subjective - Date & Time of Evaluation Date of Evaluation: 11/17/18 Time of Evaluation: 10:00 - Subjective Subjective: Benny Sheldon Internal Medicine Resident- Consult Note on Behalf of Dr. Delgado Subjective: Patient seen and examined at bedside. No acute events overnight. Offers no new complaints at this time. Admits to baseline fatigue. Patient denies abdominal pain, nausea, vomiting, diarrhea, constipation, bright red blood per rectum, and black stools. Furthermore, denies fever, chills, chest pain, SOB, homicidal ideation, and urinary symptoms. 12 point ROS negative except as indicated above Physical Examination: - Constitutional Appears: No acute distress - Head Exam Head Exam: ATRAUMATIC, NORMAL INSPECTION, NORMOCEPHALIC - Eye Exam Eye Exam: EOMI, Normal appearance - ENT Exam ENT Exam: Mucous Membranes Dry - Neck Exam Neck exam: Positive for: Normal Inspection - Respiratory Exam Respiratory Exam: Clear to Auscultation Bilateral, NORMAL BREATHING PATTERN - Cardiovascular Exam Cardiovascular Exam: +S1, +S2. absent: Gallop, Rubs - GI/Abdominal Exam GI & Abdominal Exam: soft, NTTP, no guarding, no rebound tenderness - Extremities Exam Extremities exam: no clubbing, no cyanosis - Neurological Exam Neurological exam: Alert, CN II-XII Intact, Oriented x3 - Skin Skin Exam: Dry, Intact, Normal Color, Warm Assessment and Plan: Patient is a 33 year old female with a past medical history of Type 1 Diabetes Mellitus (Insulin Dependent), DKA, rhabdomyolysis, ovarian torsion s/p right salpingo-oopherectomy who was admitted for evaluation and treatment of Tylenol overdose. Poison control was contacted who recommended acetadote/acetylcysteine and repeat labs. Tylenol Overdose Chronic constipation Hx of Type 1 DM - s/p acetadote treatment - abdominal ultrasound- unremarkable abdominal sonogram - hep panel reviewed- negative - follow up outpatient for colonoscopy Patient seen, case discussed with, and plan approved by attending physician, Dr. Delgado. Objective - Vital Signs/Intake and Output Vital Signs (last 24 hours): Temp Pulse Resp BP Pulse Ox 98.4 F 112 H 15 136/88 100 11/17/18 08:00 11/17/18 10:00 11/17/18 10:00 11/17/18 09:46 11/17/18 08:50 Intake and Output: 11/17/18 11/17/18 06:59 18:59 Intake Total 200 Output Total 200 500 Balance 0 -500 - Medications Medications: Current Medications Dextrose (Dextrose 50% Inj) 0 ml IV STAT PRN; Protocol PRN Reason: Hypoglycemia Protocol Divalproex Sodium (Depakote Sprinkles) 125 mg PO AMHS [facility]; Protocol Last Admin: 11/17/18 09:46 Dose: 125 mg Enoxaparin Sodium (Lovenox) 40 mg SC DAILY [facility]; Protocol Last Admin: 11/17/18 09:47 Dose: 40 mg Famotidine (Pepcid) 40 mg PO HS [facility] Last Admin: 11/16/18 22:23 Dose: 40 mg Furosemide (Lasix) 20 mg PO DAILY [facility] Last Admin: 11/17/18 09:46 Dose: 20 mg Dextrose (Dextrose 5% In Water 1000 Ml) 1,000 mls @ 0 mls/hr IV .Q0M PRN; Protocol PRN Reason: Hypoglycemia Protocol Ibuprofen (Motrin Tab) 400 mg PO Q6H PRN PRN Reason: Headache Last Admin: 11/16/18 15:23 Dose: 400 mg Insulin Human Lispro (Humalog Med) 0 units SC [facility]; Protocol Last Admin: 11/17/18 07:30 Dose: Not Given Lisinopril (Zestril) 20 mg PO DAILY [facility] Last Admin: 11/17/18 09:46 Dose: 20 mg Lorazepam (Ativan) 0.5 mg PO Q6H PRN; Protocol PRN Reason: anxiety/agitation - Labs Labs: 11/17/18 05:30 11/17/18 05:30 PT 12.4 SECONDS (9.4-12.5) 11/17/18 05:30 INR 1.10 11/17/18 05:30 APTT 32.8 Seconds (26.9-38.3) 11/16/18 08:38 <Snady,Kovil V - Last Filed: 11/17/18 19:37> Objective - Vital Signs/Intake and Output Vital Signs (last 24 hours): Temp Pulse Resp BP Pulse Ox 98.3 F 119 H 27 H 137/91 H 99 11/17/18 16:27 11/17/18 16:27 11/17/18 15:10 11/17/18 16:27 11/17/18 16:27 Intake and Output: 11/17/18 11/18/18 18:59 06:59 Intake Total 860 Output Total 1000 Balance -140 - Medications Medications: Current Medications Dextrose (Dextrose 50% Inj) 0 ml IV STAT PRN; Protocol PRN Reason: Hypoglycemia Protocol Divalproex Sodium (Depakote Sprinkles) 250 mg PO [facility]; Protocol Duloxetine HCl (Cymbalta) 20 mg PO DAILY [facility] Last Admin: 11/17/18 18:08 Dose: 20 mg Enoxaparin Sodium (Lovenox) 40 mg SC DAILY [facility]; Protocol Last Admin: 11/17/18 09:47 Dose: 40 mg Famotidine (Pepcid) 40 mg PO HS [facility] Last Admin: 11/16/18 22:23 Dose: 40 mg Furosemide (Lasix) 20 mg PO DAILY [facility] Last Admin: 11/17/18 09:46 Dose: 20 mg Dextrose (Dextrose 5% In Water 1000 Ml) 1,000 mls @ 0 mls/hr IV .Q0M PRN; Protocol PRN Reason: Hypoglycemia Protocol Ibuprofen (Motrin Tab) 400 mg PO Q6H PRN PRN Reason: Headache Last Admin: 11/16/18 15:23 Dose: 400 mg Insulin Human Lispro (Humalog Med) 0 units SC [facility]; Protocol Last Admin: 11/17/18 11:30 Dose: Not Given Lisinopril (Zestril) 20 mg PO DAILY [facility] Last Admin: 11/17/18 09:46 Dose: 20 mg Lorazepam (Ativan) 0.5 mg PO Q6H PRN; Protocol PRN Reason: anxiety/agitation - Labs Labs: 11/17/18 05:30 11/17/18 05:30 PT 12.4 SECONDS (9.4-12.5) 11/17/18 05:30 INR 1.10 11/17/18 05:30 APTT 32.8 Seconds (26.9-38.3) 11/16/18 08:38 Attending/Attestation - Attestation I have personally seen and examined this patient.: Yes I have fully participated in the care of the patient.: Yes I have reviewed all pertinent clinical information, including history, physical exam and plan: Yes Notes (Text): This is an addendum to the GI progress report dictated by the resident. Patient was seen and evaluated earlier along with the resident. LFTs stable sono reviewed. 11/17/18 19:36
--- NOTE | 2018-11-17 13:48 | CP.PCM.PN ---
<Josh Sheldon - Last Filed: 11/17/18 13:45> Subjective - Date & Time of Evaluation Date of Evaluation: 11/17/18 Time of Evaluation: 09:00 - Subjective Subjective: Josh Sheldon DO PGY1 - Internal Medicine [employer] - Hospitalist Progress Note Pt. seen and examined this morning at bedside in ICU No acute events reported overnight Patient voicing complaints of headaches last night and this morning; does report that she had been trialed on ergotamine/caffeine by her PMD with minimal improvement. Reports headaches have been worsening over the past weeks to months; often with associated light sensitivity. Occurs on BL temporal region of head and radiate to the back; pressure like sensation. Denies any family history or prior hx of migraine. No complaints of abd pain, cp, sob, n/v/d/c, numbness/tingling, urinary discomfort on exam this AM. Objective - Vital Signs/Intake and Output Vital Signs (last 24 hours): Temp Pulse Resp BP Pulse Ox 98.4 F 111 H 15 136/88 100 11/17/18 08:00 11/17/18 12:00 11/17/18 10:00 11/17/18 09:46 11/17/18 08:50 Intake and Output: 11/17/18 11/17/18 06:59 18:59 Intake Total 200 Output Total 200 500 Balance 0 -500 - Medications Medications: Current Medications Dextrose (Dextrose 50% Inj) 0 ml IV STAT PRN; Protocol PRN Reason: Hypoglycemia Protocol Divalproex Sodium (Depakote Sprinkles) 125 mg PO [facility]HS [facility]; Protocol Last Admin: 11/17/18 09:46 Dose: 125 mg Enoxaparin Sodium (Lovenox) 40 mg SC DAILY [facility]; Protocol Last Admin: 11/17/18 09:47 Dose: 40 mg Famotidine (Pepcid) 40 mg PO HS [facility] Last Admin: 11/16/18 22:23 Dose: 40 mg Furosemide (Lasix) 20 mg PO DAILY [facility] Last Admin: 11/17/18 09:46 Dose: 20 mg Dextrose (Dextrose 5% In Water 1000 Ml) 1,000 mls @ 0 mls/hr IV .Q0M PRN; Protocol PRN Reason: Hypoglycemia Protocol Ibuprofen (Motrin Tab) 400 mg PO Q6H PRN PRN Reason: Headache Last Admin: 11/16/18 15:23 Dose: 400 mg Insulin Human Lispro (Humalog Med) 0 units SC [facility]; Protocol Last Admin: 11/17/18 11:30 Dose: Not Given Lisinopril (Zestril) 20 mg PO DAILY [facility] Last Admin: 11/17/18 09:46 Dose: 20 mg Lorazepam (Ativan) 0.5 mg PO Q6H PRN; Protocol PRN Reason: anxiety/agitation - Labs Labs: 11/17/18 05:30 11/17/18 05:30 PT 12.4 SECONDS (9.4-12.5) 11/17/18 05:30 INR 1.10 11/17/18 05:30 APTT 32.8 Seconds (26.9-38.3) 11/16/18 08:38 - Constitutional Appears: Well, Non-toxic, No Acute Distress - Head Exam Head Exam: ATRAUMATIC, NORMOCEPHALIC - Eye Exam Eye Exam: EOMI, Normal appearance, PERRL. absent: Scleral icterus - ENT Exam ENT Exam: Normal Exam - Respiratory Exam Respiratory Exam: Clear to Ausculation Bilateral, NORMAL BREATHING PATTERN - Cardiovascular Exam Cardiovascular Exam: RRR. absent: Murmur - GI/Abdominal Exam GI & Abdominal Exam: Soft. absent: Tenderness - Extremities Exam Extremities Exam: Normal Capillary Refill. absent: Pedal Edema - Neurological Exam Neurological Exam: Alert, Awake, Oriented x3 - Psychiatric Exam Psychiatric exam: Normal Affect, Normal Mood - Skin Skin Exam: Dry, Intact, Warm Assessment and Plan - Assessment and Plan (Free Text) Assessment: 33F PMH most significant for Type 1 DM, HTN on insulin pump, presented to [facility] ED 11/16 post tylenol overdose; admitted for further management of tylenol OD. Plan: Tylenol OD Initial level on presentation 13 Patient completed 20 Hour NAC protocol LFTs monitored over time period - No s/s hepatotoxicity Poison control notified at time of admission - symptomatic care only Step down from ICU to Med/Surg Abd US performed pending read Hepatatitis panel negative GI Following Appreciate Reccs Suicidal Ideation No SI/HI on evaluation this AM Depakote 125mg AMHS as per psych Will plan for inpt psych admission once medically optimized Psych following, appreciate reccs Headaches BL Band like pressure comes and goes; worsening No improvement w/ NSAID or Ergotamine/Caffeine Neurology consulted, appreciate reccs Constipation Patient reports intermittent episodes of constipation as outpt Last BM was on 11/15 Scheduled for colonoscopy as outpt Type 1 DM C/w Inuslin pump ISS Med ACHS HTN C/w home lisniopril 20 Daily C/w home lasix 20 Daily PPX: Lovenox Pepcid Dispo: Will transfer to med/surg today; pending neurology eval for headaches; planning for inpt psych admission Patient was seen, examined, and discussed w/ attending Dr. Krissy Sheldon DO PGY1 - Internal Medicine [employer] - Hospitalist Progress Note <Krissy Sheldon R - Last Filed: 11/19/18 16:27> Objective - Vital Signs/Intake and Output Vital Signs (last 24 hours): Temp Pulse Resp BP Pulse Ox 98.2 F 118 H 18 131/87 98 11/18/18 14:00 11/18/18 14:00 11/18/18 14:00 11/18/18 14:00 11/18/18 14:00 - Labs Labs: 11/18/18 07:15 11/18/18 07:15 PT 12.4 SECONDS (9.4-12.5) 11/17/18 05:30 INR 1.10 11/17/18 05:30 APTT 32.8 Seconds (26.9-38.3) 11/16/18 08:38 Attending/Attestation - Attestation I have personally seen and examined this patient.: Yes I have fully participated in the care of the patient.: Yes I have reviewed all pertinent clinical information, including history, physical exam and plan: Yes Notes (Text): Patient seen and examined by me with resident at approximately 11AM on 11/17/18 in the ICU. Case including HPI, physical exam, and assessment and plan discussed with resident. Agree with above with following additions/corrections. Patient is a 33-year-old female with past medical history significant for type 1 diabetes, DKA, rhabdomyolysis, right eye hemorrhage resulting in diminished eyesight, and ovarian torsion status post right salpingo-oophorectomy that presented to the emergency room after attempting to overdose on Tylenol. Patient states she is feeling okay. Patient states that she has constant headaches. She states she was treated for migraines previously but headaches have been uncontrolled. Patient denies any dizziness or lightheadedness. No nausea, vomiting, abdominal pain. No fevers or chills. No dysuria. No chest pain or shortness of breath. Physical exam: General: Awake and alert lying in bed in no acute distress HEENT: Normocephalic, atraumatic. Extraocular muscles intact. Pupils equal and reactive, no scleral icterus. Oropharynx is pink and moist. No pharyngeal erythema or exudate appreciated. Neck is supple. Cardiovascular: Normal rhythm. Normal S1 and S2. No murmurs, rubs, or gallops appreciated. Pulmonary: Normal respiratory effort. No rhonchi, rales, or wheezing appreciated . Gastrointestinal: Soft, nondistended. Nontender. Positive bowel sounds all 4 quadrants. No guarding. Musculoskeletal: Moves all extremities. No calf tenderness. No edema appreciated. Central nervous system: AAO x3, no focal deficits appreciated. Dermatologic: Skin warm and dry. Assessment and plan: Patient is a 33-year-old female with past medical history significant for type 1 diabetes, DKA, rhabdomyolysis, right eye hemorrhage resulting in diminished eyesight, and ovarian torsion status post right salpingo-oophorectomy that presented to the emergency room after attempting to overdose on Tylenol. 1. Tylenol overdose. S/P 20 hour NAC protocol. Poison control notified. Abdominal ultrasound reading pending. Hepatitis panel negative. GI recommendations appreciated. LFTS within normal limits. 2. Suicide attempt. Psychiatrist following, recommendations appreciated. Possible admission to psychiatric unit when medically stable. Continue Depakote. Started on Cymbalta. 3. Headaches. Neurology consulted, pending recommendations. Continue Ibuprofen as needed for now. 4. Constipation. Intermittent. Per patient, she is scheduled for outpatient colonoscopy. 5. Type 1 DM. Patient on insulin pump. Continue insulin sliding scale. Monitor accuchecks. 6. Hypertension. Continue Lisinopril and Lasix. Case was discussed in detail with the patient regarding current diagnosis, study results, and treatment plan. All questions answered.
[2018-11-18] MEDS: Insulin Lispro (humaLOG) MEDIUM Coverage SC SCH ×3 (07:30→17:33)
[2018-11-18 07:33] LABS: BASO # 0.03 K/mm3 (0.0-2.0); BASO % 0.4 % (0.0-3.0); EOS # 0.2 (0.0-0.7); EOS % 3.3 % (1.5-5.0); HEMOGLOBIN 12.7 g/dL (12.0-16.0); LYMPH % 27.1 % (22.0-35.0); MEAN CELL VOLUME 84.3 fl (80.0-105.0); MEAN CORPUSCULAR HGB CONC 33.2 g/dl (31.0-37.0); MEAN PLATELET VOLUME 8.8 fl (7.0-11.0); MONO # 0.5 (0.1-0.6); MONO % 6.7 % (1.0-6.0); RBC 4.53 10^6/uL (3.5-6.1); RED CELL DISTRIBUTION WIDTH 12.3 % (11.5-14.5); WHITE BLOOD COUNT 7.3 10^3/uL (4.5-11.0)
[2018-11-18 07:36] VITALS: RESP 18; O2SAT 98
[2018-11-18 08:03] LABS: ALB/GLOB RATIO 1.2 (1.1-1.8); ALT/SGPT 20 U/L (7-56); AST/SGOT 20 U/L (14-36); BLOOD UREA NITROGEN 13 mg/dL (7-21); CALCIUM 8.9 mg/dL (8.4-10.5); GFR NON-AFRICAN AMERICAN > 60
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
[2018-11-18] MEDS: Divalproex 125 mg EC Sprinkle Cap PO SCH (09:54)
[2018-11-18] MEDS: Enoxaparin 40 mg Syringe SC SCH (09:55)
--- NOTE | 2018-11-18 10:36 | CP.PCM.PN ---
<Benny Sheldon - Last Filed: 11/18/18 17:10> Subjective - Date & Time of Evaluation Date of Evaluation: 11/18/18 Time of Evaluation: 09:00 - Subjective Subjective: Benny Sheldon Internal Medicine Resident- Consult Note on Behalf of Dr. Delgado Subjective: Patient seen and examined at bedside. No acute events overnight. States that she has not experienced a bowel movement in 3 days. Denies associated bloating, abdominal pain, nausea, and vomiting. Furthermore, denies fever, chills, chest pain, SOB, homicidal ideation, and urinary symptoms. 12 point ROS negative except as indicated above Physical Examination: - Constitutional Appears: No acute distress - Head Exam Head Exam: ATRAUMATIC, NORMAL INSPECTION, NORMOCEPHALIC - Eye Exam Eye Exam: EOMI, Normal appearance - ENT Exam ENT Exam: Mucous Membranes Dry - Neck Exam Neck exam: Positive for: Normal Inspection - Respiratory Exam Respiratory Exam: Clear to Auscultation Bilateral, NORMAL BREATHING PATTERN - Cardiovascular Exam Cardiovascular Exam: +S1, +S2. absent: Gallop, Rubs - GI/Abdominal Exam GI & Abdominal Exam: soft, NTTP, no guarding, no rebound tenderness - Extremities Exam Extremities exam: no clubbing, no cyanosis - Neurological Exam Neurological exam: Alert, Oriented x3 - Skin Skin Exam: Dry, Intact, Normal Color, Warm Assessment and Plan: Patient is a 33 year old female with a past medical history of Type 1 Diabetes Mellitus (Insulin Dependent), DKA, rhabdomyolysis, ovarian torsion s/p right salpingo-oopherectomy who was admitted for evaluation and treatment of Tylenol overdose. Poison control was contacted who recommended acetadote/acetylcysteine and repeat labs. Tylenol Overdose Chronic constipation Hx of Type 1 DM - s/p acetadote treatment - abdominal ultrasound- unremarkable abdominal sonogram - hep panel reviewed- negative - started on miralax 17gm PO BID - nulytely 2000cc x 1 - follow up outpatient for colonoscopy Patient seen, case discussed with, and plan approved by attending physician, Dr. Delgado. Objective - Vital Signs/Intake and Output Vital Signs (last 24 hours): Temp Pulse Resp BP Pulse Ox 97.9 F 92 H 18 140/82 98 11/18/18 06:00 11/18/18 06:00 11/18/18 06:00 11/18/18 09:54 11/18/18 06:00 Intake and Output: 11/18/18 11/18/18 06:59 18:59 Intake Total 360 Balance 360 - Medications Medications: Current Medications Dextrose (Dextrose 50% Inj) 0 ml IV STAT PRN; Protocol PRN Reason: Hypoglycemia Protocol Divalproex Sodium (Depakote Sprinkles) 250 mg PO [facility]; Protocol Last Admin: 11/18/18 09:54 Dose: 250 mg Duloxetine HCl (Cymbalta) 20 mg PO DAILY [facility] Last Admin: 11/18/18 09:57 Dose: 20 mg Enoxaparin Sodium (Lovenox) 40 mg SC DAILY [facility]; Protocol Last Admin: 11/18/18 09:55 Dose: 40 mg Famotidine (Pepcid) 40 mg PO HS [facility] Last Admin: 11/17/18 21:41 Dose: 40 mg Furosemide (Lasix) 20 mg PO DAILY [facility] Last Admin: 11/18/18 09:54 Dose: 20 mg Dextrose (Dextrose 5% In Water 1000 Ml) 1,000 mls @ 0 mls/hr IV .Q0M PRN; Pr otocol PRN Reason: Hypoglycemia Protocol Ibuprofen (Motrin Tab) 400 mg PO Q6H PRN PRN Reason: Headache Last Admin: 11/16/18 15:23 Dose: 400 mg Insulin Human Lispro (Humalog Med) 0 units SC [facility]; Protocol Last Admin: 11/18/18 07:30 Dose: Not Given Lisinopril (Zestril) 20 mg PO DAILY [facility] Last Admin: 11/18/18 09:53 Dose: 20 mg Lorazepam (Ativan) 0.5 mg PO Q6H PRN; Protocol PRN Reason: anxiety/agitation Last Admin: 11/18/18 08:18 Dose: 0.5 mg Polyethylene Glycol (Miralax) 17 gm PO BID [facility] - Labs Labs: 11/18/18 07:15 11/18/18 07:15 PT 12.4 SECONDS (9.4-12.5) 11/17/18 05:30 INR 1.10 11/17/18 05:30 APTT 32.8 Seconds (26.9-38.3) 11/16/18 08:38 <SandyJustinvil V - Last Filed: 11/18/18 18:25> Objective - Vital Signs/Intake and Output Vital Signs (last 24 hours): Temp Pulse Resp BP Pulse Ox 98.2 F 118 H 18 131/87 98 11/18/18 14:00 11/18/18 14:00 11/18/18 14:00 11/18/18 14:00 11/18/18 14:00 Intake and Output: 11/18/18 11/18/18 06:59 18:59 Intake Total 360 Balance 360 - Medications Medications: Current Medications Dextrose (Dextrose 50% Inj) 0 ml IV STAT PRN; Protocol PRN Reason: Hypoglycemia Protocol Divalproex Sodium (Depakote Sprinkles) 250 mg PO [facility]; Protocol Last Admin: 11/18/18 09:54 Dose: 250 mg Duloxetine HCl (Cymbalta) 20 mg PO DAILY [facility] Last Admin: 11/18/18 09:57 Dose: 20 mg Enoxaparin Sodium (Lovenox) 40 mg SC DAILY [facility]; Protocol Last Admin: 11/18/18 09:55 Dose: 40 mg Famotidine (Pepcid) 40 mg PO HS [facility] Last Admin: 11/17/18 21:41 Dose: 40 mg Furosemide (Lasix) 20 mg PO DAILY [facility] Last Admin: 11/18/18 09:54 Dose: 20 mg Dextrose (Dextrose 5% In Water 1000 Ml) 1,000 mls @ 0 mls/hr IV .Q0M PRN; Protocol PRN Reason: Hypoglycemia Protocol Ibuprofen (Motrin Tab) 400 mg PO Q6H PRN PRN Reason: Headache Last Admin: 11/16/18 15:23 Dose: 400 mg Insulin Human Lispro (Humalog Med) 0 units SC [facility]; Protocol Last Admin: 11/18/18 17:33 Dose: Not Given Lisinopril (Zestril) 20 mg PO DAILY [facility] Last Admin: 11/18/18 09:53 Dose: 20 mg Lorazepam (Ativan) 0.5 mg PO Q6H PRN; Protocol PRN Reason: anxiety/agitation Last Admin: 11/18/18 08:18 Dose: 0.5 mg Polyethylene Glycol (Miralax) 17 gm PO BID [facility] Last Admin: 11/18/18 17:35 Dose: 17 gm - Labs Labs: 11/18/18 07:15 11/18/18 07:15 PT 12.4 SECONDS (9.4-12.5) 11/17/18 05:30 INR 1.10 11/17/18 05:30 APTT 32.8 Seconds (26.9-38.3) 11/16/18 08:38 Attending/Attestation - Attestation I have personally seen and examined this patient.: Yes I have fully participated in the care of the patient.: Yes I have reviewed all pertinent clinical information, including history, physical exam and plan: Yes Notes (Text): This is a delayed addendum to the progress report dictated by the resident. The patient was seen and evaluated along with resident earlier. Discussed with the patient and also patient's sister who was at bedside at the request of the patie nt. LFT stable. She is more concerned about constipation. We will start the patient on half a gallon of GoLYTELY. Patient has been scheduled for an outpatient colonoscopy by her knife setter to further evaluate his chronic constipation. 11/18/18 18:23
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
[2018-11-18] MEDS ORDERED: NuLYTELY (NACL/NAHCO3/KCL/PEG) 4L PO ONE (15:56)
[2018-11-18 16:17] VITALS: BP 131/87; PULSE 118; TEMP 98.2
--- NOTE | 2018-11-18 17:50 | CP.PCM.DIS ---
Provider - Provider Date of Admission: 11/16/18 04:06 Attending physician: Krissy Sheldon DO Primary care physician: Rani Reed DO Consults: 11/16/18 06:05 Physician Consult Routine Comment: Consulting Provider: Zoila Schroeder Consulting Physician: Zoila Schroeder Reason for Consult: Acetaminophen overdose 11/16/18 07:30 Gastroenterology Consult Routine Comment: Consulting Provider: Damon Delgado V Consulting Physician: Damon Delgado V Reason for Consult: tylenol overdose 11/16/18 13:08 Social Work Referral Routine Comment: d/c plan Physician Instructions: Reason For Exam: assess 11/16/18 14:06 Diabetic Education Referral Routine Comment: type 1 dx age 20 Physician Instructions: Reason For Exam: assess 11/17/18 10:55 Neurology Consult Routine Comment: Consulting Provider: Phan Rankin Consulting Physician: Phan Rankin Reason for Consult: chronic headaches Time Spent in preparation of Discharge (in minutes): 40 Diagnosis - Discharge Diagnosis (1) Suicide attempt Status: Acute (2) Tylenol overdose Status: Acute (3) IDDM (insulin dependent diabetes mellitus) Status: Chronic Priority: High Hospital Course - Lab Results Lab Results: Micro Results 11/16/18 10:40 Naris MRSA Culture (Admit) - Final MRSA NOT DETECTED Most Recent Lab Values WBC 7.3 10^3/uL (4.5-11.0) D 11/18/18 07:15 RBC 4.53 10^6/uL (3.5-6.1) 11/18/18 07:15 Hgb 12.7 g/dL (12.0-16.0) 11/18/18 07:15 Hct 38.2 % (36.0-48.0) 11/18/18 07:15 MCV 84.3 fl (80.0-105.0) 11/18/18 07:15 MCH 28.0 pg (25.0-35.0) 11/18/18 07:15 MCHC 33.2 g/dl (31.0-37.0) 11/18/18 07:15 RDW 12.3 % (11.5-14.5) 11/18/18 07:15 Plt Count 272 10^3/uL (120.0-450.0) 11/18/18 07:15 MPV 8.8 fl (7.0-11.0) 11/18/18 07:15 Neut % (Auto) 62.5 % (50.0-68.0) 11/18/18 07:15 Lymph % (Auto) 27.1 % (22.0-35.0) 11/18/18 07:15 [place] % (Auto) 6.7 % (1.0-6.0) H 11/18/18 07:15 Eos % (Auto) 3.3 % (1.5-5.0) 11/18/18 07:15 Baso % (Auto) 0.4 % (0.0-3.0) 11/18/18 07:15 Lymph # (Auto) 2.0 (1.2-3.4) 11/18/18 07:15 [place] # (Auto) 0.5 (0.1-0.6) 11/18/18 07:15 Eos # (Auto) 0.2 (0.0-0.7) 11/18/18 07:15 Baso # (Auto) 0.03 K/mm3 (0.0-2.0) 11/18/18 07:15 Absolute Neuts (auto) 4.59 (1.4-6.5) 11/18/18 07:15 PT 12.4 SECONDS (9.4-12.5) 11/17/18 05:30 INR 1.10 11/17/18 05:30 APTT 32.8 Seconds (26.9-38.3) 11/16/18 08:38 Sodium 140 mmol/L (132-148) 11/18/18 07:15 Potassium 4.3 mmol/L (3.6-5.0) 11/18/18 07:15 Chloride 108 mmol/L (98-107) H 11/18/18 07:15 Carbon Dioxide 23 mmol/L (21-33) 11/18/18 07:15 Anion Gap 13 (10-20) 11/18/18 07:15 BUN 13 mg/dL (7-21) 11/18/18 07:15 Creatinine 0.5 mg/dl (0.7-1.2) L 11/18/18 07:15 Est GFR ( Amer) > 60 11/18/18 07:15 Est GFR (Non-Af Amer) > 60 11/18/18 07:15 POC Glucose (mg/dL) 102 mg/dL (65-110) 11/18/18 16:19 Random Glucose 140 mg/dL (70-110) H 11/18/18 07:15 Calcium 8.9 mg/dL (8.4-10.5) 11/18/18 07:15 Phosphorus 3.3 mg/dL (2.5-4.5) 11/16/18 05:42 Magnesium 1.8 mg/dL (1.7-2.2) 11/16/18 05:42 Total Bilirubin 0.5 mg/dL (0.2-1.3) 11/18/18 07:15 AST 20 U/L (14-36) 11/18/18 07:15 ALT 20 U/L (7-56) 11/18/18 07:15 Alkaline Phosphatase 55 U/L (38-126) 11/18/18 07:15 Total Protein 7.4 g/dL (5.8-8.3) 11/18/18 07:15 Albumin 4.0 g/dL (3.0-4.8) 11/18/18 07:15 Globulin 3.4 gm/dL 11/18/18 07:15 Albumin/Globulin Ratio 1.2 (1.1-1.8) 11/18/18 07:15 Urine Color Yellow (YELLOW) 11/16/18 01:44 Urine Appearance Clear (CLEAR) 11/16/18 01:44 Urine pH 6.0 (4.7-8.0) 11/16/18 01:44 Ur Specific [place] 1.025 (1.005-1.035) 11/16/18 01:44 Urine Protein 30 mg/dL (<30 mg/dL) H 11/16/18 01:44 Urine Glucose (UA) Negative mg/dL (NEGATIVE) 11/16/18 01:44 Urine Ketones Negative mg/dL (NEGATIVE) 11/16/18 01:44 Urine Blood Negative (NEGATIVE) 11/16/18 01:44 Urine Nitrate Negative (NEGATIVE) 11/16/18 01:44 Urine Bilirubin Negative (NEGATIVE) 11/16/18 01:44 Urine Urobilinogen 0.2 E.U./dL (<1 E.U./dL) 11/16/18 01:44 Ur Leukocyte Esterase Negative Manolo/uL (NEGATIVE) 11/16/18 01:44 Urine RBC 0 - 2 /hpf (0-2) 11/16/18 01:44 Urine WBC 0 - 2 /hpf (0-6) 11/16/18 01:44 Ur Epithelial Cells 6 - 8 /hpf (0-5) H 11/16/18 01:44 Urine Bacteria Few /hpf (NONE) 11/16/18 01:44 Urine HCG, Qual Negative (NEGATIVE) 11/17/18 09:23 Salicylates < 1 mg/dL (2.0-20.0) L 11/16/18 01:46 Urine Opiates Screen Negative (NEGATIVE) 11/16/18 01:44 Urine Methadone Screen Negative (NEGATIVE) 11/16/18 01:44 Acetaminophen < 10.0 ug/ml (10.0-20.0) L 11/16/18 18:27 Ur Barbiturates Screen Negative (NEGATIVE) 11/16/18 01:44 Ur Phencyclidine Scrn Negative (NEGATIVE) 11/16/18 01:44 Ur Amphetamines Screen Negative (NEGATIVE) 11/16/18 01:44 U Benzodiazepines Scrn Negative (NEGATIVE) 11/16/18 01:44 U Oth Cocaine Metabols Negative (NEGATIVE) 11/16/18 01:44 U Cannabinoids Screen Negative (NEGATIVE) 11/16/18 01:44 Alcohol, Quantitative < 10 mg/dL (0-10) 11/16/18 01:46 Hepatitis A IgM Ab Negative (NEGATIVE) 11/16/18 14:00 Hep Bs Antigen Negative (NEGATIVE) 11/16/18 14:00 Hep B Core IgM Ab Negative (NEGATIVE) 11/16/18 14:00 Hepatitis C Antibody Negative (NEGATIVE) 11/16/18 14:00 - Hospital Course Hospital Course: 33 year old female, whose past medical history includes Type 1 diabetes, DKA, rhabdomyolysis, Right eye hemorrhage resulting in diminished eye sight and ovarian torsion s/p right salpingo-oopherectomy, who presents to the Emergency department brought in by EMS after attempting to overdose on Tylenol. Patient states she has been feeling depressed for a while, however when questioned, patient will not state why reporting "a lot of different stuff is going on." Patient states she took "a handful" of Tylenol 500 mg prior to arrival on 11/16. Patient was subsequently transported to ICU, Liver function monitored, poison control contacted, GI Consulted, and sympomatic management + NAC Treatment initiated. Patient was kept on 1:1 status until psych evaluation which deemed patient safe to remove 1:1. Patient did not want to go to voluntary inpt psych unit and subsequently psych recommended depakote and symbalta once patient discharge. GI evaluated patient and subsequently cleared patient for discharge from hepatic stand point. She was complaining of constipation for which stool softeners/ bowel regimen recommended. During hospital course, patient was complaining of headache and subsequently neurology was consulted. Patient reported that her PMD was managing her headaches however she still had break through GALO. Patient left AMA prior to being evaluated by neurology. Patient reported she had a referral for own neurologist and would follow up as outpt. Risks of leaving AMA vs Benefits of continued hospitalization were explained to patient. She verbalized understanding of risks/benefits and signed out AMA on 05 PM. Discharge Exam - Head Exam Head Exam: ATRAUMATIC, NORMOCEPHALIC Discharge Plan - Discharge Medications Prescriptions: Divalproex [Depakote Sprinkles] 250 mg PO [facility] 14 Days #28 ecc DULoxetine [Cymbalta] 20 mg PO DAILY 14 Days #28 ecc Polyethylene Glycol 3350 [Miralax] 17 gm PO DAILY PRN #30 ml PRN Reason: Constipation - Follow Up Plan Condition: STABLE Disposition: AGAINST MEDICAL ADVICE Referrals: Rani Reed DO [Primary Care Provider] -
[2018-11-18] MEDS ORDERED: POLYETHYLENE GLYCOL 3350 17 GM/Dose PACKET PO SCH (18:00)
--- NOTE | 2018-11-19 10:11 | CP.PCM.PCO ---
Physician Communication Note - Physician Communication Note Physician Communication Note: pt refused psych admission, pt pose no imminent danger to self or others.
== END 2018-11-18 18:26 | disposition left against medical advice (07) | DRG 582 ==
LOC: ED 01:14 → ERH 04:06 → ICU 10:14 → 5RNO 11-17 15:21
PROVIDERS: ADMIT Internal Medicine; ATTEND Hospitalist
DX: T39.1X2A Poisoning by 4-Aminophenol derivatives, intentional self-harm, initial encounter (principal); M62.82 Rhabdomyolysis; E10.10 Type 1 diabetes mellitus with ketoacidosis without coma; F32.9 Major depressive disorder, single episode, unspecified; I10 Essential (primary) hypertension; K59.09 Other constipation; Z90.721 Acquired absence of ovaries, unilateral; Z79.4 Long term (current) use of insulin; Z79.899 Other long term (current) drug therapy; Z83.3 Family history of diabetes mellitus; Z96.41 Presence of insulin pump (external) (internal); Z98.891 History of uterine scar from previous surgery; M79.7 Fibromyalgia; F41.1 Generalized anxiety disorder; F43.20 Adjustment disorder, unspecified